=== PATIENT | female | born 1980 | race Caucasian/White ===

== ENCOUNTER → 2022-04-02 | Outpatient (CLI) | payer BC, SELFPAY ==
--- NOTE | 2022-04-02 10:15 | RAD_ITS ---
STUDY: X-RAY CHEST REASON FOR EXAM: Female, 41 years old. PAIN TECHNIQUE: PA and lateral views of the chest. COMPARISON: None. FINDINGS: The lungs are clear and expanded. There is no demonstrated pleural abnormality. Normal size heart. Normal mediastinum and libia. Normal visualized pulmonary arteries. Normal visualized aortic arch and descending thoracic aorta. Normal visualized thoracic spine. Normal visualized ribs, clavicles, and shoulders. There is no demonstrated abnormality of the visualized soft tissue structures of the upper abdomen. RAD/Chest PA and Lateral IMPRESSION: Normal x-ray examination of the chest. Electronically Signed: Elver Gilliland MD at 9:18 EST ,
--- NOTE | 2022-04-02 10:15 | RAD_ITS ---
STUDY: X-RAY - PELVIS REASON FOR EXAM: Female, 41 years old. PAIN TECHNIQUE: One view of the pelvis was obtained. COMPARISON: None. FINDINGS: There is a non-specific bowel gas pattern. Normal visualized soft tissue structures. 8 cm peripherally calcified mass in the pelvis likely consistent with a calcified degenerated uterine fibroid. Second smaller calcified fibroid just to the left of the larger fibroid. Pelvis. Normal bilateral iliac wings, sacroiliac joints and visualized sacrum. Normal visualized bilateral superior and inferior pubic rami. Normal pubic symphysis. Normal ischial tuberosities. Normal visualized right femoral head. Normal right acetabulum. Normal right hip joint. Normal visualized left femoral head. Normal left acetabulum. Normal left hip joint. RAD/Pelvis 1 or 2 Views IMPRESSION: Calcified degenerated uterine fibroids. Electronically Signed: Elver Gilliland MD at 9:06 EST ,
[2022-04-02 11:18] LABS: EXAGEN MAILED SPECIMEN
[2022-04-02 12:18] LABS: International Normalized Ratio 0.9; Partial Thromboplast Time 30.4 Seconds (24.1-36.2); Prothrombin Time (Protime)PT. 12.3 SECONDS (11.7-14.9)
[2022-04-02 12:22] LABS: Color, Urine Yellow (Yellow); Glucose, Dipstick Normal (Normal); Ketone-Dipstick Negative (Negative); Leukocyte Esterase-Dipstick Negative /ul (Negative); Nitrite-Dipstick Negative (Negative); Occult Blood-Urine Negative /ul (Negative); Protein-Dipstick 15 mg/dl (Negative); Urine Bilirubin Dipstick Negative (Negative); Urine Clarity Clear (Clear); Urine Urobilinogen Normal (Normal)
[2022-04-02 13:32] LABS: Hepatitis B Surface Antibody Non-Reactive; Hepatitis B Surface Antigen Non-Reactive (Nonreactive); Hepatitis C Antibody Non-Reactive (Nonreactive)
[2022-04-02 14:50] LABS: Protein, Urine (Random) 16.7 mg/dL (<11.9); Protein:Creat Ratio 82 mg/g CRE (0-200)
[2022-04-02 15:06] LABS: AST(SGOT) 13 U/L (15-37); Alanine Aminotransfer ALT/SGPT 25 U/L (13-56); Albumin, Serum 3.6 g/dL (3.2-5.0); Alkaline Phosphatase 100 U/L (45-117); Anion Gap 7 (5-15); BUN 10 mg/dL (7-18); BUN/Creat Ratio 16.2 RATIO (10-20); Calcium,Total 8.9 mg/dL (8.5-10.1); Chloride 106 mmol/L (98-107); Creatinine, Serum 0.62 mg/dL (0.55-1.02); EST Glomerular Filtration Rate 113 mL/min (>60); Est Glom Filt Rate - Afr Amer 136 mL/min (>60); Globulin 3.7 g/dL (2.2-4.2); Glucose 98 mg/dL (74-106); Potassium 4.2 mmol/L (3.5-5.1); Protein, Total 7.3 g/dL (6.4-8.2); Sodium Level 139 mmol/L (136-145)
[2022-04-02 15:08] LABS: Absolute Lymphocyte Count 2.15 X10^3/uL (0.83-4.51); Absolute Neutrophil Count 7.6 X10^3/uL (2.0-7.7); Basophil# 0.06 X10^3/uL; Basophil% 0.6 % (0-1); Eosinophil# 0.18 X10^3/uL; Eosinophils% 1.7 % (0-5); Hematocrit 44.4 % (37-47); Hemoglobin 14.1 g/dL (12.0-15.0); Lymphocyte # 2.15 X10^3/ul (0.83-4.51); Lymphocyte % 20.6 % (19-41); Mean Corp Hgb Conc 31.8 g/dL (32-36); Mean Corpuscular Hgb 27.7 pg (27.0-32.0); Mean Corpuscular Volume 87.2 fL (81-99); Mean Platelet Vol. 11.1 fl (6.2-12.0); Monocyte# 0.41 X10^3/uL; Monocyte% 3.9 % (0-10); NRBC Flagged by Analyzer 0 % (0-5); Neutrophil # 7.62 X10^3/uL (2.7-7.7); Platelet Count 273 K/mm3 (150-450); RBC Distribution Width CV 12.8 % (11.6-14.6); RBC Distribution Width SD 40.3 fl (35.1-43.9); Red Blood Count 5.09 M/mm3 (4.2-5.4); White Blood Count 10.4 K/mm3 (4.4-11.0)
[2022-04-05 15:08] LABS: Dilute Prothrombin Time (dPT) 37.6 sec (0.0-47.6); Hexagonal Phase Phospholipid 4 sec (0-11); PTT-LA 40.5 sec (0.0-51.9); QNTFERON TB Mitogen Value > 10.00 IU/mL (.); QNTFERON TB Nil Value 0.34 IU/mL (.); QNTFERON TB1+ Ag Value 0.24 IU/mL (.); Thrombin Time 16.1 sec (0.0-23.0); dPT Confirm Ratio 1.12 Ratio (0.00-1.34)
[2022-04-05 15:48] LABS: Interpretation Comment: (.); QNTIFERON TB Positive Criteria Negative (Negative)
== END | disposition home or self-care (01) ==
LOC: MTLAB 10:12
PROVIDERS: PCP Family Medicine; Referring Provider Internal Medicine Rheumatology; Visit Provider Internal Medicine Rheumatology
DX: L40.59 Other psoriatic arthropathy (principal); L40.8 Other psoriasis; I10 Essential (primary) hypertension; F41.9 Anxiety disorder, unspecified; R76.8 Other specified abnormal immunological findings in serum
CPT/HCPCS: 36415; 71046; 72170; 80053; 81002; 82570; 84156; 85025; 85598; 85610; 85670; 85730; 86480; 86706; 86803; 87340

== ENCOUNTER → 2022-07-01 | Outpatient (CLI) | payer BC, SELFPAY ==
[2022-07-01 15:20] LABS: Absolute Lymphocyte Count 1.06 X10^3/uL (0.83-4.51); Absolute Neutrophil Count 7.6 X10^3/uL (2.0-7.7); Basophil# 0.03 X10^3/uL; Basophil% 0.3 % (0-1); Eosinophil# 0.08 X10^3/uL; Eosinophils% 0.9 % (0-5); Hematocrit 43.9 % (37-47); Hemoglobin 14.1 g/dL (12.0-15.0); Lymphocyte # 1.06 X10^3/ul (0.83-4.51); Lymphocyte % 11.4 % (19-41); Mean Corp Hgb Conc 32.1 g/dL (32-36); Mean Corpuscular Hgb 28.1 pg (27.0-32.0); Mean Corpuscular Volume 87.5 fL (81-99); Mean Platelet Vol. 10.9 fl (6.2-12.0); Monocyte# 0.54 X10^3/uL; Monocyte% 5.8 % (0-10); NRBC Flagged by Analyzer 0 % (0-5); Neutrophil # 7.59 X10^3/uL (2.7-7.7); Neutrophil % 81.3 % (47-70); Platelet Count 207 K/mm3 (150-450); RBC Distribution Width CV 13.1 % (11.6-14.6); RBC Distribution Width SD 41.5 fl (35.1-43.9); Red Blood Count 5.02 M/mm3 (4.2-5.4); White Blood Count 9.3 K/mm3 (4.4-11.0)
[2022-07-01 15:41] LABS: ALB/GLOB Ratio 0.8 RATIO (0.9-2.4); AST(SGOT) 10 U/L (15-37); Alanine Aminotransfer ALT/SGPT 20 U/L (13-56); Albumin, Serum 3.4 g/dL (3.2-5.0); Alkaline Phosphatase 85 U/L (45-117); Anion Gap 8 (5-15); BUN 7 mg/dL (7-18); BUN/Creat Ratio 11.2 RATIO (10-20); Calcium,Total 8.8 mg/dL (8.5-10.1); Chloride 104 mmol/L (98-107); Creatinine, Serum 0.62 mg/dL (0.55-1.02); EST Glomerular Filtration Rate 111 mL/min (>60); Est Glom Filt Rate - Afr Amer 135 mL/min (>60); Globulin 4.3 g/dL (2.2-4.2); Glucose 94 mg/dL (74-106); Potassium 3.6 mmol/L (3.5-5.1); Protein, Total 7.7 g/dL (6.4-8.2); Sodium Level 137 mmol/L (136-145)
== END | disposition home or self-care (01) ==
PROVIDERS: PCP Family Medicine; Visit Provider Internal Medicine Rheumatology
DX: L40.59 Other psoriatic arthropathy (principal); R76.8 Other specified abnormal immunological findings in serum; Z79.899 Other long term (current) drug therapy
CPT/HCPCS: 36415; 80053; 85025

== ENCOUNTER → 2022-08-26 | Outpatient (CLI) | payer BC, SELFPAY ==
[2022-08-26 12:05] LABS: Absolute Lymphocyte Count 1.84 X10^3/uL (0.83-4.51); Absolute Neutrophil Count 6.6 X10^3/uL (2.0-7.7); Basophil# 0.04 X10^3/uL; Basophil% 0.4 % (0-1); Eosinophil# 0.24 X10^3/uL; Eosinophils% 2.6 % (0-5); Hematocrit 40.1 % (37-47); Hemoglobin 12.9 g/dL (12.0-15.0); Lymphocyte # 1.84 X10^3/ul (0.83-4.51); Lymphocyte % 20.2 % (19-41); Mean Corp Hgb Conc 32.2 g/dL (32-36); Mean Corpuscular Hgb 28.7 pg (27.0-32.0); Mean Corpuscular Volume 89.1 fL (81-99); Mean Platelet Vol. 10.8 fl (6.2-12.0); Monocyte% 3.3 % (0-10); NRBC Flagged by Analyzer 0 % (0-5); Neutrophil # 6.64 X10^3/uL (2.7-7.7); Neutrophil % 73.2 % (47-70); Platelet Count 229 K/mm3 (150-450); RBC Distribution Width SD 45.3 fl (35.1-43.9); White Blood Count 9.1 K/mm3 (4.4-11.0)
[2022-08-26 12:33] LABS: ALB/GLOB Ratio 0.8 RATIO (0.9-2.4); AST(SGOT) 10 U/L (15-37); Alanine Aminotransfer ALT/SGPT 23 U/L (13-56); Albumin, Serum 3.2 g/dL (3.2-5.0); Alkaline Phosphatase 94 U/L (45-117); Anion Gap 6 (5-15); BUN 12 mg/dL (7-18); BUN/Creat Ratio 20.1 RATIO (10-20); Calcium,Total 8.9 mg/dL (8.5-10.1); Chloride 107 mmol/L (98-107); EST Glomerular Filtration Rate 117 mL/min (>60); Est Glom Filt Rate - Afr Amer 142 mL/min (>60); Glucose 82 mg/dL (74-106); Potassium 3.8 mmol/L (3.5-5.1); Protein, Total 7.2 g/dL (6.4-8.2); Sodium Level 138 mmol/L (136-145)
== END | disposition home or self-care (01) ==
LOC: MTLAB 09:51
PROVIDERS: PCP Family Medicine; Referring Provider Internal Medicine Rheumatology; Visit Provider Internal Medicine Rheumatology
DX: L40.59 Other psoriatic arthropathy (principal); L40.8 Other psoriasis; R76.8 Other specified abnormal immunological findings in serum; Z79.899 Other long term (current) drug therapy
CPT/HCPCS: 36415; 80053; 85025

== ENCOUNTER 2022-10-21 09:52 | Outpatient (CLI) | payer BC, MEDICAID, SELFPAY ==
[2022-10-21 12:26] LABS: Absolute Lymphocyte Count 1.27 X10^3/uL (0.83-4.51); Absolute Neutrophil Count 4.9 X10^3/uL (2.0-7.7); Basophil# 0.04 X10^3/uL; Basophil% 0.6 % (0-1); Eosinophil# 0.17 X10^3/uL; Eosinophils% 2.5 % (0-5); Hematocrit 39.4 % (37-47); Hemoglobin 12.5 g/dL (12.0-15.0); Lymphocyte # 1.27 X10^3/ul (0.83-4.51); Lymphocyte % 18.6 % (19-41); Mean Corp Hgb Conc 31.7 g/dL (32-36); Mean Corpuscular Hgb 28.9 pg (27.0-32.0); Mean Corpuscular Volume 91.2 fL (81-99); Mean Platelet Vol. 10.9 fl (6.2-12.0); Monocyte# 0.42 X10^3/uL; Monocyte% 6.1 % (0-10); NRBC Flagged by Analyzer 0 % (0-5); Neutrophil % 71.8 % (47-70); Platelet Count 201 K/mm3 (150-450); RBC Distribution Width CV 13.4 % (11.6-14.6); RBC Distribution Width SD 44.8 fl (35.1-43.9); Red Blood Count 4.32 M/mm3 (4.2-5.4); White Blood Count 6.8 K/mm3 (4.4-11.0)
[2022-10-21 13:04] LABS: ALB/GLOB Ratio 0.8 RATIO (0.9-2.4); AST(SGOT) 15 U/L (15-37); Alanine Aminotransfer ALT/SGPT 25 U/L (13-56); Albumin, Serum 3.1 g/dL (3.2-5.0); Alkaline Phosphatase 80 U/L (45-117); Anion Gap 5 (5-15); BUN 10 mg/dL (7-18); BUN/Creat Ratio 18.7 RATIO (10-20); Calcium,Total 8.7 mg/dL (8.5-10.1); Chloride 109 mmol/L (98-107); Creatinine, Serum 0.53 mg/dL (0.55-1.02); EST Glomerular Filtration Rate 133 mL/min (>60); Est Glom Filt Rate - Afr Amer 161 mL/min (>60); Globulin 3.8 g/dL (2.2-4.2); Glucose 92 mg/dL (74-106); Potassium 3.8 mmol/L (3.5-5.1); Protein, Total 6.9 g/dL (6.4-8.2); Sodium Level 139 mmol/L (136-145)
== END 2022-10-21 23:59 | disposition home or self-care (01) ==
LOC: MTLAB 09:53
PROVIDERS: PCP Family Medicine; Referring Provider Internal Medicine Rheumatology; Visit Provider Internal Medicine Rheumatology
DX: L40.59 Other psoriatic arthropathy (principal); R76.0 Raised antibody titer; Z79.899 Other long term (current) drug therapy
CPT/HCPCS: 36415; 80053; 85025

== ENCOUNTER → 2022-12-24 | Outpatient (CLI) | payer BC, MEDICAID, SELFPAY ==
[2022-12-24 17:42] LABS: Absolute Lymphocyte Count 1.93 X10^3/uL (0.83-4.51); Absolute Neutrophil Count 8.6 X10^3/uL (2.0-7.7); Basophil# 0.06 X10^3/uL; Basophil% 0.5 % (0-1); Eosinophil# 0.07 X10^3/uL; Eosinophils% 0.6 % (0-5); Hematocrit 37.4 % (37-47); Hemoglobin 12.1 g/dL (12.0-15.0); Lymphocyte # 1.93 X10^3/ul (0.83-4.51); Lymphocyte % 17.2 % (19-41); Mean Corp Hgb Conc 32.4 g/dL (32-36); Mean Corpuscular Hgb 28.8 pg (27.0-32.0); Monocyte# 0.46 X10^3/uL; Monocyte% 4.1 % (0-10); NRBC Flagged by Analyzer 0 % (0-5); Neutrophil # 8.64 X10^3/uL (2.7-7.7); Neutrophil % 77.3 % (47-70); Platelet Count 250 K/mm3 (150-450); RBC Distribution Width CV 13.1 % (11.6-14.6); RBC Distribution Width SD 42.4 fl (35.1-43.9); White Blood Count 11.2 K/mm3 (4.4-11.0)
[2022-12-24 18:08] LABS: ALB/GLOB Ratio 0.9 RATIO (0.9-2.4); AST(SGOT) 18 U/L (15-37); Alanine Aminotransfer ALT/SGPT 24 U/L (13-56); Albumin, Serum 3.3 g/dL (3.2-5.0); Alkaline Phosphatase 92 U/L (45-117); Anion Gap 7 (5-15); BUN 12 mg/dL (7-18); BUN/Creat Ratio 19.2 RATIO (10-20); Calcium,Total 8.8 mg/dL (8.5-10.1); Chloride 107 mmol/L (98-107); Creatinine, Serum 0.63 mg/dL (0.55-1.02); EST Glomerular Filtration Rate 111 mL/min (>60); Est Glom Filt Rate - Afr Amer 134 mL/min (>60); Globulin 3.7 g/dL (2.2-4.2); Glucose 77 mg/dL (74-106); Potassium 3.5 mmol/L (3.5-5.1); Sodium Level 140 mmol/L (136-145)
== END | disposition home or self-care (01) ==
LOC: MTLAB 14:35
PROVIDERS: PCP Family Medicine; Referring Provider Internal Medicine Rheumatology; Visit Provider Internal Medicine Rheumatology
DX: L40.59 Other psoriatic arthropathy (principal); R76.8 Other specified abnormal immunological findings in serum; Z79.899 Other long term (current) drug therapy
CPT/HCPCS: 36415; 80053; 85025

== ENCOUNTER → 2023-03-17 | Outpatient (CLI) | payer MEDICAID, SELFPAY ==
[2023-03-17 15:21] LABS: Absolute Lymphocyte Count 1.78 X10^3/uL (0.83-4.51); Absolute Neutrophil Count 9.7 X10^3/uL (2.0-7.7); Basophil# 0.06 X10^3/uL; Basophil% 0.5 % (0-1); Eosinophils% 1.6 % (0-5); Hematocrit 43.4 % (37-47); Hemoglobin 13.7 g/dL (12.0-15.0); Lymphocyte # 1.78 X10^3/ul (0.83-4.51); Lymphocyte % 14.4 % (19-41); Mean Corp Hgb Conc 31.6 g/dL (32-36); Mean Corpuscular Hgb 28.2 pg (27.0-32.0); Mean Corpuscular Volume 89.5 fL (81-99); Mean Platelet Vol. 10.7 fl (6.2-12.0); Monocyte# 0.53 X10^3/uL; Monocyte% 4.3 % (0-10); NRBC Flagged by Analyzer 0 % (0-5); Neutrophil # 9.73 X10^3/uL (2.7-7.7); Neutrophil % 78.7 % (47-70); Platelet Count 246 K/mm3 (150-450); RBC Distribution Width SD 42.6 fl (35.1-43.9); Red Blood Count 4.85 M/mm3 (4.2-5.4); White Blood Count 12.4 K/mm3 (4.4-11.0)
[2023-03-17 15:54] LABS: ALB/GLOB Ratio 0.8 RATIO (0.9-2.4); AST(SGOT) 13 U/L (15-37); Alanine Aminotransfer ALT/SGPT 20 U/L (13-56); Albumin, Serum 3.3 g/dL (3.2-5.0); Alkaline Phosphatase 92 U/L (45-117); Anion Gap 6 (5-15); BUN 8 mg/dL (7-18); BUN/Creat Ratio 12.5 RATIO (10-20); Calcium,Total 8.4 mg/dL (8.5-10.1); Chloride 109 mmol/L (98-107); Creatinine, Serum 0.64 mg/dL (0.55-1.02); EST Glomerular Filtration Rate 108 mL/min (>60); Est Glom Filt Rate - Afr Amer 131 mL/min (>60); Globulin 4.1 g/dL (2.2-4.2); Glucose 83 mg/dL (74-106); Potassium 3.6 mmol/L (3.5-5.1); Protein, Total 7.4 g/dL (6.4-8.2); Sodium Level 140 mmol/L (136-145)
== END | disposition home or self-care (01) ==
LOC: MTLAB 13:34
PROVIDERS: PCP Family Medicine; Referring Provider Internal Medicine Rheumatology; Visit Provider Internal Medicine Rheumatology
DX: L40.59 Other psoriatic arthropathy (principal); R76.8 Other specified abnormal immunological findings in serum; Z79.899 Other long term (current) drug therapy
CPT/HCPCS: 36415; 80053; 85025

== ENCOUNTER → 2023-05-05 | Outpatient (CLI) | payer MEDICAID, SELFPAY ==
--- OUTSIDE RECORDS SUMMARY | 2023-05-05 14:32 | XMS RPT_ITS | CCD ---
Author Name Unknown Address [address] [place] [address] Organization [facility] Care Team Providers Care Director Clinical Pharmacology Name Role Phone Marianna Rose Primary Care Provider Unavailable Primary Care Provider Unavailhamilton Rose MD, Marianna S Primary Care Provider [phone] PROVIDER, UNKNOWN Attending Unavailable PROVIDER, UNKNOWN Admitting Unavailable CAROL NIX Referring Unavailable Milton WIGGINS, Marianna Brewer Primary Care Provider Chung WIGGINS, Zahra Unavailable [phone] Petrilla DO, Noel F Primary Care Provider Milton, Marianna Primary Care Unavailable Isabela Reddy Attending Unavailable Milton, Marianna Referring Unavailable Greg Burgos Attending Unavailable Milton, Marianna Referring Unavailable Milton, Marianna Primary Care Unavailable Arjun Tejeda Attending Unavailable Milton, Marianna Referring Unavailable Milton, Marianna Primary Care Unavailable Petrilla , Noel F Primary Care Provider Petridolores SHUKLA Noel F Primary Care Provider [phone] PETRILLA, NOEL Primary Care Unavailable PETRILLA, NOEL Attending Unavailable PETRILLA, NOEL Primary Care Unavailable PETRILLA, NOEL Attending Unavailable PETRILLA, NOEL Primary Care Unavailable MARCO ANTONIO WHIPPLE Attending Unavailable PETRILLA, NOEL Primary Care Unavailable PETRILLA, NOEL Primary Care Unavailable MILTON, MARIANNA Primary Care Unavailable MILTON, MARIANNA Primary Care Unavailable MARCO ANTONIO WHIPPLE Attending Unavailable PETRILLA, NOEL Primary Care Unavailable PETRILLA, NOEL Attending Unavailable PETRILLA, NOEL Primary Care Unavailable Allergies Allergy Classification Reported Allergen(s) Allergy Type Date of Onset Reaction(s) Facility (20 sources) Cephalexin; 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: [CEPHALEXIN] Drug Allergy 3 [facility], [place] (16 sources) Lisinopril; 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: [LISINOPRIL] Drug Allergy 9 [place], [place] (11 sources) tiZANidine Drug Allergy 2 [facility] (6 sources) Lisinopril Propensity to adverse reactions to drug 9 Other [facility] Medications Current Medications Medication Drug Class(es) Dates Sig (Normalized) Sig (Original) Blood Pressure Monitor JENNIFER (4 sources) Start: 11-11-2018 Blood Pressure Monitor JENNIFER Indications: Essential hypertension , Family history of hypertension 1 Device by Does not apply route as needed (monitor BP and HR) 1 Device 0 11/11/2018 Active busPIRone hydrochloride 5 mg oral tablet (13 sources) Start: 05-26-2019 End: 09-26-2022 take 1 tablet by mouth twice daily as needed busPIRone (BUSPAR) 5 MG tablet Take 1 Tablet by mouth 2 times daily as needed. 0 10/17/2020 Active doxycycline hyclate 100 mg oral capsule (1 source) Tetracycline-class Drug Start: 12-06-2022 End: 12-13-2022 doxycycline (Vibramycin) 100 MG capsule Indications: Abrasion, left foot, initial encounter Take 1 capsule (100 mg) by mouth 2 times daily for 7 days. Take with at least 8 ounces (large glass) of water, do not lie down for 30 minutes after 14 capsule 0 12/06/2022 12/13/2022 Active [id number] 0.3 ml EPINEPHrine 1 mg/ml auto-injector (18 sources) alpha-Adrenergic Agonist, beta-Adrenergic Agonist, Catecholamine Start: 01-27-2019 EPINEPHrine (Epipen) 0.3 MG/0.3ML injection syringe Use as directed for allergic reaction 0 01/27/2019 Active fluticasone propionate 0.05 mg/actuat metered dose nasal spray (1 source) Corticosteroid Start: 01-23-2019 End: 02-20-2019 fluticasone (FLONASE) 50 MCG/ACT nasal spray 1 spray by Nasal route 2 times daily 0 01/23/2019 02/20/2019 Active folic acid 1 mg oral tablet (5 sources) Start: 2022 take 1 tablet by mouth once daily folic acid (Folvite) 1 MG tablet TAKE 2 TABLETS BY MOUTH ONCE DAILY 0 2022 Active leucovorin 15 mg oral tablet (5 sources) Folate Analog Start: 07-11-2022 take 1 tablet by mouth every week leucovorin (Wellcovorin) 15 MG tablet Take 15 mg by mouth 1 (one) time per week. 0 07/11/2022 Active losartan potassium 50 mg oral tablet (1 source) Angiotensin 2 Receptor Ellie Start: 04-28-2023 End: 05-28-2023 take 1 tablet by mouth once daily losartan (Cozaar) 50 MG tablet Take 1 tablet (50 mg) by mouth daily. 30 tablet 5 04/28/2023 05/28/2023 Active meloxicam 15 mg oral tablet (17 sources) Nonsteroidal Anti-inflammatory Drug Start: 03-01-2023 take 1 tablet by mouth once daily meloxicam (Mobic) 15 MG tablet Take 15 mg by mouth daily. 0 03/01/2023 Active Completed/Discontinued Medications Medication Drug Class(es) Dates Sig (Normalized) Sig (Original) acetaminophen 325 mg / HYDROcodone bitartrate 7.5 mg oral tablet (2 sources) Opioid Agonist Start: 09-26-2022 End: 10-14-2022 take 1 tablet by mouth three times daily as needed for pain HYDROcodone-acetami nophen (Clayton) 7.5-325 MG tablet Indications: Lumbar radiculopathy, acute , Psoriatic arthritis (HCC) Take 1 tablet by mouth 3 times daily as needed for severe pain (7-10) for up to 12 doses. 12 tablet 0 09/26/2022 10/14/2022 Discontinued (Therapy completed) perflutren lipid microspheres (DEFINITY) injection 1.65 mg (1 source) Start: 02-03-2019 End: 02-03-2019 perflutren lipid microspheres (DEFINITY) injection 1.65 mg predniSONE 10 mg oral tablet (5 sources) Start: 09-26-2022 End: 10-14-2022 predniSONE (Deltasone) 10 MG tablet 5 qday for 3 days, then 3 qday for 3 days, then one qday till gone 27 tablet 0 09/26/2022 10/14/2022 Discontinued (Therapy completed) Problems Active Problems Problem Classification Problem Date Documented Date Episodic/Chronic Anxiety disorders (17 sources) Generalized anxiety disorder; 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: [Generalized anxiety disorder] Onset: 08-21-2020 08-21-2020 Chronic Essential hypertension (20 sources) Essential hypertension; 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: [Essential (primary) hypertension] Onset: 04-21-2018 10-19-2018 Chronic Joint disorders and dislocations; trauma-related (17 sources) Patellofemoral syndrome of right knee; 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: [Patellofemoral disorders, right knee] Onset: 08-19-2019 08-19-2019 Chronic Joint disorders and dislocations; trauma-related (1 source) Patellofemoral syndrome of left knee; 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: [Patellofemoral pain syndrome of left knee] Joint disorders and dislocations; trauma-related (1 source) Patellofemoral syndrome of right knee; 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: [Patellofemoral pain syndrome of right knee] Osteoarthritis (3 sources) Bilateral primary osteoarthritis of knee; 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: [Primary gonarthrosis, bilateral] Onset: 09-18-2021 Chronic Other aftercare (3 sources) Patient encounter status; 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: [Encounter for therapeutic drug level monitoring] Onset: 04-28-2023 10-14-2022 Episodic Other aftercare (2 sources) halfway (current) use of non-steroidal anti-inflammatories (NSAID); 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: [halfway (current) use of non-steroidal anti-inflammatories (nsaid)] Onset: 04-28-2023 Episodic Other connective tissue disease (1 source) Pain in left foot; 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: [Pain in left foot] Episodic Other connective tissue disease (2 sources) Calcaneal spur, left foot; 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: [Calcaneal spur, left foot] Onset: 01-31-2022 Episodic Other connective tissue disease (2 sources) Pain in left foot; 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: [Pain in left foot] Onset: 01-31-2022 Episodic Other inflammatory condition of skin (18 sources) Psoriasis; 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: [Psoriasis, unspecified] Onset: 05-01-2020 05-01-2020 Chronic Other inflammatory condition of skin (8 sources) Psoriatic arthritis; 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: [Arthropathic psoriasis, unspecified] Onset: 04-25-2022 09-26-2022 Chronic Other inflammatory condition of skin (2 sources) Arthropathic psoriasis, unspecified; 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: [Arthropathic psoriasis, unspecified (HCC)] Onset: 04-25-2022 Chronic Other nutritional; endocrine; and metabolic disorders (20 sources) Severe obesity; 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: [Morbid (severe) obesity due to excess calories] Onset: 10-19-2018 10-19-2018 Chronic Other nutritional; endocrine; and metabolic disorders (1 source) Body mass index 40+ - severely obese; 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: [Body mass index (BMI) 45.0-49.9, adult] Chronic Other nutritional; endocrine; and metabolic disorders (1 source) Failure to lose weight; 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: [Other symptoms and signs concerning food and fluid intake] 04-28-2023 Episodic Spondylosis; intervertebral disc disorders; other back problems (1 source) Cervical spondylosis; 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: [Spondylosis without myelopathy or radiculopathy, cervical region] Chronic Unclassified (2 sources) Foot Injury; 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: [Foot Injury] Onset: 09-26-2022 Past or Other Problems Problem Classification Problem Date Documented Date Episodic/Chronic Cardiac dysrhythmias (20 sources) Palpitations; 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: [Palpitations] Onset: 01-20-2019 Resolved: 04-25-2022 01-20-2019 Episodic Immunizations and screening for infectious disease (3 sources) Anti-nuclear factor positive; 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: [Other specified abnormal immunological findings in serum] Onset: 01-27-2023 Episodic Nonspecific chest pain (20 sources) Chest pain; 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: [Atypical chest pain] Onset: 08-19-2019 Resolved: 04-25-2022 08-19-2019 Episodic Other aftercare (2 sources) Encounter for therapeutic drug level monitoring; 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: [Encounter for therapeutic drug level monitoring] Onset: 10-14-2022 Episodic Other complications of (3 sources) Multigravida of advanced maternal age; 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: [Supervision of elderly multigravida, first trimester] Onset: 07-25-2015 10-23-2021 Episodic Other female genital disorders (20 sources) Cervical atypism; 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: [Atypical squamous cells of undetermined significance on cytologic smear of cervix (ASC-US)] Onset: 03-18-2016 Resolved: 04-25-2022 05-04-2018 Episodic Other lower respiratory disease (18 sources) Dyspnea; 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: [Dyspnea, unspecified] Onset: 08-19-2019 Resolved: 04-25-2022 08-19-2019 Episodic Other non-traumatic joint disorders (2 sources) Pain in left knee; 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: [Pain in left knee] Onset: 09-18-2021 Episodic Other upper respiratory infections (2 sources) Acute maxillary sinusitis, unspecified; 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: [Acute maxillary sinusitis, unspecified] Onset: 07-04-2022 Episodic Residual codes; unclassified (5 sources) Family history of diabetes mellitus in first degree relative; 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: [Family history of diabetes mellitus] Onset: 04-25-2022 04-25-2022 Episodic Spondylosis; intervertebral disc disorders; other back problems (7 sources) Chronic neck pain; 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: [Cervicalgia] Onset: 09-26-2022 Episodic Superficial injury; contusion (3 sources) Abrasion, left foot, initial encounter; 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: [Abrasion or friction burn of foot and toe(s), without mention of infection] Onset: 12-06-2022 12-06-2022 Episodic Results Test Name Value Interpretation Reference Range Facil ity Vital Signs Date Time Vital Sign Value Performing Clinician Faci lity 04-28-2023 06:57-0500 Body height 167.6 cm Noel Marquez [employer] Work Phone: [facility] 04-28-2023 06:57-0500 Body mass index (BMI) [Ratio] 49.55 kg/m2 Noel Marquez DO Work Phone: [facility] 04-28-2023 06:57-0500 Body temperature 97 [degF] Noel Marquez DO Work Phone: [facility] 04-28-2023 06:57-0500 Body weight 139.25 kg Noel Marquez DO Work Phone: [facility] 04-28-2023 06:57-0500 Diastolic blood pressure 90 mm[Hg] Noel Marquez DO Work Phone: [facility] 04-28-2023 06:57-0500 Heart rate 77 /min Noel Marquez DO Work Phone: [facility] 04-28-2023 06:57-0500 SaO2% (BldA) [Mass fraction] 97 % Noel Marquez [employer] Work Phone: [facility] 04-28-2023 06:57-0500 Systolic blood pressure 140 mm[Hg] Noel Marquez DO Work Phone: [facility] 12-06-2022 09:48-0400 Body height 167.6 cm Marco Antonio IRWIN-C Work Phone: [facility] 12-06-2022 09:48-0400 Body mass index (BMI) [Ratio] 48.1 kg/m2 Marco Antonio Larsono PA-C Work Phone: [facility] 12-06-2022 09:48-0400 Body temperature 97 [degF] Marco Antonio Whipple PA-C Work Phone: [facility] 12-06-2022 09:48-0400 Body weight 135.17 kg Marco Antonio Whipple PA-C Work Phone: [facility] 12-06-2022 09:48-0400 Diastolic blood pressure 84 mm[Hg] Marco Antonio Whipple PA-C Work Phone: [facility] 12-06-2022 09:48-0400 Heart rate 84 /min Marco Antonio Whipple PA-C Work Phone: [facility] 12-06-2022 09:48-0400 SaO2% (BldA) [Mass fraction] 95 % Marco Antonio Whipple PA-C Work Phone: [facility] 12-06-2022 09:48-0400 Systolic blood pressure 134 mm[Hg] Marco Antonio Whipple PA-C Work Phone: [facility] 10-14-2022 06:56-0400 Body height 167.6 cm Noel Marquez DO Work Phone: [facility] 10-14-2022 06:56-0400 Body mass index (BMI) [Ratio] 49.55 kg/m2 Noel Marquez DO Work Phone: [facility] 10-14-2022 06:56-0400 Body temperature 97.11 [degF] Noel Marquez DO Work Phone: [facility] 10-14-2022 06:56-0400 Body weight 139.25 kg Noel Sloana DO Work Phone: [facility] 10-14-2022 06:56-0400 Diastolic blood pressure 81 mm[Hg] Noel Nancella DO Work Phone: [facility] 10-14-2022 06:56-0400 Heart rate 73 /min Noel Nancella DO Work Phone: [facility] 10-14-2022 06:56-0400 SaO2% (BldA) [Mass fraction] 97 % Noel Nancella DO Work Phone: [facility] 10-14-2022 06:56-0400 Systolic blood pressure 138 mm[Hg] Noel Sloana DO Work Phone: [facility] 09-26-2022 09:23-0400 Body height 167.6 cm Noel Sloana DO Work Phone: [facility] 09-26-2022 09:23-0400 Body mass index (BMI) [Ratio] 47.94 kg/m2 Noel Sloana DO Work Phone: [facility] 09-26-2022 09:23-0400 Body temperature 97.5 [degF] Noel Sloana DO Work Phone: [facility] 09-26-2022 09:23-0400 Body weight 134.72 kg Noel Sloana DO Work Phone: [facility] 09-26-2022 09:23-0400 Diastolic blood pressure 83 mm[Hg] Noel Nancella DO Work Phone: [facility] 09-26-2022 09:23-0400 Heart rate 82 /min Noel Nancella DO Work Phone: [facility] 09-26-2022 09:23-0400 SaO2% (BldA) [Mass fraction] 98 % Noel Nancella DO Work Phone: [facility] 09-26-2022 09:23-0400 Systolic blood pressure 121 mm[Hg] Noel Marquez DO Work Phone: [facility] 10-23-2021 10:41-0400 Body height 167.6 cm Zahra Wilkes [facility] 10-23-2021 10:41-0400 Body mass index (BMI) [Ratio] 49.55 kg/m2 Zahra Wilkes MD [facility] 10-23-2021 10:41-0400 Body temperature 97.9 [degF] Zahra Wilkes MD [facility] 10-23-2021 10:41-0400 Body weight 139.25 kg Zahra Wilkes MD [facility] 10-23-2021 10:41-0400 Diastolic blood pressure 90 mm[Hg] Zahra Wilkes MD [facility] 10-23-2021 10:41-0400 Heart rate 86 /min Zahra Wilkes MD [facility] 10-23-2021 10:41-0400 Respiratory rate 16 /min Zahra Wilkes MD [facility] 10-23-2021 10:41-0400 Systolic blood pressure 150 mm[Hg] [facility] Encounter Date Encounter Type Care Provider Facility Start: 04-28-2023 End: 04-28-2023 ambulatory NOEL MARQUEZ [facility] Start: 04-28-2023 End: 04-28-2023 Office outpatient visit 15 minutes Noel Marquez DO Work Phone: [facility] Procedures Date Procedure Procedure Detail Performing Clinician Start: 10-23-2021 Assay of thyroid stimulating hormone tsh Zahra Wilkes MD Work Phone: Start: 10-23-2021 C-reactive protein Nikole Wilkes MD Work Phone: Start: 10-23-2021 Urnls dip stick/tabl et rgnt auto w/o microscopy Zahra Wilkes MD Work Phone: Start: 09-18-2021 Radiologic examinati on knee 1/2 views Greg Burgos MD Work Phone: Start: 05-02-2020 Lipid 1996 panel - S johny or Plasma Noel Nancebahmanpato DO Work Phone: Start: 05-01-2020 Microscopic observat ion [Identifier] in Cervix by Cyto stain Carol Nix [employer] Work Phone: Start: 04-11-2020 Follow-up visit Start: 06-23-2019 Radiologic exam both knees standing anteropost Greg Burgos Work Phone: Start: 06-23-2019 Radiologic examinati on knee 3 views Greg Burgos Work Phone: Start: 06-10-2019 ROUTINE EKG TREADMIL L STRESS TEST Angela Simeonkelly Work Phone: Start: 05-26-2019 Radiologic exam ches t 2 views Angela Verna Work Phone: Start: 02-03-2019 Echo tthrc r-t 2d w/wom-mode compl spec&colr d Jessika Perales Work Phone: Laboratory test resu lt abnormal Abnormal laboratory test Zahra Wilkes MD Work Phone: Plan of Treatment Date Care Activity Detail Author Start: 2040 RSV Immunization aged 60 or older (1 - 1-dose 60+ series) RSV Immunization aged 60 or older (1 - 1-dose 60+ series) [facility] Start: 2030 Shingles (RZV) Vaccine (1 of 2) Shingles (RZV) Vaccine ([facility] of 2) [facility] Start: 2030 Shingles Vaccine (1 of 2) Shingles Vaccine (1 of 2) [facility] Work Phone: Start: 2030 Zoster Vaccines (1 of 2) Zoster Vaccines (1 of 2) [facility] Start: 12-17-2025 DTaP/Tdap/Td vaccine (3 - Td or Tdap) DTaP/Tdap/Td vaccine (3 - Td or Tdap) [facility] Start: 12-17-2025 DTaP/Tdap/Td vaccine (3 - Td) DTaP/Tdap/Td vaccine (3 - Td) [place] Start: 12-17-2025 DTaP/Tdap/Td Vaccines (3 - Td or Tdap) DTaP/Tdap/Td Vaccines (3 - Td or Tdap) [facility] Start: 12-17-2025 Tetanus vaccination Tetanus (Td or Tdap) Booster [facility] Start: 05-02-2025 Lipid panel [facility] Start: 04-26-2024 Cervical cancer screen Cervical cancer screen [facility] Work Phone: Start: 10-29-2023 End: 10-29-2023 Patient encounter procedure 10/29/2023 7:00 AM EDT Office Visit [facility] [address] [place] [address] Noel Marquez, [address] [place] [address] [facility] Start: 10-20-2023 Cervical cancer screen Cervical cancer screen [place], [place] Start: 10-20-2023 Screening for malignant neoplasm of cervix [facility] Start: 05-28-2023 End: 05-28-2023 Clinical Support 05/28/2023 9:00 AM EST Clinical Support [facility] [address] [place] [address] [facility] Start: 05-25-2023 Hepatitis B Vaccines (3 of 3 - 19+ 3-dose series) Hepatitis B Vaccines (3 of 3 - 19+ 3-dose series) [facility] Start: 05-01-2023 Screening for malignant neoplasm of cervix [facility] Start: 04-28-2023 End: 04-28-2024 Lipid 1996 panel - Serum or Plasma Lipid panel Lab Routine Primary hypertension Expected: 04/28/2023 (Approximate), Expires: 04/28/2024 [facility] Work Phone: Immunizations Immunization Date Immunization Notes Care Provider Sree escalera 01-27-2023 hepatitis B vaccine, adult dosage Noel Marquez DO Work Phone: [facility] 12-25-2022 hepatitis B vaccine, adult dosage Marco Antonio Whipple PA-C Work Phone: [facility] 11-22-2022 HepB recombinant, 3-antigent, AI([place])3 Marco Antonio Whipple PA-C Work Phone: [facility] 12-18-2015 tetanus toxoid, redu mira diphtheria toxoid, and acellular pertussis vaccine, adsorbed [facility], [place] 03-24-2013 tetanus toxoid, redu mira diphtheria toxoid, and acellular pertussis vaccine, adsorbed [facility], [place] Payers Date Payer Category Payer Medicaid ANTHEM MEDICAID ANTH MEDICAID OD [id number] 2022-Present [address] [place] [address] Medicaid HMO [id number] 2022 Medicaid [id number] 2021 Unknown [id number] 2017 Unknown BCBS BCBS OUT OF STATE xxxxxxxxxxxxxx 2017-Present [address] [place] [address] xxxxxxxxxxxxxx [id number] 2017 Unknown [id number] 1980 Unknown [id number] 1980 Unknown [id number] 1980 Unknown [id number] 1980 Unknown [id number] Social History Date Type Detail Facility Start: 05-26-2019 End: 01-31-2022 Tobacco smoking status NHIS Never smoker [place] Start: 05-26-2019 Alcohol intake Current drinker of alcohol (finding) [facility] Work Phone: Start: 04-26-2019 End: 01-31-2022 History SDOH Alcohol Frequency 3 [facility] Work Phone: Start: 04-26-2019 End: 06-28-2021 History SDOH Alcohol Std Drinks 1 [place] Start: 10-19-2018 History SDOH Education 13 [place] Start: 10-19-2018 End: 06-28-2021 History SDOH Financial 5 [place] Start: 10-19-2018 End: 06-28-2021 History SDOH Transport Med 2 [place] Start: 04-26-2019 Alcohol Comment 1 every 2 weeks [facility] Phone: Start: 1980 Sex Assigned At Not on file [place] Start: 06-23-2019 End: 04-28-2023 Alcohol intake Ex-drinker (finding) [facility] Start: 01-27-2019 End: 12-06-2022 Alcohol intake Not Currently [place] Start: 01-25-2019 Alcohol Comment occasionally [place] Start: 03-02-2018 End: 01-31-2022 Tobacco use and exposure Smokeless tobacco non-user [facility] Phone: Start: 10-29-2019 End: 01-31-2022 History SDOH Social Connections Living 8 [facility] Work Phone: Start: 06-28-2021 History SDOH Physical Activity DPW 0 [facility] Work Phone: Tobacco smoking stat us NHIS Tobacco smoking consumption unknown [facility] Start: 1980 Sex Assigned At Female [facility] Start: 09-08-2021 End: 12-25-2022 Exposure to SARS-CoV-2 (event) Not sure [facility] Start: 07-04-2022 End: 12-06-2022 History of Social function [facility] Start: 02-07-2022 Gender identity Identifies as female gender (finding) [facility] Start: 02-07-2022 Sexual orientation Heterosexual (finding) [facility] Clinical Notes 10-23-2021 to 04-28-2023 Noel Marquez DO - 04/28/2023 7:00 AM ESTPatient InstructionsMarco Antonio Whipple PA-C - 12/06/2022 9:40 AM EDTEjanuary Marquez DO - 10/14/2022 7:00 AM EDTPatient Instructions Note Date & Type Note Facility 04-28-2023 Note ----- Message from Brittany Marquez DO sent at 04/28/2023 7:31 AM EST ----- Dietitian consultation for obesity [facility] 04-28-2023 History of Present illness Narrative Images from the original note were not included. [facility] [address] [place] [address] [facility] [address] Visit type: Established Patient Reason for Visit: Follow-up (6 month med check /Pt offered flu vaccine pt declined ) Assessment / Plan: Chel was seen today for follow-up. Diagnoses and all orders for this visit: Primary hypertension (Primary) Comments: Uncontrolled, add losartan, BP check 4 weeks Orders: - Lipid panel; Future - Lipid panel NSAID long-term use Psoriatic arthritis (HCC) Class 3 severe obesity due to excess calories with serious comorbidity and body mass index (BMI) of 45.0 to 49.9 in adult (HCC) Comments: Noted, dietitian consultation, discussed GLP-1 agonist options Other orders - metoprolol succinate XL (Toprol-XL) 100 MG 24 hr tablet; Take 1 tablet (100 mg) by mouth daily for 180 doses. - losartan (Cozaar) 50 MG tablet; Take 1 tablet (50 mg) by mouth daily. Subjective: Patient ID: Chel Gaona is a 42 y.o. female. HPI hypertension NSAID management for patient with psoriatic arthritis. Feeling well. Taking Protonix which she takes meloxicam. Recent rheumatology notes and lab noted. Sometimes does have Raynaud's phenomenon. Generally her arthralgias have been well-controlled Review of Systems no recent earache sore throat or cough. Non-smoker. No chest pain or dyspnea. No heartburn or dysphagia. No melena or blood. Bowels are regular. Menses are normal. 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 Difficulty exercising due to time restraints and stiffness of her knees. Allergies Allergen Reactions Lisinopril Other Fatigue, sweatiness Tizanidine Itchy, dizzy Cephalexin Hives Current Outpatient Medications on File Prior to Visit Medication Sig Dispense Refill folic acid (Folvite) 1 MG tablet TAKE 2 TABLETS BY MOUTH ONCE DAILY leucovorin (Wellcovorin) 15 MG tablet Take 15 mg by mouth 1 (one) time per week. meloxicam (Mobic) 15 MG tablet Take 15 mg by mouth daily. methotrexate 2.5 MG tablet Take 15 mg by mouth 1 (one) time per week. pantoprazole (ProtoNix) 40 MG EC tablet Take 1 tablet (40 mg) by mouth daily for 90 doses. Do not crush, chew, or split. 90 tablet 1 triamcinolone (Kenalog) 0.1 % ointment APPLY OINTMENT TOPICALLY TWICE DAILY TO AFFECTED AREA USE A THIN LAYER [DISCONTINUED] metoprolol succinate XL (Toprol-XL) 100 MG 24 hr tablet Take 1 tablet (100 mg) by mouth daily for 90 doses. 90 tablet 1 EPINEPHrine (Epipen) 0.3 MG/0.3ML injection syringe Use as directed for allergic reaction traMADol (Ultram) 50 MG tablet Take 50 mg by mouth 3 times daily as needed. No current facility-administered medications on file prior to visit. Patient Active Problem List Diagnosis Psoriasis FORD (generalized anxiety disorder) Patellofemoral syndrome of right knee Hypertension Class 3 severe obesity due to excess calories with serious comorbidity and body mass index (BMI) of 45.0 to 49.9 in adult (HCC) Psoriatic arthritis (HCC) Family history of diabetes mellitus in father NSAID long-term use Bilateral primary osteoarthritis of knee Social History Tobacco Use Smoking status: Never Smokeless tobacco: Never Substance Use Topics Alcohol use: Not Currently Past Surgical History: Procedure Laterality Date WISDOM TOOTH EXTRACTION one tooth removed Family History Problem Relation Name Age of Onset No Known Problems Mother Jaylene Hypertension Father Devin 05/13 age 75 Diabetes Father Devin PAD, CRF No Known Problems Sister Hypertension Brother No Known Problems Daughter No Known Problems Daughter Diabetes Father's Brother No Known Problems Maternal Grandmother Heart attack Maternal Grandfather age: late 60s Other (lung cancer) Paternal Grandmother 60 Heart attack Paternal Grandfather 66 Objective: BP (!) 140/90 (BP Location: Left arm, Patient Position: Sitting, BP Cuff Size: Large adult) Pulse 77 Temp 36.1 C (97 F) (Temporal) Ht 5' 6 (1.676 m) Wt (!) 307 lb (139 kg) SpO2 97% BMI 49.55 kg/m Physical Exam Pleasant alert and cooperative. Recheck blood pressure is too high. No JVD adenopathy or carotid bruits. No neck masses. Heart is regular without ectopy or murmurs. Lungs are clear. Abdomen soft obese without pain hepatosplenomegaly or masses. Extremities are pink with trace pretibial edema/adipose. Peripheral pulses are fair. 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 [facility] [address] [facility] [address] Dept: [phone] Dept Loc: [phone] Visit type: Established Patient Reason for Visit: thinks wound on left foot Assessment and Plan 1. Abrasion, left foot, initial encounter - doxycycline (Vibramycin) 100 MG capsule; Take 1 capsule (100 mg) by mouth 2 times daily for 7 days. Take with at least 8 ounces (large glass) of water, do not lie down for 30 minutes after, Starting Fri12/06/2022, Until Fri12/13/2022, Normal -Patient has an isolated 2 distinct abrasions to the medial aspect of the left foot just above the arch of the left foot. They started out as more skin tears that she wore sandals several days ago. She has used peroxide several times which is caused an underlying desquamation of the underlying tissue. For this reason we encouraged wound care soap water antibiotic ointment as needed allow the area to eat air dry. Because of the surrounding erythema associated with the ulcerations/abrasions of the tissue we will ultimately place her on doxycycline as she cannot take cephalexin. Also concerned that she is immunocompromise that she takes methotrexate will cover prophylactic with antibiotics. Patient was comfortable with this plan all questions were answered at the bedside. Follow up if symptoms worsen or fail to improve, for Next scheduled follow-up. Subjective HPI this is a 42-year-old female with underlying history of hypertension psoriasis psoriatic arthritis, general anxiety and morbid obesity who contacted the [facility] for immediate same-day evaluation for concerns of foot pain. Patient called today stating that over the last several days her left foot has been sore in the instep area. Patient ultimately states she wore sandals about a week ago and she believes the strap and one of her sandals rubbed the skin around the medial aspect of her left foot. She has numbness and generalized pain and redness surrounding it she has been using peroxide several times to help clean the wound and noticed that it bubbled quite significantly last several times. She is concerned as she takes methotrexate for history of her psoriatic arthritis and concerned that it is developing an infection. She did state last night she had a little bit of fever or felt more chilled no true documented fever today she feels much better she denies any other issues or concerns or rashes. Review of Systems Constitutional: Positive for chills and fatigue. Negative for fever. Respiratory: Negative for cough and shortness of breath. Cardiovascular: Negative for palpitations and leg swelling. Gastrointestinal: Negative for abdominal pain, nausea and vomiting. Skin: Positive for wound. Allergies Allergen Reactions Lisinopril Other reaction(s): Other (See Comments) Chest pain Heart problems. Chest pain Other reaction(s): Other (See Comments) Heart problems. Chest pain Chest pain Tizanidine Itchy, dizzy Cephalexin Hives Outpatient Medications Prior to Visit Medication Sig Dispense Refill folic acid (Folvite) 1 MG tablet TAKE 2 TABLETS BY MOUTH ONCE DAILY leucovorin (Wellcovorin) 15 MG tablet Take 15 mg by mouth 1 (one) time per week. methotrexate 2.5 MG tablet Take 15 mg by mouth 1 (one) time per week. metoprolol succinate XL (Toprol-XL) 100 MG 24 hr tablet Take 1 tablet (100 mg) by mouth daily for 90 doses. 90 tablet 1 pantoprazole (ProtoNix) 40 MG EC tablet Take 1 tablet (40 mg) by mouth daily for 90 doses. Do not crush, chew, or split. 90 tablet 1 traMADol (Ultram) 50 MG tablet Take 50 mg by mouth 3 times daily as needed. triamcinolone (Kenalog) 0.1 % ointment APPLY OINTMENT TOPICALLY TWICE DAILY TO AFFECTED AREA USE A THIN LAYER EPINEPHrine (Epipen) 0.3 MG/0.3ML injection syringe Use as directed for allergic reaction meloxicam (Mobic) 15 MG tablet Take 1 tablet (15 mg) by mouth daily for 90 doses. (Patient not taking: Reported on 12/06/2022) 90 tablet 1 No facility-administered medications prior to visit. Past Medical History: Diagnosis Date Breast cancer screening 04/2018 Family history of diabetes mellitus in father father and pat uncles Family history of heart disease grandparents GERD (gastroesophageal reflux disease) Hypertension 2018 Pap smear for cervical cancer screening 04/2020 due 04/2023 Psoriasis 1991 Psoriatic arthritis (HCC) 2021 Dr. Thorne Social History Tobacco Use Smoking status: Never Smokeless tobacco: Never Substance Use Topics Alcohol use: Not Currently Past Surgical History: Procedure Laterality Date WISDOM TOOTH EXTRACTION one tooth removed Family History Problem Relation Name Age of Onset No Known Problems Mother Jaylene Hypertension Father Devin 05/13 age75 Diabetes Father Devin PAD, CRF No Known Problems Sister Hypertension Brother No Known Problems Daughter No Known Problems Daughter No Known Problems Maternal Grandmother Heart attack Maternal Grandfather age: late 60s Other (lung cancer) Paternal Grandmother 60 Heart attack Paternal Grandfather 66 Objective BP 134/84 (BP Location: Left arm, Patient Position: Sitting, BP Cuff Size: Large adult) Pulse 84 Temp 36.1 C (97 F) (Temporal) Ht 5' 6 (1.676 m) Wt 298 lb (135 kg) SpO2 95% BMI 48.10 kg/m Physical Exam Constitutional: General: She is not in acute distress. Appearance: Normal appearance. She is normal weight. She is not ill-appearing or toxic-appearing. Cardiovascular: Rate and Rhythm: Normal rate and regular rhythm. Heart sounds: Normal heart sounds. No murmur heard. Pulmonary: Effort: Pulmonary effort is normal. No respiratory distress. Breath sounds: Normal breath sounds. Musculoskeletal: Right lower leg: No edema. Left lower leg: No edema. Skin: General: Skin is warm and dry. Comments: Two distinct ulcer abrasions to the right each 1cm ovoid to arch left foot, mild surrounding erythema was noted however there is no signs of lymphangitic streaking or lymphedema. There is no signs of purulent drainage or discharge. Good bounding peripheral pulses were noted. Neurological: Mental Status: She is alert. Data Reviewed and Summarized Labs: Imaging/Testing: Marco Antonio Whipple PA-C 12/06/2022 Please note that portions of this note may have been completed with voice recognition software. Documentation reviewed prior to signing but minor errors in merchandise displayer may have occurred. documented in this encounter [facility] 10-14-2022 History of Present illness Narrative Images from the original note were not included. [facility] [address] [place] [id number] Visit type: Established Patient Reason for Visit: Follow-up (On bp) Assessment / Plan: Chel was seen today for follow-up. Diagnoses and all orders for this visit: Primary hypertension (Primary) Comments: - Stable, continue metoprolol Psoriatic arthritis (HCC) Encounter for monitoring NSAID therapy Other orders - meloxicam (Mobic) 15 MG tablet; Take 1 tablet (15 mg) by mouth daily for 90 doses. - metoprolol succinate XL (Toprol-XL) 100 MG 24 hr tablet; Take 1 tablet (100 mg) by mouth daily for 90 doses. - pantoprazole (ProtoNix) 40 MG EC tablet; Take 1 tablet (40 mg) by mouth daily for 90 doses. Do not crush, chew, or split. Subjective: Patient ID: Chel Gaona is a 42 y.o. female. HPI hypertensive non-smoker for checkup. Feels great on metoprolol. Of note taking meloxicam and Protonix and her overall joint pains are much better. No GI concerns. Review of Systems non-smoker. Denies cough or congestion. No chest pain or palpitations. No heartburn or dysphagia. No bowel changes. 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 She defers at today from physician. Has not been taking Clayton or tramadol. Sees rheumatology regularly with routine lab. Resolving sciatica. Sees chiropractor every few weeks Allergies Allergen Reactions Lisinopril Other reaction(s): Other (See Comments) Chest pain Heart problems. Chest pain Other reaction(s): Other (See Comments) Heart problems. Chest pain Chest pain Tizanidine Itchy, dizzy Cephalexin Hives Current Outpatient Medications on File Prior to Visit Medication Sig Dispense Refill folic acid (Folvite) 1 MG tablet TAKE 2 TABLETS BY MOUTH ONCE DAILY leucovorin (Wellcovorin) 15 MG tablet Take 15 mg by mouth 1 (one) time per week. methotrexate 2.5 MG tablet Take 15 mg by mouth 1 (one) time per week. triamcinolone (Kenalog) 0.1 % ointment APPLY OINTMENT TOPICALLY TWICE DAILY TO AFFECTED AREA USE A THIN LAYER [DISCONTINUED] meloxicam (Mobic) 15 MG tablet Take 1 tablet (15 mg) by mouth daily for 30 doses. 30 tablet 1 [DISCONTINUED] metoprolol succinate XL (Toprol-XL) 100 MG 24 hr tablet Take 1 tablet (100 mg) by mouth daily for 30 doses. 30 tablet 5 [DISCONTINUED] pantoprazole (ProtoNix) 40 MG EC tablet Take 1 tablet (40 mg) by mouth daily. Do not crush, chew, or split. 30 tablet 5 EPINEPHrine (Epipen) 0.3 MG/0.3ML injection syringe Use as directed for allergic reaction [DISCONTINUED] HYDROcodone-acetaminophen (Clayton) 7.5-325 MG tablet Take 1 tablet by mouth 3 times daily as needed for severe pain (7-10) for up to 12 doses. (Patient not taking: Reported on 10/14/2022) 12 tablet 0 [DISCONTINUED] predniSONE (Deltasone) 10 MG tablet TAKE 1 TABLET BY MOUTH ONCE DAILY NEEDED -TAKE FOR 2-5 DAYS NEEDED [DISCONTINUED] predniSONE (Deltasone) 10 MG tablet 5 qday for 3 days, then 3 qday for 3 days, then one qday till gone (Patient not taking: Reported on 10/14/2022) 27 tablet 0 [DISCONTINUED] traMADol (Ultram) 50 MG tablet No current facility-administered medications on file prior to visit. Patient Active Problem List Diagnosis Psoriasis FORD (generalized anxiety disorder) Patellofemoral syndrome of right knee Hypertension Class 3 severe obesity due to excess calories with serious comorbidity and body mass index (BMI) of 45.0 to 49.9 in adult (HCC) Psoriatic arthritis (HCC) Family history of diabetes mellitus in father Social History Tobacco Use Smoking status: Never Smokeless tobacco: Never Substance Use Topics Alcohol use: Not Currently Past Surgical History: Procedure Laterality Date WISDOM TOOTH EXTRACTION one tooth removed Family History Problem Relation Name Age of Onset No Known Problems Mother Jaylene Hypertension Father Devin 05/13 age75 Diabetes Father Devin PAD, CRF No Known Problems Sister Hypertension Brother No Known Problems Daughter No Known Problems Daughter No Known Problems Maternal Grandmother Heart attack Maternal Grandfather age: late 60s Other (lung cancer) Paternal Grandmother 60 Heart attack Paternal Grandfather 66 Objective: BP 138/81 (BP Location: Left arm, Patient Position: Sitting, BP Cuff Size: Large adult) Pulse 73 Temp 36.2 C (97.1 F) (Temporal) Ht 5' 6 (1.676 m) Wt (!) 307 lb (139 kg) SpO2 97% BMI 49.55 kg/m Physical Exam exam is unchanged. Blood pressure excellent. No JVD adenopathy carotid bruits. Heart is regular without gallops or murmurs or ectopy. Lungs are clear. Abdomen obese nontender without pain hepatosplenomegaly masses or bruits. No extremity edema. Negative straight leg raising bilaterally. There is no motor loss of the legs. documented in this encounter [facility] 09-26-2022 History of Present illness Narrative Images from the original note were not included. [facility] [address] [facility] [id number] Visit type: Established Patient Reason for Visit: Back Pain and Foot Injury (Heel spurs on both feet hurt) Assessment / Plan: Chel was seen today for back pain and foot injury. Diagnoses and all orders for this visit: Lumbar radiculopathy, acute (Primary) Comments: See below meds. Stretchs. Continue chiropractic treatment. Call with any sense of weakness or pain to the legs and feet. Call for lumbar xray no res in 1 wk Orders: - HYDROcodone-acetaminophen (Clayton) 7.5-325 MG tablet; Take 1 tablet by mouth 3 times daily as needed for severe pain (7-10) for up to 12 doses. Psoriatic arthritis (HCC) - HYDROcodone-acetaminophen (Clayton) 7.5-325 MG tablet; Take 1 tablet by mouth 3 times daily as needed for severe pain (7-10) for up to 12 doses. Other orders - pantoprazole (ProtoNix) 40 MG EC tablet; Take 1 tablet (40 mg) by mouth daily. Do not crush, chew, or split. - predniSONE (Deltasone) 10 MG tablet; 5 qday for 3 days, then 3 qday for 3 days, then one qday till gone - meloxicam (Mobic) 15 MG tablet; Take 1 tablet (15 mg) by mouth daily for 30 doses. Subjective: Patient ID: Chel Gaona is a 42 y.o. female. HPI patient with psoriatic arthritis presents with 3 to 4 days of an acute low back pain with numbness to both legs. No direct fall or trauma. History of low back pain for many years in fact goes to chiropractor every few weeks. No bowel or bladder incontinence. Recently on tramadol for low back pain without relief. Was on prednisone about 3 months ago. Overall her joints feel better on methotrexate and folic acid. Of note she was on meloxicam for a while but was taken off of that when she told her rheumatology she was having some gastritis. She misses that med for her knees and her plantar fasciitis. Review of Systems no chronic sciatica. Chiropractic treatment usually helps. No direct fall or trauma. No bowel or bladder incontinence. No increase Valsalva maneuvers. Low back pain is more on the right side. Some tingling to both legs in the posterior thighs. No sense of weakness of her feet or toes. History of heartburn but no chronic treatment. Has never had EGD. She does not smoke or drink. No history of ulcers. No melena or blood. Allergies Allergen Reactions Lisinopril Other reaction(s): Other (See Comments) Chest pain Heart problems. Chest pain Other reaction(s): Other (See Comments) Heart problems. Chest pain Chest pain Tizanidine Itchy, dizzy Cephalexin Hives Current Outpatient Medications on File Prior to Visit Medication Sig Dispense Refill EPINEPHrine (Epipen) 0.3 MG/0.3ML injection syringe Use as directed for allergic reaction folic acid (Folvite) 1 MG tablet TAKE 2 TABLETS BY MOUTH ONCE DAILY leucovorin (Wellcovorin) 15 MG tablet Take 15 mg by mouth 1 (one) time per week. methotrexate 2.5 MG tablet Take 15 mg by mouth 1 (one) time per week. metoprolol succinate XL (Toprol-XL) 100 MG 24 hr tablet Take 1 tablet (100 mg) by mouth daily for 30 doses. 30 tablet 5 predniSONE (Deltasone) 10 MG tablet TAKE 1 TABLET BY MOUTH ONCE DAILY NEEDED -TAKE FOR 2-5 DAYS NEEDED traMADol (Ultram) 50 MG tablet triamcinolone (Kenalog) 0.1 % ointment APPLY OINTMENT TOPICALLY TWICE DAILY TO AFFECTED AREA USE A THIN LAYER [DISCONTINUED] busPIRone (Buspar) 5 MG tablet Take 1 tablet by mouth 2 times daily as needed. [DISCONTINUED] meloxicam (Mobic) 15 MG tablet Take 15 mg by mouth daily. No current facility-administered medications on file prior to visit. Patient Active Problem List Diagnosis Psoriasis FORD (generalized anxiety disorder) Patellofemoral syndrome of right knee Hypertension Class 3 severe obesity due to excess calories with serious comorbidity and body mass index (BMI) of 45.0 to 49.9 in adult (HCC) Psoriatic arthritis (HCC) Family history of diabetes mellitus in father Social History Tobacco Use Smoking status: Never Smokeless tobacco: Never Substance Use Topics Alcohol use: Not Currently Past Surgical History: Procedure Laterality Date WISDOM TOOTH EXTRACTION one tooth removed Family History Problem Relation Name Age of Onset No Known Problems Mother Jaylene Hypertension Father Devin alive age 75 Diabetes Father Devin PAD, CRF No Known Problems Sister Hypertension Brother No Known Problems Daughter No Known Problems Daughter No Known Problems Maternal Grandmother Heart attack Maternal Grandfather age: late 60s Lung cancer Paternal Grandmother Other (lung cancer) Paternal Grandmother 60 Heart attack Paternal Grandfather 66 Objective: BP 121/83 Pulse 82 Temp 36.4 C (97.5 F) (Temporal) Ht 5' 6 (1.676 m) Wt 297 lb (135 kg) SpO2 98% BMI 47.94 kg/m Physical Exam pleasant cooperative no CVA tenderness. Nontender thoracic and lumbar spinal process palpation. Pain along the right SI joint. Positive straight leg raise on the right. Negative contralateral straight leg raising. Normal hip range of motion without deficits. Reflexes are preserved in both upper and lower extremities. Toes downgoing no clonus. There is no motor or sensory loss of any extremity. She can walk on her heels and toes but cautiously. Feet are little cool but dorsalis pedis and posterior tibial pulses are adequate. Abdomen soft obese nontender without obvious masses. 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 Observe for any pain or weakness of the legs or feet. documented in this encounter [facility] 10-23-2021 History of Present illness Narrative New Rheumatology Note CC: abnormal labs Referred by: Patient HPI: Chel Gaona is a 41 year old female here for evaluation of above complaint Ongoing since about 2016; feet pain, dx plantar fasciitis. Progressed to knee pains. Intestinal problems w gall bladder attack. Chest pains- attributed to anxiety. Back pain started in june. Woke up and couldn't walk, felt a pop. Saw doc and labs done. crp really high Stress triggers her pain. Can be out of work 2-5 days bc of joint pains. Starting PT for knees; didn't help in the past. Had CSI for left knee helped only 2 weeks Pain in knees not constant but can be all day. Not necessarily activity related. Hands will lock up and neck. No wrist pains. Elbow had a locked episode but unclear etiology. Swelling in left knee mostly, particularly after climbing on a ladder or stress. Tried: mobic 15mg daily since June. More stomach pains. Did have some pain relief initially. Prednisone trial- didn't help, messed up her menses zanaflex- uses prn, gets very loopy. MAR 1:320 Toes color change purple only on waking, improves w activity. Never cold exposure. No oral ulcers Feels more light sensitive in eyes and mild driness but no gtts. No dry mouth. Aunt w rheumatoid. Never seizures. No serositis. No eye inflammation Gets some hairloss in clumps a times. No rash on scalp. Behind ears and Patch upper back, many topicals otc didn't help. Told eczema. PM/SHx: anxiety, htn; no surgeries SocialHx: never smoker; works at [employer] FamilyHx: mom catarats; dad dialysis; dad mac degeneration Allergies: lisinopril, keflex Current Outpatient Medications Medication Sig Dispense Refill meloxicam (MOBIC) 15 MG tablet tizanidine (ZANAFLEX) 4 MG tablet Take 4 mg by mouth. metoprolol (TOPROL-XL) 50 mg XL tablet Take 1 Tablet by mouth daily. busPIRone (BUSPAR) 5 MG tablet Take 1 Tablet by mouth 2 times daily as needed. No current facility-administered medications for this visit. ROS: all ten systems are reviewed and negative except for pertinent positive and negative stated in the HPI Physical Exam Constitutional: General: She is not in acute distress. Appearance: She is obese. HENT: Head: Normocephalic and atraumatic. Eyes: Conjunctiva/sclera: Conjunctivae normal. Cardiovascular: Rate and Rhythm: Normal rate and regular rhythm. Heart sounds: Normal heart sounds. No murmur heard. No friction rub. No gallop. Pulmonary: Effort: Pulmonary effort is normal. Breath sounds: Normal breath sounds. Abdominal: General: Bowel sounds are normal. Palpations: Abdomen is soft. Tenderness: There is no abdominal tenderness. Musculoskeletal: General: Normal range of motion. Right shoulder: Normal. Left shoulder: Normal. Right elbow: Normal. Left elbow: Normal. Right wrist: Normal. Left wrist: Normal. Right hand: Normal. Left hand: Normal. Cervical back: Normal range of motion. Lumbar back: Normal. Right hip: Normal. Left hip: Normal. Right knee: Normal. Left knee: Normal. Right ankle: Normal. Left ankle: Normal. Right foot: Normal. Left foot: Normal. Lymphadenopathy: Cervical: No cervical adenopathy. Skin: General: Skin is warm and dry. Findings: Rash (upper back; 5inch plaque w moderate scale; around both ears small scaly plaque; small plaque frontal scalp) present. Neurological: Mental Status: She is alert and oriented to person, place, and time. Gait: Gait is intact. Psychiatric: Mood and Affect: Mood and affect normal. Cognition and Memory: Memory normal. Labs: 06/2021 MAR 1: 320 RF neg CRP 25 mg/L SED 30mm/hr Assessment/Plan: Chel Gaona is a 41 year old female with psoriasis behind ears and upper back; foot pains remote plantar fasciitis and acute back pain 06/2021 and chronic left knee pain; morbid obesity #MAR+; no s/s ctd; suspect false positive related psoriasis perhaps -check c3, c4, agus, ua/tp for completion #psoriasis- discussed pathology, trial topical triamcinolone cream, discussed risks and how to use #generalized alopecia- likely related to mild scalp pso -check tsh for completion #left knee pain- early OA with chondromalacia -starting PT -discussed weight loss and preventative supportive care #back pain, acute, intermittent neck pain- discussed msk pain and likely early OA; no history suggestive of PsA -continue mobic; given mild gi discomfort, discussed cut in half, use GI protection, consider GI consult if not improving w cessation -start PT #anxiety- discussed stress and anxiety playing a role in chronic pain #suspected IGOR- discussed PSG #elevated APR- discussed elevated in June likely related to acute back pain -check esr, CRP; discussed likely will be mild elevation bc of obesity and suspect IGOR -discussed risks and benefits to plan; answered all questions rtc pending above work up or prn Zahra Wilkes MD 10:42 AM Patient was identified by name and date of . Ani Turner Patient at risk for falls:No Falls Risk protocol implemented: No documented in this encounter [facility] documented in this encounter [facility] Work Phone: Evaluation note* Diagnosis Psoriasis- Primary Other psoriasis Abnormal laboratory test Other abnormal clinical finding Mechanical back pain Backache, unspecified Cervical spondylosis Cervical spondylosis without myelopathy MAR positive Other and unspecified nonspecific immunological findings Body mass index (BMI) 45.0-49.9, adult ([facility] Left foot pain Pain in limb documented in this encounter [facility] Work Phone: Evaluation note* Diagnosis Lumbar radiculopathy, acute- Primary Psoriatic arthritis (HCC) Psoriatic arthropathy [facility] Primary hypertension- Primary Unspecified essential hypertension Psoriatic arthritis (HCC) Psoriatic arthropathy Encounter for monitoring NSAID therapy [facility] Diagnosis Abrasion, left foot, initial encounter- Primary [facility] Diagnosis Primary hypertension- Primary Unspecified essential hypertension NSAID long-term use Encounter for long-term (current) use of non-steroidal anti-inflammatories Psoriatic arthritis (HCC) Psoriatic arthropathy Class 3 severe obesity due to excess calories with serious comorbidity and body mass index (BMI) of 45.0 to 49.9 in adult (HCC) Unable to lose weight documented in this encounter [facility] Assessments Diagnosis Chest pain, unspecified type SOB (shortness of breath) Shortness of breath Diagnosis Chest pain, unspecified type Diagnosis Patellofemoral pain syndrome of left knee Patellofemoral pain syndrome of right knee Diagnosis Essential hypertension Unspecified essential hypertension Class 3 severe obesity due to excess calories with serious comorbidity and body mass index (BMI) of 45.0 to 49.9 in adult (HCC) Palpitations Atypical chest pain Other chest pain Advance Directives No Advanced Directives Records FoundDocuments on File Type Date 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 Advance Directives and Living Will Power of Clinical Trial Specialist Documents on File Type Date 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 Advance Directives and Living Will Power of Clinical Trial Specialist Documents on File Type Date 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 ACP-Advance Directive ACP-Power of Clinical Trial Specialist Summary Purpose Family History No Family History Records FoundNo Family History Records FoundNo Family History Records FoundNo Family History Records FoundNo Family History Records Found Reason for Referral Status Reason Specialty Diagnoses / Procedures Referre d By Contact Referred To Contact Closed Cardiology Diagnoses Essential hypertension Class 3 severe obesity due to excess calories with serious comorbidity and body mass index (BMI) of 45.0 to 49.9 in adult (HCC) Palpitations Atypical chest pain Procedures ECHO Complete 2D W Doppler W Color Jessika Perales MD [address] [facility] [address] [place] [address] Specialty Diagnoses / Procedures Referred By Contac t Referred To Contact Diagnoses Mechanical back pain Cervical spondylosis Zahra Wilkes MD [address] [place] [id number] Referral ID Status Reason Start Date Expiration Date V isits Requested Visits Authorized [id number] Authorized 10/23/2021 10/23/2022 3 3 Comments Physical therapy Diagnosis: chronic back and neck pain, 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 Evaluate and treat Additional Source Comments INFORMATION SOURCE (unrecogn ized section and content) DATE CREATED AUTHOR AUTHOR'S ORGANIZ ATION 07/02/2021 [employer] DATE CREATED AUTHOR AUTHOR'S ORGANIZ ATION 10/24/2021 [employer] DATE CREATED AUTHOR AUTHOR'S ORGANIZ ATION 02/10/2022 [employer] DATE CREATED AUTHOR AUTHOR'S ORGANIZ ATION 04/29/2023 [employer] [facility] Care Teams (unrecognized sec tion and content) Director Clinical Pharmacology Relationship Specialty Start Date End Date Marianna Rose MD [address] [place] [address], [address] [place], [place] [phone] PCP - General Family Medicine 03/02/18 Director Clinical Pharmacology Relationship Specialty Start Date End Date Marianna Rose MD [address] [place] [address], [address] [place], [place] [phone] PCP - General Family Medicine 03/02/18 Director Clinical Pharmacology Relationship Specialty Start Date End Date Zahra Wilkes MD [address] [place] [phone] Physician Rheumatology 11/24/21 Director Clinical Pharmacology Relationship Specialty Start Date End Date JimmyNoel, [address] [place] [address] PCP - General Family Medicine 01/31/22 Director Clinical Pharmacology Relationship Specialty Start Date End Date Noel Marquez DO [address], [place] [phone] PCP - General Family Medicine 09/26/22 Director Clinical Pharmacology Relationship Specialty Start Date End Date Noel Marquez DO [address] [place], [place] [phone] PCP - General Family Medicine 09/26/22 Director Clinical Pharmacology Relationship Specialty Start Date End Date GoyobahmanNoel whyte DO [address], [place] [phone] PCP - General Family Medicine 09/26/22 Director Clinical Pharmacology Relationship Specialty Start Date End Date Noel Marquez DO [address] [facility] [address] [place] [address] PCP - General Family Medicine 09/26/22 Reason for Visit (unrecogniz ed section and content) Reason Comments Back Pain Foot Injury Heel spurs on both f eet hurt Reason Comments Follow-up On bp Reason Comments thinks wound on left foot Reason Comments Follow-up 6 month med check Pt offered flu vaccine pt declined FOR RECORDS PERTAINING TO PATIENTS WHO ARE OR HAVE BEEN ENROLLED IN A CHEMICAL DEPENDENCY/SUBSTANCEABUSE PROGRAM, SOME INFORMATION MAY BE OMITTED. This clinical summary was aggregated from multiple sources. Caution should be exercised in using it in the provision of clinical care. This summary normalizes information from multiple sources, and as a consequence, information in this document may materially change the coding, format and clinical context of patient data. In addition, data may be omitted in some cases. CLINICAL DECISIONS SHOULD BE BASED ON THE PRIMARY CLINICAL RECORDS. [facility] provides no warranty or guarantee of the accuracy or completeness of information in this document.
[2023-05-05 15:16] LABS: Absolute Lymphocyte Count 1.88 X10^3/uL (0.83-4.51); Absolute Neutrophil Count 6.9 X10^3/uL (2.0-7.7); Basophil# 0.06 X10^3/uL; Basophil% 0.6 % (0-1); Eosinophils% 2.1 % (0-5); Hematocrit 41.5 % (37-47); Hemoglobin 13.2 g/dL (12.0-15.0); Lymphocyte # 1.88 X10^3/ul (0.83-4.51); Mean Corp Hgb Conc 31.8 g/dL (32-36); Mean Corpuscular Hgb 28.3 pg (27.0-32.0); Mean Corpuscular Volume 89.1 fL (81-99); Mean Platelet Vol. 11.4 fl (6.2-12.0); Monocyte# 0.38 X10^3/uL; NRBC Flagged by Analyzer 0 % (0-5); Neutrophil # 6.85 X10^3/uL (2.7-7.7); Neutrophil % 72.9 % (47-70); Platelet Count 262 K/mm3 (150-450); RBC Distribution Width CV 13.4 % (11.6-14.6); RBC Distribution Width SD 43.4 fl (35.1-43.9); Red Blood Count 4.66 M/mm3 (4.2-5.4); White Blood Count 9.4 K/mm3 (4.4-11.0)
[2023-05-05 15:43] LABS: ALB/GLOB Ratio 0.8 RATIO (0.9-2.4); AST(SGOT) 17 U/L (15-37); Alanine Aminotransfer ALT/SGPT 37 U/L (13-56); Albumin, Serum 3.3 g/dL (3.2-5.0); Alkaline Phosphatase 111 U/L (45-117); Anion Gap 6 (5-15); BUN 11 mg/dL (7-18); BUN/Creat Ratio 18.3 RATIO (10-20); Calcium,Total 8.6 mg/dL (8.5-10.1); Chloride 109 mmol/L (98-107); EST Glomerular Filtration Rate 116 mL/min (>60); Est Glom Filt Rate - Afr Amer 140 mL/min (>60); Globulin 3.9 g/dL (2.2-4.2); Glucose 93 mg/dL (74-106); Potassium 3.9 mmol/L (3.5-5.1); Protein, Total 7.2 g/dL (6.4-8.2); Sodium Level 141 mmol/L (136-145)
== END | disposition home or self-care (01) ==
LOC: MTLAB 13:37
PROVIDERS: PCP Family Medicine; Referring Provider Internal Medicine Rheumatology; Visit Provider Internal Medicine Rheumatology
DX: L40.59 Other psoriatic arthropathy (principal); R76.8 Other specified abnormal immunological findings in serum; Z79.899 Other long term (current) drug therapy
CPT/HCPCS: 36415; 80053; 85025

== ENCOUNTER → 2023-07-01 | Outpatient (CLI) | payer MEDICAID, SELFPAY ==
[2023-07-01 18:37] LABS: ALB/GLOB Ratio 0.9 RATIO (0.9-2.4); AST(SGOT) 14 U/L (15-37); Alanine Aminotransfer ALT/SGPT 24 U/L (13-56); Albumin, Serum 3.3 g/dL (3.2-5.0); Alkaline Phosphatase 93 U/L (45-117); Anion Gap 5 (5-15); BUN 16 mg/dL (7-18); BUN/Creat Ratio 26.1 RATIO (10-20); Calcium,Total 8.6 mg/dL (8.5-10.1); Chloride 107 mmol/L (98-107); Creatinine, Serum 0.61 mg/dL (0.55-1.02); EST Glomerular Filtration Rate 113 mL/min (>60); Est Glom Filt Rate - Afr Amer 137 mL/min (>60); Globulin 3.5 g/dL (2.2-4.2); Glucose 90 mg/dL (74-106); Potassium 3.6 mmol/L (3.5-5.1); Protein, Total 6.8 g/dL (6.4-8.2); Sodium Level 138 mmol/L (136-145)
[2023-07-01 18:44] LABS: Absolute Lymphocyte Count 1.94 X10^3/uL (0.83-4.51); Absolute Neutrophil Count 7.6 X10^3/uL (2.0-7.7); Basophil# 0.04 X10^3/uL; Basophil% 0.4 % (0-1); Eosinophil# 0.21 X10^3/uL; Hematocrit 36.5 % (37-47); Hemoglobin 11.9 g/dL (12.0-15.0); Lymphocyte # 1.94 X10^3/ul (0.83-4.51); Lymphocyte % 18.9 % (19-41); Mean Corp Hgb Conc 32.6 g/dL (32-36); Mean Corpuscular Hgb 28.8 pg (27.0-32.0); Mean Corpuscular Volume 88.4 fL (81-99); Monocyte# 0.46 X10^3/uL; Monocyte% 4.5 % (0-10); NRBC Flagged by Analyzer 0 % (0-5); Neutrophil # 7.59 X10^3/uL (2.7-7.7); Neutrophil % 73.8 % (47-70); Platelet Count 223 K/mm3 (150-450); RBC Distribution Width CV 13.3 % (11.6-14.6); Red Blood Count 4.13 M/mm3 (4.2-5.4); White Blood Count 10.3 K/mm3 (4.4-11.0)
== END | disposition home or self-care (01) ==
LOC: MTLAB 16:16
PROVIDERS: PCP Family Medicine; Referring Provider Internal Medicine Rheumatology; Visit Provider Internal Medicine Rheumatology
DX: L40.59 Other psoriatic arthropathy (principal); R76.8 Other specified abnormal immunological findings in serum; Z79.899 Other long term (current) drug therapy
CPT/HCPCS: 36415; 80053; 85025

== ENCOUNTER → 2023-10-01 | Outpatient (CLI) | payer MEDICAID, SELFPAY ==
[2023-10-01 16:01] LABS: Absolute Lymphocyte Count 1.93 X10^3/uL (0.83-4.51); Absolute Neutrophil Count 6.2 X10^3/uL (2.0-7.7); Basophil# 0.04 X10^3/uL; Basophil% 0.5 % (0-1); Eosinophil# 0.13 X10^3/uL; Eosinophils% 1.5 % (0-5); Hematocrit 37.3 % (37-47); Hemoglobin 12.3 g/dL (12.0-15.0); Lymphocyte # 1.93 X10^3/ul (0.83-4.51); Lymphocyte % 22.2 % (19-41); Mean Corpuscular Hgb 28.9 pg (27.0-32.0); Mean Corpuscular Volume 87.8 fL (81-99); Mean Platelet Vol. 11.3 fl (6.2-12.0); Monocyte# 0.35 X10^3/uL; NRBC Flagged by Analyzer 0 % (0-5); Neutrophil # 6.23 X10^3/uL (2.7-7.7); Neutrophil % 71.6 % (47-70); Platelet Count 221 K/mm3 (150-450); RBC Distribution Width CV 13.3 % (11.6-14.6); Red Blood Count 4.25 M/mm3 (4.2-5.4); White Blood Count 8.7 K/mm3 (4.4-11.0)
[2023-10-01 16:14] LABS: ALB/GLOB Ratio 0.9 RATIO (0.9-2.4); AST(SGOT) 10 U/L (15-37); Alanine Aminotransfer ALT/SGPT 22 U/L (13-56); Albumin, Serum 3.2 g/dL (3.2-5.0); Alkaline Phosphatase 94 U/L (45-117); Anion Gap 5 (5-15); BUN 14 mg/dL (7-18); BUN/Creat Ratio 23.7 RATIO (10-20); Calcium,Total 9.1 mg/dL (8.5-10.1); Chloride 109 mmol/L (98-107); Creatinine, Serum 0.59 mg/dL (0.55-1.02); EST Glomerular Filtration Rate 118 mL/min (>60); Est Glom Filt Rate - Afr Amer 143 mL/min (>60); Globulin 3.7 g/dL (2.2-4.2); Glucose 82 mg/dL (74-106); Potassium 3.6 mmol/L (3.5-5.1); Protein, Total 6.9 g/dL (6.4-8.2); Sodium Level 140 mmol/L (136-145)
== END | disposition home or self-care (01) ==
PROVIDERS: PCP Family Medicine; Referring Provider Internal Medicine Rheumatology; Visit Provider Internal Medicine Rheumatology
DX: L40.59 Other psoriatic arthropathy (principal); Z79.899 Other long term (current) drug therapy; R76.8 Other specified abnormal immunological findings in serum; L40.8 Other psoriasis; M21.41 Flat foot [pes planus] (acquired), right foot; I10 Essential (primary) hypertension; F41.9 Anxiety disorder, unspecified
CPT/HCPCS: 36415; 80053; 85025

== ENCOUNTER → 2023-12-29 | Outpatient (CLI) | payer MEDICAID, SELFPAY ==
[2023-12-29 10:18] LABS: Absolute Lymphocyte Count 1.99 X10^3/uL (0.83-4.51); Absolute Neutrophil Count 5.7 X10^3/uL (2.0-7.7); Basophil# 0.04 X10^3/uL; Basophil% 0.5 % (0-1); Eosinophil# 0.21 X10^3/uL; Eosinophils% 2.5 % (0-5); Hematocrit 37.2 % (37-47); Hemoglobin 12.2 g/dL (12.0-15.0); Lymphocyte # 1.99 X10^3/ul (0.83-4.51); Mean Corp Hgb Conc 32.8 g/dL (32-36); Mean Corpuscular Hgb 29.3 pg (27.0-32.0); Mean Corpuscular Volume 89.4 fL (81-99); Mean Platelet Vol. 10.5 fl (6.2-12.0); Monocyte# 0.34 X10^3/uL; Monocyte% 4.1 % (0-10); NRBC Flagged by Analyzer 0 % (0-5); Neutrophil # 5.67 X10^3/uL (2.7-7.7); Neutrophil % 68.5 % (47-70); Platelet Count 218 K/mm3 (150-450); RBC Distribution Width CV 12.7 % (11.6-14.6); RBC Distribution Width SD 41.4 fl (35.1-43.9); Red Blood Count 4.16 M/mm3 (4.2-5.4); White Blood Count 8.3 K/mm3 (4.4-11.0)
[2023-12-29 10:33] LABS: ALB/GLOB Ratio 0.8 RATIO (0.9-2.4); AST(SGOT) 10 U/L (15-37); Alanine Aminotransfer ALT/SGPT 18 U/L (13-56); Alkaline Phosphatase 87 U/L (45-117); Anion Gap 5 (5-15); BUN 13 mg/dL (7-18); BUN/Creat Ratio 23.6 RATIO (10-20); Calcium,Total 8.9 mg/dL (8.5-10.1); Chloride 106 mmol/L (98-107); Creatinine, Serum 0.55 mg/dL (0.55-1.02); EST Glomerular Filtration Rate 127 mL/min (>60); Est Glom Filt Rate - Afr Amer 154 mL/min (>60); Globulin 3.8 g/dL (2.2-4.2); Glucose 105 mg/dL (74-106); Potassium 3.5 mmol/L (3.5-5.1); Protein, Total 6.8 g/dL (6.4-8.2); Sodium Level 139 mmol/L (136-145)
== END | disposition home or self-care (01) ==
PROVIDERS: PCP Family Medicine; Referring Provider Internal Medicine Rheumatology; Visit Provider Internal Medicine Rheumatology
DX: L40.59 Other psoriatic arthropathy (principal); L40.8 Other psoriasis; R76.8 Other specified abnormal immunological findings in serum; Z79.899 Other long term (current) drug therapy
CPT/HCPCS: 36415; 80053; 85025

== ENCOUNTER → 2024-03-29 | Outpatient (CLI) | payer MEDICAID, SELFPAY ==
[2024-03-29 17:30] LABS: Absolute Neutrophil Count 10.2 X10^3/uL (2.0-7.7); Basophil# 0.06 X10^3/uL; Basophil% 0.5 % (0-1); Eosinophil# 0.14 X10^3/uL; Eosinophils% 1.1 % (0-5); Hematocrit 38.4 % (37-47); Hemoglobin 12.4 g/dL (12.0-15.0); Lymphocyte % 17.4 % (19-41); Mean Corp Hgb Conc 32.3 g/dL (32-36); Mean Corpuscular Hgb 28.9 pg (27.0-32.0); Mean Corpuscular Volume 89.5 fL (81-99); Mean Platelet Vol. 10.8 fl (6.2-12.0); Monocyte# 0.47 X10^3/uL; Monocyte% 3.6 % (0-10); NRBC Flagged by Analyzer 0 % (0-5); Neutrophil # 10.18 X10^3/uL (2.7-7.7); Neutrophil % 76.9 % (47-70); Platelet Count 242 K/mm3 (150-450); RBC Distribution Width CV 13.1 % (11.6-14.6); RBC Distribution Width SD 42.1 fl (35.1-43.9); Red Blood Count 4.29 M/mm3 (4.2-5.4); White Blood Count 13.2 K/mm3 (4.4-11.0)
[2024-03-29 19:02] LABS: ALB/GLOB Ratio 0.8 RATIO (0.9-2.4); AST(SGOT) 14 U/L (15-37); Alanine Aminotransfer ALT/SGPT 21 U/L (13-56); Albumin, Serum 3.1 g/dL (3.2-5.0); Alkaline Phosphatase 93 U/L (45-117); Anion Gap 4 (5-15); BUN 11 mg/dL (7-18); BUN/Creat Ratio 13.3 RATIO (10-20); Calcium,Total 8.8 mg/dL (8.5-10.1); Chloride 107 mmol/L (98-107); Creatinine, Serum 0.83 mg/dL (0.55-1.02); EST Glomerular Filtration Rate 79 mL/min (>60); Est Glom Filt Rate - Afr Amer 96 mL/min (>60); Glucose 108 mg/dL (74-106); Potassium 3.2 mmol/L (3.5-5.1); Protein, Total 7.1 g/dL (6.4-8.2); Sodium Level 139 mmol/L (136-145)
== END | disposition home or self-care (01) ==
LOC: MTLAB 15:22
PROVIDERS: PCP Family Medicine; Referring Provider Internal Medicine Rheumatology; Visit Provider Internal Medicine Rheumatology
DX: L40.59 Other psoriatic arthropathy (principal); R76.8 Other specified abnormal immunological findings in serum; Z79.899 Other long term (current) drug therapy
CPT/HCPCS: 36415; 80053; 85025

== ENCOUNTER → 2024-06-18 | Outpatient (CLI) | payer MEDICAID, SELFPAY ==
[2024-06-18 12:57] LABS: ALB/GLOB Ratio 1.2 RATIO (0.9-2.4); AST(SGOT) 16 U/L (<=31); Alanine Aminotransfer ALT/SGPT 13 U/L (<=34); Albumin, Serum 3.8 g/dL (3.5-5.0); Alkaline Phosphatase 96 U/L (35-104); Anion Gap 10 (5-15); BUN 11 mg/dL (4-19); BUN/Creat Ratio 19.3 RATIO (10-20); Carbon Dioxide 24.1 mmol/L (22.0-29.0); Chloride 104 mmol/L (96-108); Creatinine, Serum 0.55 mg/dL (0.70-1.20); EST Glomerular Filtration Rate 116 (>60); Globulin 3.2 g/dL (2.2-4.2); Glucose 107 mg/dL (70-99); Potassium 3.7 mmol/L (3.3-5.1); Sodium Level 138 mmol/L (133-145); Total Bilirubin 0.67 mg/dL (0.00-1.30)
[2024-06-18 13:51] LABS: Absolute Lymphocyte Count 1.85 X10^3/uL (0.83-4.51); Absolute Neutrophil Count 6.9 X10^3/uL (2.0-7.7); Basophil# 0.04 X10^3/uL; Basophil% 0.4 % (0-1); Eosinophil# 0.15 X10^3/uL; Eosinophils% 1.6 % (0-5); Hemoglobin 13.1 g/dL (12.0-15.0); Lymphocyte # 1.85 X10^3/ul (0.83-4.51); Lymphocyte % 19.8 % (19-41); Mean Corp Hgb Conc 32.8 g/dL (32-36); Mean Corpuscular Volume 88.7 fL (81-99); Mean Platelet Vol. 11.1 fl (6.2-12.0); Monocyte# 0.35 X10^3/uL; Monocyte% 3.7 % (0-10); NRBC Flagged by Analyzer 0 % (0-5); Neutrophil # 6.91 X10^3/uL (2.7-7.7); Neutrophil % 74.1 % (47-70); Platelet Count 230 K/mm3 (150-450); RBC Distribution Width CV 12.8 % (11.6-14.6); RBC Distribution Width SD 41.9 fl (35.1-43.9); Red Blood Count 4.51 M/mm3 (4.2-5.4); White Blood Count 9.3 K/mm3 (4.4-11.0)
== END | disposition home or self-care (01) ==
LOC: MTLAB 09:40
PROVIDERS: PCP Family Medicine; Referring Provider Internal Medicine Rheumatology; Visit Provider Internal Medicine Rheumatology
DX: L40.59 Other psoriatic arthropathy (principal); L40.8 Other psoriasis; R76.8 Other specified abnormal immunological findings in serum; Z79.899 Other long term (current) drug therapy
CPT/HCPCS: 36415; 80053; 85025

== ENCOUNTER → 2024-09-21 | Outpatient (CLI) | payer MEDICAID, SELFPAY ==
[2024-09-21 15:24] LABS: Absolute Lymphocyte Count 2.34 X10^3/uL (0.83-4.51); Absolute Neutrophil Count 8.4 X10^3/uL (2.0-7.7); Basophil# 0.05 X10^3/uL; Basophil% 0.4 % (0-1); Eosinophil# 0.16 X10^3/uL; Eosinophils% 1.4 % (0-5); Hematocrit 39.1 % (37-47); Hemoglobin 12.8 g/dL (12.0-15.0); Lymphocyte # 2.34 X10^3/ul (0.83-4.51); Lymphocyte % 20.4 % (19-41); Mean Corp Hgb Conc 32.7 g/dL (32-36); Mean Corpuscular Hgb 28.6 pg (27.0-32.0); Mean Corpuscular Volume 87.3 fL (81-99); Mean Platelet Vol. 11.4 fl (6.2-12.0); Monocyte# 0.51 X10^3/uL; Monocyte% 4.5 % (0-10); NRBC Flagged by Analyzer 0 % (0-5); Neutrophil # 8.36 X10^3/uL (2.7-7.7); Platelet Count 225 K/mm3 (150-450); RBC Distribution Width CV 13.2 % (11.6-14.6); RBC Distribution Width SD 42.3 fl (35.1-43.9); Red Blood Count 4.48 M/mm3 (4.2-5.4); White Blood Count 11.5 K/mm3 (4.4-11.0)
[2024-09-21 15:45] LABS: ALB/GLOB Ratio 1.1 RATIO (0.9-2.4); AST(SGOT) 14 U/L (<=31); Alanine Aminotransfer ALT/SGPT 13 U/L (<=34); Albumin, Serum 3.8 g/dL (3.5-5.0); Alkaline Phosphatase 94 U/L (35-104); Anion Gap 12 (5-15); BUN 12 mg/dL (4-19); BUN/Creat Ratio 20.4 RATIO (10-20); Calcium,Total 8.9 mg/dL (7.6-11.0); Chloride 103 mmol/L (98-108); Creatinine, Serum 0.59 mg/dL (0.70-1.20); EST Glomerular Filtration Rate 114 (>60); Globulin 3.3 g/dL (2.2-4.2); Glucose 89 mg/dL (70-99); Potassium 3.8 mmol/L (3.3-5.1); Protein, Total 7.1 g/dL (5.9-8.4); Sodium Level 138 mmol/L (133-145); Total Bilirubin 0.36 mg/dL (0.00-1.30)
== END | disposition home or self-care (01) ==
LOC: MTLAB 12:41
PROVIDERS: PCP Family Medicine; Referring Provider Internal Medicine Rheumatology; Visit Provider Internal Medicine Rheumatology
DX: L40.59 Other psoriatic arthropathy (principal); L40.8 Other psoriasis; R76.8 Other specified abnormal immunological findings in serum; Z79.899 Other long term (current) drug therapy
CPT/HCPCS: 36415; 80053; 85025

== ENCOUNTER → 2024-09-22 | Outpatient (CLI) | payer MEDICAID, SELFPAY ==
--- NOTE | 2024-09-22 16:24 | RAD_ITS ---
PROCEDURE: CHEST PA AND LATERAL 09/22/2024 REASON FOR EXAM: PAIN TECHNIQUE: Frontal and lateral views of the chest. COMPARISON: 04/02/2022 FINDINGS: No focal consolidations. No pleural effusion or pneumothorax. Cardiac silhouette is within normal limits. No acute fractures. RAD/Chest PA and Lateral IMPRESSION: No focal consolidations. Reading Location: [id number]
--- OUTSIDE RECORDS SUMMARY | 2024-09-22 22:05 | XMS RPT_ITS | CCD ---
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 Role Phone Marianna Rose Primary Care Provider [phone] Unavailable Primary Care Provider UnavailMarianna Key MD Primary Care Provider PROVIDER, UNKNOWN Attending Unavailable PROVIDER, UNKNOWN Admitting Unavailable EFRAÍN MAHONEY Referring Unavailable Marinana Rose MD Primary Care Provider [phone] aZhra Wilkes MD Unavailable Noel Marquez DO Primary Care Provider Milton Marianna Primary Care Unavailable Carlitos Aburto Attending Unavailable Milton, Marianna Referring Unavailable Flavio Ward Attending Unavailable Milton, Marianna Referring Unavailable Milton, Marianna Primary Care Unavailable Arjun Tejeda Attending Unavailable Milton, Marianna Referring Unavailable Milton Marianna Primary Care Unavailable Noel Marquez DO Primary Care Provider Noel Marquez DO Primary Care Provider [phone] Zahra Wilkes MD Unavailable [phone] Marianna Rose MD Primary Care Provider Dr. Noel Marquez DO Primary Care Provider Laurence WIGGINS, Dr. Espinoza Attending Provider Dr. Olga Dang MD Referring Provider NOEL MARQUEZ Attending Unavailable NOEL MARQUEZ Primary Care Unavailable NOEL MARQUEZ Attending Unavailable NOEL MARQUEZ Primary Care Unavailable Olga Dang Attending Unavailable Noel Marquez Primary Care Unavailable Olga Dang Referring Unavailable Olga Dang Attending Unavailable Noel Marquez Primary Care Unavailable Olga Dang Referring Unavailable Olga Dang Attending Unavailable Noel Marquez Primary Care Unavailable Olga Dang Referring Unavailable Olga Dagn Referring Unavailable Noel Marquez Primary Care Unavailable Olga Dang Attending Unavailable Noel Marquez Primary Care Unavailable Olga Dang Attending Unavailable Olga Dang Referring Unavailable Allergies Allergy Classification Reported Allergen(s) Allergy Type Date of Onset Reaction(s) Facility (20 sources) Cephalexin; 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: [CEPHALEXIN] Drug Allergy 3 [place], [place] (16 sources) Lisinopril; 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: [LISINOPRIL] Drug Allergy 9 [place], [place] (20 sources) tiZANidine Drug Allergy 2 [facility] (20 sources) Lisinopril Propensity to adverse reactions to drug 9 Other [facility] Medications Current Medications Medication Drug Class(es) Dates Sig (Normalized) Sig (Original) amoxicillin 875 mg / clavulanate 125 mg oral tablet (2 sources) Penicillin-class Antibacterial Start: 07-04-2022 End: 07-14-2022 take 1 tablet by mouth twice daily amoxicillin-clavu lanate (Augmentin) 875-125 MG tablet Indications: Acute non-recurrent maxillary sinusitis Take 1 tablet by mouth 2 times daily for 10 days. 20 tablet 0 07/04/2022 07/14/2022 Active Blood Pressure Monitor JENNIFER (4 sources) Start: 11-11-2018 Blood Pressure Monitor JENNIFER Indications: Essential hypertension , Family history of hypertension 1 Device by Does not apply route as needed (monitor BP and HR) 1 Device 0 11/11/2018 Active busPIRone hydrochloride 5 mg oral tablet (19 sources) Start: 05-26-2019 End: 09-26-2022 take 1 tablet by mouth twice daily as needed busPIRone (BUSPAR) 5 MG tablet Take 1 Tablet by mouth 2 times daily as needed. 10/17/2020 Active doxycycline hyclate 100 mg oral [...] after 14 capsule 0 12/06/2022 12/13/2022 Active [id number] 0.3 ml EPINEPHrine 1 mg/ml auto-injector (20 sources) alpha-Adrenergic Agonist, beta-Adrenergic Agonist, Catecholamine Start: 01-27-2019 EPINEPHrine (Epipen) 0.3 MG/0.3ML injection syringe Use as directed for allergic reaction 01/27/2019 Active fluticasone propionate 0.05 mg/actuat metered dose nasal spray (1 source) Corticosteroid Start: 01-23-2019 End: 02-20-2019 fluticasone (FLONASE) 50 MCG/ACT nasal spray 1 spray by Nasal route 2 times daily 0 01/23/2019 02/20/2019 Active folic acid 1 mg oral tablet (20 sources) Start: 2022 take 1 tablet by mouth once daily folic acid (Folvite) 1 MG tablet TAKE 2 TABLETS BY MOUTH ONCE DAILY 2022 Active leucovorin 15 mg oral tablet (19 sources) Folate Analog Start: 07-11-2022 take 1 tablet by mouth every week leucovorin (Wellcovorin) 15 MG tablet Take 15 mg by mouth 1 (one) time per week. 07/11/2022 Active losartan potassium 100 mg oral tablet (18 sources) Angiotensin 2 Receptor Scott Start: 03-30-2024 End: 07-02-2024 take 1 tablet by mouth once daily losartan (Cozaar) 100 MG tablet Take 1 tablet (100 mg) by mouth daily. 90 tablet 1 07/02/2024 Active Start: 05-28-2023 End: 11-11-2023 take 1 tablet by mouth once daily losartan (Cozaar) 100 MG tablet Take 1 tablet by mouth once daily 90 tablet 1 11/11/2023 Active Start: 04-28-2023 End: 05-28-2023 take 1 tablet by mouth once daily losartan (Cozaar) 50 MG tablet Take 1 tablet (50 mg) by mouth daily. 30 tablet 5 04/28/2023 05/28/2023 Discontinued meloxicam 15 mg oral tablet (20 sources) Nonsteroidal Anti-inflammatory Drug Start: 03-01-2023 End: 12-24-2023 take 1 tablet by mouth once daily meloxicam (Mobic) 15 MG tablet Take 1 tablet (15 mg) by mouth daily. 90 tablet 1 12/24/2023 Active Start: 10-09-2021 End: 01-12-2023 take 1 tablet by mouth once daily meloxicam (Mobic) 15 MG tablet Take 15 mg by mouth daily. 0 07/04/2022 Active Start: 06-28-2021 take 1 tablet by jewels th once daily meloxicam (MOBIC) 15 MG tablet Take 1 tablet by mouth daily 30 tablet 2 06/28/2021 Active methotrexate 2.5 mg oral tablet (20 sources) Folate Analog Metabolic Inhibitor Start: 09-03-2022 methotrexate 2.5 MG tablet Take 15 mg by mouth 1 (one) time per week. 09/03/2022 Active Start: 2022 End: 07-04-2022 take 5 tablets by mouth every week methotrexate 2.5 MG tablet Take 12.5 mg by mouth 1 (one) time per week. 0 2022 07/04/2022 Discontinued (Therapy completed) 24 hr metoprolol succinate 100 mg extended release oral tablet (20 sources) beta-Adrenergic Scott Start: 05-23-2022 End: 07-02-2024 take 1 tablet by mouth once daily metoprolol succinate XL (Toprol-XL) 100 MG 24 hr tablet Take 1 tablet (100 mg) by mouth daily. 90 tablet 1 07/02/2024 Active Start: 03-16-2021 End: 05-23-2022 take 1 tablet by mouth once daily metoprolol succinate XL (Toprol-XL) 50 MG 24 hr tablet Take 50 mg by mouth daily. 0 12/08/2021 Active Start: 11-11-2018 take 1 tablet by jewels th once daily metoprolol succinate (TOPROL XL) 25 MG extended release tablet Indications: Essential hypertension Take 1 tablet by mouth daily 30 tablet 12 11/11/2018 Active oseltamivir 75 mg oral capsule (2 sources) Neuraminidase Inhibitor Start: 07-19-2023 End: 07-24-2023 take 1 capsule by mouth every twelve hours oseltamivir (Tamiflu) 75 MG capsule Take 1 capsule (75 mg) by mouth in the morning and 1 capsule (75 mg) in the evening. Do all this for 5 days. 10 capsule 0 07/19/2023 07/24/2023 Active pantoprazole 40 mg delayed release oral tablet (20 sources) Proton Pump Inhibitor Start: 09-26-2022 End: 07-02-2025 take 1 tablet by mouth once daily pantoprazole (ProtoNix) 40 MG EC tablet Take 1 tablet (40 mg) by mouth daily for 90 doses. Do not crush, chew, or split. 90 tablet 1 10/14/2022 07/02/2025 Active Start: 05-26-2019 take 1 tablet by jewels th once daily before breakfast pantoprazole (PROTONIX) 40 MG tablet Indications: Gastroesophageal reflux disease without esophagitis Take 1 tablet by mouth every morning (before breakfast) 30 tablet 5 05/26/2019 Active tiZANidine 4 mg oral tablet (12 sources) Central alpha-2 Adrenergic Agonist Start: 06-28-2021 End: 10-31-2021 tizanidine (ZANAFLEX) 4 MG tablet Take 4 mg by mouth. 06/28/2021 Active traMADol hydrochloride 50 mg oral tablet (19 sources) Opioid Agonist Start: 11-26-2022 take 1 tablet by mouth three times daily as needed traMADol (Ultram) 50 MG tablet Take 50 mg by mouth 3 times daily as needed. 11/26/2022 Active Start: 09-23-2022 End: 10-14-2022 traMADol (Ultram) 50 MG tabl et triamcinolone acetonide 0.001 mg/mg topical ointment (20 sources) Corticosteroid Start: 11-17-2023 End: 08-01-2024 triamcinolone (Kenalog) 0.1 % ointment Apply topically 2 times daily. 80 g 1 08/02/2024 Active Start: 10-23-2021 triamcinolone (KENALOG) 0.1 % ointment Apply topically 2 times daily. Apply thin layer to affected area. 30 g 2 10/23/2021 Active Start: 10-23-2021 End: 11-16-2023 triamcinolone (Kenalog) 0.1 % ointment APPLY OINTMENT TOPICALLY TWICE DAILY TO AFFECTED AREA USE A THIN LAYER 10/23/2021 11/16/2023 Discontinued (Reorder) Completed/Discontinued Medications Medication Drug Class(es) Dates Sig (Normalized) Sig (Original) acetaminophen 325 mg / HYDROcodone bitartrate 7.5 mg oral tablet (2 sources) Opioid Agonist Start: 09-26-2022 End: 10-14-2022 take 1 tablet by mouth three times daily as needed for pain HYDROcodone-acetam inophen ([place]) 7.5-325 MG tablet Indications: Lumbar radiculopathy, acute , Psoriatic arthritis (HCC) Take 1 tablet by mouth 3 times daily as needed for severe pain (7-10) for up to 12 doses. 12 tablet 0 09/26/2022 10/14/2022 Discontinued (Therapy completed) ibuprofen 600 mg oral tablet (1 source) Nonsteroidal Anti-inflammatory Drug Start: 02-03-2016 End: 04-25-2022 take 1 tablet by mouth every six hours as needed ibuprofen 600 MG tablet Take 600 mg by mouth every 6 hours as needed. 0 02/03/2016 04/25/2022 Discontinued (Therapy completed) lidocaine 0.05 mg/mg topical ointment (1 source) Antiarrhythmic, Amide Local Anesthetic Start: 02-07-2016 End: 04-25-2022 lidocaine (Xylocaine) 5 % ointment Apply 1 application topically in the morning and 1 application at noon and 1 application in the evening. 0 02/07/2016 04/25/2022 Discontinued (Therapy completed) 2 ml ondansetron 2 mg/ml injection (4 sources) Serotonin-3 Receptor Antagonist Start: 07-19-2023 End: 07-19-2023 ondansetron (Zofran) injection 4 mg Start: 07-19-2023 End: 07-26-2023 take 1 tablet by mouth every eight hours as needed for nausea and vomiting ondansetron ODT (Zofran-ODT) 4 MG disintegrating tablet Take 1 tablet (4 mg) by mouth every 8 hours as needed for nausea or vomiting for up to 7 days. 15 tablet 0 07/19/2023 07/26/2023 Active perflutren lipid microsphere s (DEFINITY) injection 1.65 mg (1 source) Start: 02-03-2019 End: 02-03-2019 perflutren lipid microsphere s (DEFINITY) injection 1.65 mg predniSONE 10 mg oral tablet (5 sources) Start: 09-26-2022 End: 10-14-2022 predniSONE (Deltasone) 10 MG tablet 5 qday for 3 days, then 3 qday for 3 days, then one qday till gone 27 tablet 0 09/26/2022 10/14/2022 Discontinued (Therapy completed) Start: 07-10-2022 End: 10-14-2022 take 1 tablet by mouth once daily as needed predniSONE (Deltasone) 10 MG tablet TAKE 1 TABLET BY MOUTH ONCE DAILY NEEDED -TAKE FOR 2-5 DAYS NEEDED 0 07/10/2022 10/14/2022 Discontinued (Therapy completed) Start: 09-03-2021 predniSONE (DE LTASONE) 10 MG tablet Take 4 tabs x3 days; 3 tabs x3days; 2 tabs x 3 days; 1 tab x 3 days. With food. 30 tablet 0 09/03/2021 Active 50 ml sodium chloride 9 mg/m l injection (2 sources) Start: 07-19-2023 End: 07-19-2023 sodium chloride 0.9 % bolus 1,000 mL Problems Active Problems Problem Classification Problem Date Documented Date Episodic/Chronic Anxiety disorders (20 sources) Generalized anxiety disorder; 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: [Generalized anxiety disorder] Onset: 08-21-2020 08-21-2020 Chronic Essential hypertension (20 sources) Essential hypertension; 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: [Essential (primary) hypertension] Onset: 04-21-2018 10-19-2018 Chronic Immunizations and screening for infectious disease (2 sources) Anti-nuclear factor positive; 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: [Other specified abnormal immunological findings in serum] Onset: 09-21-2024 Episodic Joint disorders and dislocations; trauma-related (20 sources) Patellofemoral syndrome of right knee; 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: [Patellofemoral disorders, right knee] Onset: 08-19-2019 08-19-2019 Chronic Joint disorders and dislocations; trauma-related (1 source) Patellofemoral syndrome of left knee; 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: [Patellofemoral pain syndrome of left knee] Joint disorders and dislocations; trauma-related (1 source) Patellofemoral syndrome of right knee; 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: [Patellofemoral pain syndrome of right knee] Osteoarthritis (20 sources) Bilateral primary osteoarthritis of knee; 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: [Primary gonarthrosis, bilateral] Onset: 09-18-2021 Chronic Other aftercare (13 sources) Patient encounter status; 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: [Encounter for therapeutic drug level monitoring] Onset: 04-28-2023 10-14-2022 Episodic Other aftercare (2 sources) Encounter for therapeutic drug level monitoring; 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: [Encounter for therapeutic drug level monitoring] Onset: 07-02-2024 Episodic Other aftercare (1 source) Other usp (current) drug therapy; 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: [Other middle or intermediate school principal (current) drug therapy] Onset: 09-21-2024 Episodic Other connective tissue disease (1 source) Pain in left foot; 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: [Pain in left foot] Episodic Other connective tissue disease (2 sources) Calcaneal spur, left foot; 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: [Calcaneal spur, left foot] Onset: 01-31-2022 Episodic Other connective tissue disease (2 sources) Pain in left foot; 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: [Pain in left foot] Onset: 01-31-2022 Episodic Other inflammatory condition of skin (20 sources) Psoriasis; 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: [Psoriasis, unspecified] Onset: 05-01-2020 05-01-2020 Chronic Other inflammatory condition of skin (20 sources) Psoriatic arthritis; 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: [Arthropathic psoriasis, unspecified] Onset: 04-25-2022 09-26-2022 Chronic Other inflammatory condition of skin (2 sources) Psoriasis, unspecified; 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: [Psoriasis, unspecified] Onset: 02-02-2022 Chronic Other inflammatory condition of skin (2 sources) Arthropathic psoriasis, unspecified; 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: [Arthropathic psoriasis, unspecified (HCC)] Onset: 04-25-2022 Chronic Other inflammatory condition of skin (2 sources) Other psoriatic arthropathy; 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: [Other psoriatic arthropathy] Onset: 07-01-2024 Chronic Other inflammatory condition of skin (1 source) Other psoriasis; 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: [Other psoriasis] Onset: 09-21-2024 Chronic Other nutritional; endocrine; and metabolic disorders [...] without myelopathy or radiculopathy, cervical region] Chronic Spondylosis; intervertebral disc disorders; other back problems (5 sources) Chronic neck pain; 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: [Cervicalgia] Episodic Superficial injury; contusion (1 source) Abrasion, left foot, initial encounter; 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: [Abrasion or friction burn of foot and toe(s), without mention of infection] 12-06-2022 Episodic Past or Other Problems Problem Classification Problem Date Documented Da te Episodic/Chronic Cardiac dysrhythmias (20 sources) Palpitations; 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: [Palpitations] Onset: 01-20-2019 Resolved: 04-25-2022 01-20-2019 Episodic Fluid and electrolyte disorders (14 sources) Dehydration; 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: [Dehydration] Onset: 07-19-2023 Resolved: 12-24-2023 07-19-2023 Episodic Influenza (14 sources) Influenza due to Influenza A virus; 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: [Influenza due to other identified influenza virus with other respiratory manifestations] Onset: 07-19-2023 Resolved: 12-24-2023 07-19-2023 Episodic Nausea and vomiting (14 sources) Nausea and vomiting; 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: [Nausea with vomiting, unspecified] Onset: 07-19-2023 Resolved: 12-24-2023 07-19-2023 Episodic Nonspecific chest pain (20 sources) Chest pain; 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: [Atypical chest pain] Onset: 08-19-2019 Resolved: 04-25-2022 08-19-2019 Episodic Other aftercare (6 sources) half-way current use of non-steroidal anti-inflammatory drug; 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: [half-way (current) use of non-steroidal anti-inflammatories (NSAID)] Onset: 04-28-2023 04-28-2023 Episodic Other aftercare (2 sources) long term care pharmacist (current) use of non-steroidal anti-inflammatories (NSAID); 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: [half-way (current) use of non-steroidal anti-inflammatories (nsaid)] Onset: 04-28-2023 Episodic Other complications of (4 sources) Multigravida of advanced maternal age; 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: [Supervision of elderly multigravida, first trimester] Onset: 07-25-2015 10-23-2021 Episodic Other female genital disorders (20 sources) Cervical atypism; 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: [Atypical squamous cells of undetermined significance on cytologic smear of cervix (ASC-US)] Onset: 03-18-2016 Resolved: 04-25-2022 05-04-2018 Episodic Other lower respiratory disease (20 sources) Dyspnea; 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: [Dyspnea, unspecified] Onset: 08-19-2019 Resolved: 04-25-2022 08-19-2019 Episodic Other non-traumatic joint disorders (2 sources) Pain in left knee; 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: [Pain in left knee] Onset: 09-18-2021 Episodic Other upper respiratory infections (1 source) Acute maxillary sinusitis; 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: [Acute maxillary sinusitis, unspecified] Episodic Residual codes; unclassified (20 sources) Family history of diabetes mellitus in first degree relative; 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: [Family history of diabetes mellitus] Onset: 04-25-2022 04-25-2022 Episodic Results Test Name Value Interpretation Reference Range Facility CBC W/Diff, Automatedon 06-0 Absolute Lymph 2.34 X10 3/uL Normal 0.83-4.51 [facility] Comment on above: Performed By: #### L 100.0100, L500.4050 #### [facility] [address] [place], [address] Absolute Neut 8.4 X10 3/uL High 2.0-7.7 [facility] Comment on above: Performed By: #### L 100.0100, L500.4050 #### [facility] [address] [place], [address] Basophils/100 WBC (Bld) 0.4 % Normal 0-1 [facility] Comment on above: Performed By: #### L 100.0100, L500.4050 #### [facility] [address] [place], [address] Eosinophils/100 WBC (Bld) 1.4 % Normal 0-5 [facility] Comment on above: Performed By: #### L 100.0100, L500.4050 #### [facility] [address] [place], [address] Erythrocyte distribution width (RBC) [Ratio] 13.2 % Normal 11.6-14.6 [facility] Comment on above: Performed By: #### L 100.0100, L500.4050 #### [facility] [address] [place], [address] Hematocrit (Bld) [Volume fraction] 39.1 % Normal 37-47 [facility] Comment on above: Performed By: #### L 100.0100, [id number] #### [facility] [address] [place], [address] Hemoglobin (Bld) [Mass/Vol] 12.8 g/dL Normal 12.0-15.0 [facility] Comment on above: Performed By: #### L 100.0100, [id number] #### [facility] [address] [place], [address] IG% 0.300 Normal 0.0-0.9 [facility] Comment on above: Result Comment: IG% - Immature Granulocytes (promyelocytes, myelocytes and metamyelocytes) > 1% indicates that a LEFT SHIFT is Present. Performed By: #### L 100.0100, L500.4050 #### [facility] [address] [place], [address] Lymphocytes/100 WBC (Bld) 20.4 % Normal 19-41 [facility] Comment on above: Performed By: #### L 100.0100, [id number] #### [facility] [address] [place], [address] MCH (RBC) [Entitic mass] 28.6 pg Normal 27.0-32.0 [facility] Comment on above: Performed By: #### L 100.0100, [id number] #### [facility] [address] [place], [address] MCHC (RBC) [Mass/Vol] 32.7 g/dL Normal 32-36 [facility] Comment on above: Performed By: #### L 100.0100, [id number] #### [facility] [address] [place], [address] MCV (RBC) [Entitic vol] 87.3 fL Normal 81-99 [facility] Comment on above: Performed By: #### L 100.0100, L500.4050 #### [facility] [address] [place], [address] Monocytes/100 WBC (Bld) 4.5 % Normal 0-10 [facility] Comment on above: Performed By: #### L 100.0100, L500.4050 #### [facility] [address] [place], [address] Neutrophils/100 WBC (Bld) 73.0 % High 47-70 [facility] Comment on above: Performed By: #### L 100.0100, [id number] #### [facility] [address] [place], [address] Nucleated RBC (Bld) [#/Vol] 0 10*3/uL Normal 0-5 [facility] Comment on above: Performed By: #### L 100.0100, [id number] #### [facility] [address] [place], [address] Platelet mean volume (Bld) [Entitic vol] 11.4 fL Normal 6.2-12.0 [facility] Comment on above: Performed By: #### L 100.0100, [id number] #### [facility] [address] [place], [address] Platelets (Bld) [#/Vol] 225 10*3/uL Normal 150-450 [facility] Comment on above: Performed By: #### L 100.0100, [id number] #### [facility] [address] [place], [address] RBC (Bld) [#/Vol] 4.48 10*6/uL Normal 4.2-5.4 [facility] Comment on above: Performed By: #### L 100.0100, [id number] #### [facility] [address] [place], [address] RDW SD 42.3 fl Normal 35.1-43.9 [facility] Comment on above: Performed By: #### L 100.0100, [id number] #### [facility] [address] [place], [address] WBC (Bld) [#/Vol] 11.5 10*3/uL High 4.4-11.0 [facility] Comment on above: Performed By: #### L 100.0100, [id number] #### [facility] [address] [place], [address] Comprehensive Metabolic Prof [facility] 09-21-2024 Albumin [Mass/Vol] 3.8 g/dL Normal 3.5-5.0 [facility] Comment on above: Performed By: #### L 100.0100, [id number] #### [facility] [address] [place], [address] Albumin/Globulin [Mass ratio] 1.1 {ratio} Normal 0.9-2.4 [facility] Comment on above: Performed By: #### L 100.0100, [id number] #### [facility] [address] [place], [address] ALK PHOS 94 U/L Normal 35-104 [facility] Comment on above: Performed By: #### L 100.0100, [id number] #### [facility] [address] [place], [address] ALT [Catalytic activity/Vol] 13 U/L Normal <=34 [facility] Comment on above: Performed By: #### L 100.0100, [id number] #### [facility] [address] [place], [address] AST [Catalytic activity/Vol] 14 U/L Normal <=31 [facility] Comment on above: Performed By: #### L 100.0100, [id number] #### [facility] [address] [place], [address] Bilirubin [Mass/Vol] 0.36 mg/dL Normal 0.00-1.30 [facility] Comment on above: Performed By: #### L 100.0100, [id number] #### [facility] [address] [place], [address] BUN/CRE 20.4 RATIO High 10-20 [facility] Comment on above: Performed By: #### L 100.0100, [id number] #### [facility] [address] [place], [address] Calcium [Mass/Vol] 8.9 mg/dL Normal 7.6-11.0 [facility] Comment on above: Performed By: #### L 100.0100, [id number] #### [facility] [address] [place], [address] Chloride [Moles/Vol] 103 mmol/L Normal 98-108 [facility] Comment on above: Performed By: #### L 100.0100, [id number] #### [facility] [address] [place], [address] CO2 [Moles/Vol] 22.0 mmol/L Normal 21.0-32.0 [facility] Comment on above: Performed By: #### L 100.0100, [id number] #### [facility] [address] [place], [address] Creatinine [Mass/Vol] 0.59 mg/dL Low 0.70-1.20 [facility] Comment on above: Performed By: #### L 100.0100, [id number] #### [facility] [address] [place], [address] GAP 12 Normal 5-15 [facility] Comment on above: Performed By: #### L 100.0100, [id number] #### [facility] [address] [place], [address] GFR/1.73 sq M.predicted among non-blacks MDRD (S/P/Bld) [Vol rate/Area] 114 mL/min/{1.73_m2} Normal >60 [facility] Comment on above: Result Comment: mL/m in/1.73m2 CKD-EPI Creatinine Equation (2020) Performed By: #### L 100.0100, L500.4050 #### [facility] [address], [address] Globulin (S) [Mass/Vol] 3.3 g/dL Normal 2.2-4.2 [facility] Comment on above: Performed By: #### L 100.0100, L500.4050 #### [facility] [address] [place], [address] Glucose [Mass/Vol] 89 mg/dL Normal 70-99 [facility] Comment on above: Performed By: #### L 100.0100, L500.4050 #### [facility] [address] [place], [address] Potassium [Moles/Vol] 3.8 mmol/L Normal 3.3-5.1 [facility] Comment on above: Performed By: #### L 100.0100, L500.4050 #### [facility] [address] [place], [address] Sodium [Moles/Vol] 138 mmol/L Normal 133-145 [facility] Comment on above: Performed By: #### L 100.0100, L500.4050 #### [facility] [address] [place], [address] T PROT 7.1 g/dL Normal 5.9-8.4 [facility] Comment on above: Performed By: #### L 100.0100, L500.4050 #### [facility] [address] [place], [address] Urea nitrogen [Mass/Vol] 12 mg/dL Normal 4-19 [facility] Comment on above: Performed By: #### L 100.0100, L500.4050 #### [facility] [address] [place], [address] 36on 08-02-2024 36 Recent Visits Date Type Provider Dept 07/02/24 Office Visit Noel Marquez DO [facility] 12/24/23 Office Visit Noel Marquez DO [facility] Showing recent visits within past 365 days and meeting all other requirements Future Appointments No visits were found meeting these conditions. Showing future appointments within next 90 days and meeting all other requirements Requested Prescriptions Pending Prescriptions Disp Refills triamcinolone (Kenalog) 0.1 % ointment 80 g 1 Sig: Apply topically 2 times daily. Provider: Noel Marquez DO Verified pharmacy: yes Verified day(s) supplied: yes Verified refill(s) needed (previous prescription showing no refills in chart): Yes Have you received any controlled medications from any other provider? N/A Overdue for visit: No If yes - patient scheduled? Yes Most recent labs completed in chart? N/A None Normal [facility] Office Visiton 07-02-2024 Follow-up visit [id number] Laxmi Gaona 1980 F Date Provider Department Center 07/02/2024 [id number] MARQUEZ [facility] Family History Problem Relation Age of Onset Atrial fibrillation Mother Comments: alive age 79 Heart failure Mother Comments: mild Hypertension Father Comments: 05/13 age 75 Diabetes Father Comments: PAD, CRF No Known Problems Sister Hypertension Brother No Known Problems Daughter No Known Problems Daughter Diabetes Father's Brother No Known Problems Maternal Grandmother Heart attack Maternal Grandfather Comments: age: late 60s Other Paternal Grandmother 60 Heart attack Paternal Grandfather 66 Family Status - Relation Status Age at Mother Alive Father Sister Alive Brother Alive Daughter Alive Daughter Alive Father's Brother Maternal Grandmother Maternal Grandfather Paternal Grandmother Paternal Grandfather Level of Service:[address] [place] OFFICE/OUTPATIENT ESTABLISHED LOW [facility] 20 MIN Reason for Visit and Comments: 6 Month Follow-up [671] [facility] Progress Noteon 07-02-2024 Progress Note [facility] - [address] [facility] [id number] Visit type: Established Patient Reason for Visit: 6 Month Follow-up Assessment / Plan: Laxmi was seen today for 6 month follow-up. Diagnoses and all orders for this visit: Primary hypertension (Primary) Psoriasis Bilateral primary osteoarthritis of knee Encounter for monitoring NSAID therapy Other orders - metoprolol succinate XL (Toprol-XL) 100 MG 24 hr tablet; Take 1 tablet (100 mg) by mouth daily. - losartan (Cozaar) 100 MG tablet; Take 1 tablet (100 mg) by mouth daily. Subjective: Patient ID: Laxmi Gaona is a 44 y.o. female. HPI hypertension and NSAID management for patient with mixed psoriatic and osteoarthritis. Also on leucovorin and methotrexate weekly. She feels well and recent lab per rheumatology was unremarkable. Review of Systems no earache sore throat or cough. Denies chest pain shortness of breath PND orthopnea claudication or change in mild leg edema. She fell a few days ago and has a ecchymotic area on the medial aspect of the left tibia but does not hurt. Some GI distress with her methotrexate and meloxicam. Takes methotrexate and pantoprazole on a as needed basis. Tramadol as needed also for her knee pain. No recent bowel changes. 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 Allergies Allergen Reactions Lisinopril Other Fatigue, sweatiness [...] week. meloxicam (Mobic) 15 MG tablet Take 1 tablet (15 mg) by mouth daily. (Patient taking differently: Take 15 mg by mouth Daily as needed.) 90 tablet 1 methotrexate 2.5 MG tablet Take 15 mg by mouth 1 (one) time per week. pantoprazole (ProtoNix) 40 MG EC tablet Take 1 tablet (40 mg) by mouth daily for 90 doses. Do not crush, chew, or split. (Patient taking differently: Take 40 mg by mouth Daily as needed. Do not crush, chew, or split.) 90 tablet 1 traMADol (Ultram) 50 MG tablet Take 50 mg by mouth 3 times daily as needed. triamcinolone (Kenalog) 0.1 % ointment Apply topically 2 times daily. 80 g 1 [DISCONTINUED] losartan (Cozaar) 100 MG tablet Take 1 tablet (100 mg) by mouth daily. 90 tablet 1 [DISCONTINUED] metoprolol succinate XL (Toprol-XL) 100 MG 24 hr tablet Take 1 tablet by mouth once daily 90 tablet 1 No current facility-administered medications on file prior [...] History Problem Relation Name Age of Onset Atrial fibrillation Mother Jaylene alive age 79 Heart failure Mother Jaylene mild Hypertension Father Devin 05/13 age 75 Diabetes Father Devin PAD, CRF No Known Problems Sister Hypertension Brother No Known Problems Daughter No Known Problems Daughter Diabetes Father's Brother No Known Problems Maternal Grandmother Heart attack Maternal Grandfather age: late 60s Other (lung cancer) Paternal Grandmother 60 Heart attack Paternal Grandfather 66 Objective: BP 120/80 Pulse 85 Temp 36.2 ?C (97.1 ?F) (Temporal) Ht 5' 6 (1.676 m) Wt (!) 314 lb (142 kg) SpO2 97% BMI 50.68 kg/m? Physical Exam Exam was unchanged. Very pleasant cooperative. Normal eardrums and oropharynx. No neck masses JVD adenopathy or thyroid lesions. No carotid bruits. Heart is regular without gallops or murmurs. Lungs are clear. Abdomen without pain hepatosplenomegaly masses or bruits. Extremities have trace pretibial edema and there is a mild ecchymotic area along the left ankle. Normal [facility] Absolute neutrophil countOrd ered By: Olga Dang on 06-18-2024 Neutrophils (Bld) [#/Vol] 6.9 10*3/uL 2.0-7.7 [facility] BUN/creatinine ratioOrdered By: [facility] on 06-18-2024 Urea nitrogen/Creatinine [Mass ratio] 19.3 mg/mg 10-20 [facility] Basophil percentageOrdered B y: Olga Dang on 06-18-2024 Basophils/100 WBC (Bld) 0.4 % 0-1 [facility] Bilirubin, totalOrdered By: [facility] on 06-18-2024 Bilirubin [Mass/Vol] 0.67 mg/dL 0.00-1.30 [facility] CBC W/Diff, Automatedon 05-23 Absolute Lymph 1.85 X10 3/uL Normal 0.83-4.51 [facility] Comment on above: Performed By: #### L 500.4050, L100.0100 #### [facility] [address] [place], [place], [address] Absolute Neut 6.9 X10 3/uL Normal 2.0-7.7 [facility] Comment on above: Performed By: #### L 500.4050, L100.0100 #### [facility] [address] [place], [address] Basophils/100 WBC (Bld) 0.4 % Normal 0-1 [facility] Comment on above: Performed By: #### L 500.4050, L100.0100 #### [facility] [address] [place], [address] Eosinophils/100 WBC (Bld) 1.6 % Normal 0-5 [facility] Comment on above: Performed By: #### L 500.4050, L100.0100 #### [facility] [address] [place], [address] Erythrocyte distribution width (RBC) [Ratio] 12.8 % Normal 11.6-14.6 [facility] Comment on above: Performed By: #### L 500.4050, L100.0100 #### [facility] [address] [place], [address] Hematocrit (Bld) [Volume fraction] 40.0 % Normal 37-47 [facility] Comment on above: Performed By: #### L 500.4050, L100.0100 #### [facility] [address] [place], [address] Hemoglobin (Bld) [Mass/Vol] 13.1 g/dL Normal 12.0-15.0 [facility] Comment on above: Performed By: #### L 500.4050, L100.0100 #### [facility] [address] [place], [address] IG% 0.400 Normal 0.0-0.9 [facility] Comment on above: Result Comment: IG% - Immature Granulocytes (promyelocytes, myelocytes and metamyelocytes) > 1% indicates that a LEFT SHIFT is Present. Performed By: #### L 500.4050, L100.0100 #### [facility] [address] [place], [address] Lymphocytes/100 WBC (Bld) 19.8 % Normal 19-41 [facility] Comment on above: Performed By: #### L 500.4050, L100.0100 #### [facility] [address] [place], [address] MCH (RBC) [Entitic mass] 29.0 pg Normal 27.0-32.0 [facility] Comment on above: Performed By: #### L 500.4050, L100.0100 #### [facility] [address] [place], [address] MCHC (RBC) [Mass/Vol] 32.8 g/dL Normal 32-36 [facility] Comment on above: Performed By: #### L 500.4050, L100.0100 #### [facility] [address] [place], [address] MCV (RBC) [Entitic vol] 88.7 fL Normal 81-99 [facility] Comment on above: Performed By: #### L 500.4050, L100.0100 #### [facility] [address] [place], [address] Monocytes/100 WBC (Bld) 3.7 % Normal 0-10 [facility] Comment on above: Performed By: #### L 500.4050, L100.0100 #### [facility] [address] [place], [address] Neutrophils/100 WBC (Bld) 74.1 % High 47-70 [facility] Comment on above: Performed By: #### L 500.4050, L100.0100 #### [facility] [address] [place], [address] Nucleated RBC (Bld) [#/Vol] 0 10*3/uL Normal 0-5 [facility] Comment on above: Performed By: #### L 500.4050, L100.0100 #### [facility] [address] [place], [address] Platelet mean volume (Bld) [Entitic vol] 11.1 fL Normal 6.2-12.0 [facility] Comment on above: Performed By: #### L 500.4050, L100.0100 #### [facility] [address] [place], [address] Platelets (Bld) [#/Vol] 230 10*3/uL Normal 150-450 [facility] Comment on above: Performed By: #### L 500.4050, L100.0100 #### [facility] [address] [place], [address] RBC (Bld) [#/Vol] 4.51 10*6/uL Normal 4.2-5.4 [facility] Comment on above: Performed By: #### L 500.4050, L100.0100 #### [facility] [address] [place], [address] RDW SD 41.9 fl Normal 35.1-43.9 [facility] Comment on above: Performed By: #### L 500.4050, L100.0100 #### [facility] [address] [place], [address] WBC (Bld) [#/Vol] 9.3 10*3/uL Normal 4.4-11.0 [facility] Comment on above: Performed By: #### L 500.4050, L100.0100 #### [facility] [address] [place], [address] Carbon dioxide measurementOr dered By: Olga Dang on 06-18-2024 CO2 [Moles/Vol] 24.1 mmol/L 22.0-29.0 [facility] Chloride measurementOrdered By: Olga Dang on 06-18-2024 Chloride [Moles/Vol] 104 mmol/L 96-108 [facility] Comprehensive Metabolic Prof ilon 06-18-2024 Albumin [Mass/Vol] 3.8 g/dL Normal 3.5-5.0 [facility] Comment on above: Performed By: #### L 500.4050, L100.0100 #### [facility] [address] [place], [address] Albumin/Globulin [Mass ratio] 1.2 {ratio} Normal 0.9-2.4 [facility] Comment on above: Performed By: #### L 500.4050, L100.0100 #### [facility] [address] [place], [address] ALK PHOS 96 U/L Normal 35-104 [facility] Comment on above: Performed By: #### L 500.4050, L100.0100 #### [facility] [address] [place], [address] ALT [Catalytic activity/Vol] 13 U/L Normal <=34 [facility] Comment on above: Performed By: #### L 500.4050, L100.0100 #### [facility] [address] [place], [address] Anion gap [Moles/Vol] 10 mmol/L Normal 5-15 [facility] Comment on above: Performed By: #### L 500.4050, L100.0100 #### [facility] [address] [place], [address] AST [Catalytic activity/Vol] 16 U/L Normal <=31 [facility] Comment on above: Performed By: #### L 500.4050, L100.0100 #### [facility] [address] [place], [address] Bilirubin [Mass/Vol] 0.67 mg/dL Normal 0.00-1.30 [facility] Comment on above: Performed By: #### L 500.4050, L100.0100 #### [facility] [address] [place], [address] BUN/CRE 19.3 RATIO Normal 10-20 [facility] Comment on above: Performed By: #### L 500.4050, L100.0100 #### [facility] [address] [place], [address] Calcium [Mass/Vol] 9.0 mg/dL Normal 7.6-11.0 [facility] Comment on above: Performed By: #### L 500.4050, L100.0100 #### [facility] [address] [place], [address] Chloride [Moles/Vol] 104 mmol/L Normal 96-108 [facility] Comment on above: Performed By: #### L 500.4050, L100.0100 #### [facility] [address] [place], [address] CO2 [Moles/Vol] 24.1 mmol/L Normal 22.0-29.0 [facility] Comment on above: Performed By: #### L 500.4050, L100.0100 #### [facility] [address] [place], [address] Creatinine [Mass/Vol] 0.55 mg/dL Low 0.70-1.20 [facility] Comment on above: Performed By: #### L 500.4050, L100.0100 #### [facility] [address] [place], [address] GFR/1.73 sq M.predicted among non-blacks MDRD (S/P/Bld) [Vol rate/Area] 116 mL/min/{1.73_m2} Normal >60 [facility] Comment on above: Result Comment: mL/m in/1.73m2 CKD-EPI Creatinine Equation (2020) Performed By: #### L 500.4050, L100.0100 #### [facility] [address] [place], [address] Globulin (S) [Mass/Vol] 3.2 g/dL Normal 2.2-4.2 [facility] Comment on above: Performed By: #### L 500.4050, L100.0100 #### [facility] [address] [place], [address] Glucose [Mass/Vol] 107 mg/dL High 70-99 [facility] Comment on above: Performed By: #### L 500.4050, L100.0100 #### [facility] [address] [place], [address] Potassium [Moles/Vol] 3.7 mmol/L Normal 3.3-5.1 [facility] Comment on above: Performed By: #### L 500.4050, L100.0100 #### [facility] [address] [place], [address] Sodium [Moles/Vol] 138 mmol/L Normal 133-145 [facility] Comment on above: Performed By: #### L 500.4050, L100.0100 #### [facility] [address] [place], [address] T PROT 7.0 g/dL Normal 5.9-8.4 [facility] Comment on above: Performed By: #### L 500.4050, L100.0100 #### [facility] [address] [place], [address] Urea nitrogen [Mass/Vol] 11 mg/dL Normal 4-19 [facility] Comment on above: Performed By: #### L 500.4050, L100.0100 #### [facility] [address] [place], [address] Eosinophil percentageOrdered By: Olga Dang on 06-18-2024 Eosinophils/100 WBC (Bld) 1.6 % 0-5 [facility] Erythrocyte distribution wid th ratioOrdered By: Olga Dang on 06-18-2024 Erythrocyte distribution width (RBC) [Ratio] 12.8 % 11.6-14.6 [facility] Erythrocyte distribution wid th standard deviationOrdered By: Olga Dang on 06-18-2024 Erythrocyte distribution width (RBC) [Entitic vol] 41.9 fL 35.1-43.9 [facility] GFR/1.73 sq M.predicted kam g non-blacks MDRD (S/P/Bld) [Vol rate/Area]Ordered By: Olga Dang on 06-18-2024 Estimated GFR (MDRD) Non-Af Amer 116 >60 [facility] Comment on above: mL/min/1.73m2 CKD-EP I Creatinine Equation (2020) Hematocrit Auto (Bld) [Volum e fraction]Ordered By: Olga Dang on 06-18-2024 Hematocrit (Bld) [Volume fraction] 40.0 % 37-47 [facility] Hemoglobin measurementOrdere d By: Olga Dang on 06-18-2024 Hemoglobin (Bld) [Mass/Vol] 13.1 g/dL 12.0-15.0 [facility] Immature granulocytes/100 WB C Auto (Bld)Ordered By: Olga Dang on 06-18-2024 Immature granulocytes/100 WBC (Bld) 0.400 % 0.0-0.9 [facility] Comment on above: IG% - Immature Granu locytes (promyelocytes, myelocytes and metamyelocytes) > 1% indicates that a LEFT SHIFT is Present. Laboratory - Chemistry and C hemistry - challengeOrdered By: Olga Dang on 06-18-2024 AST [Catalytic activity/Vol] 16 U/L <32 [facility] Lymphocytes Auto (Unsp spec) [#/Vol]Ordered By: Olga Dang on 06-18-2024 Lymphocytes (Bld) [#/Vol] 1.85 10*3/uL 0.83-4.51 [facility] Lymphocytes/100 WBC Auto (Un sp spec)Ordered By: Olga Dang on 06-18-2024 Lymphocytes/100 WBC (Bld) 19.8 % 19-41 [facility] MCV (mean corpuscular volume ) determinationOrdered By: Olga Dang on 06-18-2024 MCV (RBC) [Entitic vol] 88.7 fL 81-99 [facility] Mean corpuscular hemoglobin (MCH) determinationOrdered By: Olga Dang on 06-18-2024 MCH (RBC) [Entitic mass] 29.0 pg 27.0-32.0 [facility] Mean corpuscular hemoglobin concentration (MCHC) determinationOrdered By: Olga Dang on 06-18-2024 MCHC (RBC) [Mass/Vol] 32.8 g/dL 32-36 [facility] Mean platelet volume determi nationOrdered By: Olga Dang on 06-18-2024 Platelet mean volume (Bld) [Entitic vol] 11.1 fL 6.2-12.0 [facility] Monocyte percentageOrdered B y: Olga Dang on 06-18-2024 Monocytes/100 WBC (Bld) 3.7 % 0-10 [facility] Neutrophil percentageOrdered By: Olga Dang on 06-18-2024 Neutrophils/100 WBC (Bld) 74.1 % High 47-70 [facility] Nucleated red blood cell per centageOrdered By: Olga Dang on 06-18-2024 Nucleated RBC/100 WBC (Bld) [Ratio] 0 % 0-5 [facility] Platelet countOrdered By: Guillermo Dang on 06-18-2024 Platelets (Bld) [#/Vol] 230 10*3/uL 150-450 [facility] RBC Auto (Bld) [#/Vol]Ordere d By: Olga Dang on 06-18-2024 RBC (Bld) [#/Vol] 4.51 10*6/uL 4.2-5.4 [facility] Serum creatinine measurement (mass/volume)Ordered By: Olga Dang on 06-18-2024 Creatinine [Mass/Vol] 0.55 mg/dL Low 0.70-1.20 [facility] Serum globulin measurementOr dered By: Olga Dang on 06-18-2024 Globulin (S) [Mass/Vol] 3.2 g/dL 2.2-4.2 [facility] Serum glucose measurement (m ass/volume)Ordered By: Olga Dang on 06-18-2024 Glucose [Mass/Vol] 107 mg/dL High 70-99 [facility] Serum or plasma alanine [place] otransferase (ALT) measurementOrdered By: Olga Dang on 06-18-2024 ALT [Catalytic activity/Vol] 13 U/L <35 [facility] Serum or plasma albumin rosa urement (mass/volume)Ordered By: Olga Dang on 06-18-2024 Albumin [Mass/Vol] 3.8 g/dL 3.5-5.0 [facility] Serum or plasma albumin/glob ulin mass ratioOrdered By: Olga Dang on 06-18-2024 Albumin/Globulin [Mass ratio] 1.2 {ratio} 0.9-2.4 [facility] Serum or plasma alkaline mendez sphatase measurementOrdered By: Olga Dang on 06-18-2024 ALP [Catalytic activity/Vol] 96 U/L 35-104 [facility] Serum or plasma anion gap de termination (moles/volume)Ordered By: Olga Dang on 06-18-2024 Anion gap [Moles/Vol] 10 mmol/L 5-15 [facility] Serum or plasma calcium rosa urement (mass/volume)Ordered By: Olga Dang on 06-18-2024 Calcium [Mass/Vol] 9.0 mg/dL 7.6-11.0 [facility] Serum or plasma potassium me asurementOrdered By: Olga Dang on 06-18-2024 Potassium [Moles/Vol] 3.7 mmol/L 3.3-5.1 [facility] Serum or plasma sodium measu rement (moles/volume)Ordered By: Olga Dagn on 06-18-2024 Sodium [Moles/Vol] 138 mmol/L 133-145 [facility] Serum or plasma urea nitroge n measurement (mass/volume)Ordered By: Olga Dang on 06-18-2024 Urea nitrogen [Mass/Vol] 11 mg/dL 4-19 [facility] Total proteinOrdered By: Alfonzo Dang on 06-18-2024 Protein [Mass/Vol] 7.0 g/dL 5.9-8.4 [facility] White blood cell (WBC) count Ordered By: Olga Dang on 06-18-2024 WBC (Bld) [#/Vol] 9.3 10*3/uL 4.4-11.0 [facility] 36on 05-21-2024 36 Talked to patient an d relayed message and she said that she has discussed in great detail with the Filler Machine Operator about the medications of meloxicam and methotrexate. Patient has been instructed to take the meloxicam very sparingly and only takes the methotrexate once per week. She has been made aware of the risks and interactions of these medications and is very cautious with taking them. Called pharmacist Carlos and relayed message and he verbalized understanding. [facility] 36 Name of caller: Carlos Contact phone number: [phone] Relationship to Patient: Pharmacy Provider: Jimmy Practice: [facility] Chief Complaint/Reason for Call: Pharmacy calling with possible interaction with meloxicam (Mobic) 15 MG tablet and Methotrexate prescribed by a different provider. Please Advise. Best time of day caller can be reached: Any Patient advised that office/PCP has 24-48 business hours to return their call: Yes [facility] 36on 05-03-2024 36 Recent Visits Date Type Provider Dept 12/24/23 Office Visit Noel Marquez DO [facility] Showing recent visits within past 365 days and meeting all other requirements Future Appointments Date Type Provider Dept 06/23/24 Appointment DO Diallo Melchor [facility] Showing future appointments within next 90 days and meeting all other requirements Requested Prescriptions Pending Prescriptions Disp Refills metoprolol succinate XL (Toprol-XL) 100 MG 24 hr tablet [Pharmacy Med Name: Metoprolol Succinate ER 100 MG Oral Tablet Extended Release 24 Hour] 90 tablet 1 Sig: Take 1 tablet by mouth once daily Provider: Noel Marquez DO Verified pharmacy: yes Verified day(s) supplied: yes Verified refill(s) needed (previous prescription showing no refills in chart): Yes Have you received any controlled medications from any other provider? No Overdue for visit: No If yes - patient scheduled? Yes Most recent labs completed in chart? Yes Hypertension: Lab Results Component Value Date NA 134 (L) 07/19/2023 K 3.9 07/19/2023 EGFR >90.0 07/19/2023 BUN 12 07/19/2023 CREATININE 0.61 07/19/2023 [facility] 36on 03-30-2024 36 Recent Visits Date Type Provider Dept 12/24/23 Office Visit Noel Marquez DO [facility] 04/28/23 Office Visit Noel Marquez DO [facility] Showing recent visits within past 365 days and meeting all other requirements Future Appointments Date Type Provider Dept 06/23/24 Appointment Noel Marquez DO [facility] Showing future appointments within next 90 days and meeting all other requirements Requested Prescriptions Pending Prescriptions Disp Refills losartan (Cozaar) 100 MG tablet 90 tablet 1 Sig: Take 1 tablet (100 mg) by mouth daily. Provider: Noel Marquez DO Verified pharmacy: yes Verified day(s) supplied: yes Verified refill(s) needed (previous prescription showing no refills in chart): Yes Have you received any controlled medications from any other provider? N/A Overdue for visit: No If yes - patient scheduled? Yes Most recent labs completed in chart? Yes Hypertension: Lab Results Component Value Date NA 134 (L) 07/19/2023 K 3.9 07/19/2023 EGFR >90.0 07/19/2023 BUN 12 07/19/2023 CREATININE 0.61 07/19/2023 [facility] Absolute neutrophil countOrd ered By: Olga Dang on 03-29-2024 Neutrophils (Bld) [#/Vol] 10.2 10*3/uL High 2.0-7.7 [facility] Albumin to globulin ratioOrd ered By: Olga Dang on 03-29-2024 Albumin/Globulin [Mass ratio] 0.8 {ratio} Low 0.9-2.4 [facility] Basophil percentageOrdered B y: Olga Dang on 03-29-2024 Basophils/100 WBC (Bld) 0.5 % 0-1 [facility] Bilirubin, totalOrdered By: Olga Dang on 03-29-2024 Bilirubin [Mass/Vol] 0.50 mg/dL 0.20-1.00 [facility] Comment on above: For patients on eltr ombopag therapy, use of Dimension [place] TBIL is not recommended. Blood urea nitrogen (BUN)/cr eatinine ratioOrdered By: Olga Dang on 03-29-2024 Urea nitrogen/Creatinine [Mass ratio] 13.3 mg/mg 10-20 [facility] CBC W/Diff, Automatedon 12- Absolute Lymph 2.30 X10 3/uL Normal 0.83-4.51 [facility] Comment on above: Performed By: #### L 500.4050, L100.0100 #### [facility] [address] [place], [address] Absolute Neut 10.2 X10 3/uL High 2.0-7.7 [facility] Comment on above: Performed By: #### L 500.4050, L100.0100 #### [facility] [address] [place], [address] Basophils/100 WBC (Bld) 0.5 % Normal 0-1 [facility] Comment on above: Performed By: #### L 500.4050, L100.0100 #### [facility] [address] [place], [address] Eosinophils/100 WBC (Bld) 1.1 % Normal 0-5 [facility] Comment on above: Performed By: #### L 500.4050, L100.0100 #### [facility] [address] [place], [address] Erythrocyte distribution width (RBC) [Ratio] 13.1 % Normal 11.6-14.6 [facility] Comment on above: Performed By: #### L 500.4050, L100.0100 #### [facility] [address] [place], [address] Hematocrit (Bld) [Volume fraction] 38.4 % Normal 37-47 [facility] Comment on above: Performed By: #### L 500.4050, L100.0100 #### [facility] [address] [place], [address] Hemoglobin (Bld) [Mass/Vol] 12.4 g/dL Normal 12.0-15.0 [facility] Comment on above: Performed By: #### L 500.4050, L100.0100 #### [facility] [address] [place], [address] IG% 0.500 Normal 0.0-0.9 [facility] Comment on above: Result Comment: IG% - Immature Granulocytes (promyelocytes, myelocytes and metamyelocytes) > 1% indicates that a LEFT SHIFT is Present. Performed By: #### L 500.4050, L100.0100 #### [facility] [address] [place], [address] Lymphocytes/100 WBC (Bld) 17.4 % Low 19-41 [facility] Comment on above: Performed By: #### L 500.4050, L100.0100 #### [facility] [address] [place], [address] MCH (RBC) [Entitic mass] 28.9 pg Normal 27.0-32.0 [facility] Comment on above: Performed By: #### L 500.4050, L100.0100 #### [facility] [address] [place], [address] MCHC (RBC) [Mass/Vol] 32.3 g/dL Normal 32-36 [facility] Comment on above: Performed By: #### L 500.4050, L100.0100 #### [facility] [address] [place], [address] MCV (RBC) [Entitic vol] 89.5 fL Normal 81-99 [facility] Comment on above: Performed By: #### L 500.4050, L100.0100 #### [facility] [address] [place], [address] Monocytes/100 WBC (Bld) 3.6 % Normal 0-10 [facility] Comment on above: Performed By: #### L 500.4050, L100.0100 #### [facility] [address] [place], [address] Neutrophils/100 WBC (Bld) 76.9 % High 47-70 [facility] Comment on above: Performed By: #### L 500.4050, L100.0100 #### [facility] [address] [place], [address] Nucleated RBC (Bld) [#/Vol] 0 10*3/uL Normal 0-5 [facility] Comment on above: Performed By: #### L 500.4050, L100.0100 #### [facility] [address] [place], [address] Platelet mean volume (Bld) [Entitic vol] 10.8 fL Normal 6.2-12.0 [facility] Comment on above: Performed By: #### L 500.4050, L100.0100 #### [facility] [address] [place], [address] Platelets (Bld) [#/Vol] 242 10*3/uL Normal 150-450 [facility] Comment on above: Performed By: #### L 500.4050, L100.0100 #### [facility] [address] [place], [address] RBC (Bld) [#/Vol] 4.29 10*6/uL Normal 4.2-5.4 [facility] Comment on above: Performed By: #### L 500.4050, L100.0100 #### [facility] [address] [place], [address] RDW SD 42.1 fl Normal 35.1-43.9 [facility] Comment on above: Performed By: #### L 500.4050, L100.0100 #### [facility] [address] [place], [address] WBC (Bld) [#/Vol] 13.2 10*3/uL High 4.4-11.0 [facility] Comment on above: Performed By: #### L 500.4050, L100.0100 #### [facility] [address] [place], [address] Carbon dioxide measurementOr dered By: Olga Dang on 03-29-2024 CO2 [Moles/Vol] 28.0 mmol/L 21.0-32.0 [facility] Chloride measurementOrdered By: Olga Dang on 03-29-2024 Chloride [Moles/Vol] 107 mmol/L 98-107 [facility] Comprehensive Metabolic Prof ilon 03-29-2024 Albumin [Mass/Vol] 3.1 g/dL Low 3.2-5.0 [facility] Comment on above: Performed By: #### L 500.4050, L100.0100 #### [facility] [address] [place], [address] Albumin/Globulin [Mass ratio] 0.8 {ratio} Low 0.9-2.4 [facility] Comment on above: Performed By: #### L 500.4050, L100.0100 #### [facility] [address] [place], [address] ALK P 93 U/L Normal 45-117 [facility] Comment on above: Performed By: #### L 500.4050, L100.0100 #### [facility] [address] [place], [address] ALT [Catalytic activity/Vol] 21 U/L Normal 13-56 [facility] Comment on above: Performed By: #### L 500.4050, L100.0100 #### [facility] [address] [place], [address] AST [Catalytic activity/Vol] 14 U/L Low 15-37 [facility] Comment on above: Performed By: #### L 500.4050, L100.0100 #### [facility] [address] [place], [address] Bilirubin [Mass/Vol] 0.50 mg/dL Normal 0.20-1.00 [facility] Comment on above: Result Comment: For patients on eltrombopag therapy, use of Dimension [place] TBIL is not recommended. Performed By: #### L 500.4050, L100.0100 #### [facility] [address] [place], [address] BUN/CRE 13.3 RATIO Normal 10-20 [facility] Comment on above: Performed By: #### L 500.4050, L100.0100 #### [facility] [address] [place], [address] CA,Total 8.8 mg/dL Normal 8.5-10.1 [facility] Comment on above: Performed By: #### L 500.4050, L100.0100 #### [facility] [address] [place], [address] Chloride [Moles/Vol] 107 mmol/L Normal 98-107 [facility] Comment on above: Performed By: #### L 500.4050, L100.0100 #### [facility] [address] [place], [address] CO2 [Moles/Vol] 28.0 mmol/L Normal 21.0-32.0 [facility] Comment on above: Performed By: #### L 500.4050, L100.0100 #### [facility] [address] [place], [address] Creatinine [Mass/Vol] 0.83 mg/dL Normal 0.55-1.02 [facility] Comment on above: Result Comment: The validity of the calculated GFR GFRAA in patients over 70 years has not been determined. Clinical correlation is essential. Performed By: #### L 500.4050, L100.0100 #### [facility] [address] [place], [address] EST GFR - AA 96 mL/min Normal >60 [facility] Comment on above: Result Comment: Afri can Citizen [place] GFR Calc Performed By: #### L 500.4050, L100.0100 #### [facility] [address] [place], [address] GAP 4 Low 5-15 [facility] Comment on above: Performed By: #### L 500.4050, L100.0100 #### [facility] [address] [place], [address] GFR/1.73 sq M.predicted among non-blacks MDRD (S/P/Bld) [Vol rate/Area] 79 mL/min/{1.73_m2} Normal >60 [facility] Comment on above: Result Comment: Non- GFR Calc Performed By: #### L 500.4050, L100.0100 #### [facility] [address] [place], [address] Globulin (S) [Mass/Vol] 4.0 g/dL Normal 2.2-4.2 [facility] Comment on above: Performed By: #### L 500.4050, L100.0100 #### [facility] [address] [place], [address] Glucose [Mass/Vol] 108 mg/dL High 74-106 [facility] Comment on above: Result Comment: Fast ing Glucose result from 100 to 125 mg/dL suggests IMPAIRED HOMEOSTASIS per A.D.A. criteria. Performed By: #### L 500.4050, L100.0100 #### [facility] [address] [place], [address] Potassium [Moles/Vol] 3.2 mmol/L Low 3.5-5.1 [facility] Comment on above: Performed By: #### L 500.4050, L100.0100 #### [facility] [address] [place], [address] Sodium [Moles/Vol] 139 mmol/L Normal 136-145 [facility] Comment on above: Performed By: #### L 500.4050, L100.0100 #### [facility] [address] [place], [address] T PROT 7.1 g/dL Normal 6.4-8.2 [facility] Comment on above: Performed By: #### L 500.4050, L100.0100 #### [facility] [address] [place], [address] Urea nitrogen [Mass/Vol] 11 mg/dL Normal 7-18 [facility] Comment on above: Performed By: #### L 500.4050, L100.0100 #### [facility] [address] [place], [address] Eosinophil percentageOrdered By: Olga Dang on 03-29-2024 Eosinophils/100 WBC (Bld) 1.1 % 0-5 [facility] Erythrocyte distribution wid th ratioOrdered By: Olga Dang on 03-29-2024 Erythrocyte distribution width (RBC) [Ratio] 13.1 % 11.6-14.6 [facility] Erythrocyte distribution wid th standard deviationOrdered By: Olga Dang on 03-29-2024 Erythrocyte distribution width (RBC) [Entitic vol] 42.1 fL 35.1-43.9 [facility] Estimated glomerular filtrat ion rate (GFR) AmericanOrdered By: Olga Dang on 03-29-2024 Estimated GFR (MDRD) Amer 96 mL/min >60 [facility] Comment on above: GFR Calc Glomerular filtration rate ( GFR) estimationOrdered By: Olga Dang on 03-29-2024 Estimated GFR (MDRD) Non-Af Amer 79 mL/min >60 [facility] Comment on above: Non- GFR Calc Glucose measurementOrdered B y: Olga Dang on 03-29-2024 Glucose [Mass/Vol] 108 mg/dL High 74-106 [facility] Comment on above: Fasting Glucose resu lt from 100 to 125 mg/dL suggests IMPAIRED HOMEOSTASIS per A.D.A. criteria. Hematocrit Auto (Bld) [Volum e fraction]Ordered By: Olga Dang on 03-29-2024 Hematocrit (Bld) [Volume fraction] 38.4 % 37-47 [facility] Hemoglobin measurementOrdere d By: Olga Dang on 03-29-2024 Hemoglobin (Bld) [Mass/Vol] 12.4 g/dL 12.0-15.0 [facility] Immature granulocytes/100 WB C Auto (Bld)Ordered By: Olga Dang on 03-29-2024 Immature granulocytes/100 WBC (Bld) 0.500 % 0.0-0.9 [facility] Comment on above: IG% - Immature Granu locytes (promyelocytes, myelocytes and metamyelocytes) > 1% indicates that a LEFT SHIFT is Present. Laboratory - Chemistry and C hemistry - challengeOrdered By: Olga Dang on 03-29-2024 AST [Catalytic activity/Vol] 14 U/L Low 15-37 [facility] Lymphocytes Auto (Unsp spec) [#/Vol]Ordered By: Olga Dang on 03-29-2024 Lymphocytes (Bld) [#/Vol] 2.30 10*3/uL 0.83-4.51 [facility] Lymphocytes/100 WBC Auto (Un sp spec)Ordered By: Olga Dang on 03-29-2024 Lymphocytes/100 WBC (Bld) 17.4 % Low 19-41 [facility] MCV (mean corpuscular volume ) determinationOrdered By: Olga Dang on 03-29-2024 MCV (RBC) [Entitic vol] 89.5 fL 81-99 [facility] Mean corpuscular hemoglobin (MCH) determinationOrdered By: Olga Dang on 03-29-2024 MCH (RBC) [Entitic mass] 28.9 pg 27.0-32.0 [facility] Mean corpuscular hemoglobin concentration (MCHC) determinationOrdered By: Olga Dang on 03-29-2024 MCHC (RBC) [Mass/Vol] 32.3 g/dL 32-36 [facility] Mean platelet volume determi nationOrdered By: Olga Dang on 03-29-2024 Platelet mean volume (Bld) [Entitic vol] 10.8 fL 6.2-12.0 [facility] Monocyte percentageOrdered B y: Olga Dang on 03-29-2024 Monocytes/100 WBC (Bld) 3.6 % 0-10 [facility] Neutrophil percentageOrdered By: Olga Dang on 03-29-2024 Neutrophils/100 WBC (Bld) 76.9 % High 47-70 [facility] Nucleated red blood cell per centageOrdered By: Olga Dang on 03-29-2024 Nucleated RBC/100 WBC (Bld) [Ratio] 0 % 0-5 [facility] Platelet countOrdered By: Guillermo Dang on 03-29-2024 Platelets (Bld) [#/Vol] 242 10*3/uL 150-450 [facility] Potassium measurementOrdered By: Olga Dang on 03-29-2024 Potassium [Moles/Vol] 3.2 mmol/L Low 3.5-5.1 [facility] RBC Auto (Bld) [#/Vol]Ordere d By: Olga Dang on 03-29-2024 RBC (Bld) [#/Vol] 4.29 10*6/uL 4.2-5.4 [facility] Serum anion gap measurementO rdered By: Olga Dang on 03-29-2024 Anion gap [Moles/Vol] 4 mmol/L Low 5-15 [facility] Serum globulin measurementOr dered By: Olga Dang on 03-29-2024 Globulin (S) [Mass/Vol] 4.0 g/dL 2.2-4.2 [facility] Serum or plasma alanine [place] otransferase (ALT) measurementOrdered By: Olga Dang on 03-29-2024 ALT [Catalytic activity/Vol] 21 U/L 13-56 [facility] Serum or plasma albumin rosa urement (mass/volume)Ordered By: Olga Dang on 03-29-2024 Albumin [Mass/Vol] 3.1 g/dL Low 3.2-5.0 [facility] Serum or plasma alkaline mendez sphatase measurementOrdered By: Olga Dang on 03-29-2024 ALP [Catalytic activity/Vol] 93 U/L 45-117 [facility] Serum or plasma calcium rosa urement (mass/volume)Ordered By: Olga Dang on 03-29-2024 Calcium [Mass/Vol] 8.8 mg/dL 8.5-10.1 [facility] Serum or plasma creatinine m easurement (mass/volume)Ordered By: Olga Dang on 03-29-2024 Creatinine [Mass/Vol] 0.83 mg/dL 0.55-1.02 [facility] Comment on above: The validity of the calculated GFR & GFRAA in patients over 70 years has not been determined. Clinical correlation is essential. Serum or plasma urea nitroge n measurement (mass/volume)Ordered By: Olga Dang on 03-29-2024 Urea nitrogen [Mass/Vol] 11 mg/dL 7-18 [facility] Sodium levelOrdered By: Dre Dang on 03-29-2024 Sodium [Moles/Vol] 139 mmol/L 136-145 [facility] Total proteinOrdered By: Alfonzo Dang on 03-29-2024 Protein [Mass/Vol] 7.1 g/dL 6.4-8.2 [facility] White blood cell (WBC) count Ordered By: Olga Dang on 03-29-2024 WBC (Bld) [#/Vol] 13.2 10*3/uL High 4.4-11.0 [facility] CBC W/Diff, Automatedon 09-0 -2023 Absolute Lymph 1.99 X10 3/uL Normal 0.83-4.51 [facility] Comment on above: Performed By: #### L 500.4050, L100.0100 #### [facility] [address] [place], [address] Absolute Neut 5.7 X10 3/uL Normal 2.0-7.7 [facility] Comment on above: Performed By: #### L 500.4050, L100.0100 #### [facility] [address] [place], [address] Basophils/100 WBC (Bld) 0.5 % Normal 0-1 [facility] Comment on above: Performed By: #### L 500.4050, L100.0100 #### [facility] [address] [place], [address] Eosinophils/100 WBC (Bld) 2.5 % Normal 0-5 [facility] Comment on above: Performed By: #### L 500.4050, L100.0100 #### [facility] [address] [place], [address] Erythrocyte distribution width (RBC) [Ratio] 12.7 % Normal 11.6-14.6 [facility] Comment on above: Performed By: #### L 500.4050, L100.0100 #### [facility] [address] [place], [address] Hematocrit (Bld) [Volume fraction] 37.2 % Normal 37-47 [facility] Comment on above: Performed By: #### L 500.4050, L100.0100 #### [facility] [address] [place], [address] Hemoglobin (Bld) [Mass/Vol] 12.2 g/dL Normal 12.0-15.0 [facility] Comment on above: Performed By: #### L 500.4050, L100.0100 #### [facility] [address] [place], [address] IG% 0.400 Normal 0.0-0.9 [facility] Comment on above: Result Comment: IG% - Immature Granulocytes (promyelocytes, myelocytes and metamyelocytes) > 1% indicates that a LEFT SHIFT is Present. Performed By: #### L 500.4050, L100.0100 #### [facility] [address] [place], [address] Lymphocytes/100 WBC (Bld) 24.0 % Normal 19-41 [facility] Comment on above: Performed By: #### L 500.4050, L100.0100 #### [facility] [address] [place], [address] MCH (RBC) [Entitic mass] 29.3 pg Normal 27.0-32.0 [facility] Comment on above: Performed By: #### L 500.4050, L100.0100 #### [facility] [address] [place], [address] MCHC (RBC) [Mass/Vol] 32.8 g/dL Normal 32-36 [facility] Comment on above: Performed By: #### L 500.4050, L100.0100 #### [facility] [address] [place], [address] MCV (RBC) [Entitic vol] 89.4 fL Normal 81-99 [facility] Comment on above: Performed By: #### L 500.4050, L100.0100 #### [facility] [address] [place], [address] Monocytes/100 WBC (Bld) 4.1 % Normal 0-10 [facility] Comment on above: Performed By: #### L 500.4050, L100.0100 #### [facility] [address] [place], [address] Neutrophils/100 WBC (Bld) 68.5 % Normal 47-70 [facility] Comment on above: Performed By: #### L 500.4050, L100.0100 #### [facility] [address] [place], [address] Nucleated RBC (Bld) [#/Vol] 0 10*3/uL Normal 0-5 [facility] Comment on above: Performed By: #### L 500.4050, L100.0100 #### [facility] [address] [place], [address] Platelet mean volume (Bld) [Entitic vol] 10.5 fL Normal 6.2-12.0 [facility] Comment on above: Performed By: #### L 500.4050, L100.0100 #### [facility] [address] [place], [address] Platelets (Bld) [#/Vol] 218 10*3/uL Normal 150-450 [facility] Comment on above: Performed By: #### L 500.4050, L100.0100 #### [facility] [address] [place], [address] RBC (Bld) [#/Vol] 4.16 10*6/uL Low 4.2-5.4 [facility] Comment on above: Performed By: #### L 500.4050, L100.0100 #### [facility] [address] [place], [address] RDW SD 41.4 fl Normal 35.1-43.9 [facility] Comment on above: Performed By: #### L 500.4050, L100.0100 #### [facility] [address] [place], [address] WBC (Bld) [#/Vol] 8.3 10*3/uL Normal 4.4-11.0 [facility] Comment on above: Performed By: #### L 500.4050, L100.0100 #### [facility] [address] [place], [address] Comprehensive Metabolic Prof ilon 12-29-2023 Albumin [Mass/Vol] 3.0 g/dL Low 3.2-5.0 [facility] Comment on above: Performed By: #### L 500.4050, L100.0100 #### [facility] [address] [place], [address] Albumin/Globulin [Mass ratio] 0.8 {ratio} Low 0.9-2.4 [facility] Comment on above: Performed By: #### L 500.4050, L100.0100 #### [facility] [address] [place], [address] ALK P 87 U/L Normal 45-117 [facility] Comment on above: Performed By: #### L 500.4050, L100.0100 #### [facility] [address] [place], [address] ALT [Catalytic activity/Vol] 18 U/L Normal 13-56 [facility] Comment on above: Performed By: #### L 500.4050, L100.0100 #### [facility] [address] [place], [address] AST [Catalytic activity/Vol] 10 U/L Low 15-37 [facility] Comment on above: Performed By: #### L 500.4050, L100.0100 #### [facility] [address] [place], [address] Bilirubin [Mass/Vol] 0.40 mg/dL Normal 0.20-1.00 [facility] Comment on above: Result Comment: For patients on eltrombopag therapy, use of Dimension [place] TBIL is not recommended. Performed By: #### L 500.4050, L100.0100 #### [facility] [address] [place], [address] BUN/CRE 23.6 RATIO High 10-20 [facility] Comment on above: Performed By: #### L 500.4050, L100.0100 #### [facility] [address] [place], [address] CA,Total 8.9 mg/dL Normal 8.5-10.1 [facility] Comment on above: Performed By: #### L 500.4050, L100.0100 #### [facility] [address] [place], [address] Chloride [Moles/Vol] 106 mmol/L Normal 98-107 [facility] Comment on above: Performed By: #### L 500.4050, L100.0100 #### [facility] [address] [place], [address] CO2 [Moles/Vol] 28.0 mmol/L Normal 21.0-32.0 [facility] Comment on above: Performed By: #### L 500.4050, L100.0100 #### [facility] [address] [place], [address] Creatinine [Mass/Vol] 0.55 mg/dL Normal 0.55-1.02 [facility] Comment on above: Result Comment: The validity of the calculated GFR GFRAA in patients over 70 years has not been determined. Clinical correlation is essential. Performed By: #### L 500.4050, L100.0100 #### [facility] [address] [place], [address] EST GFR - AA 154 mL/min Normal >60 [facility] Comment on above: Result Comment: Afri can [place] GFR Calc Performed By: #### L 500.4050, L100.0100 #### [facility] [address] [place], [address] GAP 5 Normal 5-15 [facility] Comment on above: Performed By: #### L 500.4050, L100.0100 #### [facility] [address] [place], [address] GFR/1.73 sq M.predicted among non-blacks MDRD (S/P/Bld) [Vol rate/Area] 127 mL/min/{1.73_m2} Normal >60 [facility] Comment on above: Result Comment: Non- GFR Calc Performed By: #### L 500.4050, L100.0100 #### [facility] [address] [place], [address] Globulin (S) [Mass/Vol] 3.8 g/dL Normal 2.2-4.2 [facility] Comment on above: Performed By: #### L 500.4050, L100.0100 #### [facility] [address] [place], [address] Glucose [Mass/Vol] 105 mg/dL Normal 74-106 [facility] Comment on above: Result Comment: Fast ing Glucose result from 100 to 125 mg/dL suggests IMPAIRED HOMEOSTASIS per A.D.A. criteria. Performed By: #### L 500.4050, L100.0100 #### [facility] [address] [place], [address] Potassium [Moles/Vol] 3.5 mmol/L Normal 3.5-5.1 [facility] Comment on above: Performed By: #### L 500.4050, L100.0100 #### [facility] [address] [place], [address] Sodium [Moles/Vol] 139 mmol/L Normal 136-145 [facility] Comment on above: Performed By: #### L 500.4050, L100.0100 #### [facility] [address] [place], [address] T PROT 6.8 g/dL Normal 6.4-8.2 [facility] Comment on above: Performed By: #### L 500.4050, L100.0100 #### [facility] [address] [place], [address] Urea nitrogen [Mass/Vol] 13 mg/dL Normal 7-18 [facility] Comment on above: Performed By: #### L 500.4050, L100.0100 #### [facility] [address] [place], [address] ALB Normal 3.2-5.0 [facility] Comment on above: Result Comment: WRON G ORDER Performed By: #### L 3100.5850, L500.4050 #### [facility] [address] [place], [address] ALK P Normal 45-117 [facility] Comment on above: Result Comment: WRON G ORDER Performed By: #### L 3100.5850, L500.4050 #### [facility] [address] [place], [address] ALT Normal 13-56 [facility] Comment on above: Result Comment: WRON G ORDER Performed By: #### L 3100.5850, L500.4050 #### [facility] [address] [place], [address] AST Normal 15-37 [facility] Comment on above: Result Comment: WRON G ORDER Performed By: #### L 3100.5850, L500.4050 #### [facility] [address] [place], [address] BUN Normal 7-18 [facility] Comment on above: Result Comment: WRON G ORDER Performed By: #### L 3100.5850, L500.4050 #### [facility] [address] [place], [address] BUN/CRE Normal 10-20 [facility] Comment on above: Result Comment: WRON G ORDER Performed By: #### L 3100.5850, L500.4050 #### [facility] [address] [place], [address] CA,Total Normal 8.5-10.1 [facility] Comment on above: Result Comment: WRON G ORDER Performed By: #### L 3100.5850, L500.4050 #### [facility] [address] [place], [address] CL Normal 98-107 [facility] Comment on above: Result Comment: WRON G ORDER Performed By: #### L 3100.5850, L500.4050 #### [facility] [address] [place], [address] CO2 Normal 21.0-32.0 [facility] Comment on above: Result Comment: WRON G ORDER Performed By: #### L 3100.5850, L500.4050 #### [facility] [address] [place], [address] CREAT,SERUM Normal 0.55-1.02 [facility] Comment on above: Result Comment: WRON G ORDER Performed By: #### L 3100.5850, L500.4050 #### [facility] [address] [place], [address] EST GFR Normal >60 [facility] Comment on above: Result Comment: WRON G ORDER Performed By: #### L 3100.5850, L500.4050 #### [facility] [address] [place], [address] EST GFR - AA Normal >60 [facility] Comment on above: Result Comment: WRON G ORDER Performed By: #### L 3100.5850, L500.4050 #### [facility] [address] [place], [address] GAP Normal 5-15 [facility] Comment on above: Result Comment: WRON G ORDER Performed By: #### L 3100.5850, L500.4050 #### [facility] [address] [place], [address] GLU Normal 74-106 [facility] Comment on above: Result Comment: WRON G ORDER Performed By: #### L 3100.5850, L500.4050 #### [facility] [address] [place], [address] Potassium Normal 3.5-5.1 [facility] Comment on above: Result Comment: WRON G ORDER Performed By: #### L 3100.5850, L500.4050 #### [facility] [address] [place], [address] T BILI Normal 0.20-1.00 [facility] Comment on above: Result Comment: WRON G ORDER Performed By: #### L 3100.5850, L500.4050 #### [facility] [address] [place], [address] T PROT Normal 6.4-8.2 [facility] Comment on above: Result Comment: WRON G ORDER Performed By: #### L 3100.5850, L500.4050 #### [facility] [address] [place], [address] Comprehensive Metabolic Profil Normal 136-145 [facility] Comment on above: Result Comment: WRON G ORDER Performed By: #### L 3100.5850, L500.4050 #### [facility] [address] [place], [address] EBV Acute Prof IgG / IgMon 0 12-29-2023 EB Ab VCA, IgG Normal [place] [facility] Comment on above: Result Comment: WRON G ORDER Performed By: #### L 3100.5850, L500.4050 #### [facility] [address] [place], [address] EBV Ab VCA, IgM Normal [facility] Comment on above: Result Comment: WRON G ORDER Performed By: #### L 3100.5850, L500.4050 #### [facility] [address] [place], [address] EBV NuAg Ab,IgG Normal [facility] Comment on above: Result Comment: WRON G ORDER Performed By: #### L 3100.5850, L500.4050 #### [facility] [address] [place], [address] INTERPRETATION Normal [facility] Comment on above: Result Comment: WRON G ORDER Performed By: #### L 3100.5850, L500.4050 #### [facility] [address] [place], [address] Office Visiton 12-24-2023 Follow-up visit [id number] SariLaxmi Amadeo 1980 F Date Provider Department Center 12/24/2023 [id number] ACEVEDO [facility] Family History Problem Relation Age of Onset Atrial fibrillation Mother Heart failure Mother Comments: mild Hypertension Father Comments: 05/13 age 75 Diabetes Father Comments: PAD, CRF No Known Problems Sister Hypertension Brother No Known Problems Daughter No Known Problems Daughter Diabetes Father's Brother No Known Problems Maternal Grandmother Heart attack Maternal Grandfather Comments: age: late 60s Other Paternal Grandmother 60 Heart attack Paternal Grandfather 66 Family Status - Relation Status Age at Mother Alive Father Sister Alive Brother Alive Daughter Alive Daughter Alive Father's Brother Maternal Grandmother Maternal Grandfather Paternal Grandmother Paternal Grandfather Level of Service:[address] [place] OFFICE/OUTPATIENT ESTABLISHED LOW MDM 20 MIN Reason for Visit and Comments: Follow-up [451965] - Med check [facility] Progress Noteon 12-24-2023 Progress Note [facility] [address] [facility] [id number] Visit type: Established Patient Reason for Visit: Follow-up (Med check ) Assessment / Plan: Laxmi was seen today for follow-up. Diagnoses and all orders for this visit: Primary hypertension (Primary) Comments: Stable, continue metoprolol and losartan NSAID long-term use Comments: Stable, GI precautions discussed continue Protonix and meloxicam Psoriatic arthritis (HCC) Other orders - meloxicam (Mobic) 15 MG tablet; Take 1 tablet (15 mg) by mouth daily. Subjective: Patient ID: Laxmi Gaona is a 43 y.o. female. HPI hypertension and NSAID therapy checkup. Patient sees rheumatology and obtains methotrexate in leucovorin. Takes meloxicam as needed with good results. Mostly dealing with lower extremity stiffness. History of mild knee arthritis. Also has lumbar disc disease Review of Systems no recent earache sore throat or cough. No chest pain palpitations or dyspnea. No heartburn on meds. Bowels are regular. No melena or blood. 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 No recent skin flareups. Allergies Allergen Reactions Lisinopril Other Fatigue, sweatiness Tizanidine Itchy, dizzy Cephalexin Hives Current Outpatient Medications on File Prior to Visit Medication Sig Dispense Refill folic acid (Folvite) 1 MG tablet TAKE 2 TABLETS BY MOUTH ONCE DAILY leucovorin (Wellcovorin) 15 MG tablet Take 15 mg by mouth 1 (one) time per week. losartan (Cozaar) 100 MG tablet Take 1 tablet by mouth once daily 90 tablet 1 methotrexate 2.5 MG tablet Take 15 mg by mouth 1 (one) time per week. metoprolol succinate XL (Toprol-XL) 100 MG 24 hr tablet Take 1 tablet by mouth once daily 90 tablet 1 pantoprazole (ProtoNix) 40 MG EC tablet Take 1 tablet (40 mg) by mouth daily for 90 doses. Do not crush, chew, or split. 90 tablet 1 traMADol (Ultram) 50 MG tablet Take 50 mg by mouth 3 times daily as needed. triamcinolone (Kenalog) 0.1 % ointment Apply topically 2 times daily. 80 g 1 [DISCONTINUED] meloxicam (Mobic) 15 MG tablet Take 15 mg by mouth daily. EPINEPHrine (Epipen) 0.3 MG/0.3ML injection syringe Use as directed for allergic reaction No current facility-administered medications on file prior [...] History Problem Relation Name Age of Onset Atrial fibrillation Mother Jaylene Heart failure Mother Jaylene mild Hypertension Father Devin 05/13 age 75 Diabetes Father Devin PAD, CRF No Known Problems Sister Hypertension Brother No Known Problems Daughter No Known Problems Daughter Diabetes Father's Brother No Known Problems Maternal Grandmother Heart attack Maternal Grandfather age: late 60s Other (lung cancer) Paternal Grandmother 60 Heart attack Paternal Grandfather 66 Objective: BP 138/85 (BP Location: Left arm, Patient Position: Sitting, BP Cuff Size: Thigh) Pulse 81 Temp 36.1 ?C (97 ?F) (Temporal) Ht 5' 6 (1.676 m) Wt (!) 321 lb (146 kg) SpO2 97% BMI 51.81 kg/m? Physical Exam The physical exam is generally normal. Patient appears well, alert and oriented x 3, pleasant, cooperative. Vitals are as noted. No carotid bruits. Neck supple, no abnormal adenopathy, thyroid lesions or masses. Ears, nose and throat are normal without acute findings. Lungs are clear to auscultation. Heart is regular, without murmurs, gallops or ectopy. Abdomen is soft, non tender, without masses, hepatosplenomegaly, or bruits. Normal BS evident. Extremities are normal without edema. Peripheral pulses are fair. No worrisome skin lesions. Screening neurological exam is normal without focal deficits. Normal [facility] 36on 11-17-2023 36 Recent Visits Date Type Provider Dept 04/28/23 Office Visit Noel Marquez DO [facility] Showing recent visits within past 365 days and meeting all other requirements Future Appointments Date Type Provider Dept 12/24/23 Appointment Noel Yelena DO [facility] Showing future appointments within next 90 days and meeting all other requirements Requested Prescriptions Pending Prescriptions Disp Refills triamcinolone (Kenalog) 0.1 % ointment Provider: Noel Marquez DO Overdue for visit: Yes If yes - patient scheduled? Yes Most recent labs completed in chart? Yes Verified pharmacy: yes Verified day(s) supplied: yes Verified refill(s) needed (previous prescription showing no refills in chart): Yes Have you received any controlled medications from any other provider? N/A [facility] 36on 11-11-2023 36 See refill request f rom pharmacy [facility] 36 Recent Visits Date Type Provider Dept 04/28/23 Office Visit Noel Marquez DO [facility] Showing recent visits within past 365 days and meeting all other requirements Future Appointments Date Type Provider Dept 12/24/23 Appointment Noel Marquez DO [facility] Showing future appointments within next 90 days and meeting all other requirements Requested Prescriptions Pending Prescriptions Disp Refills metoprolol succinate XL (Toprol-XL) 100 MG 24 hr tablet [Pharmacy Med Name: Metoprolol Succinate ER 100 MG Oral Tablet Extended Release 24 Hour] 90 tablet 0 Sig: Take 1 tablet by mouth once daily losartan (Cozaar) 100 MG tablet [Pharmacy Med Name: Losartan Potassium 100 MG Oral Tablet] 30 tablet 0 Sig: Take 1 tablet by mouth once daily Provider: Noel Marquez DO Verified pharmacy: yes Verified day(s) supplied: yes Verified refill(s) needed (previous prescription showing no refills in chart): Yes Have you received any controlled medications from any other provider? N/A Overdue for visit: Yes If yes - patient scheduled? Yes Most recent labs completed in chart? Yes Hypertension: Lab Results Component Value Date NA 134 (L) 07/19/2023 K 3.9 07/19/2023 EGFR >90.0 07/19/2023 BUN 12 07/19/2023 CREATININE 0.61 07/19/2023 [facility] 36 The patient stated h er appointment got changed to 12/24/2023 due to the provider being out of office. Ordering provider: Jimmy Date of last office visit: 04/28/2023 Date of next office visit: 12/24/2023 Updated/Validated preferred pharmacy: Yes Patient instructed to contact the pharmacy prior to picking up the medication: Yes (1) Medication name: Losartan Medication dosage: 100 mg (Miligrams Monthly quantity needed: 30 How many day supply requestin days Medication route: oral (PO) Medication administration time(s): daily If taking medication PRN, reason for taking medication: N/A If this is a controlled substance do you receive this or any other controlled medication from any other doctor or facility: No Date of last refill (see medication tab): 05/28/2023 (2) Medication name: Metoprolol succinate XL Medication dosage: 100 mg (Miligrams Monthly quantity needed: 90 How many day supply requestin days Medication route: oral (PO) Medication administration time(s): daily If taking medication PRN, reason for taking medication: N/A If this is a controlled substance do you receive this or any other controlled medication from any other doctor or facility: No Date of last refill (see medication tab): 04/28/2023 Normal [facility] CBC W/Diff, Automatedon 09-19 Absolute Lymph 1.93 X10 3/uL Normal 0.83-4.51 [facility] Comment on above: Performed By: #### L 100.0100, L500.4050 #### [facility] [address] [place], [address] Absolute Neut 6.2 X10 3/uL Normal 2.0-7.7 [facility] Comment on above: Performed By: #### L 100.0100, L500.4050 #### [facility] [address] [place], [address] Basophils/100 WBC (Bld) 0.5 % Normal 0-1 [facility] Comment on above: Performed By: #### L 100.0100, L500.4050 #### [facility] [address] [place], [address] Eosinophils/100 WBC (Bld) 1.5 % Normal 0-5 [facility] Comment on above: Performed By: #### L 100.0100, L500.4050 #### [facility] [address] [place], [address] Erythrocyte distribution width (RBC) [Ratio] 13.3 % Normal 11.6-14.6 [facility] Comment on above: Performed By: #### L 100.0100, L500.4050 #### [facility] [address] [place], [address] Hematocrit (Bld) [Volume fraction] 37.3 % Normal 37-47 [facility] Comment on above: Performed By: #### L 100.0100, L500.4050 #### [facility] [address] [place], [address] Hemoglobin (Bld) [Mass/Vol] 12.3 g/dL Normal 12.0-15.0 [facility] Comment on above: Performed By: #### L 100.0100, L500.4050 #### [facility] [address] [place], [address] IG% 0.200 Normal 0.0-0.9 [facility] Comment on above: Result Comment: IG% - Immature Granulocytes (promyelocytes, myelocytes and metamyelocytes) > 1% indicates that a LEFT SHIFT is Present. Performed By: #### L 100.0100, L500.4050 #### [facility] [address] [place], [address] Lymphocytes/100 WBC (Bld) 22.2 % Normal 19-41 [facility] Comment on above: Performed By: #### L 100.0100, L500.4050 #### [facility] [address] [place], [address] MCH (RBC) [Entitic mass] 28.9 pg Normal 27.0-32.0 [facility] Comment on above: Performed By: #### L 100.0100, L500.4050 #### [facility] [address] [place], [address] MCHC (RBC) [Mass/Vol] 33.0 g/dL Normal 32-36 [facility] Comment on above: Performed By: #### L 100.0100, L500.4050 #### [facility] [address] [place], [address] MCV (RBC) [Entitic vol] 87.8 fL Normal 81-99 [facility] Comment on above: Performed By: #### L 100.0100, L500.4050 #### [facility] [address] [place], [address] Monocytes/100 WBC (Bld) 4.0 % Normal 0-10 [facility] Comment on above: Performed By: #### L 100.0100, L500.4050 #### [facility] [address] [place], [address] Neutrophils/100 WBC (Bld) 71.6 % High 47-70 [facility] Comment on above: Performed By: #### L 100.0100, L500.4050 #### [facility] [address] [place], [address] Nucleated RBC (Bld) [#/Vol] 0 10*3/uL Normal 0-5 [facility] Comment on above: Performed By: #### L 100.0100, L500.4050 #### [facility] [address] [place], [address] Platelet mean volume (Bld) [Entitic vol] 11.3 fL Normal 6.2-12.0 [facility] Comment on above: Performed By: #### L 100.0100, L500.4050 #### [facility] [address] [place], [address] Platelets (Bld) [#/Vol] 221 10*3/uL Normal 150-450 [facility] Comment on above: Performed By: #### L 100.0100, L500.4050 #### [facility] [address] [place], [address] RBC (Bld) [#/Vol] 4.25 10*6/uL Normal 4.2-5.4 [facility] Comment on above: Performed By: #### L 100.0100, L500.4050 #### [facility] [address] [place], [address] RDW SD 43.0 fl Normal 35.1-43.9 [facility] Comment on above: Performed By: #### L 100.0100, L500.4050 #### [facility] [address] [place], [address] WBC (Bld) [#/Vol] 8.7 10*3/uL Normal 4.4-11.0 [facility] Comment on above: Performed By: #### L 100.0100, L500.4050 #### [facility] [address] [place], [address] Comprehensive Metabolic Prof [facility] 10-01-2023 Albumin [Mass/Vol] 3.2 g/dL Normal 3.2-5.0 [facility] Comment on above: Performed By: #### L 100.0100, L500.4050 #### [facility] [address] [place], [address] Albumin/Globulin [Mass ratio] 0.9 {ratio} Normal 0.9-2.4 [facility] Comment on above: Performed By: #### L 100.0100, L500.4050 #### [facility] [address] [place], [address] ALK P 94 U/L Normal 45-117 [facility] Comment on above: Performed By: #### L 100.0100, L500.4050 #### [facility] [address] [place], [address] ALT [Catalytic activity/Vol] 22 U/L Normal 13-56 [facility] Comment on above: Performed By: #### L 100.0100, L500.4050 #### [facility] [address] [place], [address] AST [Catalytic activity/Vol] 10 U/L Low 15-37 [facility] Comment on above: Performed By: #### L 100.0100, L500.4050 #### [facility] [address] [place], [address] Bilirubin [Mass/Vol] 0.60 mg/dL Normal 0.20-1.00 [facility] Comment on above: Result Comment: For patients on eltrombopag therapy, use of Dimension [place] TBIL is not recommended. Performed By: #### L 100.0100, L500.4050 #### [facility] [address] [place], [address] BUN/CRE 23.7 RATIO High 10-20 [facility] Comment on above: Performed By: #### L 100.0100, L500.4050 #### [facility] [address] [place], [address] CA,Total 9.1 mg/dL Normal 8.5-10.1 [facility] Comment on above: Performed By: #### L 100.0100, L500.4050 #### [facility] [address] [place], [address] Chloride [Moles/Vol] 109 mmol/L High 98-107 [facility] Comment on above: Performed By: #### L 100.0100, L500.4050 #### [facility] [address] [place], [address] CO2 [Moles/Vol] 26.0 mmol/L Normal 21.0-32.0 [facility] Comment on above: Performed By: #### L 100.0100, L500.4050 #### [facility] [address] [place], [address] Creatinine [Mass/Vol] 0.59 mg/dL Normal 0.55-1.02 [facility] Comment on above: Result Comment: The validity of the calculated GFR GFRAA in patients over 70 years has not been determined. Clinical correlation is essential. Performed By: #### L 100.0100, L500.4050 #### [facility] [address] [place], [address] EST GFR - AA 143 mL/min Normal >60 [facility] Comment on above: Result Comment: Afri can Citizen Of [place] GFR Calc Performed By: #### L 100.0100, L500.4050 #### [facility] [address] [place], [address] GAP 5 Normal 5-15 [facility] Comment on above: Performed By: #### L 100.0100, L500.4050 #### [facility] [address] [place], [address] GFR/1.73 sq M.predicted among non-blacks MDRD (S/P/Bld) [Vol rate/Area] 118 mL/min/{1.73_m2} Normal >60 [facility] Comment on above: Result Comment: Non- GFR Calc Performed By: #### L 100.0100, L500.4050 #### [facility] [address] [place], [address] Globulin (S) [Mass/Vol] 3.7 g/dL Normal 2.2-4.2 [facility] Comment on above: Performed By: #### L 100.0100, L500.4050 #### [facility] [address] [place], [address] Glucose [Mass/Vol] 82 mg/dL Normal 74-106 [facility] Comment on above: Performed By: #### L 100.0100, L500.4050 #### [facility] [address] [place], [address] Potassium [Moles/Vol] 3.6 mmol/L Normal 3.5-5.1 [facility] Comment on above: Performed By: #### L 100.0100, L500.4050 #### [facility] [address] [place], [address] Sodium [Moles/Vol] 140 mmol/L Normal 136-145 [facility] Comment on above: Performed By: #### L 100.0100, L500.4050 #### [facility] [address] [place], [address] T PROT 6.9 g/dL Normal 6.4-8.2 [facility] Comment on above: Performed By: #### L 100.0100, L500.4050 #### [facility] [address] [place], [address] Urea nitrogen [Mass/Vol] 14 mg/dL Normal 7-18 [facility] Comment on above: Performed By: #### L 100.0100, L500.4050 #### [facility] [address] [place], [address] CBC W Auto Differential pane l (Bld)Ordered By: June Baker on 07-19-2023 Basophils (Bld) [#/Vol] 0.0 10*3/uL 0.0 - 0.2 10*3/uL [employer] Basophils/100 WBC (Bld) 0.5 % 0.0 - 2.0 % [facility] [employer] Eosinophils (Bld) [#/Vol] 0.0 10*3/uL 0.0 - 0.5 10*3/uL [facility] Eosinophils/100 WBC (Bld) 0.3 % 0.0 - 6.0 % [facility] Erythrocyte distribution width (RBC) [Ratio] 13.4 % 11.5 - 15.0 % [facility] Hematocrit (Bld) [Volume fraction] 41.5 % 35.0 - 47.0 % [facility] Hemoglobin (Bld) [Mass/Vol] 14.0 g/dL 11.7 - 16.0 g/dL [facility] Immature granulocytes (Bld) [#/Vol] 0.0 10*3/uL NINF - 0.1 10*3/uL [facility] Immature granulocytes/100 WBC (Bld) 0.3 % 0.0 - 2.0 % [facility] Interpretation and review of laboratory results Abnormal [facility] Lymphocytes (Bld) [#/Vol] 0.8 10*3/uL Low 1.0 - 4.3 10*3/uL [facility] Lymphocytes/100 WBC (Bld) 12.3 % Low 15.0 - 45.0 % [facility] MCH (RBC) [Entitic mass] 29.5 pg 26.0 - 34.0 pg [facility] MCHC (RBC) [Mass/Vol] 33.7 % 30.5 - 36.0 % [facility] MCV (RBC) [Entitic vol] 87.4 fL 77.0 - 99.0 fL [facility] Monocytes (Bld) [#/Vol] 0.7 10*3/uL 0.0 - 0.9 10*3/uL [facility] Monocytes/100 WBC (Bld) 10.7 % 5.0 - 13.0 % [facility] Neutrophils (Bld) [#/Vol] 4.9 10*3/uL 1.8 - 7.5 10*3/uL [facility] Neutrophils/100 WBC (Bld) 75.9 % 38.0 - 82.0 % [facility] Nucleated RBC/100 WBC (Bld) [Ratio] 0.0 % [facility] Platelet mean volume (Bld) [Entitic vol] 10.8 fL 9.0 - 12.7 fL [facility] Comment on above: MPV is a calculated measurement using platelet volume ratio Platelets (Bld) [#/Vol] 205 10*3/uL 140 - 440 10*3/uL [facility] RBC (Bld) [#/Vol] 4.75 10*6/uL 3.80 - 5.2 0 10*6/uL [facility] WBC (Bld) [#/Vol] 6.4 10*3/uL 3.6 - 10.7 10*3/uL [facility] Comprehensive metabolic 1998 panelon 07-19-2023 Albumin [Mass/Vol] 4.1 g/dL 3.5 - 5.0 g/dL [facility] ALP [Catalytic activity/Vol] 85 U/L 38 - 126 U/L [facility] ALT [Catalytic activity/Vol] 21 U/L 0 - 34 U/L [facility] Anion gap [Moles/Vol] 8 mmol/L 3 - 13 mmol/L [facility] AST [Catalytic activity/Vol] 26 U/L 15 - 46 U/L [facility] Bilirubin [Mass/Vol] 0.5 mg/dL 0.2 - 1 .3 mg/dL [facility] Calcium [Mass/Vol] 8.9 mg/dL 8.4 - 10. 4 mg/dL [facility] Chloride [Moles/Vol] 103 mmol/L 98 - 10 7 mmol/L [facility] CO2 [Moles/Vol] 23 mmol/L 22 - 30 mmol/L [facility] Creatinine [Mass/Vol] 0.61 mg/dL 0.52 - 1.04 mg/dL [facility] GFR/1.73 sq M.predicted MDRD (S/P/Bld) [Vol rate/Area] - PINF [facility] Comment on above: Calculation based on the Chronic Kidney Disease Epidemiology Collaboration (CKD-EPI) equation refit without adjustment for race Glucose [Mass/Vol] 110 mg/dL High 70 - 100 mg/dL [facility] Interpretation and review of laboratory results Abnormal [facility] Potassium [Moles/Vol] 3.9 mmol/L 3.5 - 5.1 mmol/L [facility] Protein [Mass/Vol] 7.5 g/dL 6.3 - 8.2 g/dL [facility] Sodium [Moles/Vol] 134 mmol/L Low 135 - 145 mmol/L [facility] Urea nitrogen [Mass/Vol] 12 mg/dL 7 - 17 mg/dL [facility] - Microbiology an d Antimicrobial susceptibilityon 07-19-2023 FLUAV RNA KAREN+probe Ql (Resp) Detected Abnormal Not Detected [facility] FLUBV RNA KAREN+probe Ql (Resp) Not detected Not Detected [facility] RSV RNA KAREN+probe Ql (Resp) Not detected Not Detected [facility] SARS-CoV-2 (COVID-19) RNA KAREN+probe Ql (Resp) Not detected Not Detected [facility] SARS-CoV-2 (COVID-19) RNA KAREN+probe Ql (Unsp spec) Methodology: real-time, RT-PCR The SARS-CoV-2, Flu A/B, and RSV Combo assay is intended for in vitro diagnostic use under the FDA Emergency Use Authorization (EUA). This test has not been FDA cleared or approved. In compliance with this authorization, please visit www.fda.gov/media/379664 /download or www.fda.gov/media/344588 /download to access the applicable information sheets. [facility] SARS-CoV-2, Flu A/B, and RSV Comboon 07-19-2023 Interpretation and review of laboratory results Abnormal [facility] Absolute lymphocyte countOrd ered By: Olga Dang on 07-01-2023 Lymphocytes Auto (Unsp spec) [#/Vol] 1.94 10*3/uL 0.83-4.51 [facility] Automated lymphocyte count a s percentage of total leukocytesOrdered By: Olga Dang on 07-01-2023 Lymphocytes/100 WBC Auto (Unsp spec) 18.9 % 19-41 [facility] Basophil percentageOrdered B y: Olga Dang on 07-01-2023 Basophils/100 WBC (Bld) 0.4 % 0-1 [facility] Bilirubin [Mass/Vol] 0.40 mg/dL 0.20-1.00 [facility] Comment on above: For patients on eltr ombopag therapy, use of Dimension [place] TBIL is not recommended. Chloride [Moles/Vol] 107 mmol/L 98-107 [facility] Eosinophils/100 WBC (Bld) 2.0 % 0-5 [facility] Glucose [Mass/Vol] 90 mg/dL 74-106 [facility] Hemoglobin (Bld) [Mass/Vol] 11.9 g/dL 12.0-15.0 [facility] Monocytes/100 WBC (Bld) 4.5 % 0-10 [facility] Neutrophils (Bld) [#/Vol] 7.6 10*3/uL 2.0-7.7 [facility] Neutrophils/100 WBC (Bld) 73.8 % 47-70 [facility] Potassium [Moles/Vol] 3.6 mmol/L 3.5-5.1 [facility] Protein [Mass/Vol] 6.8 g/dL 6.4-8.2 [facility] Sodium [Moles/Vol] 138 mmol/L 136-145 [facility] WBC (Bld) [#/Vol] 10.3 10*3/uL 4.4-11.0 [facility] Determination of erythrocyte mean corpuscular volume (MCV)Ordered By: Olga Dang on 07-01-2023 MCV (RBC) [Entitic vol] 88.4 fL 81-99 [facility] Erythrocyte distribution wid th ratioOrdered By: [facility] on 07-01-2023 Erythrocyte distribution width (RBC) [Ratio] 13.3 % 11.6-14.6 [facility] Erythrocyte distribution wid th standard deviationOrdered By: Olga Dang on 07-01-2023 Erythrocyte distribution width (RBC) [Entitic vol] 43.0 fL 35.1-43.9 [facility] Hematocrit Auto (Bld) [Volum e fraction]Ordered By: Olga Dang on 07-01-2023 Hematocrit (Bld) [Volume fraction] 36.5 % 37-47 [facility] Immature granulocytes/100 WB C Auto (Bld)Ordered By: Olgadwayne Dang on 07-01-2023 Immature granulocytes/100 WBC (Bld) 0.400 % 0.0-0.9 [facility] Comment on above: IG% - Immature Granu locytes (promyelocytes, myelocytes and metamyelocytes) > 1% indicates that a LEFT SHIFT is Present. Laboratory - Chemistry and C hemistry - challengeOrdered By: Olga Dang on 07-01-2023 Albumin/Globulin [Mass ratio] 0.9 {ratio} 0.9-2.4 [facility] ALP [Catalytic activity/Vol] 93 U/L 45-117 [facility] ALT [Catalytic activity/Vol] 24 U/L 13-56 [facility] CO2 [Moles/Vol] 26.0 mmol/L 21.0-32.0 [facility] Globulin (S) [Mass/Vol] 3.5 g/dL 2.2-4.2 [facility] Urea nitrogen/Creatinine [Mass ratio] 26.1 mg/mg 10-20 [facility] Laboratory - Hematology and Cell countsOrdered By: Olga Dang on 07-01-2023 MCH (RBC) [Entitic mass] 28.8 pg 27.0-32.0 [facility] MCHC (RBC) [Mass/Vol] 32.6 g/dL 32-36 [facility] Nucleated RBC/100 WBC (Bld) [Ratio] 0 % 0-5 [facility] Platelet mean volume (Bld) [Entitic vol] 11.0 fL 6.2-12.0 [facility] Platelets (Bld) [#/Vol] 223 10*3/uL 150-450 [facility] No Panel InformationOrdered By: Olga Dang on 07-01-2023 Estimated GFR (MDRD) Amer 137 mL/min >60 [facility] Comment on above: GFR Calc Estimated GFR (MDRD) Non-Af Amer 113 mL/min >60 [facility] Comment on above: Non- GFR Calc RBC Auto (Bld) [#/Vol]Ordere d By: Olga Dang on 07-01-2023 RBC (Bld) [#/Vol] 4.13 10*6/uL 4.2-5.4 [facility] Serum or plasma calcium rosa urement (mass/volume)Ordered By: Olga Dang on 07-01-2023 Calcium [Mass/Vol] 8.6 mg/dL 8.5-10.1 [facility] Serum or plasma creatinine m easurement (mass/volume)Ordered By: Olga Dang on 07-01-2023 Creatinine [Mass/Vol] 0.61 mg/dL 0.55-1.02 [facility] Comment on above: The validity of the calculated GFR & GFRAA in patients over 70 years has not been determined. Clinical correlation is essential. Serum or plasma urea nitroge n measurement (mass/volume)Ordered By: Olga Dang on 07-01-2023 Urea nitrogen [Mass/Vol] 16 mg/dL 7-18 [facility] Thin prep Papanicolaou smear with manual screeningOrdered By: Olga Dang on 07-01-2023 Thin prep Papanicolaou smear with manual screening 3.3 g/dL 3.2-5.0 [facility] Thin prep Papanicolaou smear with manual screening 14 U/L 15-37 [facility] Thin prep Papanicolaou smear with manual screening 5 5-15 [facility] Absolute lymphocyte countOrd ered By: Olga Dang on 05-05-2023 Lymphocytes Auto (Unsp spec) [#/Vol] 1.88 10*3/uL 0.83-4.51 [facility] Basophil percentageOrdered B y: Olga Dang on 05-05-2023 Basophils/100 WBC (Bld) 0.6 % 0-1 [facility] Bilirubin [Mass/Vol] 0.40 mg/dL 0.20-1.00 [facility] Comment on above: For patients on eltr ombopag therapy, use of Dimension [place] TBIL is not recommended. Chloride [Moles/Vol] 109 mmol/L 98-107 [facility] Eosinophils/100 WBC (Bld) 2.1 % 0-5 [facility] Glucose [Mass/Vol] 93 mg/dL 74-106 [facility] Neutrophils (Bld) [#/Vol] 6.9 10*3/uL 2.0-7.7 [facility] Neutrophils/100 WBC (Bld) 72.9 % 47-70 [facility] Potassium [Moles/Vol] 3.9 mmol/L 3.5-5.1 [facility] Protein [Mass/Vol] 7.2 g/dL 6.4-8.2 [facility] Sodium [Moles/Vol] 141 mmol/L 136-145 [facility] WBC (Bld) [#/Vol] 9.4 10*3/uL 4.4-11.0 [facility] Blood erythrocytes count (nu mber/volume)Ordered By: Olga Dang on 05-05-2023 RBC (Bld) [#/Vol] 4.66 10*6/uL 4.2-5.4 [facility] Blood hemoglobin measurement (mass/volume)Ordered By: Olga Dang on 05-05-2023 Hemoglobin (Bld) [Mass/Vol] 13.2 g/dL 12.0-15.0 [facility] Blood lymphocytes/100 leukoc ytesOrdered By: Olga Dang on 05-05-2023 Lymphocytes/100 WBC (Bld) 20.0 % 19-41 [facility] Blood monocytes/100 leukocyt esOrdered By: Olga Dang on 05-05-2023 Monocytes/100 WBC (Bld) 4.0 % 0-10 [facility] Blood platelet mean volumeOr dered By: Olgadwayne Dang on 05-05-2023 Platelet mean volume (Bld) [Entitic vol] 11.4 fL 6.2-12.0 [facility] Determination of erythrocyte mean corpuscular volume (MCV)Ordered By: Olgadwayne Dang on 05-05-2023 MCV (RBC) [Entitic vol] 89.1 fL 81-99 [facility] Hematocrit Auto (Bld) [Volum e fraction]Ordered By: Olga Dang on 05-05-2023 Hematocrit (Bld) [Volume fraction] 41.5 % 37-47 [facility] Laboratory - Chemistry and C hemistry - challengeOrdered By: [facility] on 05-05-2023 ALP [Catalytic activity/Vol] 111 U/L 45-117 [facility] ALT [Catalytic activity/Vol] 37 U/L 13-56 [facility] CO2 [Moles/Vol] 26.0 mmol/L 21.0-32.0 [facility] Globulin (S) [Mass/Vol] 3.9 g/dL 2.2-4.2 [facility] Urea nitrogen/Creatinine [Mass ratio] 18.3 mg/mg 10-20 [facility] Laboratory - Hematology and Cell countsOrdered By: Olgadwayne Dang on 05-05-2023 Erythrocyte distribution width (RBC) [Entitic vol] 43.4 fL 35.1-43.9 [facility] Erythrocyte distribution width (RBC) [Ratio] 13.4 % 11.6-14.6 [facility] Immature granulocytes/100 WBC (Bld) 0.400 % 0.0-0.9 [facility] Comment on above: IG% - Immature Granu locytes (promyelocytes, myelocytes and metamyelocytes) > 1% indicates that a LEFT SHIFT is Present. MCH (RBC) [Entitic mass] 28.3 pg 27.0-32.0 [facility] Nucleated RBC/100 WBC (Bld) [Ratio] 0 % 0-5 [facility] MCHC Auto (RBC) [Mass/Vol]Or dered By: Olga Dang on 05-05-2023 MCHC (RBC) [Mass/Vol] 31.8 g/dL 32-36 [facility] No Panel InformationOrdered By: Olga Dang on 05-05-2023 Estimated GFR (MDRD) Amer 140 mL/min >60 [facility] Comment on above: GFR Calc Estimated GFR (MDRD) Non-Af Amer 116 mL/min >60 [facility] Comment on above: Non- GFR Calc Platelets bldOrdered By: Alfonzo Dang on 05-05-2023 Platelets (Bld) [#/Vol] 262 10*3/uL 150-450 [facility] Serum or plasma albumin rosa urement (mass/volume)Ordered By: Olga Dang on 05-05-2023 Albumin [Mass/Vol] 3.3 g/dL 3.2-5.0 [facility] Serum or plasma albumin/glob ulin mass ratioOrdered By: Olga Dang on 05-05-2023 Albumin/Globulin [Mass ratio] 0.8 {ratio} 0.9-2.4 [facility] Serum or plasma calcium rosa urement (mass/volume)Ordered By: Olga Dang on 05-05-2023 Calcium [Mass/Vol] 8.6 mg/dL 8.5-10.1 [facility] Serum or plasma creatinine m easurement (mass/volume)Ordered By: Olga Dang on 05-05-2023 Creatinine [Mass/Vol] 0.60 mg/dL 0.55-1.02 [facility] Comment on above: The validity of the calculated GFR & GFRAA in patients over 70 years has not been determined. Clinical correlation is essential. Serum or plasma urea nitroge n measurement (mass/volume)Ordered By: Olga Dang on 05-05-2023 Urea nitrogen [Mass/Vol] 11 mg/dL 7-18 [facility] Thin prep Papanicolaou smear with manual screeningOrdered By: Olga Dang on 05-05-2023 Thin prep Papanicolaou smear with manual screening 17 U/L 15-37 [facility] Thin prep Papanicolaou smear with manual screening 6 5-15 [facility] Absolute lymphocyte countOrd ered By: Olga Dang on 03-17-2023 Lymphocytes Auto (Unsp spec) [#/Vol] 1.78 10*3/uL 0.83-4.51 [facility] Basophil percentageOrdered B y: Olga Dang on 03-17-2023 Basophils/100 WBC (Bld) 0.5 % 0-1 [facility] Bilirubin [Mass/Vol] 0.50 mg/dL 0.20-1.00 [facility] Comment on above: For patients on eltr ombopag therapy, use of Dimension [place] TBIL is not recommended. Chloride [Moles/Vol] 109 mmol/L 98-107 [facility] Eosinophils/100 WBC (Bld) 1.6 % 0-5 [facility] Glucose [Mass/Vol] 83 mg/dL 74-106 [facility] Neutrophils (Bld) [#/Vol] 9.7 10*3/uL 2.0-7.7 [facility] Neutrophils/100 WBC (Bld) 78.7 % 47-70 [facility] Potassium [Moles/Vol] 3.6 mmol/L 3.5-5.1 [facility] Protein [Mass/Vol] 7.4 g/dL 6.4-8.2 [facility] Sodium [Moles/Vol] 140 mmol/L 136-145 [facility] WBC (Bld) [#/Vol] 12.4 10*3/uL 4.4-11.0 [facility] Blood erythrocytes count (nu mber/volume)Ordered By: Olga Dang on 03-17-2023 RBC (Bld) [#/Vol] 4.85 10*6/uL 4.2-5.4 [facility] Blood hemoglobin measurement (mass/volume)Ordered By: Olga Dang on 03-17-2023 Hemoglobin (Bld) [Mass/Vol] 13.7 g/dL 12.0-15.0 [facility] Blood lymphocytes/100 leukoc ytesOrdered By: Olga Dang on 03-17-2023 Lymphocytes/100 WBC (Bld) 14.4 % 19-41 [facility] Blood monocytes/100 leukocyt esOrdered By: [facility] on 03-17-2023 Monocytes/100 WBC (Bld) 4.3 % 0-10 [facility] Blood platelet mean volumeOr dered By: Olgadwayne Dang on 03-17-2023 Platelet mean volume (Bld) [Entitic vol] 10.7 fL 6.2-12.0 [facility] Determination of erythrocyte mean corpuscular volume (MCV)Ordered By: Olgadwayne Dang on 03-17-2023 MCV (RBC) [Entitic vol] 89.5 fL 81-99 [facility] Hematocrit Auto (Bld) [Volum e fraction]Ordered By: Olga Dang on 03-17-2023 Hematocrit (Bld) [Volume fraction] 43.4 % 37-47 [facility] Laboratory - Chemistry and C hemistry - challengeOrdered By: [facility] on 03-17-2023 ALP [Catalytic activity/Vol] 92 U/L 45-117 [facility] ALT [Catalytic activity/Vol] 20 U/L 13-56 [facility] CO2 [Moles/Vol] 25.0 mmol/L 21.0-32.0 [facility] Globulin (S) [Mass/Vol] 4.1 g/dL 2.2-4.2 [facility] Urea nitrogen/Creatinine [Mass ratio] 12.5 mg/mg 10-20 [facility] Laboratory - Hematology and Cell countsOrdered By: Olgadwayne Dang on 03-17-2023 Erythrocyte distribution width (RBC) [Entitic vol] 42.6 fL 35.1-43.9 [facility] Erythrocyte distribution width (RBC) [Ratio] 13.0 % 11.6-14.6 [facility] Immature granulocytes/100 WBC (Bld) 0.500 % 0.0-0.9 [facility] Comment on above: IG% - Immature Granu locytes (promyelocytes, myelocytes and metamyelocytes) > 1% indicates that a LEFT SHIFT is Present. MCH (RBC) [Entitic mass] 28.2 pg 27.0-32.0 [facility] Nucleated RBC/100 WBC (Bld) [Ratio] 0 % 0-5 [facility] MCHC Auto (RBC) [Mass/Vol]Or dered By: Olga Dang on 03-17-2023 MCHC (RBC) [Mass/Vol] 31.6 g/dL 32-36 [facility] No Panel InformationOrdered By: Olga Dang on 03-17-2023 Estimated GFR (MDRD) Amer 131 mL/min >60 [facility] Comment on above: GFR Calc Estimated GFR (MDRD) Non-Af Amer 108 mL/min >60 [facility] Comment on above: Non- GFR Calc Platelets bldOrdered By: Alfonzo Dang on 03-17-2023 Platelets (Bld) [#/Vol] 246 10*3/uL 150-450 [facility] Serum or plasma albumin rosa urement (mass/volume)Ordered By: Olga Dang on 03-17-2023 Albumin [Mass/Vol] 3.3 g/dL 3.2-5.0 [facility] Serum or plasma albumin/glob ulin mass ratioOrdered By: Olga Dang on 03-17-2023 Albumin/Globulin [Mass ratio] 0.8 {ratio} 0.9-2.4 [facility] Serum or plasma calcium rosa urement (mass/volume)Ordered By: Olga Dang on 03-17-2023 Calcium [Mass/Vol] 8.4 mg/dL 8.5-10.1 [facility] Serum or plasma creatinine m easurement (mass/volume)Ordered By: Olga Dang on 03-17-2023 Creatinine [Mass/Vol] 0.64 mg/dL 0.55-1.02 [facility] Comment on above: The validity of the calculated GFR & GFRAA in patients over 70 years has not been determined. Clinical correlation is essential. Serum or plasma urea nitroge n measurement (mass/volume)Ordered By: Olga Dang on 03-17-2023 Urea nitrogen [Mass/Vol] 8 mg/dL 7-18 [facility] Thin prep Papanicolaou smear with manual screeningOrdered By: Olga Dang on 03-17-2023 Thin prep Papanicolaou smear with manual screening 13 U/L 15-37 [facility] Thin prep Papanicolaou smear with manual screening 6 5-15 [facility] Absolute lymphocyte countOrd ered By: Olga Dang on 12-24-2022 Lymphocytes Auto (Unsp spec) [#/Vol] 1.93 10*3/uL 0.83-4.51 [facility] Basophil percentageOrdered B y: Olga Dang on 12-24-2022 Basophils/100 WBC (Bld) 0.5 % 0-1 [facility] Bilirubin [Mass/Vol] 0.40 mg/dL 0.20-1.00 [facility] Comment on above: For patients on eltr ombopag therapy, use of Dimension [place] TBIL is not recommended. Chloride [Moles/Vol] 107 mmol/L 98-107 [facility] Eosinophils/100 WBC (Bld) 0.6 % 0-5 [facility] Glucose [Mass/Vol] 77 mg/dL 74-106 [facility] Neutrophils (Bld) [#/Vol] 8.6 10*3/uL 2.0-7.7 [facility] Neutrophils/100 WBC (Bld) 77.3 % 47-70 [facility] Potassium [Moles/Vol] 3.5 mmol/L 3.5-5.1 [facility] Protein [Mass/Vol] 7.0 g/dL 6.4-8.2 [facility] Sodium [Moles/Vol] 140 mmol/L 136-145 [facility] WBC (Bld) [#/Vol] 11.2 10*3/uL 4.4-11.0 [facility] Blood erythrocytes count (nu mber/volume)Ordered By: Olga Dang on 12-24-2022 RBC (Bld) [#/Vol] 4.20 10*6/uL 4.2-5.4 [facility] Blood hemoglobin measurement (mass/volume)Ordered By: Olga Dang on 12-24-2022 Hemoglobin (Bld) [Mass/Vol] 12.1 g/dL 12.0-15.0 [facility] Blood lymphocytes/100 leukoc ytesOrdered By: Olga Dang on 12-24-2022 Lymphocytes/100 WBC (Bld) 17.2 % 19-41 [facility] Blood monocytes/100 leukocyt esOrdered By: Olgadwayne Dang on 12-24-2022 Monocytes/100 WBC (Bld) 4.1 % 0-10 [facility] Blood platelet mean volumeOr dered By: Olga Dang on 12-24-2022 Platelet mean volume (Bld) [Entitic vol] 11.0 fL 6.2-12.0 [facility] Determination of erythrocyte mean corpuscular volume (MCV)Ordered By: Olga Dang on 12-24-2022 MCV (RBC) [Entitic vol] 89.0 fL 81-99 [facility] Hematocrit Auto (Bld) [Volum e fraction]Ordered By: Olga Dang on 12-24-2022 Hematocrit (Bld) [Volume fraction] 37.4 % 37-47 [facility] Laboratory - Chemistry and C hemistry - challengeOrdered By: Olgadwayne Dang on 12-24-2022 ALP [Catalytic activity/Vol] 92 U/L 45-117 [facility] ALT [Catalytic activity/Vol] 24 U/L 13-56 [facility] CO2 [Moles/Vol] 26.0 mmol/L 21.0-32.0 [facility] Globulin (S) [Mass/Vol] 3.7 g/dL 2.2-4.2 [facility] Urea nitrogen/Creatinine [Mass ratio] 19.2 mg/mg 10-20 [facility] Laboratory - Hematology and Cell countsOrdered By: Olga Dang on 12-24-2022 Erythrocyte distribution width (RBC) [Entitic vol] 42.4 fL 35.1-43.9 [facility] Erythrocyte distribution width (RBC) [Ratio] 13.1 % 11.6-14.6 [facility] Immature granulocytes/100 WBC (Bld) 0.300 % 0.0-0.9 [facility] Comment on above: IG% - Immature Granu locytes (promyelocytes, myelocytes and metamyelocytes) > 1% indicates that a LEFT SHIFT is Present. MCH (RBC) [Entitic mass] 28.8 pg 27.0-32.0 [facility] Nucleated RBC/100 WBC (Bld) [Ratio] 0 % 0-5 [facility] MCHC Auto (RBC) [Mass/Vol]Or dered By: Olga Dang on 12-24-2022 MCHC (RBC) [Mass/Vol] 32.4 g/dL 32-36 [facility] No Panel InformationOrdered By: Olga Dang on 12-24-2022 Estimated GFR (MDRD) Amer 134 mL/min >60 [facility] Comment on above: GFR Calc Estimated GFR (MDRD) Non-Af Amer 111 mL/min >60 [facility] Comment on above: Non- GFR Calc Platelets bldOrdered By: Alfonzo Dang on 12-24-2022 Platelets (Bld) [#/Vol] 250 10*3/uL 150-450 [facility] Serum or plasma albumin rosa urement (mass/volume)Ordered By: Olga Dang on 12-24-2022 Albumin [Mass/Vol] 3.3 g/dL 3.2-5.0 [facility] Serum or plasma albumin/glob ulin mass ratioOrdered By: Olga Dang on 12-24-2022 Albumin/Globulin [Mass ratio] 0.9 {ratio} 0.9-2.4 [facility] Serum or plasma calcium rosa urement (mass/volume)Ordered By: Olga Dang on 12-24-2022 Calcium [Mass/Vol] 8.8 mg/dL 8.5-10.1 [facility] Serum or plasma creatinine m easurement (mass/volume)Ordered By: Olga Dang on 12-24-2022 Creatinine [Mass/Vol] 0.63 mg/dL 0.55-1.02 [facility] Comment on above: The validity of the calculated GFR & GFRAA in patients over 70 years has not been determined. Clinical correlation is essential. Serum or plasma urea nitroge n measurement (mass/volume)Ordered By: Olga Dang on 12-24-2022 Urea nitrogen [Mass/Vol] 12 mg/dL 7-18 [facility] Thin prep Papanicolaou smear with manual screeningOrdered By: Olga Dang on 12-24-2022 Thin prep Papanicolaou smear with manual screening 18 U/L 15-37 [facility] Thin prep Papanicolaou smear with manual screening 7 5-15 [facility] Absolute lymphocyte countOrd ered By: Olga Dang on 10-21-2022 Lymphocytes Auto (Unsp spec) [#/Vol] 1.27 10*3/uL 0.83-4.51 [facility] Basophil percentageOrdered B y: Olga Dang on 10-21-2022 Basophils/100 WBC (Bld) 0.6 % 0-1 [facility] Bilirubin [Mass/Vol] 0.40 mg/dL 0.20-1.00 [facility] Comment on above: For patients on eltr ombopag therapy, use of Dimension [place] TBIL is not recommended. Chloride [Moles/Vol] 109 mmol/L 98-107 [facility] Eosinophils/100 WBC (Bld) 2.5 % 0-5 [facility] Glucose [Mass/Vol] 92 mg/dL 74-106 [facility] Neutrophils (Bld) [#/Vol] 4.9 10*3/uL 2.0-7.7 [facility] Neutrophils/100 WBC (Bld) 71.8 % 47-70 [facility] Potassium [Moles/Vol] 3.8 mmol/L 3.5-5.1 [facility] Protein [Mass/Vol] 6.9 g/dL 6.4-8.2 [facility] Sodium [Moles/Vol] 139 mmol/L 136-145 [facility] WBC (Bld) [#/Vol] 6.8 10*3/uL 4.4-11.0 [facility] Blood erythrocytes count (nu mber/volume)Ordered By: Olga Dang on 10-21-2022 RBC (Bld) [#/Vol] 4.32 10*6/uL 4.2-5.4 [facility] Blood hemoglobin measurement (mass/volume)Ordered By: Olga Dang on 10-21-2022 Hemoglobin (Bld) [Mass/Vol] 12.5 g/dL 12.0-15.0 [facility] Blood lymphocytes/100 leukoc ytesOrdered By: Olga Dang on 10-21-2022 Lymphocytes/100 WBC (Bld) 18.6 % 19-41 [facility] Blood monocytes/100 leukocyt esOrdered By: Olga Dang on 10-21-2022 Monocytes/100 WBC (Bld) 6.1 % 0-10 [facility] Blood platelet mean volumeOr dered By: Olga Dang on 10-21-2022 Platelet mean volume (Bld) [Entitic vol] 10.9 fL 6.2-12.0 [facility] Determination of erythrocyte mean corpuscular volume (MCV)Ordered By: Olga Dang on 10-21-2022 MCV (RBC) [Entitic vol] 91.2 fL 81-99 [facility] Hematocrit Auto (Bld) [Volum e fraction]Ordered By: Olga Dang on 10-21-2022 Hematocrit (Bld) [Volume fraction] 39.4 % 37-47 [facility] Laboratory - Chemistry and C hemistry - challengeOrdered By: Olga Dang on 10-21-2022 ALP [Catalytic activity/Vol] 80 U/L 45-117 [facility] ALT [Catalytic activity/Vol] 25 U/L 13-56 [facility] CO2 [Moles/Vol] 25.0 mmol/L 21.0-32.0 [facility] Globulin (S) [Mass/Vol] 3.8 g/dL 2.2-4.2 [facility] Urea nitrogen/Creatinine [Mass ratio] 18.7 mg/mg 10-20 [facility] Laboratory - Hematology and Cell countsOrdered By: Olga Dang on 10-21-2022 Erythrocyte distribution width (RBC) [Entitic vol] 44.8 fL 35.1-43.9 [facility] Erythrocyte distribution width (RBC) [Ratio] 13.4 % 11.6-14.6 [facility] Immature granulocytes/100 WBC (Bld) 0.400 % 0.0-0.9 [facility] Comment on above: IG% - Immature Granu locytes (promyelocytes, myelocytes and metamyelocytes) > 1% indicates that a LEFT SHIFT is Present. MCH (RBC) [Entitic mass] 28.9 pg 27.0-32.0 [facility] Nucleated RBC/100 WBC (Bld) [Ratio] 0 % 0-5 [facility] MCHC Auto (RBC) [Mass/Vol]Or dered By: Olga Dang on 10-21-2022 MCHC (RBC) [Mass/Vol] 31.7 g/dL 32-36 [facility] No Panel InformationOrdered By: Olga Dang on 10-21-2022 Estimated GFR (MDRD) Amer 161 mL/min >60 [facility] Comment on above: GFR Calc Estimated GFR (MDRD) Non-Af Amer 133 mL/min >60 [facility] Comment on above: Non- GFR Calc Platelets bldOrdered By: Alfonzo Dang on 10-21-2022 Platelets (Bld) [#/Vol] 201 10*3/uL 150-450 [facility] Serum or plasma albumin rosa urement (mass/volume)Ordered By: Olga Dang on 10-21-2022 Albumin [Mass/Vol] 3.1 g/dL 3.2-5.0 [facility] Serum or plasma albumin/glob ulin mass ratioOrdered By: Olga Dang on 10-21-2022 Albumin/Globulin [Mass ratio] 0.8 {ratio} 0.9-2.4 [facility] Serum or plasma calcium rosa urement (mass/volume)Ordered By: Olga Dang on 10-21-2022 Calcium [Mass/Vol] 8.7 mg/dL 8.5-10.1 [facility] Serum or plasma creatinine m easurement (mass/volume)Ordered By: Olga Dang on 10-21-2022 Creatinine [Mass/Vol] 0.53 mg/dL 0.55-1.02 [facility] Comment on above: The validity of the calculated GFR & GFRAA in patients over 70 years has not been determined. Clinical correlation is essential. Serum or plasma urea nitroge n measurement (mass/volume)Ordered By: Olga Dang on 10-21-2022 Urea nitrogen [Mass/Vol] 10 mg/dL 7-18 [facility] Thin prep Papanicolaou smear with manual screeningOrdered By: Olga Dang on 10-21-2022 Thin prep Papanicolaou smear with manual screening 15 U/L 15-37 [facility] Thin prep Papanicolaou smear with manual screening 5 5-15 [facility] Absolute lymphocyte countOrd ered By: Dr. Dang on 08-26-2022 Lymphocytes Auto (Unsp spec) [#/Vol] 1.84 10*3/uL 0.83-4.51 [facility] Basophil percentageOrdered B y: Dr. Dang on 08-26-2022 Basophils/100 WBC (Bld) 0.4 % 0-1 [facility] Bilirubin [Mass/Vol] 0.50 mg/dL 0.20-1.00 [facility] Comment on above: For patients on eltr ombopag therapy, use of Dimension [place] TBIL is not recommended. Chloride [Moles/Vol] 107 mmol/L 98-107 [facility] Eosinophils/100 WBC (Bld) 2.6 % 0-5 [facility] Glucose [Mass/Vol] 82 mg/dL 74-106 [facility] Neutrophils (Bld) [#/Vol] 6.6 10*3/uL 2.0-7.7 [facility] Neutrophils/100 WBC (Bld) 73.2 % 47-70 [facility] Potassium [Moles/Vol] 3.8 mmol/L 3.5-5.1 [facility] Protein [Mass/Vol] 7.2 g/dL 6.4-8.2 [facility] Sodium [Moles/Vol] 138 mmol/L 136-145 [facility] WBC (Bld) [#/Vol] 9.1 10*3/uL 4.4-11.0 [facility] Blood erythrocytes count (nu mber/volume)Ordered By: Dr. Dang on 08-26-2022 RBC (Bld) [#/Vol] 4.50 10*6/uL 4.2-5.4 [facility] Blood hemoglobin measurement (mass/volume)Ordered By: Dr. Dang on 08-26-2022 Hemoglobin (Bld) [Mass/Vol] 12.9 g/dL 12.0-15.0 [facility] Blood lymphocytes/100 leukoc ytesOrdered By: Dr. Dang on 08-26-2022 Lymphocytes/100 WBC (Bld) 20.2 % 19-41 [facility] Blood monocytes/100 leukocyt esOrdered By: Dr. Dang on 08-26-2022 Monocytes/100 WBC (Bld) 3.3 % 0-10 [facility] Blood platelet mean volumeOr dered By: Dr. Dang on 08-26-2022 Platelet mean volume (Bld) [Entitic vol] 10.8 fL 6.2-12.0 [facility] Determination of erythrocyte mean corpuscular volume (MCV)Ordered By: Dr. Dang on 08-26-2022 MCV (RBC) [Entitic vol] 89.1 fL 81-99 [facility] Hematocrit Auto (Bld) [Volum e fraction]Ordered By: Dr. Dang on 08-26-2022 Hematocrit (Bld) [Volume fraction] 40.1 % 37-47 [facility] Laboratory - Chemistry and C hemistry - challengeOrdered By: Dr. Dang on 08-26-2022 ALP [Catalytic activity/Vol] 94 U/L 45-117 [facility] ALT [Catalytic activity/Vol] 23 U/L 13-56 [facility] CO2 [Moles/Vol] 25.0 mmol/L 21.0-32.0 [facility] Globulin (S) [Mass/Vol] 4.0 g/dL 2.2-4.2 [facility] Urea nitrogen/Creatinine [Mass ratio] 20.1 mg/mg 10-20 [facility] Laboratory - Hematology and Cell countsOrdered By: Dr. Dang on 08-26-2022 Erythrocyte distribution width (RBC) [Entitic vol] 45.3 fL 35.1-43.9 [facility] Erythrocyte distribution width (RBC) [Ratio] 14.0 % 11.6-14.6 [facility] Immature granulocytes/100 WBC (Bld) 0.300 % 0.0-0.9 [facility] Comment on above: IG% - Immature Granu locytes (promyelocytes, myelocytes and metamyelocytes) > 1% indicates that a LEFT SHIFT is Present. MCH (RBC) [Entitic mass] 28.7 pg 27.0-32.0 [facility] Nucleated RBC/100 WBC (Bld) [Ratio] 0 % 0-5 [facility] MCHC Auto (RBC) [Mass/Vol]Or dered By: Dr. Dang on 08-26-2022 MCHC (RBC) [Mass/Vol] 32.2 g/dL 32-36 [facility] No Panel InformationOrdered By: Dr. Dang on 08-26-2022 Estimated GFR (MDRD) Amer 142 mL/min >60 [facility] Comment on above: GFR Calc Estimated GFR (MDRD) Non-Af Amer 117 mL/min >60 [facility] Comment on above: Non- GFR Calc Platelets bldOrdered By: Dr. Dang on 08-26-2022 Platelets (Bld) [#/Vol] 229 10*3/uL 150-450 [facility] Serum or plasma albumin rosa urement (mass/volume)Ordered By: Dr. Dang on 08-26-2022 Albumin [Mass/Vol] 3.2 g/dL 3.2-5.0 [facility] Serum or plasma albumin/glob ulin mass ratioOrdered By: Dr. Dang on 08-26-2022 Albumin/Globulin [Mass ratio] 0.8 {ratio} 0.9-2.4 [facility] Serum or plasma calcium rosa urement (mass/volume)Ordered By: Dr. Dang on 08-26-2022 Calcium [Mass/Vol] 8.9 mg/dL 8.5-10.1 [facility] Serum or plasma creatinine m easurement (mass/volume)Ordered By: Dr. Dang on 08-26-2022 Creatinine [Mass/Vol] 0.60 mg/dL 0.55-1.02 [facility] Comment on above: The validity of the calculated GFR & GFRAA in patients over 70 years has not been determined. Clinical correlation is essential. Serum or plasma urea nitroge n measurement (mass/volume)Ordered By: Dr. Dang on 08-26-2022 Urea nitrogen [Mass/Vol] 12 mg/dL 7-18 [facility] Thin prep Papanicolaou smear with manual screeningOrdered By: Dr. Dang on 08-26-2022 Thin prep Papanicolaou smear with manual screening 10 U/L 15-37 [facility] Thin prep Papanicolaou smear with manual screening 6 5-15 [facility] Absolute lymphocyte countOrd ered By: Dr. Dang on 07-01-2022 Lymphocytes Auto (Unsp spec) [#/Vol] 1.06 10*3/uL 0.83-4.51 [facility] Basophil percentageOrdered B y: Dr. Dang on 07-01-2022 Basophils/100 WBC (Bld) 0.3 % 0-1 [facility] Bilirubin [Mass/Vol] 0.70 mg/dL 0.20-1.00 [facility] Comment on above: For patients on eltr ombopag therapy, use of Dimension [place] TBIL is not recommended. Chloride [Moles/Vol] 104 mmol/L 98-107 [facility] Eosinophils/100 WBC (Bld) 0.9 % 0-5 [facility] Glucose [Mass/Vol] 94 mg/dL 74-106 [facility] Neutrophils (Bld) [#/Vol] 7.6 10*3/uL 2.0-7.7 [facility] Neutrophils/100 WBC (Bld) 81.3 % 47-70 [facility] Potassium [Moles/Vol] 3.6 mmol/L 3.5-5.1 [facility] Protein [Mass/Vol] 7.7 g/dL 6.4-8.2 [facility] Sodium [Moles/Vol] 137 mmol/L 136-145 [facility] WBC (Bld) [#/Vol] 9.3 10*3/uL 4.4-11.0 [facility] Blood erythrocytes count (nu mber/volume)Ordered By: Dr. Dang on 07-01-2022 RBC (Bld) [#/Vol] 5.02 10*6/uL 4.2-5.4 [facility] Blood hemoglobin measurement (mass/volume)Ordered By: Dr. Dang on 07-01-2022 Hemoglobin (Bld) [Mass/Vol] 14.1 g/dL 12.0-15.0 [facility] Blood lymphocytes/100 leukoc ytesOrdered By: Dr. Dang on 07-01-2022 Lymphocytes/100 WBC (Bld) 11.4 % 19-41 [facility] Blood monocytes/100 leukocyt esOrdered By: Dr. Dang on 07-01-2022 Monocytes/100 WBC (Bld) 5.8 % 0-10 [facility] Blood platelet mean volumeOr dered By: Dr. Dang on 07-01-2022 Platelet mean volume (Bld) [Entitic vol] 10.9 fL 6.2-12.0 [facility] Determination of erythrocyte mean corpuscular volume (MCV)Ordered By: Dr. Dang on 07-01-2022 MCV (RBC) [Entitic vol] 87.5 fL 81-99 [facility] Hematocrit Auto (Bld) [Volum e fraction]Ordered By: Dr. Dang on 07-01-2022 Hematocrit (Bld) [Volume fraction] 43.9 % 37-47 [facility] Laboratory - Chemistry and C hemistry - challengeOrdered By: Dr. Dang on 07-01-2022 ALP [Catalytic activity/Vol] 85 U/L 45-117 [facility] ALT [Catalytic activity/Vol] 20 U/L 13-56 [facility] CO2 [Moles/Vol] 25.0 mmol/L 21.0-32.0 [facility] Globulin (S) [Mass/Vol] 4.3 g/dL 2.2-4.2 [facility] Urea nitrogen/Creatinine [Mass ratio] 11.2 mg/mg 10-20 [facility] Laboratory - Hematology and Cell countsOrdered By: Dr. Dang on 07-01-2022 Erythrocyte distribution width (RBC) [Entitic vol] 41.5 fL 35.1-43.9 [facility] Erythrocyte distribution width (RBC) [Ratio] 13.1 % 11.6-14.6 [facility] Immature granulocytes/100 WBC (Bld) 0.300 % 0.0-0.9 [facility] Comment on above: IG% - Immature Granu locytes (promyelocytes, myelocytes and metamyelocytes) > 1% indicates that a LEFT SHIFT is Present. MCH (RBC) [Entitic mass] 28.1 pg 27.0-32.0 [facility] Nucleated RBC/100 WBC (Bld) [Ratio] 0 % 0-5 [facility] MCHC Auto (RBC) [Mass/Vol]Or dered By: Dr. Dang on 07-01-2022 MCHC (RBC) [Mass/Vol] 32.1 g/dL 32-36 [facility] No Panel InformationOrdered By: Dr. Dang on 07-01-2022 Estimated GFR (MDRD) Amer 135 mL/min >60 [facility] Comment on above: GFR Calc Estimated GFR (MDRD) Non-Af Amer 111 mL/min >60 [facility] Comment on above: Non- GFR Calc Platelets bldOrdered By: Dr. Dang on 07-01-2022 Platelets (Bld) [#/Vol] 207 10*3/uL 150-450 [facility] Serum or plasma albumin rosa urement (mass/volume)Ordered By: Dr. Dang on 07-01-2022 Albumin [Mass/Vol] 3.4 g/dL 3.2-5.0 [facility] Serum or plasma albumin/glob ulin mass ratioOrdered By: Dr. Dang on 07-01-2022 Albumin/Globulin [Mass ratio] 0.8 {ratio} 0.9-2.4 [facility] Serum or plasma calcium rosa urement (mass/volume)Ordered By: Dr. Dang on 07-01-2022 Calcium [Mass/Vol] 8.8 mg/dL 8.5-10.1 [facility] Serum or plasma creatinine m easurement (mass/volume)Ordered By: Dr. Dang on 07-01-2022 Creatinine [Mass/Vol] 0.62 mg/dL 0.55-1.02 [facility] Comment on above: The validity of the calculated GFR & GFRAA in patients over 70 years has not been determined. Clinical correlation is essential. Serum or plasma urea nitroge n measurement (mass/volume)Ordered By: Dr. Dang on 07-01-2022 Urea nitrogen [Mass/Vol] 7 mg/dL 7-18 [facility] Thin prep Papanicolaou smear with manual screeningOrdered By: Dr. Dang on 07-01-2022 Thin prep Papanicolaou smear with manual screening 10 U/L 15-37 [facility] Thin prep Papanicolaou smear with manual screening 8 5-15 [facility] Absolute lymphocyte countOrd ered By: Dr. Dang on 04-02-2022 Lymphocytes Auto (Unsp spec) [#/Vol] 2.15 10*3/uL 0.83-4.51 [facility] Basophil percentageOrdered B y: Dr. Dang on 04-02-2022 Basophils/100 WBC (Bld) 0.6 % 0-1 [facility] Bilirubin [Mass/Vol] 0.50 mg/dL 0.20-1.00 [facility] Comment on above: For patients on eltr ombopag therapy, use of Dimension [place] TBIL is not recommended. Chloride [Moles/Vol] 106 mmol/L 98-107 [facility] Eosinophils/100 WBC (Bld) 1.7 % 0-5 [facility] Glucose [Mass/Vol] 98 mg/dL 74-106 [facility] Neutrophils (Bld) [#/Vol] 7.6 10*3/uL 2.0-7.7 [facility] Neutrophils/100 WBC (Bld) 73.0 % 47-70 [facility] Potassium [Moles/Vol] 4.2 mmol/L 3.5-5.1 [facility] Protein [Mass/Vol] 7.3 g/dL 6.4-8.2 [facility] Sodium [Moles/Vol] 139 mmol/L 136-145 [facility] WBC (Bld) [#/Vol] 10.4 10*3/uL 4.4-11.0 [facility] Bilirubin Test strip Ql (U)O rdered By: Dr. Dang on 04-02-2022 Bilirubin Ql (U) Negative Negative [facility] Blood erythrocytes count (nu mber/volume)Ordered By: Dr. Dang on 04-02-2022 RBC (Bld) [#/Vol] 5.09 10*6/uL 4.2-5.4 [facility] Blood hemoglobin measurement (mass/volume)Ordered By: Dr. Dang on 04-02-2022 Hemoglobin (Bld) [Mass/Vol] 14.1 g/dL 12.0-15.0 [facility] Blood lymphocytes/100 leukoc ytesOrdered By: Dr. Dang on 04-02-2022 Lymphocytes/100 WBC (Bld) 20.6 % 19-41 [facility] Blood monocytes/100 leukocyt esOrdered By: Dr. Dang on 04-02-2022 Monocytes/100 WBC (Bld) 3.9 % 0-10 [facility] Blood platelet mean volumeOr dered By: Dr. Dang on 04-02-2022 Platelet mean volume (Bld) [Entitic vol] 11.1 fL 6.2-12.0 [facility] Determination of erythrocyte mean corpuscular volume (MCV)Ordered By: Dr. Dang on 04-02-2022 MCV (RBC) [Entitic vol] 87.2 fL 81-99 [facility] Dilute Franklin's viper venom timeOrdered By: Dr. Dang on 04-02-2022 dRVVT Coag (PPP) [Time] 36.0 s 0.0-47.0 [facility] Hematocrit Auto (Bld) [Volum e fraction]Ordered By: Dr. Dang on 04-02-2022 Hematocrit (Bld) [Volume fraction] 44.4 % 37-47 [facility] INR in Blood by Coagulation assayOrdered By: Dr. Dang on 04-02-2022 INR Coag (Bld) [Relative time] 0.9 {INR} [facility] Ketones Test strip Ql (U)Ord ered By: Dr. Dang on 04-02-2022 Ketones Ql (U) Negative Negative [facility] Laboratory - Chemistry and C hemistry - challengeOrdered By: Dr. Dang on 04-02-2022 ALP [Catalytic activity/Vol] 100 U/L 45-117 [facility] ALT [Catalytic activity/Vol] 25 U/L 13-56 [facility] CO2 [Moles/Vol] 26.0 mmol/L 21.0-32.0 [facility] Globulin (S) [Mass/Vol] 3.7 g/dL 2.2-4.2 [facility] Urea nitrogen/Creatinine [Mass ratio] 16.2 mg/mg 10-20 [facility] Laboratory - CoagulationOrde red By: Dr. Dang on 04-02-2022 aPTT Coag (Bld) [Time] 30.4 s 24.1-36.2 [facility] PT Coag (PPP) [Time] 12.3 s 11.7-14.9 [facility] Laboratory - Hematology and Cell countsOrdered By: Dr. Dang on 04-02-2022 Erythrocyte distribution width (RBC) [Entitic vol] 40.3 fL 35.1-43.9 [facility] Erythrocyte distribution width (RBC) [Ratio] 12.8 % 11.6-14.6 [facility] Immature granulocytes/100 WBC (Bld) 0.200 % 0.0-0.9 [facility] Comment on above: IG% - Immature Granu locytes (promyelocytes, myelocytes and metamyelocytes) > 1% indicates that a LEFT SHIFT is Present. MCH (RBC) [Entitic mass] 27.7 pg 27.0-32.0 [facility] Nucleated RBC/100 WBC (Bld) [Ratio] 0 % 0-5 [facility] Laboratory - Miscellaneous t estsOrdered By: Dr. Dang on 04-02-2022 Service comment (Unsp spec) [Interp] Comment . [facility] Comment on above: Results do not indic ate the presence of a LupusAnticoagulant: abnormal high screening results (PTT-LA,dRVVT, mixing studies), may be due to medication (heparin,warfarin, aspirin), Factor inhibitors, anticardiolipinantibodies, or poor specimen integrity.Performed at: [employer] [id number] Director: Jaxon Love MD, Phone: [phone] at: [facility] [address] [id number] Director: Dillon Young PhD, Phone: [phone] [facility] Auto (RBC) [Mass/Vol]Or dered By: Dr. Dang on 04-02-2022 MCHC (RBC) [Mass/Vol] 31.8 g/dL 32-36 [facility] Nitrite Test strip Ql (U)Ord ered By: Dr. Dang on 04-02-2022 Nitrite Ql (U) Negative Negative [facility] No Panel InformationOrdered By: Dr. Dang on 04-02-2022 Estimated GFR (MDRD) Amer 136 mL/min >60 [facility] Comment on above: GFR Calc Estimated GFR (MDRD) Non-Af Amer 113 mL/min >60 [facility] Comment on above: Non- GFR Calc Hepatitis B Surface Antigen Non-Reactive Nonreactive [facility] Hepatitis C Antibody Non-Reactive Nonreactive [facility] Comment on above: Non Reactive: < 0.8 Equivocal: >/= 0.8 to < 1.0 Reactive: >/= 1.0The CDC recommends that a reactive/equivocal HCV antibody result be followed up by the HCV Nucleic Acid Amplificationtest (328268) Miscellaneous Test Comment MAILED SPECIMEN [facility] Platelets bldOrdered By: Dr. Dang on 04-02-2022 Platelets (Bld) [#/Vol] 273 10*3/uL 150-450 [facility] Protein Test strip Ql (U)Ord ered By: Dr. Dang on 04-02-2022 Protein Ql (U) 15 mg/dl Negative [facility] Qualitative QuantiFERON-TB g old in tube testOrdered By: Dr. Dang on 04-02-2022 M. tuberculosis tuberculin stim IFN-g Ql (Bld) 0.24 IU/mL . [facility] Serum hepatitis B virus surf alvaro antibody IgG detectionOrdered By: Dr. Dang on 04-02-2022 HBV surface IgG Ql (S) Non-Reactive [facility] Comment on above: Non Reactive: Incons istent with immunity less than <10 mIU/mL Reactive: Consistent with immunity greater than or equal to 10 mIU/mL Serum or plasma albumin rosa urement (mass/volume)Ordered By: Dr. Dang on 04-02-2022 Albumin [Mass/Vol] 3.6 g/dL 3.2-5.0 [facility] Serum or plasma albumin/glob ulin mass ratioOrdered By: Dr. Dang on 04-02-2022 Albumin/Globulin [Mass ratio] 1.0 {ratio} 0.9-2.4 [facility] Serum or plasma calcium rosa urement (mass/volume)Ordered By: Dr. Dang on 04-02-2022 Calcium [Mass/Vol] 8.9 mg/dL 8.5-10.1 [facility] Serum or plasma creatinine m easurement (mass/volume)Ordered By: Dr. Dang on 04-02-2022 Creatinine [Mass/Vol] 0.62 mg/dL 0.55-1.02 [facility] Comment on above: The validity of the calculated GFR & GFRAA in patients over 70 years has not been determined. Clinical correlation is essential. Serum or plasma urea nitroge n measurement (mass/volume)Ordered By: Dr. Dang on 04-02-2022 Urea nitrogen [Mass/Vol] 10 mg/dL 7-18 [facility] Thin prep Papanicolaou smear with manual screeningOrdered By: Dr. Dang on 04-02-2022 Thin prep Papanicolaou smear with manual screening 13 U/L 15-37 [facility] Thin prep Papanicolaou smear with manual screening 7 5-15 [facility] Thin prep Papanicolaou smear with manual screening Comment . [facility] Comment on above: QuantiFERON-TB Gold Plus is a qualitative indirect test forM tuberculosis infection (including disease) and isintended for use in conjunction with risk assessment,radiography, and other medical and diagnostic evaluations.The QuantiFERON-TB Gold Plus result is determined bysubtracting the Nil value from either TB antigen (Ag)value. The Mitogen tube serves as a control for the test. Thin prep Papanicolaou smear with manual screening 0.20 IU/mL . [facility] Thin prep Papanicolaou smear with manual screening 0.34 IU/mL . [facility] Thin prep Papanicolaou smear with manual screening > 10.00 IU/mL . [facility] Thin prep Papanicolaou smear with manual screening Negative Negative [facility] Comment on above: No response to M tub erculosis antigens detected.Infection with M tuberculosis is unlikely, but high riskindividuals should be considered for additional testing(ATS/IDSA/CDC Clinical Practice Guidelines, 2017). Thereference range is an Antigen minus Nil result of <0.35IU/mL.The specimen received for QuantiFERON testing was incubatedby the ordering institution. Specific procedures outlinedin our Directory of Services and in the package insert forthe QuantiFERON Gold (In Tube) test must be followed toenable for proper stimulation of cells for the productionof interferon gamma. Chemiluminescence immunoassaymethodology Thin prep Papanicolaou smear with manual screening 37.6 sec 0.0-47.6 [facility] Thin prep Papanicolaou smear with manual screening 1.12 Ratio 0.00-1.34 [facility] Thin prep Papanicolaou smear with manual screening 40.5 sec 0.0-51.9 [facility] Thin prep Papanicolaou smear with manual screening Comment: . [facility] Comment on above: No lupus anticoagula nt was detected. Thrombin time in platelet po or plasmaOrdered By: Dr. Dang on 04-02-2022 Thrombin time Coag (PPP) [Time] 16.1 sec 0.0-23.0 [facility] Urine blood detectionOrdered By: Dr. Dang on 04-02-2022 RBC Ql (U) Negative Negative [facility] Urine clarityOrdered By: Dr. Dang on 04-02-2022 Clarity (U) Clear Clear [facility] Urine color determinationOrd ered By: Dr. Dang on 04-02-2022 Color (U) Yellow Yellow [facility] Urine creatinine measurement (mass/volume)Ordered By: Dr. Dang on 04-02-2022 Creatinine (U) [Mass/Vol] 203.00 mg/dL NO RANGE EST. [facility] Urine glucose detectionOrder ed By: Dr. Dang on 04-02-2022 Glucose Ql (U) Normal mg/dl Normal [facility] Urine leukocyte esterase det ection by dipstickOrdered By: Dr. Dang on 04-02-2022 Leukocyte esterase Test strip Ql (U) Negative Negative [facility] Urine pHOrdered By: Dr. Bhanu owens on 04-02-2022 pH (U) 7.0 [pH] 5.0 - 8.0 [facility] Urine protein measurement (m ass/volume)Ordered By: Dr. Dang on 04-02-2022 Protein (U) [Mass/Vol] 16.7 mg/dL 0.0-11.8 [facility] Urine protein/creatinine mas s ratioOrdered By: Dr. Dang on 04-02-2022 Protein/Creatinine (U) [Mass ratio] 82 mg/g CRE 0-200 [facility] Urine specific gravity measu rementOrdered By: Dr. Dang on 04-02-2022 Specific gravity (U) [Rel density] 1.010 1.002-1.030 [facility] Urobilinogen Auto test strip Ql (U)Ordered By: Dr. Dang on 04-02-2022 Urobilinogen Ql (U) Normal mg/dl Normal [facility] CR Foot Complete 3+ Views [place] 01-31-2022 CR Foot Complete 3+ Views Left Patient Name: LAXMI GAONA Diagnostic Radiology ACCESSION EXAM DATE/TIME PROCEDURE ORDERING PROVIDER [id number] 01/31/2022 10:01 EDT CR Foot Complete 3+ [id number] -CARLITOS ABURTO Views Left CPT code 06455 Reason For Exam (CR Foot Complete 3+ Views Left) left foot pain Report LEFT FOOT: CLINICAL INDICATION: Pain. TECHNIQUE: Weight bearing AP, Lat, Oblique COMPARISON: None. FINDINGS: There is no evidence for fracture or dislocation. No bone lesion is identified. Plantar calcaneal spurring is noted. There is no soft tissue abnormality. IMPRESSION: No acute abnormality. Plantar calcaneal spurring. Report Dictated on Final Dictating Physician: MD REHMAN JEFFREY Signed Date and Time: 02/01/2022 1:07 pm Signed by: MD REHMAN JEFFREY Transcribed Date and Time: 02/01/2022 1:08 Normal [facility] AUTOIMMUNE MULTIPLEX PANELon 10-23-2021 Interpretation and review of laboratory results Normal [facility] Nuclear Ab IA Ql (S) Negative Negative [facility] antibody levels for systemic autoimmune disease are below pre-established cutoffs. MDSS outputs of Negative or No Association do not rule out autoimmune disease. Patients with Rheumatoid Arthritis may result in an SLE association from MDSS, thus MDSS associations from patients with RA should be interpreted with caution. A negative screen reflects the following tests as negative-dsDNA Antibody, SS-A Antibody, SS-B Antibody, Centromere Antibody, Baker Antibody, Baker/ARBOREAL SCIENTIST Antibody, ARBOREAL SCIENTIST Antibody, Scleroderma-70 Antibody, ANGELICA-1 Antibody, Ribosomal P Antibody, Chromatin Antibody. [facility] MAR SCREEN Negative Normal Negative [facility] Comment on above: Order Comment: All a ntibody levels for systemic autoimmune disease are below pre-established cutoffs. MDSS outputs of Negative or No Association do not rule out autoimmune disease. Patients with Rheumatoid Arthritis may result in an SLE association from MDSS, thus MDSS associations from patients with RA should be interpreted with caution. A negative screen reflects the following tests as negative-dsDNA Antibody, SS-A Antibody, SS-B Antibody, Centromere Antibody, Baker Antibody, Baker/ARBOREAL SCIENTIST Antibody, ARBOREAL SCIENTIST Antibody, Scleroderma-70 Antibody, ANGELICA-1 Antibody, Ribosomal P Antibody, Chromatin Antibody. Performed By: #### a na #### [facility] [address] [place] [address], C-REACTIVE PROTEINon 022 CRP [Mass/Vol] 1.1 mg/dL High <0.8 [facility] h Interpretation and review of laboratory results Abnormal [facility] CRP 1.1 mg/dL High <0.8 [facility] Comment on above: Performed By: #### C RP, C3, C4, TSH HS #### [facility] [address] [place] [address], C3 COMPLEMENTon 10-23-2021 Complement C3 [Mass/Vol] 158 mg/dL 81 - 163 mg/dL [facility] C3 158 mg/dL Normal 81-163 [facility] Comment on above: Performed By: #### C RP, C3, C4, TSH HS #### [facility] [address] [place] [address], C4 COMPLEMENTon 10-23-2021 Complement C4 [Mass/Vol] 44 mg/dL 14 - 46 mg/dL [facility] C4 44 mg/dL Normal 14-46 [facility] Comment on above: Performed By: #### C RP, C3, C4, TSH HS #### [facility] [address] [place], [id number] CBC WITH DIFFERENTIALon 0 Basophils (Bld) [#/Vol] 0.04 10*3/uL 0.00 - 0.20 K/uL [facility] Basophils/100 WBC (Bld) 0.4 % <=1.9 [facility] Eosinophils (Bld) [#/Vol] 0.13 10*3/uL 0.00 - 0.70 K/uL [facility] Eosinophils/100 WBC (Bld) 1.5 % 0.1 - 4.0 % [facility] Erythrocyte distribution width (RBC) [Ratio] 13.9 % 11.5 - 14.5 % [facility] Hematocrit (Bld) [Volume fraction] 41.3 % 36.0 - 46.0 % [facility] Hemoglobin (Bld) [Mass/Vol] 13.7 g/dL 12.0 - 15.0 g/dL [facility] Interpretation and review of laboratory results Abnormal [facility] Lymphocytes (Bld) [#/Vol] 1.71 10*3/uL 1.00 - 4.80 K/uL [facility] Lymphocytes/100 WBC (Bld) 19.8 % Low 24.0 - 44.0 % [facility] MCH (RBC) [Entitic mass] 28.2 pg 26.0 - 34.0 pg [facility] MCHC (RBC) [Mass/Vol] 33.2 g/dL 32.0 - 35.9 g/dL [facility] MCV (RBC) [Entitic vol] 85 fL 80 - 100 fL [facility] Monocyte distribution width Auto (Bld) [Entitic vol] [facility] Monocytes (Bld) [#/Vol] 0.30 10*3/uL 0.20 - 1.00 K/uL [facility] Monocytes/100 WBC (Bld) 3.5 % 2.0 - 11.0 % [facility] Neutrophils (Bld) [#/Vol] 6.43 10*3/uL 1.50 - 8.00 K/uL [facility] Neutrophils/100 WBC (Bld) 74.8 % 31.0 - 76.0 % [facility] Platelet mean volume (Bld) [Entitic vol] 9.8 fL 7.5 - 11.2 fL [facility] Platelets (Bld) [#/Vol] 190 10*3/uL 150 - 400 K/uL [facility] RBC (Bld) [#/Vol] 4.86 10*6/uL [facility] WBC (Bld) [#/Vol] 8.6 10*3/uL 4.5 - 11.5 K/uL [facility] Basophils (Bld) [#/Vol] 0.04 10*3/uL Normal 0.00-0.20 [facility] Comment on above: Performed By: #### Joyce PARKER, ESR #### S [facility] [address] [place] [address], Basophils/100 WBC (Bld) 0.4 % Normal <=1.9 [facility] Comment on above: Performed By: #### Joyce PARKER, ESR #### [facility] [address] [place] [address], Eosinophils (Bld) [#/Vol] 0.13 10*3/uL Normal 0.00-0.70 [facility] Comment on above: Performed By: #### Joyce PARKER, ESR #### [facility] [address] [place] [address], Eosinophils/100 WBC (Bld) 1.5 % Normal 0.1-4.0 [facility] Comment on above: Performed By: #### Joyce PARKER, ESR #### S [facility] [address] [place] [address], Erythrocyte distribution width (RBC) [Ratio] 13.9 % Normal 11.5-14.5 [facility] Comment on above: Performed By: #### Joyce PARKER, ESR #### [facility] [address] [place] [address], Hematocrit (Bld) [Volume fraction] 41.3 % Normal 36.0-46.0 [facility] Comment on above: Performed By: #### Joyce PARKER, ESR #### S [facility] [address] [place] [address], Hemoglobin (Bld) [Mass/Vol] 13.7 g/dL Normal 12.0-15.0 [facility] Comment on above: Performed By: #### C KEITH, ESR #### [facility] [address] [place] [address], Lymphocytes (Bld) [#/Vol] 1.71 10*3/uL Normal 1.00-4.80 [facility] Comment on above: Performed By: #### C KEITH, ESR #### [facility] [address] [place] [address], Lymphocytes/100 WBC (Bld) 19.8 % Low 24.0-44.0 [facility] Comment on above: Performed By: #### C KEITH, ESR #### [facility] [address] [place] [address], MCH (RBC) [Entitic mass] 28.2 pg Normal 26.0-34.0 [facility] Comment on above: Performed By: #### Joyce PARKER, ESR #### [facility] [address] [place] [address], MCHC (RBC) [Mass/Vol] 33.2 g/dL Normal 32.0-35.9 [facility] Comment on above: Performed By: #### Joyce PARKER, ESR #### [facility] [address] [place] [address], MCV (RBC) [Entitic vol] 85 fL Normal 80-100 [facility] Comment on above: Performed By: #### C KEITH, ESR #### [facility] [address] [place] [address], MONOCYTE DISTRIBUTION WIDTH Normal [facility] Comment on above: Performed By: #### C KEITH, ESR #### S [facility] [address] [place] [address], Monocytes (Bld) [#/Vol] 0.30 10*3/uL Normal 0.20-1.00 [facility] Comment on above: Performed By: #### C BCDSAT, ESR #### [facility] [address] [place] [address], Monocytes/100 WBC (Bld) 3.5 % Normal 2.0-11.0 [facility] Comment on above: Performed By: #### C SUDHAKARDSAT, ESR #### S [facility] [address] [place] [address], Neutrophils (Bld) [#/Vol] 6.43 10*3/uL Normal 1.50-8.00 [facility] Comment on above: Performed By: #### C BCDSAT, ESR #### S [facility] [address] [place] [address], Neutrophils/100 WBC (Bld) 74.8 % Normal 31.0-76.0 [facility] Comment on above: Performed By: #### Joyce DE LA FUENTEDSAT, ESR #### S [facility] [address] [place] [address], Platelet mean volume (Bld) [Entitic vol] 9.8 fL Normal 7.5-11.2 [facility] Comment on above: Performed By: #### Joyce GALOLAT, ESR #### [facility] [address] [place] [address], Platelets (Bld) [#/Vol] 190 10*3/uL Normal 150-400 [facility] Comment on above: Performed By: #### Joyce GALLOAT, ESR #### [facility] [address] [place] [address], RBC (Bld) [#/Vol] 4.86 10*6/uL Normal 4.00-5.20 [facility] Comment on above: Performed By: #### C SABINOAT, ESR #### [facility] [address] [place] [address], WBC (Bld) [#/Vol] 8.6 10*3/uL Normal 4.5-11.5 [facility] Comment on above: Performed By: #### Joyce BCYAAAT, ESR #### [facility] [address] [place] [address], ERYTHROCYTE SEDIMENTATION RA Arabella 10-23-2021 ESR (Bld) [Velocity] 32 mm/h High <=30 mm/Hr [facility] Interpretation and review of laboratory results Abnormal [facility] ESR (Bld) [Velocity] 32 mm/h High <=30 [facility] Comment on above: Performed By: #### C BCDSAT, ESR #### [facility] [address], [place], No Panel Informationon 10-23 Interpretation and review of laboratory results Normal [facility] Progress Noteson 10-23-2021 [employer]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 Progressed to [...] no surgeries SocialHx: never smoker; works at [employer] FamilyHx: mom catarats; dad dialysis; dad mac degeneration Allergies: lisinopril, keflex Current Outpatient Medications Medication Sig Dispense Refill * meloxicam (MOBIC) 15 MG tablet * tizanidine (ZANAFLEX) 4 MG tablet Take 4 mg by mouth. * metoprolol (TOPROL-XL) 50 mg XL tablet Take 1 Tablet by mouth daily. 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 Ani Johnny Patient at risk for falls:No Falls Risk protocol implemented: No Normal [facility] TSHon 10-23-2021 Interpretation and review of laboratory results Normal [facility] TSH Qn 1.119 m[IU]/L [facility] Comment on above: Referance range for women as applicable: First Trimester: 0. 050 to 3.700 uIU/mL Second Trimester: 0. 310 to 4.350 uIU/mL Third Trimester: 0. 410 to 5.180 uIU/mL [facility] TSH 1.119 uIU/mL Normal 0.450-5.330 [facility] Comment on above: Result Comment: Refe vel range for women as applicable: First Trimester: 0. 050 to 3.700 uIU/mL Second Trimester: 0. 310 to 4.350 uIU/mL Third Trimester: 0. 410 to 5.180 uIU/mL Performed By: #### C RP, C3, C4, TSH HS #### [facility] [address] [place] [address], [phone] URINALYSIS W/MICROSCOPIC (RE GARDLESS)Ordered By: Raquel Wilson on 10-23-2021 Appearance (U) Clear Clear [facility] Bilirubin Ql (U) Negative Negative [facility] Color (U) Yellow Yellow [facility] Glucose Auto test strip (U) [Mass/Vol] Negative Negative mg/dL [facility] Hemoglobin Ql (U) Negative Negative [facility] Ketones Ql (U) Negative Negative mg/dL [facility] Leukocyte esterase Test strip Ql (U) Negative Negative [facility] Nitrite Ql (U) Negative Negative [facility] pH (U) 6.5 [pH] [facility] Protein (U) [Mass/Vol] Negative Negat michael mg/dL [facility] Specific gravity (U) [Rel density] 1.020 [facility] Urobilinogen Qn (U) 0.2 mg/dL 0.2 - 1.0 [facility] A negative leukocyte esterase AND negative nitrite test or absence of pyuria (urine WBC count <= 5-10) make a UTI (urinary tract infection) very unlikely in a non-neutropenic adult (<=5% likelihood in many studies). A positive leukocyte esterase, nitrite and/or pyuria is a nonspecific result. This can be seen in conditions other than a UTI e.g. asymptomatic bacteriuria, gynecologic infections, sexually transmitted infections, and noninfectious conditions (positive predictive value for UTI around 50%) [facility] URINALYSIS W/MICROSCOPIC (RE GARDLESS)on 10-23-2021 Glucose Ql (U) Negative Normal Negative [facility] Comment on above: Order Comment: A neg ative leukocyte esterase AND negative nitrite test or absence of pyuria (urine WBC count <= 5-10) make a UTI (urinary tract infection) very unlikely in a non-neutropenic adult (<=5% likelihood in many studies). A positive leukocyte esterase, nitrite and/or pyuria is a nonspecific result. This can be seen in conditions other than a UTI e.g. asymptomatic bacteriuria, gynecologic infections, sexually transmitted infections, and noninfectious conditions (positive predictive value for UTI around 50%) Performed By: #### U AM #### [facility] [address] [place], [phone] U APPEAR Clear Normal Clear [facility] Comment on above: Order Comment: A neg ative leukocyte esterase AND negative nitrite test or absence of pyuria (urine WBC count <= 5-10) make a UTI (urinary tract infection) very unlikely in a non-neutropenic adult (<=5% likelihood in many studies). A positive leukocyte esterase, nitrite and/or pyuria is a nonspecific result. This can be seen in conditions other than a UTI e.g. asymptomatic bacteriuria, gynecologic infections, sexually transmitted infections, and noninfectious conditions (positive predictive value for UTI around 50%) Performed By: #### U AM #### [facility] [address] [place] [address], U BILI Negative Normal Negative [facility] Comment on above: Order Comment: A neg ative leukocyte esterase AND negative nitrite test or absence of pyuria (urine WBC count <= 5-10) make a UTI (urinary tract infection) very unlikely in a non-neutropenic adult (<=5% likelihood in many studies). A positive leukocyte esterase, nitrite and/or pyuria is a nonspecific result. This can be seen in conditions other than a UTI e.g. asymptomatic bacteriuria, gynecologic infections, sexually transmitted infections, and noninfectious conditions (positive predictive value for UTI around 50%) Performed By: #### U AM #### [facility] [address] [place] [address], U BLOOD Negative Normal Negative [facility] Comment on above: Order Comment: A neg ative leukocyte esterase AND negative nitrite test or absence of pyuria (urine WBC count <= 5-10) make a UTI (urinary tract infection) very unlikely in a non-neutropenic adult (<=5% likelihood in many studies). A positive leukocyte esterase, nitrite and/or pyuria is a nonspecific result. This can be seen in conditions other than a UTI e.g. asymptomatic bacteriuria, gynecologic infections, sexually transmitted infections, and noninfectious conditions (positive predictive value for UTI around 50%) Performed By: #### U AM #### [facility] [address] [place] [address], U COLOR Yellow Normal Yellow [facility] Comment on above: Order Comment: A neg ative leukocyte esterase AND negative nitrite test or absence of pyuria (urine WBC count <= 5-10) make a UTI (urinary tract infection) very unlikely in a non-neutropenic adult (<=5% likelihood in many studies). A positive leukocyte esterase, nitrite and/or pyuria is a nonspecific result. This can be seen in conditions other than a UTI e.g. asymptomatic bacteriuria, gynecologic infections, sexually transmitted infections, and noninfectious conditions (positive predictive value for UTI around 50%) Performed By: #### U AM #### S [facility] [address] [place] [address], U KETONE Negative Normal Negative [facility] Comment on above: Order Comment: A neg ative leukocyte esterase AND negative nitrite test or absence of pyuria (urine WBC count <= 5-10) make a UTI (urinary tract infection) very unlikely in a non-neutropenic adult (<=5% likelihood in many studies). A positive leukocyte esterase, nitrite and/or pyuria is a nonspecific result. This can be seen in conditions other than a UTI e.g. asymptomatic bacteriuria, gynecologic infections, sexually transmitted infections, and noninfectious conditions (positive predictive value for UTI around 50%) Performed By: #### U AM #### [facility] [address] [place] [address], U LEUK Negative Normal Negative [facility] Comment on above: Order Comment: A neg ative leukocyte esterase AND negative nitrite test or absence of pyuria (urine WBC count <= 5-10) make a UTI (urinary tract infection) very unlikely in a non-neutropenic adult (<=5% likelihood in many studies). A positive leukocyte esterase, nitrite and/or pyuria is a nonspecific result. This can be seen in conditions other than a UTI e.g. asymptomatic bacteriuria, gynecologic infections, sexually transmitted infections, and noninfectious conditions (positive predictive value for UTI around 50%) Performed By: #### U AM #### [facility] [address] [place] [address], U NITRITE Negative Normal Negative [facility] [employer] Comment on above: Order Comment: A neg ative leukocyte esterase AND negative nitrite test or absence of pyuria (urine WBC count <= 5-10) make a UTI (urinary tract infection) very unlikely in a non-neutropenic adult (<=5% likelihood in many studies). A positive leukocyte esterase, nitrite and/or pyuria is a nonspecific result. This can be seen in conditions other than a UTI e.g. asymptomatic bacteriuria, gynecologic infections, sexually transmitted infections, and noninfectious conditions (positive predictive value for UTI around 50%) Performed By: #### U AM #### [facility] [address] [place] [address], U PH 6.5 Normal 5.0-8.0 [facility] Comment on above: Order Comment: A neg ative leukocyte esterase AND negative nitrite test or absence of pyuria (urine WBC count <= 5-10) make a UTI (urinary tract infection) very unlikely in a non-neutropenic adult (<=5% likelihood in many studies). A positive leukocyte esterase, nitrite and/or pyuria is a nonspecific result. This can be seen in conditions other than a UTI e.g. asymptomatic bacteriuria, gynecologic infections, sexually transmitted infections, and noninfectious conditions (positive predictive value for UTI around 50%) Performed By: #### U AM #### [facility] [address] [place] [address], U PROTEIN Negative Normal Negative [facility] Comment on above: Order Comment: A neg ative leukocyte esterase AND negative nitrite test or absence of pyuria (urine WBC count <= 5-10) make a UTI (urinary tract infection) very unlikely in a non-neutropenic adult (<=5% likelihood in many studies). A positive leukocyte esterase, nitrite and/or pyuria is a nonspecific result. This can be seen in conditions other than a UTI e.g. asymptomatic bacteriuria, gynecologic infections, sexually transmitted infections, and noninfectious conditions (positive predictive value for UTI around 50%) Performed By: #### U AM #### [facility] [address], [place], U SG 1.020 Normal 1.005-1.030 [facility] Comment on above: Order Comment: A neg ative leukocyte esterase AND negative nitrite test or absence of pyuria (urine WBC count <= 5-10) make a UTI (urinary tract infection) very unlikely in a non-neutropenic adult (<=5% likelihood in many studies). A positive leukocyte esterase, nitrite and/or pyuria is a nonspecific result. This can be seen in conditions other than a UTI e.g. asymptomatic bacteriuria, gynecologic infections, sexually transmitted infections, and noninfectious conditions (positive predictive value for UTI around 50%) Performed By: #### U AM #### [facility] [address], [place], U UROBILI 0.2 mg/dL Normal 0.2 - 1.0 [facility] Comment on above: Order Comment: A neg ative leukocyte esterase AND negative nitrite test or absence of pyuria (urine WBC count <= 5-10) make a UTI (urinary tract infection) very unlikely in a non-neutropenic adult (<=5% likelihood in many studies). A positive leukocyte esterase, nitrite and/or pyuria is a nonspecific result. This can be seen in conditions other than a UTI e.g. asymptomatic bacteriuria, gynecologic infections, sexually transmitted infections, and noninfectious conditions (positive predictive value for UTI around 50%) Performed By: #### U AM #### [facility] [address] [place] [address], XR KNEE LEFT (1-2 VIEWS)on 0 09-19-2021 Patient Name: LAXMI GAONA Diagnostic Radiology ACCESSION EXAM DATE/TIME PROCEDURE ORDERING PROVIDER [id number] 09/18/2021 11:25 EDT CR Knee 1 or 2 Views FLAVIO WARD Left CPT code 32842 Reason For Exam (CR Knee 1 or 2 Views Left) Acute pain left knee Report LEFT KNEE, 4 VIEWS: CLINICAL INDICATION: Left knee pain COMPARISON: No prior studies are available for comparison. Frontal, lateral, sunrise and tunnel views of the left knee were obtained. In addition weight-bearing frontal and tunnel views of the contralateral knee were obtained. The bone density appears normal. No fracture or dislocation is noted. There is medial compartment narrowing and undersurface spurring of the patella. There are no significant soft tissue abnormalities. No joint effusion is appreciated. IMPRESSION: Arthritic changes. No acute process. Report Dictated on --- Final --- Dictating Physician: DO DEAL ALFRED Signed Date and Time: 09/19/2021 0:00 am Signed by: DO DEAL ALFRED Transcribed Date and Time: 09/19/2021 0:01 [facility] Norman Deal DO - 09/19/2021 Patient Name: LAXMI GAONA Diagnostic Radiology ACCESSION EXAM DATE/TIME PROCEDURE ORDERING PROVIDER [id number] 09/18/2021 11:25 EDT CR Knee 1 or 2 Views FLAVIO WARD S Left CPT code 71161 Reason For Exam (CR Knee 1 or 2 Views Left) Acute pain left knee Report LEFT KNEE, 4 VIEWS: CLINICAL INDICATION: Left knee pain COMPARISON: No prior studies are available for comparison. Frontal, lateral, sunrise and tunnel views of the left knee were obtained. In addition weight-bearing frontal and tunnel views of the contralateral knee were obtained. The bone density appears normal. No fracture or dislocation is noted. There is medial compartment narrowing and undersurface spurring of the patella. There are no significant soft tissue abnormalities. No joint effusion is appreciated. IMPRESSION: Arthritic changes. No acute process. Report Dictated on --- Final --- Dictating Physician: DO DEAL ALFRED Signed Date and Time: 09/19/2021 0:00 am Signed by: DO DEAL ALFRED Transcribed Date and Time: 09/19/2021 0:01 [facility] Work Phone: XR KNEE LEFT (1-2 VIEWS)Orde red By: Norman Deal on 09-19-2021 [facility] Work Phone: CR Knee 1 or 2 Views Lefton 09-18-2021 CR Knee 1 or 2 Views Left Patient Name: LAXMI GAONA Diagnostic Radiology ACCESSION EXAM DATE/TIME PROCEDURE ORDERING PROVIDER [id number] 09/18/2021 11:25 EDT CR Knee 1 or 2 Views FLAVIO WARD Left CPT code 02408 Reason For Exam (CR Knee 1 or 2 Views Left) Acute pain left knee Report LEFT KNEE, 4 VIEWS: CLINICAL INDICATION: Left knee pain COMPARISON: No prior studies are available for comparison. Frontal, lateral, sunrise and tunnel views of the left knee were obtained. In addition weight-bearing frontal and tunnel views of the contralateral knee were obtained. The bone density appears normal. No fracture or dislocation is noted. There is medial compartment narrowing and undersurface spurring of the patella. There are no significant soft tissue abnormalities. No joint effusion is appreciated. IMPRESSION: Arthritic changes. No acute process. Report Dictated on Final Dictating Physician: DO DEAL ALFRED Signed Date and Time: 09/19/2021 0:00 am Signed by: DO DEAL ALFRED Transcribed Date and Time: 09/19/2021 0:01 Normal [facility] CR Knee Standing Bilateralon 09-18-2021 CR Knee Standing Bilateral Patient Name: LAXMI GAONA Diagnostic Radiology ACCESSION EXAM DATE/TIME PROCEDURE ORDERING PROVIDER [id number] 09/18/2021 11:25 EDT CR Knee Standing AP FLAVIO WARD S Bilateral CPT code 63804 Reason For Exam (CR Knee Standing AP Bilateral) Acute pain left knee Report LEFT KNEE History: Knee pain Findings: Lateral and skyline patellar views of the left knee show small degenerative spurs at the patellofemoral joint margin without acute fracture, dislocation, periosteal reaction. RIGHT KNEE History: Knee pain Findings: Lateral and skyline patellar views of the right knee show tiny degenerative spurs at the patellofemoral joint margin without acute fracture, dislocation, periosteal reaction. . FRONTAL WEIGHT-BEARING VIEWS OF BOTH KNEES History: Knee pain Findings: Two views (routine AP and flexion PA weightbearing views) of both knees show mild narrowing of the medial left and right tibiofemoral joint spaces with small spurs at the joints margins. There is no fracture, dislocation, periosteal reaction or bone erosion. IMPRESSION: Mild bilateral knee osteoarthritis. No acute process. Report Dictated on Final Dictating Physician: MD MICAH, AHMAD Signed Date and Time: 09/18/2021 5:56 pm Signed by: MD YAP AHMAD Transcribed Date and Time: 09/18/2021 5:57 Normal [facility] No Panel Informationon 09-18 Radiology Study observation (narrative) [facility] Work Phone: XR KNEE BILATERAL STANDINGon 09-18-2021 Patient Name: LAXMI GAONA Diagnostic Radiology ACCESSION EXAM DATE/TIME PROCEDURE ORDERING PROVIDER [id number] 09/18/2021 11:25 EDT CR Knee Standing AP FLAVIO WARD S Bilateral CPT code 55015 Reason For Exam (CR Knee Standing AP Bilateral) Acute pain left knee Report LEFT KNEE History: Knee pain Findings: Lateral and skyline patellar views of the left knee show small degenerative spurs at the patellofemoral joint margin without acute fracture, dislocation, periosteal reaction. RIGHT KNEE History: Knee pain Findings: Lateral and skyline patellar views of the right knee show tiny degenerative spurs at the patellofemoral joint margin without acute fracture, dislocation, periosteal reaction. . FRONTAL WEIGHT-BEARING VIEWS OF BOTH KNEES History: Knee pain Findings: Two views (routine AP and flexion PA weightbearing views) of both knees show mild narrowing of the medial left and right tibiofemoral joint spaces with small spurs at the joints margins. There is no fracture, dislocation, periosteal reaction or bone erosion. IMPRESSION: Mild bilateral knee osteoarthritis. No acute process. Report Dictated on --- Final --- Dictating Physician: MD YAP AHMAD Signed Date and Time: 09/18/2021 5:56 pm Signed by: MD YAP AHMAD Transcribed Date and Time: 09/18/2021 5:57 [facility] Consuelo Yap MD - 09/18/2021 Patient Name: LAXMI GAONA Diagnostic Radiology ACCESSION EXAM DATE/TIME PROCEDURE ORDERING PROVIDER [id number] 09/18/2021 11:25 EDT CR Knee Standing AP FLAVIO WARD S Bilateral CPT code 64252 Reason For Exam (CR Knee Standing AP Bilateral) Acute pain left knee Report LEFT KNEE History: Knee pain Findings: Lateral and skyline patellar views of the left knee show small degenerative spurs at the patellofemoral joint margin without acute fracture, dislocation, periosteal reaction. RIGHT KNEE History: Knee pain Findings: Lateral and skyline patellar views of the right knee show tiny degenerative spurs at the patellofemoral joint margin without acute fracture, dislocation, periosteal reaction. . FRONTAL WEIGHT-BEARING VIEWS OF BOTH KNEES History: Knee pain Findings: Two views (routine AP and flexion PA weightbearing views) of both knees show mild narrowing of the medial left and right tibiofemoral joint spaces with small spurs at the joints margins. There is no fracture, dislocation, periosteal reaction or bone erosion. IMPRESSION: Mild bilateral knee osteoarthritis. No acute process. Report Dictated on --- Final --- Dictating Physician: MD YAP AHMAD Signed Date and Time: 09/18/2021 5:56 pm Signed by: MD YAP AHMAD Transcribed Date and Time: 09/18/2021 5:57 [facility] Work Phone: XR KNEE BILATERAL STANDINGOr dered By: Consuelo Yap on 09-18-2021 [facility] Work Phone: CR Spine Cervical 2 or 3 Vie wson 06-28-2021 CR Spine Cervical 2 or 3 Views Patient Name: LAXMI GAONA Diagnostic Radiology ACCESSION EXAM DATE/TIME PROCEDURE ORDERING PROVIDER [id number] 06/28/2021 10:00 EST CR Spine Cervical 2 or 3 FREDA MAHONEY, EFRAÍN Views CPT code 69199 Reason For Exam (CR Spine Cervical 2 or 3 Views) See dx Report Clinical indication: Neck pain. No history of injury. COMPARISON: None. TECHNIQUE: AP, lateral, and odontoid views obtained of the cervical spine. FINDINGS: The vertebral bodies of the cervical spine are normal in height without evidence of an acute compression fracture. Intervertebral disc spaces remain preserved and there is no listhesis. Straightening of the normal cervical lordosis is present. There is no prevertebral soft tissue swelling. The airways are patent and the lung apices are clear. Odontoid is intact. Lateral masses of C1 are in appropriate position. IMPRESSION: No acute osseous abnormality of the cervical spine. Straightening of the normal cervical lordosis which could be secondary to muscle spasm versus positioning. Report Dictated on Final Dictated: 06/29/2021 9:18 am Dictating Physician: MD GONZALEZ YUN ROBERT Signed Date and Time: 06/29/2021 9:20 am Signed by: MD GONZALEZ YUN ROBERT Transcribed Date and Time: 06/29/2021 9:18 Normal [facility] CR Spine Lumbosacral 2 or 3 Viewson 06-28-2021 CR Spine Lumbosacral 2 or 3 Views Patient Name: LAXMI GAONA Diagnostic Radiology ACCESSION EXAM DATE/TIME PROCEDURE ORDERING PROVIDER [id number] 06/28/2021 10:00 EST CR Spine Lumbosacral 2 LALLEY, DRIER UNLOADER, EFRAÍN or 3 Views CPT code 90554 Reason For Exam (CR Spine Lumbosacral 2 or 3 Views) Lumbago with sciatica, left side Report CLINICAL HISTORY: Lumbago with sciatica, left side COMPARISON: None Technique: AP, lateral, and a spot lateral view of the L5-S1 level was obtained. FINDINGS: There are 5 non-rib bearing lumbar type vertebral bodies. Vertebral body heights remain preserved without evidence of an acute compression fracture. Intervertebral disc spaces remain preserved and there is no listhesis. The normal lumbar lordosis is maintained. Mild degenerative facet changes of the lower lumbar spine are present. IMPRESSION: No acute osseous abnormality of the lumbar spine. Mild degenerative facet arthrosis. Report Dictated on Final Dictated: 06/29/2021 9:17 am Dictating Physician: MD GONZALEZ YUN ROBERT Signed Date and Time: 06/29/2021 9:18 am Signed by: MD GONZALEZ YUN ROBERT Transcribed Date and Time: 06/29/2021 9:17 Normal [facility] XR Knee Bilateral Standardon 06-23-2019 Patient Name: LAXMI GAONA ---Diagnostic Radiology--- Exam Date/Time 06/23/2019 14:59:37 EST Exam CR Knee 3 Views Bilateral Ordering Physician FLAVIO WARD Accession Number [id number] CPT4 Codes 39897 () Reason For Exam Patellofemoral pain syndrome of left knee and right knee Report CLINICAL INFORMATION: Bilateral knee pain and popping. Patellofemoral syndrome. Right and left knee: Weightbearing AP and PA flexion and lateral and sunrise views of both knees demonstrate no evidence of acute fracture or dislocation. The medial and lateral knee joint compartments are well maintained on both sides. The patellofemoral joints are well-maintained on both sides. There is no lateralization/subluxati on of either patella. No bone erosion or periosteal reaction is seen. There is no suprapatellar bursa effusion on either side. IMPRESSION: No significant radiographic abnormality. Report Dictated on --- Final --- Dictated: 06/23/2019 3:11 pm Dictating Physician: MD GIORDANO HARLAN Signed Date and Time: 06/23/2019 3:12 pm Signed by: MD GIORDANO HARLAN Transcribed Date and Time: 06/23/2019 3:11 [facility], [facility] Incoming Radiology Results From [facility] - 06/23/2019 3:14 PM EST Patient Name: LAXMI GAONA ---Diagnostic Radiology--- Exam Date/Time 06/23/2019 14:59:37 EST Exam CR Knee 3 Views Bilateral Ordering Physician FLAVIO WARD Accession Number [id number] CPT4 Codes 39989 () Reason For Exam Patellofemoral pain syndrome of left knee and right knee Report CLINICAL INFORMATION: Bilateral knee pain and popping. Patellofemoral syndrome. Right and left knee: Weightbearing AP and PA flexion and lateral and sunrise views of both knees demonstrate no evidence of acute fracture or dislocation. The medial and lateral knee joint compartments are well maintained on both sides. The patellofemoral joints are well-maintained on both sides. There is no lateralization/subluxati on of either patella. No bone erosion or periosteal reaction is seen. There is no suprapatellar bursa effusion on either side. IMPRESSION: No significant radiographic abnormality. Report Dictated on --- Final --- Dictated: 06/23/2019 3:11 pm Dictating Physician: MD GIORDANO HARLAN Signed Date and Time: 06/23/2019 3:12 pm Signed by: MD GIORDANO HARLAN Transcribed Date and Time: 06/23/2019 3:11 [facility] [place] XR Knee Bilateral Standingon 06-23-2019 Patient Name: LAXMI GAONA ---Diagnostic Radiology--- Exam Date/Time 06/23/2019 14:58:56 EST Exam CR Knee Standing AP Bilateral Ordering Physician FLAVIO WARD Accession Number [id number] CPT4 Codes 30139 () Reason For Exam Patellofemoral disorders, left knee Report CLINICAL INFORMATION: Bilateral knee pain and popping. Patellofemoral syndrome. Right and left knee: Weightbearing AP and PA flexion and lateral and sunrise views of both knees demonstrate no evidence of acute fracture or dislocation. The medial and lateral knee joint compartments are well maintained on both sides. The patellofemoral joints are well-maintained on both sides. There is no lateralization/subluxati on of either patella. No bone erosion or periosteal reaction is seen. There is no suprapatellar bursa effusion on either side. IMPRESSION: No significant radiographic abnormality. Report Dictated on --- Final --- Dictated: 06/23/2019 3:11 pm Dictating Physician: MD GIORDANO HARLAN Signed Date and Time: 06/23/2019 3:12 pm Signed by: MD GIORDANO HARLAN Transcribed Date and Time: 06/23/2019 3:11 [facility], JULIANNE [facility], [facility] Incoming Radiology Results From [facility] - 06/23/2019 3:13 PM EST Patient Name: LAXMI GAONA ---Diagnostic Radiology--- Exam Date/Time 06/23/2019 14:58:56 EST Exam CR Knee Standing AP Bilateral Ordering Physician FLAVIO WARD Accession Number [id number] CPT4 Codes 86060 () Reason For Exam Patellofemoral disorders, left knee Report CLINICAL INFORMATION: Bilateral knee pain and popping. Patellofemoral syndrome. Right and left knee: Weightbearing AP and PA flexion and lateral and sunrise views of both knees demonstrate no evidence of acute fracture or dislocation. The medial and lateral knee joint compartments are well maintained on both sides. The patellofemoral joints are well-maintained on both sides. There is no lateralization/subluxati on of either patella. No bone erosion or periosteal reaction is seen. There is no suprapatellar bursa effusion on either side. IMPRESSION: No significant radiographic abnormality. Report Dictated on --- Final --- Dictated: 06/23/2019 3:11 pm Dictating Physician: MD GIORDANO HARLAN Signed Date and Time: 06/23/2019 3:12 pm Signed by: MD GIORDANO HARLAN Transcribed Date and Time: 06/23/2019 3:11 [place], [place] ROUTINE EKG TREADMILL STRESS TESTon 06-10-2019 EXERCISE ECG STRESS TEST Cole Protocol PATIENT: Laxmi Gaona STUDY DATE: 06/10/2019 : 1980 AGE: 39 HT/WT: 165.1 cm (65 125 kg in) (275 lb) GENDER: F BP: 132 / 90 LOCATION: [facility] PATIENT Outpatient [facility] STATUS: Medical Center *ORDERING PHYSICIAN: * Angela Gillespie *SUPERVISING PHYSICIAN: * All Garza, *RN: * Raquel Shields MD *READING PHYSICIAN: * Roddy Agee MD INDICATIONS: (Chest pain). HISTORY: Obesity Hypertension treated The last beta scott was taken by the patient on 2019 07:00 PM. Medications: Metoprolol (Lopressor, Toprol). Pantoprazole (Protonix). Allergies: Lisinopril, Cephalexin allergy. Patient is NPO per policy. CONCLUSIONS SUMMARY: 1. Procedure narrative: Treadmill exercise testing was performed using the Cole protocol. The patient exercised for 6 min 28 sec, to a maximal work rate of 7.7 mets. Exercise was terminated due to achievement of target heart rate and moderate fatigue. 2. Stress: Stress testing did not produce any symptoms suggestive of coronary artery disease. Functional capacity is fair. 7 METS achieved. 3. Stress ECG conclusions: There was no ischemic ST depression. Leung scoring: exercise time of 6.5 min; maximum ST deviation of 0 mm; no angina; resulting score is 7. This score predicts a low risk of cardiac events. STUDY DATA: Exercise ECG stress test. Procedure: Initial setup. A baseline ECG was recorded. Surface ECG leads and blood pressure measurements were monitored. Treadmill exercise testing was performed using the Cole protocol. The patient exercised for 6 min 28 sec, to a maximal work rate of 7.7 mets. Exercise was terminated due to achievement of target heart rate and moderate fatigue. Exercise was terminated when the patient's Emely scale was 17. Study status: Routine. Patient status: Outpatient. Pre pain assessment is 0 out of 10. Post pain assessment is 0 out of 10. Location: Echo laboratory. Consent: The procedure was reviewed with the patient and the patient voices understanding. Study completion: The patient tolerated the procedure well. There were no complications. Discharge: Discharge instructions given The patient was discharged to homewhile ambulatory. FINDINGS BASELINE ECG: Normal sinus rhythm. STRESS PROTOCOL: + +---+----- -------+ + +Stage +HR +BP +Symptoms + + +---+----- -------+ + +Rest +81 +132/90 (104)+No symptoms. + + +---+----- -------+ + +Peak stress +164+168/88 (115)+Mild dyspnea, moderate fatigue.+ + +---+----- -------+ + +Recovery +108+172/90 (117)+Subsiding. + + +---+----- -------+ + +Late recovery+96 +128/90 (103)+No symptoms. + + +---+----- -------+ + STRESS RESULTS: There is an appropriate response to stress. The rate-pressure product for the peak heart rate and blood pressure was 13282 mm Hg/min. Stress testing did not produce any symptoms suggestive of coronary artery disease. Functional capacity is fair. Peak heart rate during stress was 164 bpm (91% of maximal predicted heart rate). The maximal predicted heart rate was 181 bpm.The heart rate response to stress was normal. STRESS ECG: There was no ischemic ST depression. Leung scoring: exercise time of 6.5 min; maximum ST deviation of 0 mm; no angina; resulting score is 7. This score predicts a low risk of cardiac events. Electronically signed by Roddy Agee MD 06/10/2019 16:45 Prior Signatures: Lab[facility], [facility], [facility] Incoming Cardiology Results From [facility]/[employer] - 06/10/2019 4:45 PM EST EXERCISE ECG STRESS TEST Cole Protocol PATIENT: Laxmi Gaona STUDY DATE: 06/10/2019 : 1980 AGE: 39 HT/WT: 165.1 cm (65 125 kg in) (275 lb) GENDER: F BP: 132 / 90 LOCATION: [facility] PATIENT Outpatient [facility] STATUS: Medical Center *ORDERING PHYSICIAN: * Angela Gillespie *SUPERVISING PHYSICIAN: * All Garza, *RN: Raquel Jessica MD *READING PHYSICIAN: * Roddy Agee MD INDICATIONS: (Chest pain). HISTORY: Obesity Hypertension treated The last beta scott was taken by the patient on 2019 07:00 PM. Medications: Metoprolol (Lopressor, Toprol). Pantoprazole (Protonix). Allergies: Lisinopril, Cephalexin allergy. Patient is NPO per policy. CONCLUSIONS SUMMARY: 1. Procedure narrative: Treadmill exercise testing was performed using the Cole protocol. The patient exercised for 6 min 28 sec, to a maximal work rate of 7.7 mets. Exercise was terminated due to achievement of target heart rate and moderate fatigue. 2. Stress: Stress testing did not produce any symptoms suggestive of coronary artery disease. Functional capacity is fair. 7 METS achieved. 3. Stress ECG conclusions: There was no ischemic ST depression. Leung scoring: exercise time of 6.5 min; maximum ST deviation of 0 mm; no angina; resulting score is 7. This score predicts a low risk of cardiac events. STUDY DATA: Exercise ECG stress test. Procedure: Initial setup. A baseline ECG was recorded. Surface ECG leads and blood pressure measurements were monitored. Treadmill exercise testing was performed using the Cole protocol. The patient exercised for 6 min 28 sec, to a maximal work rate of 7.7 mets. Exercise was terminated due to achievement of target heart rate and moderate fatigue. Exercise was terminated when the patient's Emely scale was 17. Study status: Routine. Patient status: Outpatient. Pre pain assessment is 0 out of 10. Post pain assessment is 0 out of 10. Location: Echo laboratory. Consent: The procedure was reviewed with the patient and the patient voices understanding. Study completion: The patient tolerated the procedure well. There were no complications. Discharge: Discharge instructions given The patient was discharged to homewhile ambulatory. FINDINGS BASELINE ECG: Normal sinus rhythm. STRESS PROTOCOL: + +---+----- -------+ + +Stage +HR +BP +Symptoms + + +---+----- -------+ + +Rest +81 +132/90 (104)+No symptoms. + + +---+----- -------+ + +Peak stress +164+168/88 (115)+Mild dyspnea, moderate fatigue.+ + +---+----- -------+ + +Recovery +108+172/90 (117)+Subsiding. + + +---+----- -------+ + +Late recovery+96 +128/90 (103)+No symptoms. + + +---+----- -------+ + STRESS RESULTS: There is an appropriate response to stress. The rate-pressure product for the peak heart rate and blood pressure was 60587 mm Hg/min. Stress testing did not produce any symptoms suggestive of coronary artery disease. Functional capacity is fair. Peak heart rate during stress was 164 bpm (91% of maximal predicted heart rate). The maximal predicted heart rate was 181 bpm.The heart rate response to stress was normal. STRESS ECG: There was no ischemic ST depression. Leung scoring: exercise time of 6.5 min; maximum ST deviation of 0 mm; no angina; resulting score is 7. This score predicts a low risk of cardiac events. Electronically signed by Roddy Agee MD 06/10/2019 16:45 Prior Signatures: [employer] XR CHEST STANDARD (2 VW)on 0 05-26-2019 Patient Name: LAXMI GAONA ---Diagnostic Radiology--- Exam Date/Time 05/26/2019 13:24:23 EST Exam CR Chest PA/LAT Ordering Physician CHANDRAKANT GILLESPIE MICHELLE Accession Number [id number] CPT4 Codes 31875 () Reason For Exam Chest pain, unspecified Report CLINICAL INFORMATION: Chest pain, unspecified Frontal and lateral views of the chest were obtained. Comparison: December 16, 2018 two view chest No acute pulmonary disease is noted. The cardiovascular silhouette is within normal limits. There are no pleural effusions. Osseous structures appear grossly intact. IMPRESSION: No acute pulmonary disease. Report Dictated on Workstation: [facility] --- Final --- Dictated: 05/26/2019 2:25 pm Dictating Physician: MD NEWSOME BRIAN Signed Date and Time: 05/26/2019 2:26 pm Signed by: MD NEWSOME BRIAN Transcribed Date and Time: 05/26/2019 2:25 [facility] Work Phone: [facility], [facility] Incoming Radiology Results From [facility] - 05/26/2019 2:27 PM EST Patient Name: LAXMI GAONA ---Diagnostic Radiology--- Exam Date/Time 05/26/2019 13:24:23 EST Exam CR Chest PA/LAT Ordering Physician CHANDRAKANT GILLESPIE MICHELLE Accession Number [id number] CPT4 Codes 86508 () Reason For Exam Chest pain, unspecified Report CLINICAL INFORMATION: Chest pain, unspecified Frontal and lateral views of the chest were obtained. Comparison: December 16, 2018 two view chest No acute pulmonary disease is noted. The cardiovascular silhouette is within normal limits. There are no pleural effusions. Osseous structures appear grossly intact. IMPRESSION: No acute pulmonary disease. Report Dictated on Workstation: [facility] --- Final --- Dictated: 05/26/2019 2:25 pm Dictating Physician: MD NEWSOME BRIAN Signed Date and Time: 05/26/2019 2:26 pm Signed by: MD NEWSOME BRIAN Transcribed Date and Time: 05/26/2019 2:25 [facility] Work Phone: ECHO Complete 2D W Doppler W Coloron 02-03-2019 TRANSTHORACIC ECHOCARDIOGRAM PATIENT: Laxmi Gaona STUDY DATE: 02/03/2019 : 1980 AGE: 38 HT/WT: 165.1 cm (65 127 kg in) (279.4 lb) GENDER: F BP: 146 / 88 LOCATION: [facility] PATIENT [facility] STATUS: *ORDERING PHYSICIAN: * Jessika Perales MD *READING PHYSICIAN: * Chelsi PeralesRESPIRATORY ASSISTANT: * Margarita Griffin Jessika GALAN MD AE, RVT, VT INDICATIONS: Atypical chest pain (R07.89). Palpitations (R002). Shortness of breath (R0602). CONCLUSIONS SUMMARY: 1. Left ventricle: The cavity size is normal. Wall thickness is normal. Systolic function is normal by the biplane method of disks. The estimated ejection fraction is 65%. There are no regional wall motion abnormalities. Left ventricular diastolic function parameters are normal. 2. No significant valve disease. STUDY DATA: Complete transthoracic echocardiogram. Procedure: Image quality was poor. The study was technically limited due to poor acoustic window availability, body habitus, and respiratory interference. Intravenous imaging enhancement (Definity) was administered to opacify the chamber. Definity lot #: [id number]. M-mode, complete 2D, complete spectral Doppler, and color flow Doppler images were acquired and archived for permanent storage and are available for subsequent review. Study status: Routine. Patient status: Outpatient. ECG RHYTHM: NSR FINDINGS LEFT VENTRICLE: The cavity size is normal. Wall thickness is normal. Systolic function is normal by the biplane method of disks. The estimated ejection fraction is 65%. There are no regional wall motion abnormalities. Left ventricular diastolic function parameters are normal. RIGHT VENTRICLE: The cavity size is normal. Wall thickness is normal. Systolic function is normal. VENTRICULAR SEPTUM: There is no evidence of a ventricular septal defect. LEFT ATRIUM: The atrium is normal in size. RIGHT ATRIUM: The atrium is normal in size. ATRIAL SEPTUM: The interatrial septum is normal. Doppler shows no shunt. MITRAL VALVE: Structurally normal valve. Leaflet separation is normal. Doppler: Transvalvular velocity is within the normal range. There is no evidence for stenosis. There is no regurgitation. The peak diastolic gradient is 2 mm Hg. AORTIC VALVE: Structurally normal valve. Trileaflet. Cusp separation is normal. Doppler: Transvalvular velocity is within the normal range. There is no stenosis. There is no regurgitation. TRICUSPID VALVE: Structurally normal valve. Leaflet separation is normal. Doppler: Transvalvular velocity is within the normal range. There is no evidence for stenosis. There is trivial, less than 1+ regurgitation. PULMONIC VALVE: Not well visualized. Structurally normal valve. Cusp separation is normal. Doppler: Transvalvular velocity is within the normal range. There is no significant regurgitation. AORTA: Aortic root: The aortic root is normal in size. Ascending aorta: The ascending aorta is normal in size. PERICARDIUM: There is no pericardial effusion. SYSTEMIC VEINS: Inferior vena cava: The vessel is normal in size. The IVC collapses by greater than 50% with inspiration. Measurements Value Reference Aortic root ID, ED (sinus) 2.7 cm <4.2 Value Reference Ascending aorta ID, A-P, S 2.9 cm Ascending aorta ID/bsa, A-P, S 1.2 cm/m^2 IVC Value Reference ID 2.0 cm Left ventricle Value Reference LV ID, ED 4.7 cm 3.8 - 5.2 LV ID, ES 2.9 cm 2.2 - 3.5 LV ID/bsa, ED (L) 1.9 cm/m^2 2.3 - 3.1 LV ID/bsa, ES (L) 1.2 cm/m^2 1.3 - 2.1 LV PW thickness, ED (H) 1.0 cm 0.6 - 0.9 LV PW/LV ID ratio, ED 0.21 LV wall mass (H) 164 g 66 - 150 LV wall mass/bsa 66 g/m^2 44 - 88 Stroke volume/bsa, 1-p A2C 34.1 ml/m^2 LV end-diastolic volume, 1-p A4C 111 ml 48 - 140 LV end-systolic volume, 1-p A4C 48 ml 12 - 60 LV end-diastolic volume, 2-p (H) 118 ml 46 - 106 LV end-systolic volume, 2-p 41 ml 14 - 42 LV ejection fraction, 2-p 65 % 54 - 74 LV E/e', lateral 4.9 LV E/e', medial 6.9 LV E/e', average 5.7 Ventricular septum Value Reference IVS thickness, ED (H) 1.0 cm 0.6 - 0.9 LVOT Value Reference LVOT ID, A-P 2.2 cm LVOT mean velocity, S 0.5 m/sec LVOT peak gradient, S 2 mm Hg Stroke volume (SV), LVOT DP 63 ml Stroke index (SV/bsa), LVOT DP 25 ml/m^2 Left atrium Value Reference LA area, ES, A2C 19 cm^2 LA volume/bsa, ES, 2-p 27 ml/m^2 16 - 34 Mitral valve Value Reference Mitral E-wave peak velocity 0.8 m/sec Mitral A-wave peak velocity 0.5 m/sec Mitral deceleration time 179 ms Mitral peak gradient, D 2 mm Hg Mitral E/A ratio, peak 1.5 Tricuspid valve Value Reference Tricuspid regurg peak velocity 2.7 m/sec <=2.8 Tricuspid peak RV-RA gradient 28 mm Hg Right atrium Value Reference RA area, ES, A4C 16 cm^2 10 - 18 Right ventricle Value Reference RV ID, minor axis, ED, A4C base 2.6 cm 2.5 - 4.1 RV ID, minor axis, ED, A4C mid 2.2 cm 1.9 - 3.5 TAPSE, 2D 2.3 cm 1.7 - 3.1 RV s', lateral 11.7 cm/sec 6.0 - 13.4 Legend: (L) and (H) christine values outside specified reference range. Electronically signed by Jessika Perales MD 02/03/2019 15:06 Prior Signatures: [facility], [place], [facility] Incoming Cardiology Results From Marcus/Zheng - 02/03/2019 3:06 PM EDT TRANSTHORACIC ECHOCARDIOGRAM PATIENT: Laxmi Gaona STUDY DATE: 02/03/2019 : 1980 AGE: 38 HT/WT: 165.1 cm (65 127 kg in) (279.4 lb) GENDER: F BP: 146 / 88 LOCATION: [facility] STATUS: *ORDERING PHYSICIAN: * Jessika Perales MD *READING PHYSICIAN: * Angella, *RESPIRATORY ASSISTANT: * Jessika Gonzalez RDCS, MD AE, RVT, VT INDICATIONS: Atypical chest pain (R07.89). Palpitations (R002). Shortness of breath (R0602). CONCLUSIONS SUMMARY: 1. Left ventricle: The cavity size is normal. Wall thickness is normal. Systolic function is normal by the biplane method of disks. The estimated ejection fraction is 65%. There are no regional wall motion abnormalities. Left ventricular diastolic function parameters are normal. 2. No significant valve disease. STUDY DATA: Complete transthoracic echocardiogram. Procedure: Image quality was poor. The study was technically limited due to poor acoustic window availability, body habitus, and respiratory interference. Intravenous imaging enhancement (Definity) was administered to opacify the chamber. Definity lot #: [id number]. M-mode, complete 2D, complete spectral Doppler, and color flow Doppler images were acquired and archived for permanent storage and are available for subsequent review. Study status: Routine. Patient status: Outpatient. ECG RHYTHM: NSR FINDINGS LEFT VENTRICLE: The cavity size is normal. Wall thickness is normal. Systolic function is normal by the biplane method of disks. The estimated ejection fraction is 65%. There are no regional wall motion abnormalities. Left ventricular diastolic function parameters are normal. RIGHT VENTRICLE: The cavity size is normal. Wall thickness is normal. Systolic function is normal. VENTRICULAR SEPTUM: There is no evidence of a ventricular septal defect. LEFT ATRIUM: The atrium is normal in size. RIGHT ATRIUM: The atrium is normal in size. ATRIAL SEPTUM: The interatrial septum is normal. Doppler shows no shunt. MITRAL VALVE: Structurally normal valve. Leaflet separation is normal. Doppler: Transvalvular velocity is within the normal range. There is no evidence for stenosis. There is no regurgitation. The peak diastolic gradient is 2 mm Hg. AORTIC VALVE: Structurally normal valve. Trileaflet. Cusp separation is normal. Doppler: Transvalvular velocity is within the normal range. There is no stenosis. There is no regurgitation. TRICUSPID VALVE: Structurally normal valve. Leaflet separation is normal. Doppler: Transvalvular velocity is within the normal range. There is no evidence for stenosis. There is trivial, less than 1+ regurgitation. PULMONIC VALVE: Not well visualized. Structurally normal valve. Cusp separation is normal. Doppler: Transvalvular velocity is within the normal range. There is no significant regurgitation. AORTA: Aortic root: The aortic root is normal in size. Ascending aorta: The ascending aorta is normal in size. PERICARDIUM: There is no pericardial effusion. SYSTEMIC VEINS: Inferior vena cava: The vessel is normal in size. The IVC collapses by greater than 50% with inspiration. Measurements Value Reference Aortic root ID, ED (sinus) 2.7 cm <4.2 Value Reference Ascending aorta ID, A-P, S 2.9 cm Ascending aorta ID/bsa, A-P, S 1.2 cm/m^2 IVC Value Reference ID 2.0 cm Left ventricle Value Reference LV ID, ED 4.7 cm 3.8 - 5.2 LV ID, ES 2.9 cm 2.2 - 3.5 LV ID/bsa, ED (L) 1.9 cm/m^2 2.3 - 3.1 LV ID/bsa, ES (L) 1.2 cm/m^2 1.3 - 2.1 LV PW thickness, ED (H) 1.0 cm 0.6 - 0.9 LV PW/LV ID ratio, ED 0.21 LV wall mass (H) 164 g 66 - 150 LV wall mass/bsa 66 g/m^2 44 - 88 Stroke volume/bsa, 1-p A2C 34.1 ml/m^2 LV end-diastolic volume, 1-p A4C 111 ml 48 - 140 LV end-systolic volume, 1-p A4C 48 ml 12 - 60 LV end-diastolic volume, 2-p (H) 118 ml 46 - 106 LV end-systolic volume, 2-p 41 ml 14 - 42 LV ejection fraction, 2-p 65 % 54 - 74 LV E/e', lateral 4.9 LV E/e', medial 6.9 LV E/e', average 5.7 Ventricular septum Value Reference IVS thickness, ED (H) 1.0 cm 0.6 - 0.9 LVOT Value Reference LVOT ID, A-P 2.2 cm LVOT mean velocity, S 0.5 m/sec LVOT peak gradient, S 2 mm Hg Stroke volume (SV), LVOT DP 63 ml Stroke index (SV/bsa), LVOT DP 25 ml/m^2 Left atrium Value Reference LA area, ES, A2C 19 cm^2 LA volume/bsa, ES, 2-p 27 ml/m^2 16 - 34 Mitral valve Value Reference Mitral E-wave peak velocity 0.8 m/sec Mitral A-wave peak velocity 0.5 m/sec Mitral deceleration time 179 ms Mitral peak gradient, D 2 mm Hg Mitral E/A ratio, peak 1.5 Tricuspid valve Value Reference Tricuspid regurg peak velocity 2.7 m/sec <=2.8 Tricuspid peak RV-RA gradient 28 mm Hg Right atrium Value Reference RA area, ES, A4C 16 cm^2 10 - 18 Right ventricle Value Reference RV ID, minor axis, ED, A4C base 2.6 cm 2.5 - 4.1 RV ID, minor axis, ED, A4C mid 2.2 cm 1.9 - 3.5 TAPSE, 2D 2.3 cm 1.7 - 3.1 RV s', lateral 11.7 cm/sec 6.0 - 13.4 Legend: (L) and (H) christine values outside specified reference range. Electronically signed by Jessika Perales MD 02/03/2019 15:06 Prior Signatures: [email or web address] [place] [place] Vital Signs Date Time Vital Sign Value Performing Clinician Faci lity 07-02-2024 08:29-0400 Body height 167.6 cm Noel Marquez [employer] Work Phone: [employer] 07-02-2024 08:29-0400 Body mass index (BMI) [Ratio] 50.68 kg/m2 Noel Marquez [employer] Work Phone: [employer] 07-02-2024 08:29-0400 Body temperature 97.11 [degF] Noel Marquez [employer] Work Phone: [employer] 07-02-2024 08:29-0400 Body weight 142.43 kg Noel Marquez [employer] Work Phone: [employer] 07-02-2024 08:29-0400 Diastolic blood pressure 80 mm[Hg] Noel Marquez [employer] Work Phone: [employer] 07-02-2024 08:29-0400 Heart rate 85 /min Noel Marquez [employer] Work Phone: [employer] 07-02-2024 08:29-0400 SaO2% (BldA) [Mass fraction] 97 % Noel Marquez [employer] Work Phone: [employer] 07-02-2024 08:29-0400 Systolic blood pressure 120 mm[Hg] Noel Sloana [employer] Work Phone: [employer] 12-24-2023 07:020400 Body height 167.6 cm Noel Marquez [employer] Work Phone: [employer] 12-24-2023 07:02-0400 Body mass index (BMI) [Ratio] 51.81 kg/m2 Noel Marquez DO Work Phone: [facility] [employer] 12-24-2023 07:02-0400 Body temperature 97 [degF] Noel Marquez DO Work Phone: [facility] [employer] 12-24-2023 07:02-0400 Body weight 145.6 kg Noel Marquez DO Work Phone: [facility] [employer] 12-24-2023 07:02-0400 Diastolic blood pressure 85 mm[Hg] Noel Marquez DO Work Phone: [facility] [employer] 12-24-2023 07:02-0400 Heart rate 81 /min Noel Marquez DO Work Phone: [facility] [employer] 12-24-2023 07:02-0400 SaO2% (BldA) [Mass fraction] 97 % Noel Marquez DO Work Phone: [facility] [employer] 12-24-2023 07:02-0400 Systolic blood pressure 138 mm[Hg] Noel Marquez DO Work Phone: [facility] [employer] 07-19-2023 21:55-0400 Diastolic blood pressure 79 mm[Hg] Salinas Ponce MD Work Phone: [employer] 07-19-2023 21:55-0400 Heart rate 79 /min Salinas Ponce MD Work Phone: [employer] 07-19-2023 21:55-0400 Respiratory rate 16 /min Salinas Ponce MD Work Phone: [employer] 07-19-2023 21:55-0400 SaO2% (BldA) [Mass fraction] 99 % Salinas Ponce MD Work Phone: [employer] 07-19-2023 21:55-0400 Systolic blood pressure 132 mm[Hg] Salnias Ponce MD Work Phone: [employer] 07-19-2023 19:36-0400 Body height 167.6 cm Salinas Ponce MD Work Phone: [employer] 07-19-2023 19:36-0400 Body mass index (BMI) [Ratio] 48.1 kg/m2 Salinas Ponce MD Work Phone: [facility] [employer] 07-19-2023 19:36-0400 Body temperature 98.4 [degF] Salinas Ponce MD Work Phone: [facility] [employer] 07-19-2023 19:36-0400 Body weight 135.17 kg Salinas Ponce MD Work Phone: [facility] [employer] 06-26-2023 10:42-0500 Diastolic blood pressure 84 mm[Hg] [facility] Schedule [facility] [employer] 06-26-2023 10:42-0500 Heart rate 76 /min [facility] [employer] 06-26-2023 10:42-0500 Systolic blood pressure 138 mm[Hg] [facility] Schedule [facility] [employer] 05-28-2023 09:03-0500 Diastolic blood pressure 100 mm[Hg] [facility] Schedule [facility] [employer] 05-28-2023 09:03-0500 Systolic blood pressure 140 mm[Hg] [facility] Schedule [facility] [employer] 05-28-2023 08:53-0500 Heart rate 72 /min [facility] Schedule [facility] [employer] 05-28-2023 08:53-0500 SaO2% (BldA) [Mass fraction] 98 % [facility] [employer] 04-28-2023 06:57-0500 Body height 167.6 cm Noel Jimmy SHUKLA Work Phone: [facility] [employer] 04-28-2023 06:57-0500 Body mass index (BMI) [Ratio] 49.55 kg/m2 Noel Marquez DO Work Phone: [facility] [employer] 04-28-2023 06:57-0500 Body temperature 97 [degF] Noel Marquez DO Work Phone: [facility] [employer] 04-28-2023 06:57-0500 Body weight 139.25 kg Noel Marquez DO Work Phone: [facility] [employer] 04-28-2023 06:57-0500 Diastolic blood pressure 90 mm[Hg] Noel Marquez DO Work Phone: [facility] [employer] 04-28-2023 06:57-0500 Heart rate 77 /min Noel Marquez DO Work Phone: [facility] [employer] 04-28-2023 06:57-0500 SaO2% (BldA) [Mass fraction] 97 % Noel Marquez DO Work Phone: [facility] [employer] 04-28-2023 06:57-0500 Systolic blood pressure 140 mm[Hg] Noel Marquez DO Work Phone: [facility] [employer] 12-06-2022 09:48-0400 Body height 167.6 cm Hair Mike PA-C Work Phone: [facility] [employer] 12-06-2022 09:48-0400 Body mass index (BMI) [Ratio] 48.1 kg/m2 Hair Mike PA-C Work Phone: [facility] [employer] 12-06-2022 09:48-0400 Body temperature 97 [degF] Hair Mike PA-C Work Phone: [facility] [employer] 12-06-2022 09:48-0400 Body weight 135.17 kg Hair Mike PA-C Work Phone: [facility] [employer] 12-06-2022 09:48-0400 Diastolic blood pressure 84 mm[Hg] Hair Mike PA-C Work Phone: [facility] [employer] 12-06-2022 09:48-0400 Heart rate 84 /min Hair Mike PA-C Work Phone: [facility] [employer] 12-06-2022 09:48-0400 SaO2% (BldA) [Mass fraction] 95 % Hair Mike PA-C Work Phone: [facility] [employer] 12-06-2022 09:48-0400 Systolic blood pressure 134 mm[Hg] Hair Mike PA-C Work Phone: [facility] [employer] 10-14-2022 06:56-0400 Body height 167.6 cm Noel Marquez DO Work Phone: [facility] [employer] 10-14-2022 06:56-0400 Body mass index (BMI) [Ratio] 49.55 kg/m2 Noel Sloana DO Work Phone: [facility] [employer] 10-14-2022 06:56-0400 Body temperature 97.11 [degF] Noel Sloana DO Work Phone: [facility] [employer] 10-14-2022 06:56-0400 Body weight 139.25 kg Noel Sloana DO Work Phone: [facility] [employer] 10-14-2022 06:56-0400 Diastolic blood pressure 81 mm[Hg] Noel Sloana DO Work Phone: [facility] [employer] 10-14-2022 06:56-0400 Heart rate 73 /min Noel Sloana DO Work Phone: [facility] [employer] 10-14-2022 06:56-0400 SaO2% (BldA) [Mass fraction] 97 % Noel Sloana DO Work Phone: [facility] [employer] 10-14-2022 06:56-0400 Systolic blood pressure 138 mm[Hg] Noel Sloana DO Work Phone: [facility] [employer] 09-26-2022 09:23-0400 Body height 167.6 cm Noel Sloana DO Work Phone: [facility] [employer] 09-26-2022 09:23-0400 Body mass index (BMI) [Ratio] 47.94 kg/m2 Noel Sloana DO Work Phone: [facility] [employer] 09-26-2022 09:23-0400 Body temperature 97.5 [degF] Noel Sloana DO Work Phone: [facility] [employer] 09-26-2022 09:23-0400 Body weight 134.72 kg Noel Sloana DO Work Phone: [facility] [employer] 09-26-2022 09:23-0400 Diastolic blood pressure 83 mm[Hg] Noel Sloana DO Work Phone: [facility] [employer] 09-26-2022 09:23-0400 Heart rate 82 /min Noel Petrilla DO Work Phone: [facility] [employer] 09-26-2022 09:23-0400 SaO2% (BldA) [Mass fraction] 98 % Noel Lutherpato DO Work Phone: [facility] [employer] 09-26-2022 09:23-0400 Systolic blood pressure 121 mm[Hg] Noel Jimmy DO Work Phone: [facility] [employer] 07-04-2022 09:07-0400 Body height 167.6 cm Hair Larsono PA-C Work Phone: [facility] [employer] 07-04-2022 09:07-0400 Body mass index (BMI) [Ratio] 49.39 kg/m2 Hair Larsono PA-C Work Phone: [facility] [employer] 07-04-2022 09:07-0400 Body temperature 98.01 [degF] Hair Mike PA-C Work Phone: [facility] [employer] 07-04-2022 09:07-0400 Body weight 138.8 kg Hair Larsono PA-C Work Phone: [facility] [employer] 07-04-2022 09:07-0400 Diastolic blood pressure 86 mm[Hg] Hair Larsono PA-C Work Phone: [facility] [employer] 07-04-2022 09:07-0400 Heart rate 109 /min Hair Larsono PA-C Work Phone: [facility] [employer] 07-04-2022 09:07-0400 SaO2% (BldA) [Mass fraction] 95 % Hair Larsono PA-C Work Phone: [facility] [employer] 07-04-2022 09:07-0400 Systolic blood pressure 142 mm[Hg] Hair Mike PA-C Work Phone: [facility] [employer] 04-25-2022 17:44-0500 Diastolic blood pressure 86 mm[Hg] Noel Marquez DO Work Phone: [facility] [employer] 04-25-2022 17:44-0500 Heart rate 80 /min Noel Marquez DO Work Phone: [facility] [employer] 04-25-2022 17:44-0500 Systolic blood pressure 128 mm[Hg] Noel Marquez DO Work Phone: [facility] [employer] 04-25-2022 08:49-0500 Body height 167.6 cm Noel Marquez DO Work Phone: [facility] [employer] 04-25-2022 08:49-0500 Body mass index (BMI) [Ratio] 49.39 kg/m2 Noel Marquez DO Work Phone: [facility] [employer] 04-25-2022 08:49-0500 Body temperature 97.11 [degF] Noel Marquez DO Work Phone: [facility] [employer] 04-25-2022 08:49-0500 Body weight 138.8 kg Noel Marquez DO Work Phone: [facility] [employer] 04-25-2022 08:49-0500 SaO2% (BldA) [Mass fraction] 96 % Noel Marquez DO Work Phone: [facility] [employer] 10-23-2021 10:41-0400 Body height 167.6 cm Zahra Wilkes MD Work Phone: [employer] 10-23-2021 10:41-0400 Body mass index (BMI) [Ratio] 49.55 kg/m2 Zahra Wilkes MD Work Phone: [employer] 10-23-2021 10:41-0400 Body temperature 97.9 [degF] Zahra Wilkes MD Work Phone: [employer] 10-23-2021 10:41-0400 Body weight 139.25 kg Zahra Wilkes MD Work Phone: [employer] 10-23-2021 10:41-0400 Diastolic blood pressure 90 mm[Hg] Zahra Wilkes MD Work Phone: [employer] 10-23-2021 10:41-0400 Heart rate 86 /min Zahra Wilkes MD Work Phone: [employer] 10-23-2021 10:41-0400 Respiratory rate 16 /min Zahra Wilkes MD Work Phone: [facility] 10-23-2021 10:41-0400 Systolic blood pressure 150 mm[Hg] Zahra Wilkes MD Work Phone: [facility] Encounters Encounter Date Encounter Type Care Provider Facility Start: 09-21-2024 ambulatory [facility] Facility :[facility] Start: 08-01-2024 End: 08-02-2024 Refill Noel Marquez DO Work Phone: [facility] Start: 07-02-2024 End: 07-02-2024 Office outpatient visit 15 minutes Noel Marquez DO Work Phone: [facility] Comment on above: Primary hypertension (Primary Dx); Psoriasis; Bilateral primary osteoarthritis of knee; Encounter for monitoring NSAID therapy Start: 07-02-2024 End: 07-02-[address] [facility] Start: 06-18-2024 End: 06-18-[address] Noel Marquez DO Work Phone: [facility] Work Phone: Start: 06-18-2024 End: 06-18-[address] Olga Dang MD -Laboratory, [place] Work Phone: Start: 06-18-2024 End: 06-18-2024 ambulatory [facility] Facility:[facility] Start: 05-21-2024 End: 05-21-2024 Telephone encounter Noel Marquez DO Work Phone: [facility] Comment on above: Other (Pharmacy Call ) Start: 05-03-2024 End: 05-03-2024 Refill Noel Marquez DO Work Phone: [facility] Start: 03-29-2024 End: 03-29-[address] Olga Dang MD -Laboratory, [place] Work Phone: Start: 03-29-2024 End: 03-29-2024 ambulatory [facility] Facility:[facility] Start: 03-13-2024 End: 03-13-2024 Letter encounter Zahra Wilkes MD Work Phone: [facility] Start: 12-29-2023 End: 12-29-2023 ambulatory [facility] Facility:[facility] Start: 12-24-2023 End: 12-24-2023 Office outpatient visit 15 minutes Noel Marquez DO Work Phone: [facility] Comment on above: Primary hypertension (Primary Dx); NSAID long-term use; Psoriatic arthritis (HCC) Start: 12-24-2023 End: 12-24-[address] [facility] Start: 11-16-2023 End: 11-17-2023 Refill Noel Nancebahmanpato DO Work Phone: [facility] Start: 11-11-2023 End: 11-11-2023 Refill Noel Marquez DO Work Phone: [facility] Start: 10-01-2023 End: 10-01-2023 ambulatory [facility] Facility:[facility] Start: 07-19-2023 End: 07-19-2023 Emergency department patient visit Sailnas Ponce MD Work Phone: [facility] Comment on above: Nausea and vomiting, unspecified vomiting type (Primary Dx); Influenza A; Dehydration Start: 07-01-2023 End: 07-01-2023 ambulatory [facility] Work Phone: Start: 07-01-2023 End: 07-01-2023 Patient encounter procedure [facility], [place] Work Phone: Start: 06-26-2023 End: 06-26-2023 Clinical Support [facility] Schedule [facility] Comment on above: Essential hypertensi on Start: 05-28-2023 End: 05-28-2023 Orders Only Noel Marquez DO Work Phone: [facility] Comment on above: Essential hypertensi on Start: 05-05-2023 End: 05-05-2023 ambulatory [facility] Work Phone: Start: 05-05-2023 End: 05-05-2023 Patient encounter procedure [facility] Work Phone: Start: 04-28-2023 End: 04-28-2023 Office outpatient visit 15 minutes Noel Yelena Jimmy DO Work Phone: [facility] Comment on above: Primary hypertension (Primary Dx); NSAID long-term use; Psoriatic arthritis (HCC); Class 3 severe obesity due to excess calories with serious comorbidity and body mass index (BMI) of 45.0 to 49.9 in adult (HCC); Unable to lose weight Start: 03-17-2023 End: 03-17-2023 ambulatory [facility] Work Phone: Start: 03-17-2023 End: 03-17-2023 Patient encounter procedure [facility] Work Phone: Start: 12-25-2022 Orders Only Hair Oneil Work Phone: [facility] Start: 12-24-2022 End: 12-24-2022 ambulatory [facility] Work Phone: Start: 12-24-2022 End: 12-24-2022 Patient encounter procedure [facility] Work Phone: Start: 12-06-2022 End: 12-06-2022 Office outpatient visit 15 minutes Hair Mike PA-C Work Phone: [facility] Comment on above: Abrasion, left foot, initial encounter (Primary Dx) Start: 10-21-2022 End: 10-21-2022 ambulatory [facility] Work Phone: Start: 10-21-2022 End: 10-21-2022 Patient encounter procedure [facility] Work Phone: Start: 10-14-2022 End: 10-14-2022 Office outpatient visit 15 minutes Noel Marquez DO Work Phone: [facility] Comment on above: Primary hypertension (Primary Dx); Psoriatic arthritis (HCC); Encounter for monitoring NSAID therapy Start: 09-26-2022 End: 09-26-2022 Office outpatient visit 15 minutes Noel Marquez DO Work Phone: [facility] Comment on above: Lumbar radiculopathy , acute (Primary Dx); Psoriatic arthritis (HCC) Start: 08-26-2022 End: 08-26-2022 ambulatory [facility] Work Phone: Start: 08-26-2022 End: 08-26-2022 Patient encounter procedure [facility] Start: 07-04-2022 Telephone encounter Hair siddiqui PA-C Work Phone: [facility] Comment on above: Other (Covid Test Ne gative ) Start: 07-04-2022 End: 07-04-2022 Office outpatient visit 15 minutes Hair Mike PA-C Work Phone: [facility] Comment on above: Acute non-recurrent maxillary sinusitis (Primary Dx); Psoriatic arthritis (HCC) Start: 07-03-2022 ambulatory Ani Santos Cl inical Communication Start: 07-03-2022 Patient encounter procedure Ani Santos Clinical Communication Start: 07-01-2022 End: 07-01-2022 ambulatory [facility] Work Phone: Start: 07-01-2022 End: 07-01-2022 Patient encounter procedure [facility] Start: 05-23-2022 Orders Only Noel bernal DO Work Phone: [facility] Start: 04-25-2022 End: 04-25-2022 Office outpatient visit 25 minutes Noel Marquez DO Work Phone: [facility] Comment on above: Primary hypertension (Primary Dx); Psoriasis; Psoriatic arthritis (HCC); FORD (generalized anxiety disorder); Family history of diabetes mellitus in father; Class 3 severe obesity due to excess calories with serious comorbidity and body mass index (BMI) of 45.0 to 49.9 in adult (HCC) Start: 04-02-2022 End: 04-02-2022 Patient encounter procedure [facility] Start: 01-31-[address] [facility] Start: 01-31-2022 End: 01-31-2022 Subsequent hospital visit by physician Carlitos Zaman NP Work Phone: [facility] Comment on above: Left foot pain Start: 12-11-2021 Letter encounter Zahra harvey MD Work Phone: [facility] Start: 12-03-2021 ambulatory Arjun Tejeda [facility] Start: 12-03-2021 End: 12-03-2021 Subsequent hospital visit by physician Arjun [facility] Start: 11-29-2021 End: 11-29-2021 Subsequent hospital visit by physician Arjun Tejeda DO [facility] Start: 11-26-2021 End: 11-26-2021 Subsequent hospital visit by physician Arjun [facility] Start: 11-22-2021 End: 11-22-2021 Subsequent hospital visit by physician Arjun Tejeda DO [facility] Start: 11-19-2021 End: 11-19-2021 Subsequent hospital visit by physician Arjun Tejeda DO [facility] Start: 10-29-2021 End: 10-29-2021 Subsequent hospital visit by physician Arjun Tejeda DO [facility] Start: 10-23-2021 Letter encounter Karin anay Rheumatology (Arthritis) Start: 10-23-2021 End: 10-23-2021 ambulatory UNKNOWN PROVIDER Facility:[facility] Start: 10-23-2021 End: 10-23-2021 Office outpatient new 45 minutes Zahra Wilkes MD Work Phone: [facility] Comment on above: Psoriasis (Primary D x); Abnormal laboratory test; Mechanical back pain; Cervical spondylosis; MAR positive; Body mass index (BMI) 45.0-49.9, adult ([facility]) Start: 09-18-2021 ambulatory Flavio Aubrey [facility] Start: 09-18-2021 End: 09-18-2021 Subsequent hospital visit by physician Flavio Ward MD Work Phone: [facility] Start: 09-10-2021 Letter encounter [facility] Start: 06-28-2021 End: 06-28-2021 Subsequent hospital visit by physician Efraín Mahoney APRN - PHOTOGRAPHY SALES ASSOCIATE Work Phone: [facility] Comment on above: Chronic neck pain; Acute bilateral low back pain with bilateral sciatica; Chronic midline low back pain without sciatica Start: 06-23-2019 End: 06-23-2019 Subsequent hospital visit by physician Flavio Ward Work Phone: [facility] Comment on above: Patellofemoral pain syndrome of left knee; Patellofemoral pain syndrome of right knee Start: 06-10-2019 End: 06-10-2019 Subsequent hospital visit by physician Angela Gillespie Work Phone: [facility] Comment on above: Chest pain, unspecif ied type Start: 05-26-2019 End: 05-26-2019 Subsequent hospital visit by physician Angela Gillespie Work Phone: [facility] Comment on above: Chest pain, unspecif ied type; SOB (shortness of breath) Start: 02-03-2019 End: 02-03-2019 Subsequent hospital visit by physician Jessika Perales Work Phone: [facility] Comment on above: Essential hypertensi on; Class 3 severe obesity due to excess calories with serious comorbidity and body mass index (BMI) of 45.0 to 49.9 in adult ([facility]); Palpitations; Atypical chest pain Procedures Date Procedure Procedure Detail Performing Clinician Start: 07-02-2024 Adult depression screening assessment Noel Marquez DO Work Phone: Start: 07-19-2023 Comprehensive metabolic panel Salinas Ponce MD Work Phone: Start: 07-19-2023 SARS-COV-2, FLU A/B, AND RSV COMBO Salinas Ponce MD Work Phone: Start: 05-28-2023 Lipid 1996 panel - Serum or Plasma [facility] Schedule Start: 04-02-2022 Plain chest X-ray Start: 10-23-2021 Assay of thyroid stimulating hormone tsh Zahra Wilkes MD Work Phone: Start: 10-23-2021 C-reactive protein Zahra Wilkes MD Work Phone: Start: 10-23-2021 Urnls dip stick/tablet rgnt auto w/o microscopy Zahra Wilkes MD Work Phone: Start: 09-18-2021 Radiologic examination knee 1/2 views Flavio Ward MD Work Phone: Start: 05-02-2020 Lipid 1996 panel - Serum or Plasma Noel Marquez DO Work Phone: Start: 05-01-2020 Microscopic observation [Identifier] in Cervix by Cyto stain Efraín Mahoney SUPERVISOR [employer] - PHOTOGRAPHY SALES ASSOCIATE Work Phone: Start: 04-11-2020 Follow-up visit Start: 06-23-2019 Radiologic exam both knees standing anteropost Flavio Ward Work Phone: Start: 06-23-2019 Radiologic examination knee 3 views Flavio Ward Work Phone: Start: 06-10-2019 ROUTINE EKG TREADMILL STRESS TEST Angela Gillespie Work Phone: Start: 05-26-2019 Radiologic exam chest 2 views Angela Gillespie Work Phone: Start: 02-03-2019 Echo tthrc r-t 2d w/wom-mode compl spec&colr d Jessika Perales Work Phone: Laboratory test resu lt abnormal Abnormal laboratory test Zahra Wilkes MD Work Phone: Plan of Treatment Date Care Activity Detail Author Start: 2055 RSV Immunization for Adults (1 - 1-dose 75+ series) RSV Immunization for Adults (1 - 1-dose 75+ series) [facility] Start: 2040 RSV Immunization age d 60 or older (1 - 1-dose 60+ series) RSV Immunization aged 60 or older (1 - 1-dose 60+ series) [facility] Start: 2030 Shingles (RZV) Vacci ne (1 of 2) Shingles (RZV) Vaccine (1 of 2) [facility] Start: 2030 Shingles Vaccine (1 of 2) Metz gles Vaccine (1 of 2) [facility] Work Phone: Start: 2030 Zoster Vaccines (1 of 2) Zoste r Vaccines (1 of 2) [facility] Start: 05-28-2028 Lipid panel Lipid Panel [facility] Start: 12-17-2025 DTaP/Tdap/Td vaccine (3 - Td or Tdap) DTaP/Tdap/Td vaccine (3 - Td or Tdap) [facility] Start: 12-17-2025 DTaP/Tdap/Td vaccine (3 - Td) DTaP/Tdap/Td vaccine (3 - Td) [place] Start: 12-17-2025 DTaP/Tdap/Td Vaccine s (3 - Td or Tdap) DTaP/Tdap/Td Vaccines (3 - Td or Tdap) [facility] Start: 12-17-2025 Tetanus vaccination Tetanus (T d or Tdap) Booster [facility] Start: 07-02-2025 Depression Screening Depression Scre ening [facility] Start: 05-02-2025 Lipid panel [facility] Start: 12-27-2024 End: 12-27-2024 Patient encounter procedure 12/27/2024 8:20 AM EDT Office Visit [facility] - [address] [place] [address] Noel Marquez DO [address] [place] [address] [facility] Start: 12-20-2024 Influenza vaccination Influenz a Vaccine (Season Ended) [facility] Start: 06-23-2024 End: 06-23-2024 Patient encounter procedure [facility] Start: 04-26-2024 Cervical cancer screen Cervica l cancer screen [facility] Work Phone: Start: 01-28-2024 End: 01-28-2024 Patient encounter procedure 01/28/2024 11:45 AM EDT Office Visit [facility] [address] [place] [address] Ricardo Win MD [address] [place] [address] [facility] Start: 12-24-2023 End: 12-24-2023 Patient encounter procedure 12/24/2023 7:30 AM EDT Office Visit [facility] [address] [place] [address] Noel Marquez, DO [address] [place] [address] [facility] Start: 12-21-2023 COVID-19 Vaccine ( season) COVID-19 Vaccine ( season) [facility] Start: 12-21-2023 COVID-19 Vaccine ( season) COVID-19 Vaccine ( season) [facility] Start: 12-21-2023 Influenza vaccination Influenz a Vaccine (#1) [facility] Start: 10-29-2023 End: 10-29-2023 Patient encounter procedure 10/29/2023 7:00 AM EDT Office Visit [facility] [address] [place] [address] [facility] Noel Kirk, DO [address] [place] [address] [facility] Start: 10-20-2023 Cervical cancer screen Cervica l cancer screen [facility] [place] Start: 10-20-2023 Screening for malign ant neoplasm of cervix [facility] Start: 06-26-2023 End: 06-26-2023 Clinical Support 06/26/2023 9:20 AM EST Clinical Support [facility] [address] [place] [address] [facility] Start: 05-28-2023 End: 05-28-2023 Clinical Support 05/28/2023 9:00 AM EST Clinical Support [facility] [address] [place] [address] [facility] Start: 05-25-2023 Hepatitis B vaccination Hepati tis B (HBV) Vaccine (3 of 3 - 19+ 3-dose series) [facility] Start: 05-25-2023 Hepatitis B Vaccines (3 of 3 - 19+ 3-dose series) Hepatitis B Vaccines (3 of 3 - 19+ 3-dose series) [facility] Start: 05-01-2023 Screening for malign ant neoplasm of cervix [facility] Start: 04-28-2023 End: 04-28-2024 Lipid 1996 panel - Serum or Plasma Lipid panel Lab Routine Primary hypertension Expected: 04/28/2023 (Approximate), Expires: 04/28/2024 [facility] Work Phone: Comment on above: Expected: 04/28/2023 (Approximate), Expires: 04/28/2024 Start: 04-28-2023 End: 04-28-2024 Thyrotropin [Units/volume] in Serum or Plasma [facility] Comment on above: Expected: 04/28/2023 (Approximate), Expires: 04/28/2024 Start: 04-28-2023 End: 01-08-2025 Triiodothyronine (T3) [Mass/volume] in Serum or Plasma T3 Lab Routine Unable to lose weight Expected: 04/28/2023 (Approximate), Expires: 04/28/2024 [facility] Comment on above: Expected: 04/28/2023 (Approximate), Expires: 04/28/2024 Start: 04-28-2023 End: 04-28-2023 Patient encounter procedure [facility] Start: 01-31-2023 Influenza vaccination Flu vaccine (# 1) [facility] Comment on above: Postponed from 11/19 (Patient Refused) Start: 01-27-2023 End: 01-27-2023 Clinical Support 01/27/2023 11:10 AM EDT Clinical Support [facility] [address] [place] [address] [facility] Start: 12-25-2022 End: 12-25-2022 Clinical Support 12/25/2022 1:40 PM EDT Clinical Support [facility] [address] [place] [address] [facility] Start: 12-20-2022 COVID-19 Vaccine ( season) COVID-19 Vaccine ( season) [facility] Start: 12-20-2022 Hepatitis B Vaccines (2 of 3 - 19+ 3-dose series) Hepatitis B Vaccines (2 of 3 - 19+ 3-dose series) [facility] Start: 12-20-2022 Influenza vaccination [facility] Start: 10-14-2022 End: 10-14-2022 Patient encounter procedure [facility] Start: 09-03-2022 Depression Screen Depression Screen [facility] Start: 07-25-2022 End: 07-25-2022 Patient encounter procedure 07/25/2022 Office Visit [facility] Carlitos Aburto, SUPERVISOR WOOL SHEARING - DRIER UNLOADER [address] [place] [address] [facility] Start: 07-04-2022 End: 07-04-2022 Patient encounter procedure 07/04/2022 Office Visit Family Medicine Hair Mike PA-C [address], [place] [id number] [facility] Start: 06-28-2022 Creatinine measurement Basic Metabol ic Panel [facility] Start: 06-28-2022 Depression Screen Depression Screen [facility] Start: 05-23-2022 End: 05-23-2022 ambulatory 05/23/2022 Lab Family Medicine [facility] Start: 04-29-2022 End: 04-29-2022 Patient encounter procedure 04/29/2022 Office Visit Family Medicine Marianna Rose MD [address] [place] [address] [facility] Start: 04-10-2022 COVID-19 Vaccine (#1) COVID-19 Vacci ne (#1) [facility] Comment on above: Postponed from 12/07 (Patient Refused) Start: 04-10-2022 COVID-19 Vaccine (1) COVID-19 Vaccin e (1) [facility] Comment on above: Postponed from 06/09 (Patient Refused) Start: 01-19-2022 Influenza vaccination Influenz a Vaccine (#1) [facility] Start: 12-20-2021 Influenza vaccination S [facility] Start: 11-19-2021 Influenza vaccination Influenz a Vaccine (#1) [facility] Start: 10-31-2021 End: 10-31-2021 Patient encounter procedure 10/31/2021 Office Visit Family Medicine Linda Lima, SUPERVISOR WOOL [employer]ARING - PHOTOGRAPHY SALES ASSOCIATE [address] [place] [address] [facility] Start: 10-23-2021 End: 10-23-2021 Patient encounter procedure 10/23/2021 Office Visit Rheumatology Zahra Wileks MD [address] [place] [address] [facility] Start: 07-16-2021 End: 07-16-2021 Patient encounter procedure 07/16/2021 Office Visit Family Medicine Efraín Mahoney APRN - PHOTOGRAPHY SALES ASSOCIATE [address] [place], [place] [id number] [facility] Start: 05-02-2021 Creatinine measurement Creatinine mo nitoring [facility] Start: 05-02-2021 Potassium monitoring Potassium monit oring [facility] Start: 12-20-2020 Influenza vaccination Flu vaccine (# 1) [facility] Start: 2020 Screening for malign ant neoplasm of breast [facility] Start: 05-26-2020 Creatinine monitoring Creatinine mon [facility], [place] Start: 05-26-2020 Potassium monitoring Potassium monit [facility], [place] Start: 01-28-2020 Influenza vaccination Flu vaccine (# 1) [place], [place] Comment on above: Postponed from 12/20 (Patient Refused) Start: 08-25-2019 End: 08-25-2019 Office Visit 08/25/2019 Office Visit Family Medicine Marianna Rose MD [address] [place], [place] [id number] [facility] Start: 06-16-2019 End: 06-16-2019 Office Visit 06/16/2019 Office Visit Family Medicine Angela Gillespie APRN - PHOTOGRAPHY SALES ASSOCIATE [address] [place], [place] [phone] [facility] Start: 05-04-2019 Creatinine monitoring Creatinine mon [facility], [place] Start: 05-04-2019 Potassium monitoring Potassium monit [facility] [place] Start: 04-26-2019 End: 04-26-2019 Office Visit 04/26/2019 Office Visit Family Medicine Marianna Rose MD [address] [facility] [place] [id number] [facility] Start: 02-22-2019 End: 02-22-2019 Office Visit 02/22/2019 Office Visit Cardiology Jessika Perales MD [address] [address] [phone] [facility] Start: 06-18-2016 DTaP/Tdap/Td Vaccine s (3 - Td or Tdap) DTaP/Tdap/Td Vaccines (3 - Td or Tdap) [facility] Start: 2010 Screening for malign ant neoplasm of cervix HPV/Cotest [facility] Start: 2007 HPV Vaccine (optiona l start 27-45 years) HPV Vaccine (optional start 27-45 years) [facility] Start: 2001 Screening for malign ant neoplasm of cervix Pap Smear [facility] Start: 1999 Hepatitis A (HAV) Va ccine (optional start 19+ years) Hepatitis A (HAV) Vaccine (optional start 19+ years) [facility] Start: 1999 Tetanus vaccination Tetanus (Td) [facility] Start: 1998 Diabetes mellitus screening Diabetes Screening [facility] Start: 1998 Hepatitis C screening [facility] Start: 1998 Tetanus + diphtheria + acellular pertussis vaccine (product) Tdap Booster [facility] Start: 1995 HIV screen HIV screen [place], [place] Start: 1995 HIV screening HIV Test [facility] Start: 1993 Varicella vaccination Varicell a Vaccines (1 of 2 - 13+ 2-dose series) [facility] Start: 1993 Varicella Vaccine (1 of 2 - 13+ 2-dose series) Varicella Vaccine (1 of 2 - 13+ 2-dose series) [place] Start: 1992 Depression Screening Depression Scre ening [facility] Start: 1985 COVID-19 Vaccine (#1) COVID-19 Vacci ne (#1) [facility] Start: 1985 COVID-19 Vaccine (1) COVID-19 Vaccin e (1) [facility] Start: 1981 MMR Vaccines (1 of 1 - Standard series) MMR Vaccines (1 of 1 - Standard series) [facility] Start: 1981 Varicella vaccination Varicell a Vaccines (1 of 2 - 2-dose childhood series) [facility] Start: 1980 COVID-19 Vaccine (#1) COVID-19 Vacci ne (#1) [facility] Start: 1980 Basic metabolic 2000 panel - Serum or Plasma Basic Metabolic Panel [facility] Start: 1980 Hepatitis B Vaccines (1 of 3 - 3-dose series) Hepatitis B Vaccines (1 of 3 - 3-dose series) [facility] Start: 1980 Hepatitis C screening Hepatitis C sc reen [facility] Start: 1980 HIV screening HIV Screening [facility] End: 06-10-2019 Nasal cannula oxygen Nasal cannula oxygen Respiratory Care Routine As Needed until discontinued starting 06/10/2019 [facility] [place] [place] Comment on above: As Needed until disc ontinued starting 06/10/2019 End: 06-28-2021 XR CERVICAL SPINE (2-3 VIEWS) [facility] Work Phone: Comment on above: 1 Occurrences starti ng 06/28/2021 until 06/28/2021 End: 01-31-2022 XR FOOT LEFT (MIN 3 VIEWS) [facility] Work Phone: Comment on above: 1 Occurrences starti ng 01/31/2022 until 01/31/2022 End: 06-28-2021 XR LUMBAR SPINE (2-3 VIEWS) [facility] Work Phone: Comment on above: 1 Occurrences starti ng 06/28/2021 until 06/28/2021 Immunizations Immunization Date Immunization Notes Care Provider Sree bender 01-27-2023 hepatitis B vaccine, adult dosage Noel Marquez DO Work Phone: [facility] 12-25-2022 hepatitis B vaccine, adult dosage Hair Mike PA-C Work Phone: [facility] 11-22-2022 hepatitis B vaccine, adult dosage Zahra Wilkes MD Work Phone: [facility] 11-22-2022 HepB recombinant, 3-[employer], [place])3 Hair Mike PA-C Work Phone: [facility] 12-18-2015 tetanus toxoid, reduced diphtheria toxoid, and acellular pertussis vaccine, adsorbed [facility] [place] 03-24-2013 tetanus toxoid, reduced diphtheria toxoid, and acellular pertussis vaccine, adsorbed [facility], JULIANNE Payers Date Payer Category Payer Self-pay 2022 Medicaid ANTHEM MEDICAID ANTH MEDICAID ODM [id number] 2022-Present [address] [place] [address] Medicaid HMO [id number] 2022 Medicaid HMO [id number] 2022 Unknown [id number] 2021 [facility] Address: [address] [place] [address] [id number] 2021 Unknown [id number] 2017 Unknown BCBS BCBS OUT OF STATE xxxxxxxxxxxxxx 2017-Present [address] [place] [address] xxxxxxxxxxxxxx [id number] 2017 Unknown [id number] 1980 Unknown [id number] 1980 Unknown [id number] 1980 Unknown [id number] 1980 Unknown [id number] Unknown [id number] Unknown [id number] Unknown [id number] Unknown [id number] Unknown [id number] Social History Date Type Detail Facility Start: 05-26-2019 End: 10-23-2021 Tobacco smoking status NHIS Never smoker [place], [place] Start: 05-26-2019 Alcohol intake Current drinker of alcohol (finding) [facility] Work Phone: Start: 04-26-2019 End: 01-31-2022 History SDOH Alcohol Frequency 3 [facility] Work Phone: Start: 04-26-2019 End: 06-28-2021 History SDOH Alcohol Std Drinks 1 [place], [place] Start: 10-19-2018 History SDOH Education 13 [place] Start: 10-19-2018 End: 06-28-2021 History SDOH Financial 5 [place] Start: 10-19-2018 End: 06-28-2021 History SDOH Transport Med 2 [place] Start: 04-26-2019 Alcohol Comment 1 every 2 weeks [facility] Work Phone: Start: 1980 Sex Assigned At Not on file JULIANNE [place] Start: 06-23-2019 End: 07-02-2024 Alcohol intake Ex-drinker (finding) [facility] Start: 01-27-2019 End: 07-02-2024 Alcohol intake Not Currently JULIANNE [place] Start: 01-25-2019 Alcohol Comment occasionally JULIANNE [place] Start: 03-02-2018 End: 10-23-2021 Tobacco use and exposure Smokeless tobacco non-user [employer] Phone: Start: 10-29-2019 End: 01-31-2022 History SDOH Social Connections Living 8 [employer] Phone: Start: 06-28-2021 History SDOH Physical Activity DPW 0 [employer] Phone: Tobacco smoking stat [facility] Tobacco smoking consumption unknown [facility] Start: 1980 Sex Assigned At Female [facility] Start: 09-08-2021 End: 12-25-2022 Exposure to SARS-CoV-2 (event) Not sure [facility] Start: 07-04-2022 End: 07-02-2024 History of Social function [facility] Start: 02-07-2022 Gender identity Identifies as female gender (finding) [facility] Start: 02-07-2022 Sexual orientation Heterosexual (finding) [facility] Start: 07-03-2021 End: 11-19-2021 Sex Female (finding) [facility] Clinical Notes 10-23-2021 to 08-02-2024 Telephone Encounter - Adrianna Jarquin LPN - 08/02/2024 1:02 PM EDTTelephone Encounter - Adrianna Jarquin LPN - 08/02/2024 1:02 PM Alejandro Marquez DO - 07/02/2024 8:30 AM EDTDischarge Instructions Note Date & Type Note Facility 08-02-2024 Telephone encount er Note Recent Visits Date Type Provider Dept 07/02/24 Office Visit Noel Marquez DO [facility] 12/24/23 Office Visit Noel NancebahmanDO pato [facility] Showing recent visits within past 365 days and meeting all other requirements Future Appointments No visits were found meeting these conditions. Showing future appointments within next 90 days and meeting all other requirements Requested Prescriptions Pending Prescriptions Disp Refills triamcinolone (Kenalog) 0.1 % ointment 80 g 1 Sig: Apply topically 2 times daily. Provider: Noel Marquez DO Verified pharmacy: yes Verified day(s) supplied: yes Verified refill(s) needed (previous prescription showing no refills in chart): Yes Have you received any controlled medications from any other provider? N/A Overdue for visit: No If yes - patient scheduled? Yes Most recent labs completed in chart? N/A None [facility] 08-02-2024 Miscellaneous Notes Formattin g of this note is different from the original. Recent Visits Date Type Provider Dept 07/02/24 Office Visit Noel Yelena DO [facility] 12/24/23 Office Visit Noel Kirk DO [facility] Showing recent visits within past 365 days and meeting all other requirements Future Appointments No visits were found meeting these conditions. Showing future appointments within next 90 days and meeting all other requirements Requested Prescriptions Pending Prescriptions Disp Refills triamcinolone (Kenalog) 0.1 % ointment 80 g 1 Sig: Apply topically 2 times daily. Provider: Noel Marquez DO Verified pharmacy: yes Verified day(s) supplied: yes Verified refill(s) needed (previous prescription showing no refills in chart): Yes Have you received any controlled medications from any other provider? N/A Overdue for visit: No If yes - patient scheduled? Yes Most recent labs completed in chart? N/A None documented in this encounter [facility] 07-02-2024 History of Presen t illness Narrative Images from the original note were not included. [facility] - [address] [facility] [address] Visit type: Established Patient Reason for Visit: 6 Month Follow-up Assessment / Plan: Laxmi was seen today for 6 month follow-up. Diagnoses and all orders for this visit: Primary hypertension (Primary) Psoriasis Bilateral primary osteoarthritis of knee Encounter for monitoring NSAID therapy Other orders - metoprolol succinate XL (Toprol-XL) 100 MG 24 hr tablet; Take 1 tablet (100 mg) by mouth daily. - losartan (Cozaar) 100 MG tablet; Take 1 tablet (100 mg) by mouth daily. Subjective: Patient ID: Laxmi Gaona is a 44 y.o. female. HPI hypertension and NSAID management for patient with mixed psoriatic and osteoarthritis. Also on leucovorin and methotrexate weekly. She feels well and recent lab per rheumatology was unremarkable. Review of Systems no earache sore throat or cough. Denies chest pain shortness of breath PND orthopnea claudication or change in mild leg edema. She fell a few days ago and has a ecchymotic area on the medial aspect of the left tibia but does not hurt. Some GI distress with her methotrexate and meloxicam. Takes methotrexate and pantoprazole on a as needed basis. Tramadol as needed also for her knee pain. No recent bowel changes. 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 Allergies Allergen Reactions Lisinopril Other Fatigue, sweatiness [...] week. meloxicam (Mobic) 15 MG tablet Take 1 tablet (15 mg) by mouth daily. (Patient taking differently: Take 15 mg by mouth Daily as needed.) 90 tablet 1 methotrexate 2.5 MG tablet Take 15 mg by mouth 1 (one) time per week. pantoprazole (ProtoNix) 40 MG EC tablet Take 1 tablet (40 mg) by mouth daily for 90 doses. Do not crush, chew, or split. (Patient taking differently: Take 40 mg by mouth Daily as needed. Do not crush, chew, or split.) 90 tablet 1 traMADol (Ultram) 50 MG tablet Take 50 mg by mouth 3 times daily as needed. triamcinolone (Kenalog) 0.1 % ointment Apply topically 2 times daily. 80 g 1 [DISCONTINUED] losartan (Cozaar) 100 MG tablet Take 1 tablet (100 mg) by mouth daily. 90 tablet 1 [DISCONTINUED] metoprolol succinate XL (Toprol-XL) 100 MG 24 hr tablet Take 1 tablet by mouth once daily 90 tablet 1 No current facility-administered medications on file prior [...] History Problem Relation Name Age of Onset Atrial fibrillation Mother Jaylene alive age 79 Heart failure Mother Jaylene mild Hypertension Father Devin 05/13 age 75 Diabetes Father Devin PAD, CRF No Known Problems Sister Hypertension Brother No Known Problems Daughter No Known Problems Daughter Diabetes Father's Brother No Known Problems Maternal Grandmother Heart attack Maternal Grandfather age: late 60s Other (lung cancer) Paternal Grandmother 60 Heart attack Paternal Grandfather 66 Objective: BP 120/80 Pulse 85 Temp 36.2 C (97.1 F) (Temporal) Ht 5' 6 (1.676 m) Wt (!) 314 lb (142 kg) SpO2 97% BMI 50.68 kg/m Physical Exam Exam was unchanged. Very pleasant cooperative. Normal eardrums and oropharynx. No neck masses JVD adenopathy or thyroid lesions. No carotid bruits. Heart is regular without gallops or murmurs. Lungs are clear. Abdomen without pain hepatosplenomegaly masses or bruits. Extremities have trace pretibial edema and there is a mild ecchymotic area along the left ankle. documented in this encounter [facility] 05-21-2024 Telephone encount er Note Talked to patient and relayed message and she said that she has discussed in great detail with the Filler Machine Operator about the medications of meloxicam and methotrexate. Patient has been instructed to take the meloxicam very sparingly and only takes the methotrexate once per week. She has been made aware of the risks and interactions of these medications and is very cautious with taking them. Called pharmacist Carlos and relayed message and he verbalized understanding. [facility] 05-21-2024 Miscellaneous Notes Formattin g of this note might be different from the original. Talked to patient and relayed message and she said that she has discussed in great detail with the Filler Machine Operator about the medications of meloxicam and methotrexate. Patient has been instructed to take the meloxicam very sparingly and only takes the methotrexate once per week. She has been made aware of the risks and interactions of these medications and is very cautious with taking them. Called pharmacist Carlos and relayed message and he verbalized understanding. Name of caller: Carlos Contact phone number: [phone] Relationship to Patient: Pharmacy Provider: Jimmy Practice: [facility] Chief Complaint/Reason for Call: Pharmacy calling with possible interaction with meloxicam (Mobic) 15 MG tablet and Methotrexate prescribed by a different provider. Please Advise. Best time of day caller can be reached: Any Patient advised that office/PCP has 24-48 business hours to return their call: Yes documented in this encounter [facility] 05-21-2024 Telephone encount er Note Name of caller: Carlos Contact phone number: [phone] Relationship to Patient: Pharmacy Provider: Jimmy Practice: [facility] Chief Complaint/Reason for Call: Pharmacy calling with possible interaction with meloxicam (Mobic) 15 MG tablet and Methotrexate prescribed by a different provider. Please Advise. Best time of day caller can be reached: Any Patient advised that office/PCP has 24-48 business hours to return their call: Yes [facility] 05-03-2024 Telephone encount er Note Recent Visits Date Type Provider Dept 12/24/23 Office Visit Noel Marquez DO [facility] Showing recent visits within past 365 days and meeting all other requirements Future Appointments Date Type Provider Dept 06/23/24 [facility] Showing future appointments within next 90 days and meeting all other requirements Requested Prescriptions Pending Prescriptions Disp Refills metoprolol succinate XL (Toprol-XL) 100 MG 24 hr tablet [Pharmacy Med Name: Metoprolol Succinate ER 100 MG Oral Tablet Extended Release 24 Hour] 90 tablet 1 Sig: Take 1 tablet by mouth once daily Provider: Noel Marquez DO Verified pharmacy: yes Verified day(s) supplied: yes Verified refill(s) needed (previous prescription showing no refills in chart): Yes Have you received any controlled medications from any other provider? No Overdue for visit: No If yes - patient scheduled? Yes Most recent labs completed in chart? Yes Hypertension: Lab Results Component Value Date NA 134 (L) 07/19/2023 K 3.9 07/19/2023 EGFR >90.0 07/19/2023 BUN 12 07/19/2023 CREATININE 0.61 07/19/[address] [facility] 05-03-2024 Miscellaneous Notes Formattin g of this note is different from the original. Recent Visits Date Type Provider Dept 12/24/23 [facility] Showing recent visits within past 365 days and meeting all other requirements Future Appointments Date Type Provider Dept 06/23/24 [facility] Showing future appointments within next 90 days and meeting all other requirements Requested Prescriptions Pending Prescriptions Disp Refills metoprolol succinate XL (Toprol-XL) 100 MG 24 hr tablet [Pharmacy Med Name: Metoprolol Succinate ER 100 MG Oral Tablet Extended Release 24 Hour] 90 tablet 1 Sig: Take 1 tablet by mouth once daily Provider: Noel Marquez DO Verified pharmacy: yes Verified day(s) supplied: yes Verified refill(s) needed (previous prescription showing no refills in chart): Yes Have you received any controlled medications from any other provider? No Overdue for visit: No If yes - patient scheduled? Yes Most recent labs completed in chart? Yes Hypertension: Lab Results Component Value Date NA 134 (L) 07/19/2023 K 3.9 07/19/2023 EGFR >90.0 07/19/2023 BUN 12 07/19/2023 CREATININE 0.61 07/19/2023 documented in this encounter [facility] 12-24-2023 History of Presen t illness Narrative Images from the original note were not included. [facility] [address] [place] [address] [address] [facility] [id number] Visit type: Established Patient Reason for Visit: Follow-up (Med check ) Assessment / Plan: Laxmi was seen today for follow-up. Diagnoses and all orders for this visit: Primary hypertension (Primary) Comments: Stable, continue metoprolol and losartan NSAID long-term use Comments: Stable, GI precautions discussed continue Protonix and meloxicam Psoriatic arthritis (HCC) Other orders - meloxicam (Mobic) 15 MG tablet; Take 1 tablet (15 mg) by mouth daily. Subjective: Patient ID: Laxmi Gaona is a 43 y.o. female. HPI hypertension and NSAID therapy checkup. Patient sees rheumatology and obtains methotrexate in leucovorin. Takes meloxicam as needed with good results. Mostly dealing with lower extremity stiffness. History of mild knee arthritis. Also has lumbar disc disease Review of Systems no recent earache sore throat or cough. No chest pain palpitations or dyspnea. No heartburn on meds. Bowels are regular. No melena or blood. 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 No recent skin flareups. Allergies Allergen Reactions Lisinopril Other Fatigue, sweatiness Tizanidine Itchy, dizzy Cephalexin Hives Current Outpatient Medications on File Prior to Visit Medication Sig Dispense Refill folic acid (Folvite) 1 MG tablet TAKE 2 TABLETS BY MOUTH ONCE DAILY leucovorin (Wellcovorin) 15 MG tablet Take 15 mg by mouth 1 (one) time per week. losartan (Cozaar) 100 MG tablet Take 1 tablet by mouth once daily 90 tablet 1 methotrexate 2.5 MG tablet Take 15 mg by mouth 1 (one) time per week. metoprolol succinate XL (Toprol-XL) 100 MG 24 hr tablet Take 1 tablet by mouth once daily 90 tablet 1 pantoprazole (ProtoNix) 40 MG EC tablet Take 1 tablet (40 mg) by mouth daily for 90 doses. Do not crush, chew, or split. 90 tablet 1 traMADol (Ultram) 50 MG tablet Take 50 mg by mouth 3 times daily as needed. triamcinolone (Kenalog) 0.1 % ointment Apply topically 2 times daily. 80 g 1 [DISCONTINUED] meloxicam (Mobic) 15 MG tablet Take 15 mg by mouth daily. EPINEPHrine (Epipen) 0.3 MG/0.3ML injection syringe Use as directed for allergic reaction No current facility-administered medications on file prior [...] History Problem Relation Name Age of Onset Atrial fibrillation Mother Jaylene Heart failure Mother Jaylene mild Hypertension Father Devin 05/13 age 75 Diabetes Father Devin PAD, CRF No Known Problems Sister Hypertension Brother No Known Problems Daughter No Known Problems Daughter Diabetes Father's Brother No Known Problems Maternal Grandmother Heart attack Maternal Grandfather age: late 60s Other (lung cancer) Paternal Grandmother 60 Heart attack Paternal Grandfather 66 Objective: BP 138/85 (BP Location: Left arm, Patient Position: Sitting, BP Cuff Size: Thigh) Pulse 81 Temp 36.1 C (97 F) (Temporal) Ht 5' 6 (1.676 m) Wt (!) 321 lb (146 kg) SpO2 97% BMI 51.81 kg/m Physical Exam The physical exam is generally normal. Patient appears well, alert and oriented x 3, pleasant, cooperative. Vitals are as noted. No carotid bruits. Neck supple, no abnormal adenopathy, thyroid lesions or masses. Ears, nose and throat are normal without acute findings. Lungs are clear to auscultation. Heart is regular, without murmurs, gallops or ectopy. Abdomen is soft, non tender, without masses, hepatosplenomegaly, or bruits. Normal BS evident. Extremities are normal without edema. Peripheral pulses are fair. No worrisome skin lesions. Screening neurological exam is normal without focal deficits. documented in this encounter [facility] 11-17-2023 Telephone encount er Note Recent Visits Date Type Provider Dept 04/28/23 Office Visit Noel Marquez DO [facility] Showing recent visits within past 365 days and meeting all other requirements Future Appointments Date Type Provider Dept 12/24/23 Appointment Noel Marquez DO [facility] Showing future appointments within next 90 days and meeting all other requirements Requested Prescriptions Pending Prescriptions Disp Refills triamcinolone (Kenalog) 0.1 % ointment Provider: Noel Marquez DO Overdue for visit: Yes If yes - patient scheduled? Yes Most recent labs completed in chart? Yes Verified pharmacy: yes Verified day(s) supplied: yes Verified refill(s) needed (previous prescription showing no refills in chart): Yes Have you received any controlled medications from any other provider? N/A [facility] 11-17-2023 Miscellaneous Notes Formattin g of this note is different from the original. Recent Visits Date Type Provider Dept 04/28/23 Office Visit Noel Marquez DO [facility] Showing recent visits within past 365 days and meeting all other requirements Future Appointments Date Type Provider Dept 12/24/23 Appointment Noel Marquez DO [facility] Showing future appointments within next 90 days and meeting all other requirements Requested Prescriptions Pending Prescriptions Disp Refills triamcinolone (Kenalog) 0.1 % ointment Provider: Noel Marquez DO Overdue for visit: Yes If yes - patient scheduled? Yes Most recent labs completed in chart? Yes Verified pharmacy: yes Verified day(s) supplied: yes Verified refill(s) needed (previous prescription showing no refills in chart): Yes Have you received any controlled medications from any other provider? N/A documented in this encounter [facility] 11-11-2023 Telephone encount er Note Recent Visits Date Type Provider Dept 04/28/23 Office Visit Noel Yelena DO Jimmy [facility] Showing recent visits within past 365 days and meeting all other requirements Future Appointments Date Type Provider Dept 12/24/23 Appointment Noel Marquez DO [facility] Showing future appointments within next 90 days and meeting all other requirements Requested Prescriptions Pending Prescriptions Disp Refills metoprolol succinate XL (Toprol-XL) 100 MG 24 hr tablet [Pharmacy Med Name: Metoprolol Succinate ER 100 MG Oral Tablet Extended Release 24 Hour] 90 tablet 0 Sig: Take 1 tablet by mouth once daily losartan (Cozaar) 100 MG tablet [Pharmacy Med Name: Losartan Potassium 100 MG Oral Tablet] 30 tablet 0 Sig: Take 1 tablet by mouth once daily Provider: Noel Marquez DO Verified pharmacy: yes Verified day(s) supplied: yes Verified refill(s) needed (previous prescription showing no refills in chart): Yes Have you received any controlled medications from any other provider? N/A Overdue for visit: Yes If yes - patient scheduled? Yes Most recent labs completed in chart? Yes Hypertension: Lab Results Component Value Date NA 134 (L) 07/19/2023 K 3.9 07/19/2023 EGFR >90.0 07/19/2023 BUN 12 07/19/2023 CREATININE 0.61 07/19/2023 [facility] 11-11-2023 Miscellaneous Notes Formattin g of this note is different from the original. Recent Visits Date Type Provider Dept 04/28/23 Office Visit Noel Marquez DO [facility] Showing recent visits within past 365 days and meeting all other requirements Future Appointments Date Type Provider Dept 12/24/23 Appointment Noel Marquez DO [facility] Showing future appointments within next 90 days and meeting all other requirements Requested Prescriptions Pending Prescriptions Disp Refills metoprolol succinate XL (Toprol-XL) 100 MG 24 hr tablet [Pharmacy Med Name: Metoprolol Succinate ER 100 MG Oral Tablet Extended Release 24 Hour] 90 tablet 0 Sig: Take 1 tablet by mouth once daily losartan (Cozaar) 100 MG tablet [Pharmacy Med Name: Losartan Potassium 100 MG Oral Tablet] 30 tablet 0 Sig: Take 1 tablet by mouth once daily Provider: Noel Marquez DO Verified pharmacy: yes Verified day(s) supplied: yes Verified refill(s) needed (previous prescription showing no refills in chart): Yes Have you received any controlled medications from any other provider? N/A Overdue for visit: Yes If yes - patient scheduled? Yes Most recent labs completed in chart? Yes Hypertension: Lab Results Component Value Date NA 134 (L) 07/19/2023 K 3.9 07/19/2023 EGFR >90.0 07/19/2023 BUN 12 07/19/2023 CREATININE 0.61 07/19/2023 documented in this encounter [facility] 07-19-2023 Hospital Discharg e instructions Salinas Ponce MD - 07/19/2023 9:39 PM EDT Drink plenty of fluids and take Tylenol for aches and pains. Turn to the emergency room if she have high fever or worsening vomiting The following attachments cannot be sent through Care Everywhere.Dehydration Discharge Instructions, Adult ([place])Flu Discharge Instructions, Adult ([place])Nausea and Vomiting, Adult ED ([place])documented in this encounter [facility] 07-19-2023 Emergency departm ent Note EMERGENCY DEPARTMENT ENCOUNTER Pt Name: Laxmi Gaona Birthdate 1980 Date of evaluation: 07/19/2023 ED Provider: Salinas Ponce MD CHIEF COMPLAINT Chief Complaint Patient presents with Vomiting Patient arrives to ED via private vehicle for nausea, vomiting, headache and body aches since yesterday. Patient states a few co workers at her job have been sick. Denies abdominal pain HISTORY OF PRESENT ILLNESS (Location/Symptom, Timing/Onset, Context/Setting, Quality, Duration, Modifying Factors, Severity) Note limiting factors. I wore appropriate PPE for the entirety of this encounter. HPI Laxmi Gaona is a 43 y.o. who presents to the emergency department with chief complaint of patient's head 2-day history of started with sore throat nasal congestion ear clogging and now with slight cough nausea and vomiting. No fever no chest pain no shortness of breath. No real abdominal pain no diarrhea no hematemesis denies urinary symptoms. Her symptoms just have not gotten better. She did not get her flu or COVID vaccines Nursing Notes were reviewed. Limitations to history: None Outside historians: None REVIEW OF SYSTEMS Review of Systems Constitutional: Negative for chills and fever. HENT: Positive for congestion, ear pain and sore throat. Negative for ear discharge and trouble swallowing. Eyes: Negative for pain and visual disturbance. Respiratory: Positive for cough. Negative for shortness of breath. Cardiovascular: Negative for chest pain and palpitations. Gastrointestinal: Positive for nausea and vomiting. Negative for abdominal pain and diarrhea. Genitourinary: Negative for dysuria and hematuria. Musculoskeletal: Negative for arthralgias and back pain. Skin: Negative for color change and rash. Neurological: Negative for seizures and syncope. Psychiatric/Behavioral: Negative for behavioral problems. All other systems reviewed and are negative. Pertinent positives and negatives as per HPI. PAST MEDICAL HISTORY Past Medical History: Diagnosis Date Bilateral primary osteoarthritis of knee 2021 mild per xray Breast cancer screening 04/2018 Family history of diabetes mellitus in father father and pat uncles Family history of heart disease grandparents GERD (gastroesophageal reflux disease) Hypertension 2018 NSAID long-term use Mobic Pap smear for cervical cancer screening 04/2020 due 04/2023 Psoriasis 1990 Psoriatic arthritis (HCC) 2021 Dr. Thorne SURGICAL HISTORY Past Surgical History: Procedure Laterality Date WISDOM TOOTH EXTRACTION one tooth removed CURRENT MEDICATIONS Previous Medications EPINEPHRINE (EPIPEN) 0.3 MG/0.3ML INJECTION SYRINGE Use as directed for allergic reaction FOLIC ACID (FOLVITE) 1 MG TABLET TAKE 2 TABLETS BY MOUTH ONCE DAILY LEUCOVORIN (WELLCOVORIN) 15 MG TABLET Take 15 mg by mouth 1 (one) time per week. LOSARTAN (COZAAR) 100 MG TABLET Take 1 tablet (100 mg) by mouth daily. MELOXICAM (MOBIC) 15 MG TABLET Take 15 mg by mouth daily. METHOTREXATE 2.5 MG TABLET Take 15 mg by mouth 1 (one) time per week. METOPROLOL SUCCINATE XL (TOPROL-XL) 100 MG 24 HR TABLET Take 1 tablet (100 mg) by mouth daily for 180 doses. PANTOPRAZOLE (PROTONIX) 40 MG EC TABLET Take 1 tablet (40 mg) by mouth daily for 90 doses. Do not crush, chew, or split. TRAMADOL (ULTRAM) 50 MG TABLET Take 50 mg by mouth 3 times daily as needed. TRIAMCINOLONE (KENALOG) 0.1 % OINTMENT APPLY OINTMENT TOPICALLY TWICE DAILY TO AFFECTED AREA USE A THIN LAYER ALLERGIES Lisinopril, Tizanidine, and Cephalexin FAMILY HISTORY Family History Problem Relation Name Age of [...] Grandmother 60 Heart attack Paternal Grandfather 66 SOCIAL HISTORY Social History Socioeconomic History Marital status: Single Tobacco Use Smoking status: Never Smokeless tobacco: Never Vaping Use Vaping Use: Never used Substance and Sexual Activity Alcohol use: Not Currently Drug use: No Social History Narrative Single, has 2 dtrs, born in 2015 and 2012. Lives with Serg (father of dtrs). 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 Physician EKG interpretation can be found in [facility] RADIOLOGY (Per Emergency Physician): Interpretation per the Radiologist below, if available at the time of this note: No orders to display ED BEDSIDE ULTRASOUND: Performed by ED Physician - none LABS: Labs Reviewed SARS-COV-2, FLU A/B, AND RSV COMBO CBC WITH AUTO DIFFERENTIAL COMPREHENSIVE METABOLIC PANEL All other labs were within normal range or not returned as of this dictation. EMERGENCY DEPARTMENT COURSE and DIFFERENTIAL DIAGNOSIS/MDM: Vitals: Vitals: 07/19/23 1936 BP: (!) 126/90 BP Location: Right arm Patient Position: Sitting Pulse: 84 Resp: 18 Temp: 36.9 C (98.4 F) TempSrc: Oral SpO2: 96% Weight: 135 kg (298 lb) Height: 1.676 m (5' 6) Diagnoses as of 07/20/23 0038 Nausea and vomiting, unspecified vomiting type Influenza A Dehydration The patient presented with chief complaint of patient presents with 2-day history of sore throat runny nose slight cough with nausea vomiting diarrhea no fever unable to keep food down. The differential diagnosis associated with this patient's presentation includes gastroenteritis versus gastritis versus viral URI versus COVID/influenza. Our workup consisted of ordering/reviewing: CBC CMP and COVID influenza test. Diagnostic tests considered but not performed: Did not need a chest x-ray as lungs are clear and she has very minimal cough I also reviewed external records from Outpatient notes past medical history and medications Outpatient labs and studies past medical history medications. The patient will be Discharged. Patient is in agreement with this plan. Medications sodium chloride 0.9 % bolus 1,000 mL (1,000 mL IntraVENous New Bag 07/19/232019) ondansetron (Zofran) injection 4 mg (4 mg IntraVENous Given 07/19/232022) REVAL: Reexam 2129 patient was treated with a liter of fluid and Zofran she feels much better no more nausea. Her influenza test showed influenza A. I will give her Tamiflu Zofran told her to keep up with fluids and Tylenol for aches and pains. She can follow-up with her primary care physician patient verbalized understanding agrees with plan will be discharged CRITICAL CARE TIME None CONSULTS: None PROCEDURES: Unless otherwise noted below, none Procedures Patients symptoms are consistent with sepsis, severe sepsis, or septic shock (If yes use .sepsiscoremeasure): no FINAL IMPRESSION No diagnosis found. DISPOSITION PATIENT REFERRED TO: No follow-up provider specified. DISCHARGE MEDICATIONS: New Prescriptions No medications on file (Comment: Please note this report has been produced using speech recognition software and may contain errors related to that system including errors in grammar, punctuation, and spelling, as well as words and phrases that may be inappropriate. If there are any questions or concerns please feel free to contact the dictating provider for clarification.) Salinas Ponce MD (electronically signed) Emergency Medicine Provider Salinas Ponce MD 07/20/23 0038 documented in this encounter [facility] 07-19-2023 Physician Emergen cy department Note EMERGENCY DEPARTMENT ENCOUNTER Pt Name: Laxmi Gaona Birthdate 1980 Date of evaluation: 07/19/2023 ED Provider: Salinas Ponce MD CHIEF COMPLAINT Chief Complaint Patient presents with Vomiting Patient arrives to ED via private vehicle for nausea, vomiting, headache and body aches since yesterday. Patient states a few co workers at her job have been sick. Denies abdominal pain HISTORY OF PRESENT ILLNESS (Location/Symptom, Timing/Onset, Context/Setting, Quality, Duration, Modifying Factors, Severity) Note limiting factors. I wore appropriate PPE for the entirety of this encounter. HPI Laxmi Gaona is a 43 y.o. who presents to the emergency department with chief complaint of patient's head 2-day history of started with sore throat nasal congestion ear clogging and now with slight cough nausea and vomiting. No fever no chest pain no shortness of breath. No real abdominal pain no diarrhea no hematemesis denies urinary symptoms. Her symptoms just have not gotten better. She did not get her flu or COVID vaccines Nursing Notes were reviewed. Limitations to history: None Outside historians: None REVIEW OF SYSTEMS Review of Systems Constitutional: Negative for chills and fever. HENT: Positive for congestion, ear pain and sore throat. Negative for ear discharge and trouble swallowing. Eyes: Negative for pain and visual disturbance. Respiratory: Positive for cough. Negative for shortness of breath. Cardiovascular: Negative for chest pain and palpitations. Gastrointestinal: Positive for nausea and vomiting. Negative for abdominal pain and diarrhea. Genitourinary: Negative for dysuria and hematuria. Musculoskeletal: Negative for arthralgias and back pain. Skin: Negative for color change and rash. Neurological: Negative for seizures and syncope. Psychiatric/Behavioral: Negative for behavioral problems. All other systems reviewed and are negative. Pertinent positives and negatives as per HPI. PAST MEDICAL HISTORY Past Medical History: Diagnosis Date Bilateral primary osteoarthritis of knee 2021 mild per xray Breast cancer screening 04/2018 Family history of diabetes mellitus in father father and pat uncles Family history of heart disease grandparents GERD (gastroesophageal reflux disease) Hypertension 2018 NSAID long-term use Mobic Pap smear for cervical cancer screening 04/2020 due 04/2023 Psoriasis 1991 Psoriatic arthritis (HCC) 2021 Dr. Thorne SURGICAL HISTORY Past Surgical History: Procedure Laterality Date WISDOM TOOTH EXTRACTION one tooth removed CURRENT MEDICATIONS Previous Medications EPINEPHRINE (EPIPEN) 0.3 MG/0.3ML INJECTION SYRINGE Use as directed for allergic reaction FOLIC ACID (FOLVITE) 1 MG TABLET TAKE 2 TABLETS BY MOUTH ONCE DAILY LEUCOVORIN (WELLCOVORIN) 15 MG TABLET Take 15 mg by mouth 1 (one) time per week. LOSARTAN (COZAAR) 100 MG TABLET Take 1 tablet (100 mg) by mouth daily. MELOXICAM (MOBIC) 15 MG TABLET Take 15 mg by mouth daily. METHOTREXATE 2.5 MG TABLET Take 15 mg by mouth 1 (one) time per week. METOPROLOL SUCCINATE XL (TOPROL-XL) 100 MG 24 HR TABLET Take 1 tablet (100 mg) by mouth daily for 180 doses. PANTOPRAZOLE (PROTONIX) 40 MG EC TABLET Take 1 tablet (40 mg) by mouth daily for 90 doses. Do not crush, chew, or split. TRAMADOL (ULTRAM) 50 MG TABLET Take 50 mg by mouth 3 times daily as needed. TRIAMCINOLONE (KENALOG) 0.1 % OINTMENT APPLY OINTMENT TOPICALLY TWICE DAILY TO AFFECTED AREA USE A THIN LAYER ALLERGIES Lisinopril, Tizanidine, and Cephalexin FAMILY HISTORY Family History Problem Relation Name Age of [...] Grandmother 60 Heart attack Paternal Grandfather 66 SOCIAL HISTORY Social History Socioeconomic History Marital status: Single Tobacco Use Smoking status: Never Smokeless tobacco: Never Vaping Use Vaping Use: Never used Substance and Sexual Activity Alcohol use: Not Currently Drug use: No Social History Narrative Single, has 2 dtrs, born in 2016 and 2013. Lives with Serg (father of dtrs). 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 [facility] RAD[facility]OLOGY (Per Emergency Physician): Interpretation per the Radiologist below, if available at the time of this note: No orders to display ED BEDSIDE ULTRASOUND: Performed by ED Physician - none LABS: Labs Reviewed SARS-COV-2, FLU A/B, AND RSV COMBO CBC WITH AUTO DIFFERENTIAL COMPREHENSIVE METABOLIC PANEL All other labs were within normal range or not returned as of this dictation. EMERGENCY DEPARTMENT COURSE and DIFFERENTIAL DIAGNOSIS/MDM: Vitals: Vitals: 07/19/231935 BP: (!) 126/90 BP Location: Right arm Patient Position: Sitting Pulse: 84 Resp: 18 Temp: 36.9 C (98.4 F) TempSrc: Oral SpO2: 96% Weight: 135 kg (298 lb) Height: 1.676 m (5' 6) Diagnoses as of 07/20/23 0038 Nausea and vomiting, unspecified vomiting type Influenza A Dehydration The patient presented with chief complaint of patient presents with 2-day history of sore throat runny nose slight cough with nausea vomiting diarrhea no fever unable to keep food down. The differential diagnosis associated with this patient's presentation includes gastroenteritis versus gastritis versus viral URI versus COVID/influenza. Our workup consisted of ordering/reviewing: CBC CMP and COVID influenza test. Diagnostic tests considered but not performed: Did not need a chest x-ray as lungs are clear and she has very minimal cough I also reviewed external records from Outpatient notes past medical history and medications Outpatient labs and studies past medical history medications. The patient will be Discharged. Patient is in agreement with this plan. Medications sodium chloride 0.9 % bolus 1,000 mL (1,000 mL IntraVENous New Bag 07/19/232019) ondansetron (Zofran) injection 4 mg (4 mg IntraVENous Given 07/19/232022) REVAL: Reexam 2129 patient was treated with a liter of fluid and Zofran she feels much better no more nausea. Her influenza test showed influenza A. I will give her Tamiflu Zofran told her to keep up with fluids and Tylenol for aches and pains. She can follow-up with her primary care physician patient verbalized understanding agrees with plan will be discharged CRITICAL CARE TIME None CONSULTS: None PROCEDURES: Unless otherwise noted below, none Procedures Patients symptoms are consistent with sepsis, severe sepsis, or septic shock (If yes use .sepsiscoremeasure): no FINAL IMPRESSION No diagnosis found. DISPOSITION PATIENT REFERRED TO: No follow-up provider specified. DISCHARGE MEDICATIONS: New Prescriptions No medications on file (Comment: Please note this report has been produced using speech recognition software and may contain errors related to that system including errors in grammar, punctuation, and spelling, as well as words and phrases that may be inappropriate. If there are any questions or concerns please feel free to contact the dictating provider for clarification.) Salinas Ponce MD (electronically signed) Emergency Medicine Provider Salinas Ponce MD 07/20/23 0038 T [facility] 06-26-2023 History of Presen t illness Narrative Images from the original note were not included. [address] [facility] [facility] [facility] [id number] @patname@ BP:138/84 P:76 Patient arrived for nurse visit today. Two patient identifiers used to confirm correct patient yes Supervising provider for clinic visit Dr. Marquez is taking Losartan 100mg and Metoprolol 100mg for hypertension with excellent compliance and no side effects large Shortness of breath no Medication compliance yes Medication Reconciliation yes BP Medication taken prior to visit yes at what time 7am B/P Reading taken manual Home Monitoring yes Patient advised if follow up is needed, outreach will occur in 48 hours Patient stated she feels like her headaches are improving with better blood pressure readings. BP ok, no rx change, ch up 3-4 months documented in this encounter [facility] 06-26-2023 History of Presen t illness Narrative Images from the original note were not included. [address] [facility] [address] [facility] [id number] @patname@ BP:138/84 P:76 Patient arrived for nurse visit today. Two patient identifiers used to confirm correct patient yes Supervising provider for clinic visit Dr. Marquez is taking Losartan 100mg and Metoprolol 100mg for hypertension with excellent compliance and no side effects large Shortness of breath no Medication compliance yes Medication Reconciliation yes BP Medication taken prior to visit yes at what time 7am B/P Reading taken manual Home Monitoring yes Patient advised if follow up is needed, outreach will occur in 48 hours Patient stated she feels like her headaches are improving with better blood pressure readings. BP ok, no rx change, ch up 3-4 months NOTED documented in this encounter [facility] 05-28-2023 History of Presen t illness Narrative The patient, Laxmi Gaona, identity was verified by name. Supervising provider for clinic visit: Dr. Marquez Chief Complaint Patient presents with Blood Pressure Check Increased medication Reason for BP visit: increase of medication BP (!) 140/100 Pulse 72 SpO2 98% BP Readings from Last 3 Encounters: 05/28/23 (!) 140/100 04/28/23 (!) 140/90 12/06/22 134/84 Pulse Readings from Last 3 Encounters: 05/28/23 72 04/28/23 77 12/06/22 84 Patient denies any shortness of breath or distress at this time. Patient states compliant with medications as written: yes Medication Reconciliation completed. BP medication taken prior to this visit? yes BP taken with manual Home monitoring BP: no Phone number where patient can be reached: see chart Pt advised if follow up needed, outreach will occur within 48 hrs. Future Appointments Date Time Provider Department Center 10/29/2023 7:00 AM Noel Marquez DO [facility] Blood pressure still too high, increase losartan 100 mg daily. BP check with staff again in 4 weeks Patient notified and appt scheduled documented in this encounter [facility] 04-28-2023 History of Presen t illness Narrative Images from the original note were not included. [facility] [address] [place] [address] [address] [facility] [id number] Visit type: Established Patient Reason for Visit: Follow-up (6 month med check /Pt offered flu vaccine pt declined ) Assessment / Plan: Laxmi was seen today for follow-up. Diagnoses and [...] mg) by mouth daily. Subjective: Patient ID: Laxmi Gaona is a 42 y.o. female. HPI [...] are regular. Menses are normal. Overdue for CONTROL SYSTEM MANAGER exam and she plans to obtain options [...] pulses are fair. documented in this encounter [facility] 04-28-2023 Instructions Noel Marquez DO - 04/28/2023 7:00 AM EST Bp ch 4 wks, get CONTROL SYSTEM MANAGER exam soon documented in this encounter [facility] 12-06-2022 History of Presen t illness Narrative Images from the original note were not included. [facility] Replaced by [facility] [address] [facility] [address] Dept: [phone] Dept Loc: [phone] Visit type: Established Patient Reason for Visit: [...] anxiety and morbid obesity who contacted the [facility] for immediate same-day evaluation for concerns [...] alert. Data Reviewed and Summarized Labs: Imaging/Testing: Hair Mike PA-C 12/06/2022 Please note that portions of this note may have been completed with voice recognition software. Documentation reviewed prior to signing but minor errors in vehicle inspector may have occurred. documented in this encounter [facility] 10-14-2022 History of Presen t illness Narrative Images from the original note were not included. [facility] Replaced by [facility] [address] [facility] [address] Visit type: Established Patient Reason for Visit: Follow-up (On bp) Assessment / Plan: Laxmi was seen today for follow-up. Diagnoses and [...] crush, chew, or split. Subjective: Patient ID: Laxmi Gaona is a 42 y.o. female. HPI hypertensive non-smoker for checkup. Feels great on metoprolol. Of note taking meloxicam and Protonix and her overall joint pains are much better. No GI concerns. Review of Systems non-smoker. Denies cough or congestion. No chest pain or palpitations. No heartburn or dysphagia. No bowel changes. Is due for CONTROL SYSTEM MANAGER exam and mammogram. She defers at today from physician. Has not been taking [place] or tramadol. Sees rheumatology regularly with routine [...] as directed for allergic reaction [DISCONTINUED] HYDROcodone-acetaminophen ([place]) 7.5-325 MG tablet Take 1 tablet by [...] of the legs. documented in this encounter [facility] 09-26-2022 History of Presen t illness Narrative Images from the original note were not included. [facility] [address] [address] Visit type: Established Patient Reason for Visit: Back Pain and Foot Injury (Heel spurs on both feet hurt) Assessment / Plan: Laxmi was seen today for back pain and foot injury. Diagnoses and all orders for this visit: Lumbar radiculopathy, acute (Primary) Comments: See below meds. Stretchs. Continue chiropractic treatment. Call with any sense of weakness or pain to the legs and feet. Call for lumbar xray no res in 1 wk Orders: - HYDROcodone-acetaminophen ([place]) 7.5-325 MG tablet; Take 1 tablet by mouth 3 times daily as needed for severe pain (7-10) for up to 12 doses. Psoriatic arthritis (HCC) - HYDROcodone-acetaminophen ([place]) 7.5-325 MG tablet; Take 1 tablet by [...] daily for 30 doses. Subjective: Patient ID: Laxmi Gaona is a 42 y.o. female. HPI [...] without obvious masses. documented in this encounter [facility] 09-26-2022 Instructions Noel Marquez DO - 09/26/2022 9:30 AM EDT Continue health care / medical job titles. Observe for any pain or weakness of the legs or feet. documented in this encounter [facility] 07-04-2022 Telephone encount er Note Placed call to patient. Was able to speak to patient. All concerns in message have been addressed. [facility] 07-04-2022 Miscellaneous Notes Formattin g of this note might be different from the original. Placed call to patient. Was able to speak to patient. All concerns in message have been addressed. Name of caller: Laxmi Contact phone number: [phone] Relationship to Patient: patient Provider: Chris Practice: [facility] Chief Complaint/Reason for Call: Patient called stating the Hair requested her to take a covid test when she got home. Pt took a covid test and it came back negative. Please advise ( Pharmacy Verified) Best time of day caller can be reached: any Patient advised that office/PCP has 24-48 business hours to return their call: no documented in this encounter [facility] 07-04-2022 Telephone encount er Note Name of caller: Laxmi Contact phone number: [phone] Relationship to Patient: patient Provider: Chris Practice: [facility] Chief Complaint/Reason for Call: Patient called stating the Hair requested her to take a covid test when she got home. Pt took a covid test and it came back negative. Please advise ( Pharmacy Verified) Best time of day caller can be reached: any Patient advised that office/PCP has 24-48 business hours to return their call: no [facility] 07-04-2022 History of Presen t illness Narrative Images from the original note were not included. [facility] [address] [facility] [address] Dept: [phone] Dept Loc: [phone] Visit type: Pod Scheduled Patient Marianna Rose MD however has established with this office previously Reason for Visit: Headache, Dizziness (/), and Sore Throat (/) Assessment and Plan 1. Acute non-recurrent maxillary sinusitis Comments: Acute sinus congestion with maxillary and dental pain suspect sinusitis treated with antibiotics Orders: - amoxicillin-clavulanate (Augmentin) 875-125 MG tablet; Take 1 tablet by mouth 2 times daily for 10 days., Starting Ynes 07/04/2022, Until 07/14/2022, Normal 2. Psoriatic arthritis (HCC) Comments: Currently on methotrexate times last 2 months at the onset of sickness component assembler recommended stopping the medicine Follow up if symptoms worsen or fail to improve, for Next scheduled follow-up. Patient does have psoriatic arthritis was on methotrexate the last 2 months. She does state that certain symptoms are feeling better but she also states symptoms are progressing states nausea vomiting diarrhea seems to be better but she has a lot of sinus pressure tenderness in her teeth pressure in her face and head with a mild dizziness a lot of these are progressing with generalized sinusitis. She does have some clear to cloudy mucus no fever chills rigors minimal cough. No sputum production no hemoptysis hematemesis. Given the potential of immunocompromise being on methotrexate and having progression of symptoms for almost a week now we will opt to treat with her antibiotics. However did ask her at this point time to go home and check a COVID test as its been 5 days just for COVID is positive today would consider putting her on Paxlovid rather than antibiotic and to report the result of the test to the office. Subjective HPI This is a 42 yo female with h/o HTN, psoriatic arthtritis, FORD, who contacted the clinical access center for a POD visit for N/V/D, headache and sinus issues. Sick since last Friday (5 days ago). Started Methotrexate about 2 months ago. Stopped taking since not feeling well, by Friday, N/V/D and now progressing to sore throat and coughing, with clear to cloudy mucous, Did not perform covid test, endorsing generalized fatigue and weakness, states nausea vomiting diarrhea seems to be little bit better at this point time she denies any urinary symptoms or frequency urgency or burning. She denies any hemoptysis hematemesis does describe little bit of a cough. Having a great deal of sinus pressure stuffiness and congestion now more ahead with the change in dizziness sensation. She has been off work and will eventually need a note for work as well. Last menses 3 weeks ago, no concerns for . Review of Systems Constitutional: Positive for fatigue. Negative for chills and fever. HENT: Positive for congestion, dental problem (No acute dental problems but does have generalized dental pain), ear pain, sinus pressure, sinus pain and sore throat. Negative for trouble swallowing and voice change. Eyes: Negative for pain and discharge. Respiratory: Positive for cough. Negative for shortness of breath. Cardiovascular: Negative for chest pain. Gastrointestinal: Positive for diarrhea (Resolved), nausea (Resolved) and vomiting (Resolved). Musculoskeletal: Negative for myalgias. Neurological: Positive for light-headedness and headaches. All other systems reviewed and are negative. Allergies Allergen Reactions Lisinopril Other reaction(s): Other [...] TAKE 2 TABLETS BY MOUTH ONCE DAILY meloxicam (Mobic) 15 MG tablet Take 15 mg by mouth daily. metoprolol succinate XL (Toprol-XL) 100 MG 24 hr tablet Take 1 tablet (100 mg) by mouth daily for 30 doses. 30 tablet 5 triamcinolone (Kenalog) 0.1 % ointment APPLY OINTMENT TOPICALLY TWICE DAILY TO AFFECTED AREA USE A THIN LAYER methotrexate 2.5 MG tablet Take 12.5 mg by mouth 1 (one) time per week. busPIRone (Buspar) 5 MG tablet Take 1 tablet by mouth 2 times daily as needed. No facility-administered medications prior to visit. Past Medical History: Diagnosis Date Breast cancer screening 04/2018 Family history of diabetes mellitus in father father and pat uncles Family history of heart disease grandparents GERD (gastroesophageal reflux disease) Hypertension 2018 Pap smear for cervical cancer screening 04/2020 due 04/2023 Psoriasis 1991 Psoriatic arthritis (HCC) 2021 w/u pnd per Dr. Thorne Social History Tobacco Use Smoking [...] Heart attack Paternal Grandfather 66 Objective BP (!) 142/86 (BP Location: Left arm, Patient Position: Sitting, BP Cuff Size: Large adult) Pulse 109 Temp 36.7 C (98 F) (Temporal) Ht 5' 6 (1.676 m) Wt (!) 306 lb (139 kg) SpO2 95% BMI 49.39 kg/m Physical Exam Constitutional: General: She is not in acute distress. Appearance: Normal appearance. She is obese. She is not ill-appearing, toxic-appearing or diaphoretic. HENT: Right Ear: Ear canal normal. Left Ear: Ear canal normal. Ears: Comments: Both TMs are mildly erythematous but not bulging or retracted. Some mild fluid behind both TMs as well there is no signs of purulent drainage or discharge within the canal itself. Mouth/Throat: Mouth: Mucous membranes are moist. Pharynx: Oropharynx is clear. Eyes: Extraocular Movements: Extraocular movements intact. Pupils: Pupils are equal, round, and reactive to light. Cardiovascular: Rate and Rhythm: Normal rate and regular rhythm. Heart sounds: Normal heart sounds. Pulmonary: Effort: Pulmonary effort is normal. No respiratory distress. Breath sounds: Normal breath sounds. Abdominal: General: Bowel sounds are normal. Palpations: Abdomen is soft. Musculoskeletal: Cervical back: Normal range of motion and neck supple. No rigidity or tenderness. Right lower leg: No edema. Left lower leg: No edema. Lymphadenopathy: Cervical: No cervical adenopathy. Skin: General: Skin is warm and dry. Neurological: Mental Status: She is alert. Gait: Gait normal. Psychiatric: Mood and Affect: Mood normal. Data Reviewed and Summarized Labs: Imaging/Testing: Hair Mike PA-C 07/04/2022 Please note that portions of this note may have been completed with voice recognition software. Documentation reviewed prior to signing but minor errors in vehicle inspector may have occurred. documented in this encounter [facility] 07-03-2022 Telephone encount er Note S-Pt left message with Telephone Agent that she has diarrhea, headache vomiting, neck pain and sinus issues R-NO CONTACT Left message on voice mail to call back if needed Reason for Disposition Message left on unidentified voice mail. Phone number verified. Answer Assessment - Initial Assessment Questions . Protocols used: No Contact or Duplicate Contact [id number] [facility] 07-03-2022 Miscellaneous Notes Formattin g of this note might be different from the original. S-Pt left message with Telephone Agent that she has diarrhea, headache vomiting, neck pain and sinus issues R-NO CONTACT Left message on voice mail to call back if needed Reason for Disposition Message left on unidentified voice mail. Phone number verified. Answer Assessment - Initial Assessment Questions . Protocols used: No Contact or Duplicate Contact [id number] documented in this encounter [facility] 04-25-2022 History of Presen t illness Narrative Images from the original note were not included. [address] [id number] Visit type: Established Patient Reason for Visit: Establish Care Subjective: Patient ID: Laxmi Gaona is a 41 y.o. female. HPI hypertension management. Patient presents for my first-time evaluation for history of hypertension and ongoing joint aches. Recently was evaluated by rheumatology diagnosed with psoriatic arthritis. Lab work-up is pending and repeat discussion for treatment options in the near future. Past medical, past surgical, family and social history charting updated. Review of Systems overall feeling fair. No recent earache sore throat or headache. No cough or congestion. Non-smoker. No exertional chest pain palpitations PND orthopnea claudication or edema. No heartburn or dysphagia. No abdominal pain. Bowels are regular. Menses are normal. Due for CONTROL SYSTEM MANAGER exam in about a year. Of note has had psoriasis for more than 30 years. Patches on her scalp and extremities are chronic but mild. Having continued stress due to her pain and recent diagnosis. Defers increasing hypertensive meds at this time. Her children are well. Her boyfriend is supportive. Allergies Allergen Reactions Lisinopril Other reaction(s): Other (See Comments) Chest pain Heart problems. Chest pain Other reaction(s): Other (See Comments) Heart problems. Chest pain Chest pain Tizanidine Itchy, dizzy Cephalexin Hives Current Outpatient Medications on File Prior to Visit Medication Sig Dispense Refill metoprolol succinate XL (Toprol-XL) 50 MG 24 hr tablet Take 50 mg by mouth daily. triamcinolone (Kenalog) 0.1 % ointment APPLY OINTMENT TOPICALLY TWICE DAILY TO AFFECTED AREA USE A THIN LAYER busPIRone (Buspar) 5 MG tablet Take 1 tablet by mouth 2 times daily as needed. EPINEPHrine (Epipen) 0.3 MG/0.3ML injection syringe Use as directed for allergic reaction [DISCONTINUED] ibuprofen 600 MG tablet Take 600 mg by mouth every 6 hours as needed. [DISCONTINUED] lidocaine (Xylocaine) 5 % ointment Apply 1 application topically in the morning and 1 application at noon and 1 application in the evening. [DISCONTINUED] meloxicam (Mobic) 15 MG tablet Take 1 tablet by mouth daily. No current facility-administered medications [...] Heart attack Paternal Grandfather 66 Objective: BP 128/86 Pulse 80 Temp 36.2 C (97.1 F) (Temporal) Ht 5' 6 (1.676 m) Wt (!) 306 lb (139 kg) SpO2 96% BMI 49.39 kg/m Physical Exam The physical exam is generally normal. Patient appears well, alert and oriented x 3, pleasant, cooperative. Vitals are as noted. No carotid bruits. Neck supple, no abnormal adenopathy, thyroid lesions or masses. Ears, nose and throat are normal without acute findings. Lungs are clear to auscultation. Heart is regular, without murmurs, gallops or ectopy. Abdomen is soft, non tender, without masses, hepatosplenomegaly, or bruits. Normal BS evident. Extremities are without acute changes. No overt synovitis.. Peripheral pulses are fair. Few psoriatic lesions noted. Screening neurological exam is normal without focal deficits. Assessment / Plan: Laxmi was seen today for establish care. Diagnoses and all orders for this visit: Primary hypertension (Primary) Comments: Uncontrolled for age. Multifactorial. Patient feels elevated due to pain and anxiety. Continue metoprolol and recheck BP in 3 to 4 weeks. Psoriasis Comments: Stable, continue Kenalog cream as needed Psoriatic arthritis (HCC) Comments: Stable, continue follow-up with rheumatology FORD (generalized anxiety disorder) Comments: Stable, continue BuSpar Family history of diabetes mellitus in father Class 3 severe obesity due to excess calories with serious comorbidity and body mass index (BMI) of 45.0 to 49.9 in adult (HCC) Comments: Noted, await rheumatology consultation. Encouraged cardio exercise 150 minutes/week that is tolerated. Low-carb and low-fat meals. documented in this encounter [facility] 04-25-2022 Instructions Noel Marquez DO - 04/25/2022 8:40 AM EST bp check with staff in 3-4 wks. documented in this encounter [facility] 10-23-2021 History of Presen t illness Narrative New Rheumatology Note CC: abnormal labs Referred by: Dr Harrison HPI: Laxmi aGona is a 41 year old female here [...] no surgeries SocialHx: never smoker; works at [employer] FamilyHx: mom catarats; dad dialysis; dad mac [...] neg CRP 25 mg/L SED 30mm/hr Assessment/Plan: Laxmi Gaona is a 41 year old female [...] playing a role in chronic pain #suspected IOGR- discussed PSG #elevated APR- discussed elevated in June likely related to acute back pain -check esr, CRP; discussed likely will be mild elevation bc of obesity and suspect IGOR -discussed risks and benefits to plan; answered all questions rtc pending above work up or prn Zahra Wilkes MD 10:42 AM Patient was identified by name and date of . Ani Gonzalezak Patient at risk for falls:No Falls Risk protocol implemented: No documented in this encounter [facility] Evaluation note Diagnosis Chronic neck pain Cervicalgia Acute bilateral low back pain with bilateral sciatica Chronic midline low back pain without sciatica documented in this encounter [facility] Work Phone: Evaluation note* Diagnosis Psoriasis- Primary Other psoriasis Abnormal laboratory test Other abnormal clinical finding Mechanical back pain Backache, unspecified Cervical spondylosis Cervical spondylosis without myelopathy MAR positive Other and unspecified nonspecific immunological findings Body mass index (BMI) 45.0-49.9, adult ([facility]) [facility] Diagnosis Left foot pain Pain in limb documented in this encounter [facility] Work Phone: Evaluation noteNo assessment information available [facility] Work Phone: Evaluation note* Diagnosis Lumbar radiculopathy, acute- Primary Psoriatic arthritis (HCC) Psoriatic arthropathy [facility] Diagnosis Primary hypertension- Primary Unspecified essential hypertension Psoriatic arthritis (HCC) Psoriatic arthropathy Encounter for monitoring NSAID therapy [facility] Diagnosis Abrasion, left foot, initial encounter- Primary [facility] Diagnosis Primary hypertension- Primary Unspecified essential hypertension NSAID long-term use Encounter for long-term (current) use of non-steroidal anti-inflammatories Psoriatic arthritis (HCC) Psoriatic arthropathy Class 3 severe obesity due to excess calories with serious comorbidity and body mass index (BMI) of 45.0 to 49.9 in adult (HCC) Unable to lose weight [facility] Diagnosis Essential hypertension Unspecified essential hypertension [facility] Diagnosis Essential hypertension Unspecified essential hypertension [facility] Diagnosis Nausea and vomiting, unspecified vomiting type- Primary Influenza A Influenza with other respiratory manifestations Dehydration Nausea and vomiting Nausea with vomiting Influenza A Influenza with other respiratory manifestations Dehydration [facility] Diagnosis Primary hypertension- Primary Unspecified essential hypertension NSAID long-term use Encounter for long-term (current) use of non-steroidal anti-inflammatories Psoriatic arthritis (HCC) Psoriatic arthropathy [facility] Diagnosis Primary hypertension- Primary Unspecified essential hypertension Psoriasis Other psoriasis Psoriatic arthritis (HCC) Psoriatic arthropathy FORD (generalized anxiety disorder) Generalized anxiety disorder Family history of diabetes mellitus in father Class 3 severe obesity due to excess calories with serious comorbidity and body mass index (BMI) of 45.0 to 49.9 in adult (HCC) [facility] Diagnosis Acute non-recurrent maxillary sinusitis- Primary Psoriatic arthritis (HCC) Psoriatic arthropathy [facility] Diagnosis Primary hypertension- Primary Unspecified essential hypertension Psoriasis Other psoriasis Bilateral primary osteoarthritis of knee Encounter for monitoring NSAID therapy documented in this encounter [facility] for referral (narrative)No reason for referral information [facility] Work Phone: Assessments Diagnosis Chest pain, unspecified type SOB [...] FoundDocuments on File Type Date 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 Advance Directives and Living Will Power of Fashion Marketer Documents on File Type Date 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 [address] Referral ID Status Reason Start Date Expiration Date V isits Requested Visits Authorized [id number] Authorized 10/23/2021 10/23/2022 3 3 Comments Physical therapy Diagnosis: chronic back and neck pain, 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 Evaluate and treat Chief Complaint and Reason for Visit Chief Complaint AVISE BOX- LABS AND XRAY Chief Complaint PAIN- COPY PCP Chief Complaint STANDING ORDER Chief Complaint STANDING ORDER S/O- PAIN- COPY PCP Chief Complaint Admit Date S/O- PAIN- COPY PCP March 29, 2024 3 :19pm S/O- PAIN- COPY PCP June 18, 2024 9:39am Additional Source Comments INFORMATION SOURCE (unrecogn ized section and content) DATE CREATED AUTHOR 04/12/2020 [employer] DATE CREATED AUTHOR AUTHOR'S ORGANIZ ATION 07/02/2021 [facility] DATE CREATED AUTHOR AUTHOR'S ORGANIZ ATION 10/24/2021 [employer] DATE CREATED AUTHOR AUTHOR'S ORGANIZ ATION 02/10/2022 [facility] DATE CREATED AUTHOR AUTHOR'S ORGANIZ ATION 08/03/2024 [facility] DATE CREATED AUTHOR AUTHOR'S ORGANIZ ATION 09/22/2024 [facility] Care Teams (unrecognized sec tion and content) Hydro Plant Operator Relationship Specialty Start Date End Date Marianna Rose MD [address] [place] [address], [address] [place], [place] [phone] PCP - General Family Medicine 03/02/18 Hydro Plant Operator Relationship Specialty Start Date End Date Marianna Rose MD [facility], [address] [place], [place] [phone] PCP - General Family Medicine 03/02/18 Hydro Plant Operator Relationship Specialty Start Date End Date Marianna Rose MD [address] [facility], [address] [place], [place] [phone] PCP - General Family Medicine 03/02/18 Hydro Plant Operator Relationship Specialty Start Date End Date Zahra Wilkes MD [address] [place] [id number] Physician Rheumatology 11/24/21 Hydro Plant Operator Relationship Specialty Start Date End Date Noel Marquez DO [address] [place] [address] PCP - General Family Medicine 01/31/22 Team Status: Active Member Role Status Dates Dr. Noel Marquez DO Primary Care Provider Active Team Status: Inactive Member Role Status Dates Dr. Noel Marquez DO Primary Care Provider Active Dr. Olga Dang MD Attending Provider, Referring Provider Active Team Status: Inactive Member Role Status Dates Dr. Noel Marquez DO Primary Care Provider Active Dr. Olga Dang MD Attending Provider Active Hydro Plant Operator Relationship Specialty Start Date End Date Noel Marquez DO [address] [place] [address] PCP - General Family Medicine 09/26/22 Hydro Plant Operator Relationship Specialty Start Date End Date Noel Marquez DO [address] [place] [address] PCP - General Family Medicine 09/26/22 Hydro Plant Operator Relationship Specialty Start Date End Date Noel Marquez DO [address] [place] [address] PCP - General Family Medicine 09/26/22 Hydro Plant Operator Relationship Specialty Start Date End Date Noel Marquez DO [address] [place] [address] [address] [place] [phone] PCP - General Family Medicine 09/26/22 Hydro Plant Operator Relationship Specialty Start Date End Date Noel Marquez DO [address] [place] [phone] PCP - General Family Medicine 09/26/22 Hydro Plant Operator Relationship Specialty Start Date End Date Noel Marquez eYlenaDO [address] [place] [phone] PCP - General Family Medicine 09/26/22 Hydro Plant Operator Relationship Specialty Start Date End Date Noel Marquez DO [address] [place] [phone] PCP - General Family Medicine 09/26/22 Hydro Plant Operator Relationship Specialty Start Date End Date Noel Marquez, DO [address] [place] [phone] PCP - General Family Medicine 09/26/22 Hydro Plant Operator Relationship Specialty Start Date End Date Noel Marquez DO [address] [place] [phone] PCP - General Family Medicine 09/26/22 Hydro Plant Operator Relationship Specialty Start Date End Date Noel Marquez DO [address] [place] [phone] PCP - General Family Medicine 09/26/22 Hydro Plant Operator Relationship Specialty Start Date End Date Noel Marquez DO [address] [place] [phone] PCP - General Family Medicine 09/26/22 Hydro Plant Operator Relationship Specialty Start Date End Date Zahra Wilkes MD [address] [place] [id number] Physician Rheumatology 11/24/21 Hydro Plant Operator Relationship Specialty Start Date End Date Marianna Rose MD [address], [address] [place] [address] PCP - General 03/02/18 Hydro Plant Operator Relationship Specialty Start Date End Date Marianna Rose MD [address], [address] [place] [address] PCP - General 03/02/18 Hydro Plant Operator Relationship Specialty Start Date End Date Marianna Rose MD [address] [place] [address], [address] [place] [address] PCP - General 03/02/18 Hydro Plant Operator Relationship Specialty Start Date End Date Marianna Rose MD [address], [address] [place] [address] PCP - General 03/02/18 Hydro Plant Operator Relationship Specialty Start Date End Date Marianna Rose MD [address] [place] [address], [address] [place] [address] PCP - General 03/02/18 Hydro Plant Operator Relationship Specialty Start Date End Date Noel Marquez DO [address] [place] [address] [address] [place] [address] PCP - General Family Medicine 09/26/22 Team Status: Inactive Member Role Status Dates Dr. Noel Marquez DO Primary Care Provider Active Start: March 29, 2024 End: March 29, 2024 Dr. Olga Dang MD Attending Provider Active Start: March 29, 2024 End: March 29, 2024 Dr. Olga Dang MD Referring Provider Active Start: March 29, 2024 End: March 29, 2024 Team Status: Inactive Member Role Status Dates Dr. Noel Marquez DO Primary Care Provider Active Start: June 18, 2024 End: June 18, 2024 Dr. Olga Dang MD Attending Provider Active Start: June 18, 2024 End: June 18, 2024 Dr. Olga Dang MD Referring Provider Active Start: June 18, 2024 End: June 18, 2024 Reason for Visit (unrecogniz ed section and content) Reason Comments New patient, to establish relationship Reason Comments Back Pain Foot Injury Heel spurs on both f eet hurt Reason Comments Follow-up On bp Reason Comments thinks wound on left foot Reason Comments Follow-up 6 month med check Pt offered flu vaccine pt declined Reason Comments Blood Pressure Check Increased medicatio n Reason Comments Blood Pressure Check Reason Comments Vomiting Patient arrives to [facility] via private vehicle for nausea, vomiting, headache and body aches since yesterday. Patient states a few co workers at her job have been sick. Denies abdominal pain Reason Comments Med Refill Reason Onset Date Comments Med Refill 11/16/2023 Reason Comments Follow-up Med check Reason Onset Date Comments Other 07/04/2022 Covid Test Negat michael Reason Onset Date Comments Diarrhea 07/03/2022 Reason Comments Establish Care Reason Comments Headache Dizziness Sore Throat Reason Onset Date Comments Other 05/21/2024 Pharmacy Call Reason Comments 6 Month Follow-up Reason Onset Date Comments Med Refill 08/01/2024 Goals (unrecognized section and content) Goals may be documented in a n alternate sectionGoals may be documented in an alternate sectionGoals may be documented in an alternate sectionGoals may be documented in an alternate sectionGoals may be documented in an alternate sectionGoals may be documented in an alternate sectionGoals may be documented in an alternate sectionGoals may be documented in an alternate section Scheduled Active and Recently Administ ered Medications (unrecognized section and content) Medication Order 07/17/2023 07/18/2023 07/19/2023 ondansetron (Zofran) injection 4 mg (COMPLETED) 4 mg, IntraVENous, Once, On 07/19/23 at 2004, For 1 dose 2022 (Given - Provid er: Isabel Miles RN) sodium chloride 0.9 % bolus 1,000 mL (COMPLETED) 1,000 mL, IntraVENous, at 1,000 mL/hr, Administer over 1 Hours, Once, On 07/19/23 at 2005, For 1 dose 2019 (New Bag - Prov ider: Isabel Miles RN)2119 (Stopped - Provider: Isabel Miles RN) FOR RECORDS PERTAINING TO PATIENTS WHO ARE [...] BE BASED ON THE PRIMARY CLINICAL RECORDS. [employer] provides no warranty or guarantee of the accuracy or completeness of information in this document.
[2024-09-24 11:08] LABS: QNTFERON TB Mitogen Value 3.05 IU/mL (.); QNTFERON TB Nil Value 0.06 IU/mL (.); QNTFERON TB1+ Ag Value 0.08 IU/mL (.); QNTFERON TB2+ Ag Value 0.24 IU/mL (.); QNTIFERON TB Positive Criteria Negative (Negative)
== END | disposition home or self-care (01) ==
LOC: MTLAB 16:22
PROVIDERS: PCP Family Medicine; Referring Provider Internal Medicine Rheumatology; Visit Provider Internal Medicine Rheumatology
DX: L40.59 Other psoriatic arthropathy (principal); L40.8 Other psoriasis; R52 Pain, unspecified; R76.8 Other specified abnormal immunological findings in serum; Z79.899 Other long term (current) drug therapy
CPT/HCPCS: 36415; 71046; 86480

== ENCOUNTER 2024-12-16 16:14 | Outpatient (CLI) | payer MEDICAID, SELFPAY ==
[2024-12-16 18:14] LABS: AST(SGOT) 17 U/L (<=31); Alanine Aminotransfer ALT/SGPT 16 U/L (<=34); Albumin, Serum 3.9 g/dL (3.5-5.0); Alkaline Phosphatase 91 U/L (35-104); Anion Gap 10 (5-15); BUN 18 mg/dL (4-19); BUN/Creat Ratio 27.7 RATIO (10-20); Calcium,Total 9.1 mg/dL (7.6-11.0); Carbon Dioxide 25.6 mmol/L (21.0-32.0); Chloride 103 mmol/L (98-108); Globulin 3.0 g/dL (2.2-4.2); Glucose 85 mg/dL (70-99); Potassium 3.5 mmol/L (3.3-5.1)
[2024-12-16 18:35] LABS: Hematocrit 37.3 % (37-47); Hemoglobin 12.3 g/dL (12.0-15.0); Immature Granulocytes Count 0.030 X10^3/uL (0.0-0.0); Mean Corp Hgb Conc 33.0 g/dL (32-36); Mean Corpuscular Volume 87.4 fL (81-99); Mean Platelet Vol. 10.9 fl (6.2-12.0); NRBC Flagged by Analyzer 0 % (0-5); Platelet Count 230 K/mm3 (150-450); RBC Distribution Width CV 13.1 % (11.6-14.6); RBC Distribution Width SD 41.9 fl (35.1-43.9); Red Blood Count 4.27 M/mm3 (4.2-5.4); White Blood Count 10.9 K/mm3 (4.4-11.0)
== END 2024-12-16 23:59 | disposition home or self-care (01) ==
LOC: MTLAB 16:16
PROVIDERS: PCP Family Medicine; Referring Provider Internal Medicine Rheumatology; Visit Provider Internal Medicine Rheumatology
DX: L40.59 Other psoriatic arthropathy (principal); L40.8 Other psoriasis; R76.8 Other specified abnormal immunological findings in serum; Z79.899 Other long term (current) drug therapy
CPT/HCPCS: 36415; 80053; 85025

== ENCOUNTER → 2025-03-18 | Outpatient (CLI) | payer BC, SELFPAY ==
--- OUTSIDE RECORDS SUMMARY | 2025-03-18 08:35 | XMS RPT_ITS | CCD ---
Author Organization [facility] Care Team Providers Care Clip Baker Name Role Phone Marianna Rose Primary Care Provider Unavailable Primary Care Provider UnavailMarianna Key MD Primary Care Provider PROVIDER, UNKNOWN Attending Unavailable PROVIDER, UNKNOWN Admitting Unavailable EFRAÍN MAHONEY Referring Unavailable Marianna Rose MD Primary Care Provider Zahra Wilkes MD Unavailable Noel Marquez DO Primary Care Provider Marianna Rose Primary Care Unavailable Carlitos Aburto Attending Unavailable Justen Rosenna Referring Unavailable Flavio Ward Attending Unavailable Milton, Marianna Referring Unavailable Milton, Marianna Primary Care Unavailable Arjun Tejeda Attending Unavailable Justen Rosenna Referring Unavailable Marinana Rose Primary Care Unavailable Noel Marquez DO Primary Care Provider [phone] Noel Marquez DO Primary Care Provider Zahra Wilkes MD Unavailable Marianna Rose MD Primary Care Provider Dr. Noel Marquez DO Primary Care Provider [phone] Dr. Olga Dang MD Attending Provider Dr. Olga Dang MD Referring Provider Dr. Noel Marquez DO Primary Care Provider Dr. Olga Dang MD Attending Provider Dr. Olga Dang MD Referring Provider Dr. Noel Marquez DO Primary Care Provider [phone] Laurence WGIGINS, Dr. Espinoza Attending Provider Dr. Olga Dang MD Referring Provider Velharrison, Olga Referring Unavailable Vellanki, Olga Attending Unavailable Petrilla, Noel Primary Care Unavailable Petrilla, [place] Primary Care Unavailable Vellanki, Olga Attending Unavailable Vellanki, Olga Referring Unavailable Vellanki, Olga Attending Unavailable Vellanki, Olga Referring Unavailable Petrilla, Noel Primary Care Unavailable Vellanki, Olga Attending Unavailable Vellanki, Olga Referring Unavailable Petrilla, Noel Primary Care Unavailable Vellanki, Olga Attending Unavailable Vellanki, Olga Referring Unavailable Petrilla, [place] Primary Care Unavailable Vellanki, Olga Attending Unavailable Vellanki, Olga Referring Unavailable Petrilla, [place] Primary Care Unavailable Unavailable Primary Care Provider Unavailabl e PETRILLA, [place]RO[place] Primary Care Unavailable PRITCHARD, FIOR R Attending Unavailable PETRILL, [place] Attending Unavailable PETRILLA, [place] Primary Care Unavailable Allergies Allergy Classification Reported Allergen(s) Allergy Type Date of Onset Reaction(s) Facility (20 sources) Cephalexin; 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: [CEPHALEXIN] Drug Allergy 3 [place], [place] (16 sources) Lisinopril; 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: [LISINOPRIL] Drug Allergy 9 [place], [place] (20 sources) tiZANidine Drug Allergy 2 [facility] (20 sources) Lisinopril Propensity to adverse reactions to drug 9 Other [facility] Medications Current Medications Medication Drug Class(es) [...] days. 20 tablet 0 07/04/2022 07/14/2022 Active azithromycin 250 mg oral tablet (2 sources) Macrolide Antimicrobial Start: 02-09-2025 End: 02-14-2025 take 2 tablets by mouth once daily, then take 1 tablet by mouth once daily azithromycin (Zithromax) 250 MG tablet Take 2 tablets (500 mg) by mouth daily for 1 day, THEN 1 tablet (250 mg) daily for 4 days. 6 tablet 02/09/2025 02/14/2025 Active Blood Pressure Monitor JENNIFER (4 sources) Start: 11-11-2018 Blood Pressure Monitor JENNIFER Indications: Essential hypertension , Family history of hypertension 1 Device by Does not apply route as needed (monitor BP and HR) 1 Device 0 11/11/2018 Active busPIRone hydrochloride 5 mg oral tablet (20 sources) Start: 05-26-2019 End: 09-26-2022 take 1 [...] after 14 capsule 0 12/06/2022 12/13/2022 Active [id number] 0.3 ml EPINEPHrine 1 mg/ml auto-injector (20 [...] TABLETS BY MOUTH ONCE DAILY 2022 Active ixekizumab (2 sources) Interleukin-17A Antagonist Ixekizumab (ANDRADE SC) Inject under the skin. Active leucovorin 15 mg oral tablet (20 sources) Folate Analog Start: 07-11-2022 take 1 tablet by mouth every week leucovorin (Wellcovorin) 15 MG tablet Take 15 mg by mouth 1 (one) time per week. 07/11/2022 Active losartan potassium 100 mg oral tablet (20 sources) Angiotensin 2 Receptor Scott Start: 03-30-2024 [...] tablet (20 sources) Nonsteroidal Anti-inflammatory Drug Start: 10-09-2021 End: 12-24-2023 take 1 tablet by mouth once daily meloxicam (Mobic) 15 MG tablet Take 1 tablet (15 mg) by mouth daily. 90 tablet 1 12/24/2023 Active Start: 06-28-2021 take 1 tablet by [...] 1 tablet by mouth once daily metoprolol (TOPROL-XL) 50 mg XL tablet Take 1 Tablet by mouth daily. 03/16/2021 Active Start: 11-11-2018 take 1 tablet by [...] (before breakfast) 30 tablet 5 05/26/2019 Active predniSONE 10 mg oral tablet (7 sources) Start: 02-09-2025 End: 02-13-2025 take 4 tablets by mouth once daily predniSONE (Deltasone) 10 MG tablet Take 4 tablets (40 mg) by mouth daily for 4 days. 16 tablet 02/09/2025 02/13/2025 Active Start: 09-26-2022 End: 10-14-2022 predniSONE (Deltasone) 10 [...] With food. 30 tablet 0 09/03/2021 Active tiZANidine 4 mg oral tablet (13 sources) Central alpha-2 Adrenergic Agonist Start: 06-28-2021 End: 10-31-2021 tizanidine (ZANAFLEX) 4 MG tablet Take 4 mg by mouth. 06/28/2021 Active traMADol hydrochloride 50 mg oral tablet (20 sources) Opioid Agonist Start: 11-26-2022 take 1 [...] daily as needed for pain HYDROcodone-acetam inophen (Arrey) 7.5-325 MG tablet Indications: Lumbar radiculopathy, acute [...] lipid microsphere s (DEFINITY) injection 1.65 mg 50 ml sodium chloride 9 mg/m l [...] Chronic Immunizations and screening for infectious disease (1 source) Anti-nuclear factor positive; 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: [Other specified abnormal immunological findings in serum] Episodic Joint disorders and dislocations; trauma-related (20 sources) Patellofemoral syndrome of right knee; 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: [Patellofemoral disorders, right knee] Onset: 08-19-2019 08-19-2019 Chronic Joint disorders and dislocations; trauma-related (1 source) Patellofemoral syndrome of left knee; 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: [Patellofemoral pain syndrome of left knee] Joint disorders and dislocations; trauma-related (1 source) Patellofemoral syndrome of right knee; 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: [Patellofemoral pain syndrome of right knee] Malaise and fatigue (4 sources) Fatigue; 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: [Other fatigue] Onset: 02-09-2025 02-09-2025 Episodic Osteoarthritis (20 sources) Bilateral primary osteoarthritis of knee; 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: [Primary gonarthrosis, bilateral] Onset: 09-18-2021 Chronic Other aftercare (13 sources) Patient encounter status; 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: [Encounter for therapeutic drug level monitoring] Onset: 04-28-2023 10-14-2022 Episodic Other connective tissue disease (1 source) [...] 09-26-2022 Chronic Other inflammatory condition of skin (1 source) Other psoriatic arthropathy; 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: [Other psoriatic arthropathy] Onset: 12-23-2024 Chronic Other inflammatory condition of skin (2 sources) Psoriasis, unspecified; 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: [Psoriasis, unspecified] Onset: 02-02-2022 Chronic Other nutritional; endocrine; and metabolic disorders [...] toe(s), without mention of infection] 12-06-2022 Episodic Viral infection (4 sources) Viral disease; 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: [Viral infection, unspecified] Onset: 02-09-2025 02-09-2025 Episodic Past or Other Problems Problem Classification Problem Date Documented Da te Episodic/Chronic Cardiac dysrhythmias (20 sources) Palpitations; 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: [Palpitations] Onset: 01-20-2019 Resolved: 04-25-2022 01-20-2019 Episodic Fluid and electrolyte disorders (17 sources) Dehydration; 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: [Dehydration] Onset: 07-19-2023 Resolved: 12-24-2023 07-19-2023 Episodic Influenza (17 sources) Influenza due to Influenza A virus; 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: [Influenza due to other identified influenza virus with other respiratory manifestations] Onset: 07-19-2023 Resolved: 12-24-2023 07-19-2023 Episodic Nausea and vomiting (17 sources) Nausea and vomiting; 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: [Nausea with vomiting, unspecified] Onset: 07-19-2023 Resolved: 12-24-2023 07-19-2023 Episodic Nonspecific chest pain (20 sources) Chest pain; 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: [Atypical chest pain] Onset: 08-19-2019 Resolved: 04-25-2022 08-19-2019 Episodic Other aftercare (9 sources) skilled nursing current use of non-steroidal anti-inflammatory drug; 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: [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-steroidal anti-inflammatories (NSAID)] Onset: 04-28-2023 04-28-2023 Episodic Other aftercare (2 sources) Encounter for therapeutic drug level monitoring; 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: [Encounter for therapeutic drug level monitoring] Onset: 07-02-2024 Episodic Other aftercare (2 sources) skilled nursing (current) use of non-steroidal anti-inflammatories (NSAID); 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: [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-steroidal anti-inflammatories (nsaid)] Onset: 07-02-2024 Episodic Other complications of (5 sources) Multigravida of advanced maternal age; 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: [...] Test Name Value Interpretation Reference Range Facility ED Provider Noteon ED Provider Note EMERGENCY DEPARTMENT ENCOUNTER Pt Name: Laxmi Gaona Birthdate 1980 Date of evaluation: 02/09/2025 ED Provider: Fior Pritchard DO CHIEF COMPLAINT Chief Complaint Patient presents with Fatigue Pt c/o general malaise and fatigue since Friday evening Nausea Joint Pain HISTORY OF PRESENT ILLNESS (Location/Symptom, Timing/Onset, Context/Setting, Quality, Duration, Modifying Factors, Severity) Note limiting factors. I wore appropriate PPE for the entirety of this encounter. HPI Laxmi Gaona is a 44 y.o. who presents to the emergency department with chief complaint of generalized unwell. 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 On Friday she had a lot of sick patients. On Friday she was burning trash and things that involved a raccoon boot. Soon afterwards she has been having 3 to 4 days of severe fatigue. She denies any cough, cold, chest pain, shortness of breath, abdominal pain, nausea, vomiting, diarrhea. She did endorse 1 episode of vomiting earlier but her main concern is she has been extremely fatigued and tired. She reports that she has not been eating and drinking well because she has been spending all her time sleeping. Nursing Notes were reviewed. REVIEW OF SYSTEMS Review of Systems Pertinent positives and negatives as per HPI. PAST MEDICAL HISTORY Medical History[1] SURGICAL HISTORY Surgical History[2] CURRENT MEDICATIONS Discharge Medication List as of 02/09/2025 6:17 PM CONTINUE these medications which have NOT CHANGED Details EPINEPHrine (Epipen) 0.3 MG/0.3ML injection syringe Use as directed for allergic reaction, Historical Med folic acid (Folvite) 1 MG tablet TAKE 2 TABLETS BY MOUTH ONCE DAILY, Historical Med Ixekizumab (TALTZ SC) Inject under the skin., Historical Med leucovorin (Wellcovorin) 15 MG tablet Take 15 mg by mouth 1 (one) time per week., Starting Fri07/11/2022, Historical Med losartan (Cozaar) 100 MG tablet Take 1 tablet (100 mg) by mouth daily., Starting Fri07/02/2024, Normal meloxicam (Mobic) 15 MG tablet Take 1 tablet (15 mg) by mouth daily., Starting Fri12/24/2023, Normal methotrexate 2.5 MG tablet Take 15 mg by mouth 1 (one) time per week., Starting Fri09/03/2022, Historical Med metoprolol succinate XL (Toprol-XL) 100 MG 24 hr tablet Take 1 tablet (100 mg) by mouth daily., Starting Fri07/02/2024, Normal pantoprazole (ProtoNix) 40 MG EC tablet Take 1 tablet (40 mg) by mouth daily for 90 doses. Do not crush, chew, or split., Starting Fri10/14/2022, Until 07/02/2025, Normal traMADol (Ultram) 50 MG tablet Take 50 mg by mouth 3 times daily as needed., Starting Fri11/26/2022, Historical Med triamcinolone (Kenalog) 0.1 % ointment Apply topically 2 times daily., Starting Fri08/02/2024, Normal ALLERGIES Lisinopril, Tizanidine, and Cephalexin FAMILY HISTORY Family History[3] SOCIAL HISTORY Social History[4] SCREENINGS PHYSICAL EXAM ED Triage Vitals [02/09/25 1646] Temp Heart Rate Resp BP 36.2 ?C (97.1 ?F) 88 18 124/72 SpO2 Temp Source Heart Rate Source Patient Position 97 % Temporal -- Lying BP Location FiO2 (%) -- -- General: A&O x 3, well appearing, no acute distress Head: NC/AT Eyes: Atraumatic, EOMI, clear conjunctival, PERRLA Nose: Atraumatic, no skin changes Throat: Moist mucus membranes, uvula midline, oropharynx clear Neck: atraumatic, Supple, no lymphadenopathy, no stiffness or restricted ROM Heart: Normal rate and regular rhythm, no m/r/g Lungs: CTA bilaterally, no crackles or wheezes, no respiratory distress Abd: Soft, nontender, nondistended, no guarding Back: atraumatic, no step-off, No midline vertebral ttp, no CVA tenderness bilaterally Extremity: warm, no clubbing or edema, 2+ pulses bilateral radial pulse bilaterally, 2+ PT pulses bilaterally Neurologic: Non focal exam, moving all extremities spontaneously, normal gait Skin: warm, dry, no obvious rashes DIAGNOSTIC RESULTS Procedures/EKG: EKG was reviewed by myself. Physician EKG interpretation can be found below in MDM RADIOLOGY (Per Emergency Physician): As per below in MDM section Interpretation per the Radiologist below, if available at the time of this note: XR chest 2 views Final Result No radiographic acute cardiopulmonary process. Report Dictated on Electronically Signed By: Linda Mendez MD Electronically Signed Date/Time: 02/09/2025 5:54 PM EDT ED BEDSIDE ULTRASOUND: Performed by ED Physician - none LABS: Labs Reviewed SARS-COV-2, FLU A/B, AND RSV COMBO - Normal Result Value SARS-CoV-2 Not Detected Respiratory Syncytial Virus Not Detected Influenza A Not Detected Influenza B Not Detected Narrative: Methodology: real-time, RT-PCR The SARS-CoV-2, Flu A/B, and RSV Combo assay is intended for in vitro diagnostic use under the FDA Emergency Use Authorization (EUA). This test has not been FDA cl (more content not included)... Normal [facility] - Microbiology an d Antimicrobial susceptibilityon 02-09-2025 FLUAV RNA KAREN+probe Ql (Resp) Not detected Not Detected [facility] FLUBV RNA KAREN+probe Ql (Resp) Not detected Not Detected [facility] RSV RNA KAREN+probe Ql (Resp) Not detected Not Detected [facility] SARS-CoV-2 (COVID-19) RNA KAREN+probe Ql (Resp) Not detected Not Detected [facility] SARS-CoV-2 (COVID-19) RNA KAREN+probe Ql (Unsp spec) Methodology: real-time, RT-PCR The SARS-CoV-2, Flu A/B, and RSV Combo assay is intended for in vitro diagnostic use under the FDA Emergency Use Authorization (EUA). This test has not been FDA cleared or approved. In compliance with this authorization, please visit www.fda.gov/media/724676 /download or www.fda.gov/media/644933 /download to access the applicable information sheets. [facility] SARS-COV-2, FLU A/B, AND RSV COMBOon 02-09-2025 SARS-CoV-2 (COVID-19) RNA KAREN+probe Ql (Unsp spec) SARS-COV-2 Reference Not Detected Not Detected RESPIRATORY SYNCYTIAL VIRUS Reference Not Detected Not Detected INFLUENZA A (CEPHEID) Reference Not Detected Not Detected INFLUENZA B (CEPHEID) Reference Not Detected Not Detected ORDER COMMENTS: Methodology: real-time, RT-PCR The SARS-CoV-2, Flu A/B, and RSV Combo assay is intended for in vitro diagnostic use under the FDA Emergency Use Authorization (EUA). This test has not been FDA cleared or approved. In compliance with this authorization, please visit www.fda.gov/media/256169 /download or www.fda.gov/media/798958 /download to access the applicable information sheets. Normal [facility] Comment on above: Performed By: #### L [id number] ####Respiratory Equipment Assistant: AVA BROWNE ([id number])[facility] ([facility])[address] [place] [address] SARS-CoV-2, Flu A/B, and RSV Comboon 02-09-2025 Interpretation and review of laboratory results Normal [facility] XR Chest 2 Viewson No radiographic acute cardiopulmonary process. Report Dictated on Electronically Signed By: Linda Mendez MD Electronically Signed Date/Time: 02/09/2025 5:54 PM EDT [facility] Patient Name: LAXMI GAONA : 1980 Exam Date/Time: 02/09/2025 17:26 Procedure: XR CHEST 2 VIEWS Ordering Provider: PRITCHARD AKASH Reason For Exam: SOB INDICATION: Shortness of breath. VIEWS: Chest PA and lateral COMPARISON: 05/26/2019 chest PA and lateral FINDINGS: The trachea is midline. The heart is not enlarged. There is no confluent consolidation. The bone mineralization is normal. [facility] Linda Mendez MD - 02/09/2025 Patient Name: LAXMI GAONA : 1980 Exam Date/Time: 02/09/2025 17:26 Procedure: XR CHEST 2 VIEWS Ordering Provider: PRITCHARD AKASH Reason For Exam: SOB INDICATION: Shortness of breath. VIEWS: Chest PA and lateral COMPARISON: 05/26/2019 chest PA and lateral FINDINGS: The trachea is midline. The heart is not enlarged. There is no confluent consolidation. The bone mineralization is normal. IMPRESSION: No radiographic acute cardiopulmonary process. Report Dictated on Electronically Signed By: Linda Mendez MD Electronically Signed Date/Time: 02/09/2025 5:54 PM EDT [facility] [employer] Radiology Study observation (narrative) [employer] XR Chest 2 ViewsOrdered By: Linda Mendez on 02-09-2025 [employer] Work Phone: Absolute lymphocyte countOrd ered By: Olga Dang on 12-16-2024 Lymphocytes Auto (Unsp spec) [#/Vol] 2.07 10*3/uL 0.83-4.51 [facility] Absolute neutrophil countOrd ered By: Olga Dang on 12-16-2024 Neutrophils (Bld) [#/Vol] 7.9 10*3/uL High 2.0-7.7 [facility] Anion gap in Serum or Plasma Ordered By: Olga Dang on 12-16-2024 Anion gap [Moles/Vol] 10 mmol/L 5-15 [facility] Automated lymphocyte count a s percentage of total leukocytesOrdered By: Olga Dang on 12-16-2024 Lymphocytes/100 WBC Auto (Unsp spec) 19.0 % 19-41 [facility] BUN/creatinine ratioOrdered By: [facility] Laurence on 12-16-2024 Urea nitrogen/Creatinine [Mass ratio] 27.7 mg/mg High 10-20 [facility] Basophil percentageOrdered B y: Olga Dang on 12-16-2024 Basophils/100 WBC (Bld) 0.6 % 0-1 [facility] Bilirubin, totalOrdered By: Olga Dang on 12-16-2024 Bilirubin [Mass/Vol] 0.45 mg/dL 0.00-1.30 [facility] CBC W/Diff, Automatedon 11-20 Absolute Lymph 2.07 X10 3/uL Normal 0.83-4.51 [facility] Comment on above: Performed By: #### L 500.4050, L100.0100 #### [facility] [address] [place], [address] Absolute Neut 7.9 X10 3/uL High 2.0-7.7 [facility] Comment on above: Performed By: #### L 500.4050, L100.0100 #### [facility] [address] [place], [address] Basophils/100 WBC (Bld) 0.6 % Normal 0-1 [facility] Comment on above: Performed By: #### L 500.4050, L100.0100 #### [facility] [address] [place], [address] Eosinophils/100 WBC (Bld) 2.1 % Normal 0-5 [facility] Comment on above: Performed By: #### L 500.4050, L100.0100 #### [facility] [address] [place], [address] Erythrocyte distribution width (RBC) [Ratio] 13.1 % Normal 11.6-14.6 [facility] Comment on above: Performed By: #### L 500.4050, L100.0100 #### [facility] [address] [place], [address] Hematocrit (Bld) [Volume fraction] 37.3 % Normal 37-47 [facility] Comment on above: Performed By: #### L 500.4050, L100.0100 #### [facility] [address] [place], [address] Hemoglobin (Bld) [Mass/Vol] 12.3 g/dL Normal 12.0-15.0 [facility] Comment on above: Performed By: #### L 500.4050, L100.0100 #### [facility] [address] [place], [address] IG% 0.300 Normal 0.0-0.9 [facility] Comment on above: Result Comment: IG% - Immature Granulocytes (promyelocytes, myelocytes and metamyelocytes) > 1% indicates that a LEFT SHIFT is Present. Performed By: #### L 500.4050, L100.0100 #### [facility] [address] [place], [address] Lymphocytes/100 WBC (Bld) 19.0 % Normal 19-41 [facility] Comment on above: Performed By: #### L 500.4050, L100.0100 #### [facility] [address] [place], [address] MCH (RBC) [Entitic mass] 28.8 pg Normal 27.0-32.0 [facility] Comment on above: Performed By: #### L 500.4050, L100.0100 #### [facility] [address] [place], [address] MCHC (RBC) [Mass/Vol] 33.0 g/dL Normal 32-36 [facility] Comment on above: Performed By: #### L [id number], L100.0100 #### [facility] [address] [place], [address] MCV (RBC) [Entitic vol] 87.4 fL Normal 81-99 [facility] Comment on above: Performed By: #### L 500.4050, L100.0100 #### [facility] [address] [place], [address] Monocytes/100 WBC (Bld) 5.0 % Normal 0-10 [facility] Comment on above: Performed By: #### L 500.4050, L100.0100 #### [facility] [address] [place], [address] Neutrophils/100 WBC (Bld) 73.0 % High 47-70 [facility] Comment on above: Performed By: #### L 500.4050, L100.0100 #### [facility] [address] [place], [address] Nucleated RBC (Bld) [#/Vol] 0 10*3/uL Normal 0-5 [facility] Comment on above: Performed By: #### L 500.4050, L100.0100 #### [facility] [address] [place], [address] Platelet mean volume (Bld) [Entitic vol] 10.9 fL Normal 6.2-12.0 [facility] Comment on above: Performed By: #### L 500.4050, L100.0100 #### [facility] [address] [place], [address] Platelets (Bld) [#/Vol] 230 10*3/uL Normal 150-450 [facility] Comment on above: Performed By: #### L 500.4050, L100.0100 #### [facility] [address] [place], [address] RBC (Bld) [#/Vol] 4.27 10*6/uL Normal 4.2-5.4 [facility] Comment on above: Performed By: #### L 500.4050, L100.0100 #### [facility] [address] [place], [address] RDW SD 41.9 fl Normal 35.1-43.9 [facility] Comment on above: Performed By: #### L 500.4050, L100.0100 #### [facility] [address] [place], [address] WBC (Bld) [#/Vol] 10.9 10*3/uL Normal 4.4-11.0 [facility] Comment on above: Performed By: #### L 500.4050, L100.0100 #### [facility] [address] [place], [address] Carbon dioxide, total [Moles /volume] in Central venous bloodOrdered By: Olga Dang on 12-16-2024 CO2 [Moles/Vol] 25.6 mmol/L 21.0-32.0 [facility] Chloride assayOrdered By: Guillermo Dang on 12-16-2024 Chloride [Moles/Vol] 103 mmol/L 98-108 [facility] Comprehensive Metabolic Prof ilon 12-16-2024 Albumin [Mass/Vol] 3.9 g/dL Normal 3.5-5.0 [facility] Comment on above: Performed By: #### L 500.4050, L100.0100 #### [facility] [address] [place], [address] Albumin/Globulin [Mass ratio] 1.3 {ratio} Normal 0.9-2.4 [facility] Comment on above: Performed By: #### L 500.4050, L100.0100 #### [facility] [address] [place], [address] ALK PHOS 91 U/L Normal 35-104 [facility] Comment on above: Performed By: #### L 500.4050, L100.0100 #### [facility] [address] [place], [address] ALT [Catalytic activity/Vol] 16 U/L Normal <=34 [facility] Comment on above: Performed By: #### L 500.4050, L100.0100 #### [facility] [address] [place], [address] AST [Catalytic activity/Vol] 17 U/L Normal <=31 [facility] Comment on above: Performed By: #### L 500.4050, L100.0100 #### [facility] [address] [place], [address] Bilirubin [Mass/Vol] 0.45 mg/dL Normal 0.00-1.30 [facility] Comment on above: Performed By: #### L 500.4050, L100.0100 #### [facility] [address] [place], [address] BUN/CRE 27.7 RATIO High 10-20 [facility] Comment on above: Performed By: #### L 500.4050, L100.0100 #### [facility] [address] [place], [address] Calcium [Mass/Vol] 9.1 mg/dL Normal 7.6-11.0 [facility] Comment on above: Performed By: #### L 500.4050, L100.0100 #### [facility] [address] [place], [address] Chloride [Moles/Vol] 103 mmol/L Normal 98-108 [facility] Comment on above: Performed By: #### L 500.4050, L100.0100 #### [facility] [address] [place], [address] CO2 [Moles/Vol] 25.6 mmol/L Normal 21.0-32.0 [facility] Comment on above: Performed By: #### L 500.4050, L100.0100 #### [facility] [address] [place], [address] Creatinine [Mass/Vol] 0.64 mg/dL Low 0.70-1.20 [facility] Comment on above: Performed By: #### L 500.4050, L100.0100 #### [facility] [address] [place], [address] GAP 10 Normal 5-15 [facility] Comment on above: Performed By: #### L 500.4050, L100.0100 #### [facility] [address] [place], [address] GFR/1.73 sq M.predicted among non-blacks MDRD (S/P/Bld) [Vol rate/Area] 112 mL/min/{1.73_m2} Normal >60 [facility] Comment on above: Result Comment: mL/m in/1.73m2 CKD-EPI Creatinine Equation (2020) Performed By: #### L 500.4050, L100.0100 #### [facility] [address] [place], [address] Globulin (S) [Mass/Vol] 3.0 g/dL Normal 2.2-4.2 [facility] Comment on above: Performed By: #### L 500.4050, L100.0100 #### [facility] [address] [place], [address] Glucose [Mass/Vol] 85 mg/dL Normal 70-99 [facility] Comment on above: Performed By: #### L 500.4050, L100.0100 #### [facility] [address] [place], [address] Potassium [Moles/Vol] 3.5 mmol/L Normal 3.3-5.1 [facility] Comment on above: Performed By: #### L 500.4050, L100.0100 #### [facility] [address] [place], [address] Sodium [Moles/Vol] 138 mmol/L Normal 133-145 [facility] Comment on above: Performed By: #### L 500.4050, L100.0100 #### [facility] [address] [place], [address] T PROT 6.9 g/dL Normal 5.9-8.4 [facility] Comment on above: Performed By: #### L 500.4050, L100.0100 #### [facility] [address] [place], [address] Urea nitrogen [Mass/Vol] 18 mg/dL Normal 4-19 [facility] Comment on above: Performed By: #### L 500.4050, L100.0100 #### [facility] [address] [place], [address] Eosinophil percentageOrdered By: Olga Dang on 12-16-2024 Eosinophils/100 WBC (Bld) 2.1 % 0-5 [facility] Erythrocyte distribution wid th ratioOrdered By: Olga Dang on 12-16-2024 Erythrocyte distribution width (RBC) [Ratio] 13.1 % 11.6-14.6 [facility] Erythrocyte distribution wid th standard deviationOrdered By: Olgadwayne Dang on 12-16-2024 Erythrocyte distribution width (RBC) [Ratio] 41.9 fl 35.1-43.9 [facility] Glomerular filtration rate ( GFR) estimation/1.73 sq m using serum, plasma, or whole bOrdered By: Olgadwayne Dang on 12-16-2024 GFR/1.73 sq M.predicted among non-blacks MDRD (S/P/Bld) [Vol rate/Area] 112 mL/min/{1.73_m2} >60 [facility] Comment on above: mL/min/1.73m2 CKD-EP I Creatinine Equation (2020) Hematocrit Auto (Bld) [Volum e fraction]Ordered By: [facility] Laurence on 12-16-2024 Hematocrit (Bld) [Volume fraction] 37.3 % 37-47 [facility] Hemoglobin measurementOrdere d By: Olga Dang on 12-16-2024 Hemoglobin (Bld) [Mass/Vol] 12.3 g/dL 12.0-15.0 [facility] Immature granulocytes/100 WB C Auto (Bld)Ordered By: Olga Dang on 12-16-2024 Immature granulocytes/100 WBC (Bld) 0.300 % 0.0-0.9 [facility] Comment on above: IG% - Immature Granu locytes (promyelocytes, myelocytes and metamyelocytes) > 1% indicates that a LEFT SHIFT is Present. Laboratory - Chemistry and C hemistry - challengeOrdered By: Olga Dang on 12-16-2024 AST [Catalytic activity/Vol] 17 U/L <32 [facility] MCV (mean corpuscular volume ) determinationOrdered By: Olga Dang 12-16-2024 MCV (RBC) [Entitic vol] 87.4 fL 81-99 [facility] Mean corpuscular hemoglobin (MCH) determinationOrdered By: Olga Dang on 12-16-2024 MCH (RBC) [Entitic mass] 28.8 pg 27.0-32.0 [facility] Mean corpuscular hemoglobin concentration (MCHC) determinationOrdered By: Olga Dang on 12-16-2024 MCHC (RBC) [Mass/Vol] 33.0 g/dL 32-36 [facility] Mean platelet volume determi nationOrdered By: Olga Dang on 12-16-2024 Platelet mean volume (Bld) [Entitic vol] 10.9 fL 6.2-12.0 [facility] Monocyte percentageOrdered B y: Olga Dang on 12-16-2024 Monocytes/100 WBC (Bld) 5.0 % 0-10 [facility] Neutrophil percentageOrdered By: Olga Dang on 12-16-2024 Neutrophils/100 WBC (Bld) 73.0 % High 47-70 [facility] Nucleated red blood cell per centageOrdered By: Olga Dang on 12-16-2024 Nucleated RBC/100 WBC (Bld) [Ratio] 0 % 0-5 [facility] Platelet countOrdered By: Guillermo Dang on 12-16-2024 Platelets (Bld) [#/Vol] 230 10*3/uL 150-450 [facility] Potassium measurement (mass/ volume)Ordered By: Olga Dang on 12-16-2024 Potassium (Unsp spec) [Mass/Vol] 3.5 mmol/L 3.3-5.1 [facility] RBC Auto (Bld) [#/Vol]Ordere d By: Olga Dang on 12-16-2024 RBC (Bld) [#/Vol] 4.27 10*6/uL 4.2-5.4 [facility] Serum creatinine measurement (mass/volume)Ordered By: Olga Dang on 12-16-2024 Creatinine [Mass/Vol] 0.64 mg/dL Low 0.70-1.20 [facility] Serum globulin measurementOr dered By: Olga Dang on 12-16-2024 Globulin (S) [Mass/Vol] 3.0 g/dL 2.2-4.2 [facility] Serum glucose measurement (m ass/volume)Ordered By: Olga Dang on 12-16-2024 Glucose [Mass/Vol] 85 mg/dL 70-99 [facility] Serum or plasma alanine [place] otransferase (ALT) measurementOrdered By: Olga Dang on 12-16-2024 ALT [Catalytic activity/Vol] 16 U/L <35 [facility] Serum or plasma albumin rosa urement (mass/volume)Ordered By: Olga Dang on 12-16-2024 Albumin [Mass/Vol] 3.9 g/dL 3.5-5.0 [facility] Serum or plasma albumin/glob ulin mass ratioOrdered By: Olga Dang on 12-16-2024 Albumin/Globulin [Mass ratio] 1.3 {ratio} 0.9-2.4 [facility] Serum or plasma alkaline mendez sphatase measurementOrdered By: Olga Dang on 12-16-2024 ALP [Catalytic activity/Vol] 91 U/L 35-104 [facility] Serum or plasma calcium rosa urement (mass/volume)Ordered By: Olga Dang on 12-16-2024 Calcium [Mass/Vol] 9.1 mg/dL 7.6-11.0 [facility] Serum or plasma urea nitroge n measurement (mass/volume)Ordered By: Olga Dang on 12-16-2024 Urea nitrogen [Mass/Vol] 18 mg/dL 4-19 [facility] Sodium levelOrdered By: Dre Dang on 12-16-2024 Sodium [Moles/Vol] 138 mmol/L 133-145 [facility] Total proteinOrdered By: Alfonzo Dang on 12-16-2024 Protein [Mass/Vol] 6.9 g/dL 5.9-8.4 [facility] White blood cell (WBC) count Ordered By: Olga Dang on 12-16-2024 WBC (Bld) [#/Vol] 10.9 10*3/uL 4.4-11.0 [facility] 36on 10-26-2024 36 Message released to patient as written. Noel Marquez DO 10/24/24 8:10 AM There are too many side effects and risks for family doctors to assume management with prescribing Taltz. Those rx have to go through rheumatologists Patient's further questions if applicable: NA Were all questions from office addressed or relayed to the patient from encounter: Yes [facility] 10-25-2024 36 Left message to retu rn call Noel Marquez 10/24/24 8:10 AM There are too many side effects and risks for family doctors to assume management with prescribing Taltz. Those rx have to go through rheumatologists [facility] 10-21-2024 36 Name of caller: Carlitos joya Contact phone number: [phone] Relationship to Patient: patient Provider: Jimmy Practice: [facility] Chief Complaint/Reason for Call: Patient states she is still seeing senior environmental practice leader Dr Dang and she has always been self pay due to office not her accepting insurance. Patient states now she is unable to receive medication Taltz she can't even pay out of pocket for it. Patient is asking can pcp prescribe medication but she still will see provider Laurence. Please advise patient. Best time of day caller can be reached: any Patient advised that office/PCP has 24-48 business hours to return their call: Yes [facility] Quantiferon TB-Gold+on 09-24 QFT MITOGEN BUD 3.05 IU/mL Normal . [facility] Comment on above: Performed By: #### L 3400.8000 #### [facility] [address] [place], [address] QFT NIL VALUE 0.06 IU/mL Normal . [facility] Comment on above: Performed By: #### L 3400.8000 #### [facility] [address] [place], [address] QFT TB GOLD+ Comment Normal . [facility] Comment on above: Result Comment: Elliot tiFERON-TB Gold Plus is a qualitative indirect test for M tuberculosis infection (including disease) and is intended for use in conjunction with risk assessment, radiography, and other medical and diagnostic evaluations. The QuantiFERON-TB Gold Plus result is determined by subtracting the Nil value from either TB antigen (Ag) value. The Mitogen tube serves as a control for the test. Performed By: #### L 3400.8000 #### [facility] [address] [place], [place], [id number] QFT TB POS CRIT Negative Normal Negative [facility] Comment on above: Result Comment: No r esponse to M tuberculosis antigens detected. Infection with M tuberculosis is unlikely, but high risk individuals should be considered for additional testing (ATS/IDSA/CDC Clinical Practice Guidelines, 2017). The reference range is an Antigen minus Nil result of <0.35 IU/mL. The specimen received for QuantiFERON testing was incubated by the ordering institution. Specific procedures outlined in our Directory of Services and in the package insert for the QuantiFERON Gold (In Tube) test must be followed to enable for proper stimulation of cells for the production of interferon gamma. Chemiluminescence immunoassay methodology Performed at: [facility] [employer] [id number] Program Technician: Dillon Young PhD, Phone: [phone] Performed By: #### L 3400.8000 #### [facility] [address], [address] QFT TB1+ AG BUD 0.08 IU/mL Normal . [facility] Comment on above: Performed By: #### L 3400.8000 #### [facility] [address] [place], [address] QFT TB2+ AG BUD 0.24 IU/mL Normal . [facility] Comment on above: Performed By: #### L 3400.8000 #### [facility] [address] [place], [place], [id number] Chest PA and Lateralon 09-22 Chest PA and Lateral [facility] Services [address] [place] [address] Chest PA and Lateral MR#: [id number] Acct: [id number] Name: LAXMI GAONA Rep #: [id number] : 1980 F 44 From: Nickie Bruce PCP: Dr. Noel Marquez DO Status: REG CLI Study: Chest PA and Lateral Date of Exam: 09/22/24 Exam# [id number] Ordering Dr: Olga Dang MD PROCEDURE: CHEST PA AND LATERAL 09/22/2024 REASON FOR EXAM: PAIN TECHNIQUE: Frontal and lateral views of the chest. COMPARISON: 04/02/2022 FINDINGS: No focal consolidations. No pleural effusion or pneumothorax. Cardiac silhouette is within normal limits. No acute fractures. RAD/Chest PA and Lateral IMPRESSION: No focal consolidations. Reading Location: [facility] CC: Dr. Noel Marquez DO; Dr. Olga Dang MD Will Call Order Clerk: Signed Normal [facility] Qualitative QuantiFERON-TB g old in tube testOrdered By: Olga Dang on 09-22-2024 M. tuberculosis tuberculin stim IFN-g Ql (Bld) 0.08 IU/mL . [facility] Absolute lymphocyte countOrd ered By: Olga Dang on 09-21-2024 Lymphocytes Auto (Unsp spec) [#/Vol] 2.34 10*3/uL 0.83-4.51 [facility] Absolute neutrophil countOrd ered By: Olga Dang on 09-21-2024 Neutrophils (Bld) [#/Vol] 8.4 10*3/uL High 2.0-7.7 [facility] Anion gap in Serum or Plasma Ordered By: Olga Dang on 09-21-2024 Anion gap [Moles/Vol] 12 mmol/L 5-15 [facility] Automated lymphocyte count a s percentage of total leukocytesOrdered By: Olga Dang on 09-21-2024 Lymphocytes/100 WBC Auto (Unsp spec) 20.4 % 19-41 [facility] BUN/creatinine ratioOrdered By: Olga Dang on 09-21-2024 Urea nitrogen/Creatinine [Mass ratio] 20.4 mg/mg High 10-20 [facility] Basophil percentageOrdered B y: Olga Dang on 09-21-2024 Basophils/100 WBC (Bld) 0.4 % 0-1 [facility] Bilirubin, totalOrdered By: Olga Dang on 09-21-2024 Bilirubin [Mass/Vol] 0.36 mg/dL 0.00-1.30 [facility] CBC W/Diff, Automatedon Absolute Lymph 2.34 X10 3/uL Normal 0.83-4.51 [facility] Comment on above: Performed By: #### L 500.4050, L100.0100 #### [facility] [address] [place], [address] Absolute Neut 8.4 X10 3/uL High 2.0-7.7 [facility] Comment on above: Performed By: #### L 500.4050, L100.0100 #### [facility] [address] [place], [address] Basophils/100 WBC (Bld) 0.4 % Normal 0-1 [facility] Comment on above: Performed By: #### L 500.4050, L100.0100 #### [facility] [address] [place], [address] Eosinophils/100 WBC (Bld) 1.4 % Normal 0-5 [facility] Comment on above: Performed By: #### L 500.4050, L100.0100 #### [facility] [address] [place], [address] Erythrocyte distribution width (RBC) [Ratio] 13.2 % Normal 11.6-14.6 [facility] Comment on above: Performed By: #### L 500.4050, L100.0100 #### [facility] [address] [place], [address] Hematocrit (Bld) [Volume fraction] 39.1 % Normal 37-47 [facility] Comment on above: Performed By: #### L 500.4050, L100.0100 #### [facility] [address] [place], [address] Hemoglobin (Bld) [Mass/Vol] 12.8 g/dL Normal 12.0-15.0 [facility] Comment on above: Performed By: #### L 500.4050, L100.0100 #### [facility] [address] [place], [address] IG% 0.300 Normal 0.0-0.9 [facility] Comment on above: Result Comment: IG% - Immature Granulocytes (promyelocytes, myelocytes and metamyelocytes) > 1% indicates that a LEFT SHIFT is Present. Performed By: #### L 500.4050, L100.0100 #### [facility] [address] [place], [address] Lymphocytes/100 WBC (Bld) 20.4 % Normal 19-41 [facility] Comment on above: Performed By: #### L 500.4050, L100.0100 #### [facility] [address] [place], [address] MCH (RBC) [Entitic mass] 28.6 pg Normal 27.0-32.0 [facility] Comment on above: Performed By: #### L 500.4050, L100.0100 #### [facility] [address] [place], [address] MCHC (RBC) [Mass/Vol] 32.7 g/dL Normal 32-36 [facility] Comment on above: Performed By: #### L 500.4050, L100.0100 #### [facility] [address] [place], [address] MCV (RBC) [Entitic vol] 87.3 fL Normal 81-99 [facility] Comment on above: Performed By: #### L 500.4050, L100.0100 #### [facility] [address] [place], [address] Monocytes/100 WBC (Bld) 4.5 % Normal 0-10 [facility] Comment on above: Performed By: #### L 500.4050, L100.0100 #### [facility] [address] [place], [address] Neutrophils/100 WBC (Bld) 73.0 % High 47-70 [facility] Comment on above: Performed By: #### L 500.4050, L100.0100 #### [facility] [address] [place], [address] Nucleated RBC (Bld) [#/Vol] 0 10*3/uL Normal 0-5 [facility] Comment on above: Performed By: #### L 500.4050, L100.0100 #### [facility] [address] [place], [address] Platelet mean volume (Bld) [Entitic vol] 11.4 fL Normal 6.2-12.0 [facility] Comment on above: Performed By: #### L 500.4050, L100.0100 #### [facility] [address] [place], [address] Platelets (Bld) [#/Vol] 225 10*3/uL Normal 150-450 [facility] Comment on above: Performed By: #### L 500.4050, L100.0100 #### [facility] [address] [place], [address] RBC (Bld) [#/Vol] 4.48 10*6/uL Normal 4.2-5.4 [facility] Comment on above: Performed By: #### L 500.4050, L100.0100 #### [facility] [address] [place], [address] RDW SD 42.3 fl Normal 35.1-43.9 [facility] Comment on above: Performed By: #### L 500.4050, L100.0100 #### [facility] [address] [place], [address] WBC (Bld) [#/Vol] 11.5 10*3/uL High 4.4-11.0 [facility] Comment on above: Performed By: #### L 500.4050, L100.0100 #### [facility] [address] [place], [address] Carbon dioxide, total [Moles /volume] in Central venous bloodOrdered By: Olga Dang on 09-21-2024 CO2 [Moles/Vol] 22.0 mmol/L 21.0-32.0 [facility] Chloride assayOrdered By: Guillermo Dang on 09-21-2024 Chloride [Moles/Vol] 103 mmol/L 98-108 [facility] Comprehensive Metabolic Prof ilon 09-21-2024 Albumin [Mass/Vol] 3.8 g/dL Normal 3.5-5.0 [facility] Comment on above: Performed By: #### L 500.4050, L100.0100 #### [facility] [address] [place], [address] Albumin/Globulin [Mass ratio] 1.1 {ratio} Normal 0.9-2.4 [facility] Comment on above: Performed By: #### L 500.4050, L100.0100 #### [facility] [address] [place], [address] ALK PHOS 94 U/L Normal 35-104 [facility] Comment on above: Performed By: #### L 500.4050, L100.0100 #### [facility] [address] [place], [address] ALT [Catalytic activity/Vol] 13 U/L Normal <=34 [facility] Comment on above: Performed By: #### L 500.4050, L100.0100 #### [facility] [address] [place], [address] AST [Catalytic activity/Vol] 14 U/L Normal <=31 [facility] Comment on above: Performed By: #### L 500.4050, L100.0100 #### [facility] [address] [place], [address] Bilirubin [Mass/Vol] 0.36 mg/dL Normal 0.00-1.30 [facility] Comment on above: Performed By: #### L 500.4050, L100.0100 #### [facility] [address] [place], [address] BUN/CRE 20.4 RATIO High 10-20 [facility] Comment on above: Performed By: #### L 500.4050, L100.0100 #### [facility] [address] [place], [address] Calcium [Mass/Vol] 8.9 mg/dL Normal 7.6-11.0 [facility] Comment on above: Performed By: #### L 500.4050, L100.0100 #### [facility] [address] [place], [address] Chloride [Moles/Vol] 103 mmol/L Normal 98-108 [facility] Comment on above: Performed By: #### L 500.4050, L100.0100 #### [facility] [address] [place], [address] CO2 [Moles/Vol] 22.0 mmol/L Normal 21.0-32.0 [facility] Comment on above: Performed By: #### L 500.4050, L100.0100 #### [facility] [address] [place], [address] Creatinine [Mass/Vol] 0.59 mg/dL Low 0.70-1.20 [facility] Comment on above: Performed By: #### L 500.4050, L100.0100 #### [facility] [address] [place], [address] GAP 12 Normal 5-15 [facility] Comment on above: Performed By: #### L 500.4050, L100.0100 #### [facility] [address] [place], [address] GFR/1.73 sq M.predicted among non-blacks MDRD (S/P/Bld) [Vol rate/Area] 114 mL/min/{1.73_m2} Normal >60 [facility] Comment on above: Result Comment: mL/m in/1.73m2 CKD-EPI Creatinine Equation (2020) Performed By: #### L 500.4050, L100.0100 #### [facility] [address] [place], [address] Globulin (S) [Mass/Vol] 3.3 g/dL Normal 2.2-4.2 [facility] Comment on above: Performed By: #### L 500.4050, L100.0100 #### [facility] [address] [place], [address] Glucose [Mass/Vol] 89 mg/dL Normal 70-99 [facility] Comment on above: Performed By: #### L 500.4050, L100.0100 #### [facility] [address] [place], [address] Potassium [Moles/Vol] 3.8 mmol/L Normal 3.3-5.1 [facility] Comment on above: Performed By: #### L 500.4050, L100.0100 #### [facility] [address] [place], [address] Sodium [Moles/Vol] 138 mmol/L Normal 133-145 [facility] Comment on above: Performed By: #### L 500.4050, L100.0100 #### [facility] [address] [place], [address] T PROT 7.1 g/dL Normal 5.9-8.4 [facility] Comment on above: Performed By: #### L 500.4050, L100.0100 #### [facility] [address] [place], [address] Urea nitrogen [Mass/Vol] 12 mg/dL Normal 4-19 [facility] Comment on above: Performed By: #### L 500.4050, L100.0100 #### [facility] [address] [place], [address] Eosinophil percentageOrdered By: Olga Dang on 09-21-2024 Eosinophils/100 WBC (Bld) 1.4 % 0-5 [facility] Erythrocyte distribution wid th ratioOrdered By: [facility] Laurence on 09-21-2024 Erythrocyte distribution width (RBC) [Ratio] 13.2 % 11.6-14.6 [facility] Erythrocyte distribution wid th standard deviationOrdered By: Olga Dang on 09-21-2024 Erythrocyte distribution width (RBC) [Ratio] 42.3 fl 35.1-43.9 [facility] Glomerular filtration rate ( GFR) estimation/1.73 sq m using serum, plasma, or whole bOrdered By: Olga Dang on 09-21-2024 GFR/1.73 sq M.predicted among non-blacks MDRD (S/P/Bld) [Vol rate/Area] 114 mL/min/{1.73_m2} >60 [facility] Comment on above: mL/min/1.73m2 CKD-EP I Creatinine Equation (2020) Hematocrit Auto (Bld) [Volum e fraction]Ordered By: Olga Dang on 09-21-2024 Hematocrit (Bld) [Volume fraction] 39.1 % 37-47 [facility] Hemoglobin measurementOrdere d By: Olga Dang on 09-21-2024 Hemoglobin (Bld) [Mass/Vol] 12.8 g/dL 12.0-15.0 [facility] Immature granulocytes/100 WB C Auto (Bld)Ordered By: Olga Dang on 09-21-2024 Immature granulocytes/100 WBC (Bld) 0.300 % 0.0-0.9 [facility] Comment on above: IG% - Immature Granu locytes (promyelocytes, myelocytes and metamyelocytes) > 1% indicates that a LEFT SHIFT is Present. Laboratory - Chemistry and C hemistry - challengeOrdered By: Olga Dang on 09-21-2024 AST [Catalytic activity/Vol] 14 U/L <32 [facility] MCV (mean corpuscular volume ) determinationOrdered By: Olga Dang on 09-21-2024 MCV (RBC) [Entitic vol] 87.3 fL 81-99 [facility] Mean corpuscular hemoglobin (MCH) determinationOrdered By: Olga Dang on 09-21-2024 MCH (RBC) [Entitic mass] 28.6 pg 27.0-32.0 [facility] Mean corpuscular hemoglobin concentration (MCHC) determinationOrdered By: Olga Dang on 09-21-2024 MCHC (RBC) [Mass/Vol] 32.7 g/dL 32-36 [facility] Mean platelet volume determi nationOrdered By: Olga Dang on 09-21-2024 Platelet mean volume (Bld) [Entitic vol] 11.4 fL 6.2-12.0 [facility] Monocyte percentageOrdered B y: Olga Dang on 09-21-2024 Monocytes/100 WBC (Bld) 4.5 % 0-10 [facility] Neutrophil percentageOrdered By: Olga Dang on 09-21-2024 Neutrophils/100 WBC (Bld) 73.0 % High 47-70 [facility] Nucleated red blood cell per centageOrdered By: Olga Dang on 09-21-2024 Nucleated RBC/100 WBC (Bld) [Ratio] 0 % 0-5 [facility] Platelet countOrdered By: Guillermo Dang on 09-21-2024 Platelets (Bld) [#/Vol] 225 10*3/uL 150-450 [facility] Potassium measurement (mass/ volume)Ordered By: Olga Dang on 09-21-2024 Potassium (Unsp spec) [Mass/Vol] 3.8 mmol/L 3.3-5.1 [facility] RBC Auto (Bld) [#/Vol]Ordere d By: Olga Dang on 09-21-2024 RBC (Bld) [#/Vol] 4.48 10*6/uL 4.2-5.4 [facility] Serum creatinine measurement (mass/volume)Ordered By: Olga Dang on 09-21-2024 Creatinine [Mass/Vol] 0.59 mg/dL Low 0.70-1.20 [facility] Serum globulin measurementOr dered By: Olga Dang on 09-21-2024 Globulin (S) [Mass/Vol] 3.3 g/dL 2.2-4.2 [facility] Serum glucose measurement (m ass/volume)Ordered By: Olga Dang on 09-21-2024 Glucose [Mass/Vol] 89 mg/dL 70-99 [facility] Serum or plasma alanine [place] otransferase (ALT) measurementOrdered By: Olga Dang on 09-21-2024 ALT [Catalytic activity/Vol] 13 U/L <35 [facility] Serum or plasma albumin rosa urement (mass/volume)Ordered By: Olga Dang on 09-21-2024 Albumin [Mass/Vol] 3.8 g/dL 3.5-5.0 [facility] Serum or plasma albumin/glob ulin mass ratioOrdered By: Olga Dang on 09-21-2024 Albumin/Globulin [Mass ratio] 1.1 {ratio} 0.9-2.4 [facility] Serum or plasma alkaline mendez sphatase measurementOrdered By: Olga Dang on 09-21-2024 ALP [Catalytic activity/Vol] 94 U/L 35-104 [facility] Serum or plasma calcium rosa urement (mass/volume)Ordered By: Olga Dang on 09-21-2024 Calcium [Mass/Vol] 8.9 mg/dL 7.6-11.0 [facility] Serum or plasma urea nitroge n measurement (mass/volume)Ordered By: Olga Dang on 09-21-2024 Urea nitrogen [Mass/Vol] 12 mg/dL 4-19 [facility] Sodium levelOrdered By: Dre Dang on 09-21-2024 Sodium [Moles/Vol] 138 mmol/L 133-145 [facility] Total proteinOrdered By: Alfonzo Dang on 09-21-2024 Protein [Mass/Vol] 7.1 g/dL 5.9-8.4 [facility] White blood cell (WBC) count Ordered By: Olga Dang on 09-21-2024 WBC (Bld) [#/Vol] 11.5 10*3/uL High 4.4-11.0 [facility] 36on 08-02-2024 36 Recent Visits Date Type Provider Dept 07/02/24 Office Visit Noel Marquez DO [facility] Robert 12/24/23 Office Visit Noel Marquez DO [facility] Showing recent visits within past 365 days [...] labs completed in chart? N/A None Normal [facility] Office Visiton 07-02-2024 Follow-up visit [id number] Laxmi Gaona 1980 F Date Provider Department Center 07/02/2024 [id number] MARQUEZ [facility] Family History Problem Relation Age of Onset [...] Grandfather Paternal Grandmother Paternal Grandfather Level of Service:03044 DE OFFICE/OUTPATIENT ESTABLISHED LOW MDM 20 MIN Reason for Visit and Comments: 6 Month Follow-up [671] Normal [facility] Progress Noteon 07-02-2024 Progress Note [facility] - [address] [facility] [id number] Visit type: Established Patient [...] pain. No recent bowel changes. Overdue for [employer] exam and promises to make an appointment [...] ecchymotic area along the left ankle. Normal [facility] Absolute lymphocyte countOrd ered By: [facility] Laurence on 06-18-2024 Lymphocytes Auto (Unsp spec) [#/Vol] 1.85 10*3/uL 0.83-4.51 [facility] Absolute neutrophil countOrd ered By: [facility]24 Neutrophils (Bld) [#/Vol] 6.9 10*3/uL 2.0-7.7 [facility] Automated lymphocyte count a s percentage of total leukocytesOrdered By: [facility] on 06-18-2024 Lymphocytes/100 WBC Auto (Unsp spec) 19.8 % 19-41 [facility] BUN/creatinine ratioOrdered By: [facility] on 06-18-2024 Urea nitrogen/Creatinine [Mass ratio] 19.3 mg/mg 10-20 [facility] Basophil percentageOrdered B y: [facility] 06-18-2024 Basophils/100 WBC (Bld) 0.4 % 0-1 [facility] Bilirubin, totalOrdered By: [facility] on 06-18-2024 Bilirubin [Mass/Vol] 0.67 mg/dL 0.00-1.30 [facility] CBC W/Diff, Automatedon 05-23 Absolute Lymph 1.85 X10 3/uL Normal 0.83-4.51 [facility] Comment on above: Performed By: #### L 500.4050, L100.0100 #### [facility] [address] [place], [place] [address]all lexie. [place], [place], [id number] Absolute Neut 6.9 X10 3/uL Normal 2.0-7.7 [facility] Comment on above: Performed By: #### L 500.4050, L100.0100 #### [facility] [address] [place], [address] Basophils/100 WBC (Bld) 0.4 % Normal 0-1 [facility] Comment on above: Performed By: #### L 500.4050, L100.0100 #### [facility] [address] [place], [address] Eosinophils/100 WBC (Bld) 1.6 % Normal 0-5 [facility] Comment on above: Performed By: #### L 500.4050, L100.0100 #### [facility] [address] [place], [address] Erythrocyte distribution width (RBC) [Ratio] 12.8 % Normal 11.6-14.6 [facility] Comment on above: Performed By: #### L 500.4050, L100.0100 #### [facility] [address] [place], [address] Hematocrit (Bld) [Volume fraction] 40.0 % Normal 37-47 [facility] Comment on above: Performed By: #### L 500.4050, L100.0100 #### [facility] [address] [place], [address] Hemoglobin (Bld) [Mass/Vol] 13.1 g/dL Normal 12.0-15.0 [facility] Comment on above: Performed By: #### L 500.4050, L100.0100 #### [facility] [address] [place], [address] IG% 0.400 Normal 0.0-0.9 [facility] Comment on above: Result Comment: IG% - Immature Granulocytes (promyelocytes, myelocytes and metamyelocytes) > 1% indicates that a LEFT SHIFT is Present. Performed By: #### L 500.4050, L100.0100 #### [facility] [address] [place], [address] Lymphocytes/100 WBC (Bld) 19.8 % Normal 19-41 [facility] Comment on above: Performed By: #### L 500.4050, L100.0100 #### [facility] [address] [place], [address] MCH (RBC) [Entitic mass] 29.0 pg Normal 27.0-32.0 [facility] Comment on above: Performed By: #### L 500.4050, L100.0100 #### [facility] [address] [place], [address] MCHC (RBC) [Mass/Vol] 32.8 g/dL Normal 32-36 [facility] Comment on above: Performed By: #### L 500.4050, L100.0100 #### [facility] [address] [place], [address] MCV (RBC) [Entitic vol] 88.7 fL Normal 81-99 [facility] Comment on above: Performed By: #### L 500.4050, L100.0100 #### [facility] [address] [place], [address] Monocytes/100 WBC (Bld) 3.7 % Normal 0-10 [facility] Comment on above: Performed By: #### L 500.4050, L100.0100 #### [facility] [address] [place], [address] Neutrophils/100 WBC (Bld) 74.1 % High 47-70 [facility] Comment on above: Performed By: #### L 500.4050, L100.0100 #### [facility] [address] [place], [address] Nucleated RBC (Bld) [#/Vol] 0 10*3/uL Normal 0-5 [facility] Comment on above: Performed By: #### L 500.4050, L100.0100 #### [facility] [address] [place], [address] Platelet mean volume (Bld) [Entitic vol] 11.1 fL Normal 6.2-12.0 [facility] Comment on above: Performed By: #### L 500.4050, L100.0100 #### [facility] [address] [place], [address] Platelets (Bld) [#/Vol] 230 10*3/uL Normal 150-450 [facility] Comment on above: Performed By: #### L 500.4050, L100.0100 #### [facility] [address] [place], [address] RBC (Bld) [#/Vol] 4.51 10*6/uL Normal 4.2-5.4 [facility] Comment on above: Performed By: #### L 500.4050, L100.0100 #### [facility] [address] [place], [address] RDW SD 41.9 fl Normal 35.1-43.9 [facility] Comment on above: Performed By: #### L 500.4050, L100.0100 #### [facility] [address] [place], [address] WBC (Bld) [#/Vol] 9.3 10*3/uL Normal 4.4-11.0 [facility] Comment on above: Performed By: #### L 500.4050, L100.0100 #### [facility] [address] [place], [address] Carbon dioxide measurementOr dered By: Olga Dang on 06-18-2024 CO2 [Moles/Vol] 24.1 mmol/L 22.0-29.0 [facility] Chloride measurementOrdered By: Olga Dang on 06-18-2024 Chloride [Moles/Vol] 104 mmol/L 96-108 [facility] Comprehensive Metabolic Prof ilon 06-18-2024 Albumin [Mass/Vol] 3.8 g/dL Normal 3.5-5.0 [facility] Comment on above: Performed By: #### L 500.4050, L100.0100 #### [facility] [address] [place], [address] Albumin/Globulin [Mass ratio] 1.2 {ratio} Normal 0.9-2.4 [facility] Comment on above: Performed By: #### L 500.4050, L100.0100 #### [facility] [address] [place], [address] ALK PHOS 96 U/L Normal 35-104 [facility] Comment on above: Performed By: #### L 500.4050, L100.0100 #### [facility] [address] [place], [address] ALT [Catalytic activity/Vol] 13 U/L Normal <=34 [facility] Comment on above: Performed By: #### L 500.4050, L100.0100 #### [facility] [address] [place], [address] Anion gap [Moles/Vol] 10 mmol/L Normal 5-15 [facility] Comment on above: Performed By: #### L 500.4050, L100.0100 #### [facility] [address] [place], [address] AST [Catalytic activity/Vol] 16 U/L Normal <=31 [facility] Comment on above: Performed By: #### L 500.4050, L100.0100 #### [facility] [address] [place], [address] Bilirubin [Mass/Vol] 0.67 mg/dL Normal 0.00-1.30 [facility] Comment on above: Performed By: #### L 500.4050, L100.0100 #### [facility] [address] [place], [address] BUN/CRE 19.3 RATIO Normal 10-20 [facility] Comment on above: Performed By: #### L 500.4050, L100.0100 #### [facility] [address] [place], [address] Calcium [Mass/Vol] 9.0 mg/dL Normal 7.6-11.0 [facility] Comment on above: Performed By: #### L 500.4050, L100.0100 #### [facility] [address] [place], [address] Chloride [Moles/Vol] 104 mmol/L Normal 96-108 [facility] Comment on above: Performed By: #### L 500.4050, L100.0100 #### [facility] [address] [place], [address] CO2 [Moles/Vol] 24.1 mmol/L Normal 22.0-29.0 [facility] Comment on above: Performed By: #### L 500.4050, L100.0100 #### [facility] [address] [place], [address] Creatinine [Mass/Vol] 0.55 mg/dL Low 0.70-1.20 [facility] Comment on above: Performed By: #### L 500.4050, L100.0100 #### [facility] [address] [place], [address] GFR/1.73 sq M.predicted among non-blacks MDRD (S/P/Bld) [Vol rate/Area] 116 mL/min/{1.73_m2} Normal >60 [facility] Comment on above: Result Comment: mL/m in/1.73m2 CKD-EPI Creatinine Equation (2020) Performed By: #### L 500.4050, L100.0100 #### [facility] [address] [place], [address] Globulin (S) [Mass/Vol] 3.2 g/dL Normal 2.2-4.2 [facility] Comment on above: Performed By: #### L 500.4050, L100.0100 #### [facility] [address] [place], [address] Glucose [Mass/Vol] 107 mg/dL High 70-99 [facility] Comment on above: Performed By: #### L 500.4050, L100.0100 #### [facility] [address] [place], [address] Potassium [Moles/Vol] 3.7 mmol/L Normal 3.3-5.1 [facility] Comment on above: Performed By: #### L 500.4050, L100.0100 #### [facility] [address] [place], [address] Sodium [Moles/Vol] 138 mmol/L Normal 133-145 [facility] Comment on above: Performed By: #### L 500.4050, L100.0100 #### [facility] [address] [place], [address] T PROT 7.0 g/dL Normal 5.9-8.4 [facility] Comment on above: Performed By: #### L 500.4050, L100.0100 #### [facility] [address] [place], [address] Urea nitrogen [Mass/Vol] 11 mg/dL Normal 4-19 [facility] Comment on above: Performed By: #### L 500.4050, L100.0100 #### [facility] [address] [place], [address] Eosinophil percentageOrdered By: Olga Dang on 06-18-2024 Eosinophils/100 WBC (Bld) 1.6 % 0-5 [facility] Erythrocyte distribution wid th ratioOrdered By: Olga Dang on 06-18-2024 Erythrocyte distribution width (RBC) [Ratio] 12.8 % 11.6-14.6 [facility] Erythrocyte distribution wid th standard deviationOrdered By: Olga Dang on 06-18-2024 Erythrocyte distribution width (RBC) [Entitic vol] 41.9 fL 35.1-43.9 [facility] Erythrocyte distribution width (RBC) [Ratio] 41.9 fl 35.1-43.9 [facility] GFR/1.73 sq M.predicted kam g non-blacks MDRD (S/P/Bld) [Vol rate/Area]Ordered By: Olga Dang on 06-18-2024 Estimated GFR (MDRD) Non-Af Amer 116 >60 [facility] Comment on above: mL/min/1.73m2 CKD-EP I Creatinine Equation (2020) Glomerular filtration rate ( GFR) estimation/1.73 sq m using serum, plasma, or whole bOrdered By: Olga Dang on 06-18-2024 GFR/1.73 sq M.predicted among non-blacks MDRD (S/P/Bld) [Vol rate/Area] 116 mL/min/{1.73_m2} >60 [facility] Comment on above: mL/min/1.73m2 CKD-EP I Creatinine Equation (2020) Hematocrit Auto (Bld) [Volum e fraction]Ordered By: Olga Dang on 06-18-2024 Hematocrit (Bld) [Volume fraction] 40.0 % 37-47 [facility] Hemoglobin measurementOrdere d By: Olga Dang on 06-18-2024 Hemoglobin (Bld) [Mass/Vol] 13.1 g/dL 12.0-15.0 [facility] Immature granulocytes/100 WB C Auto (Bld)Ordered By: Olga Dang on 06-18-2024 Immature granulocytes/100 WBC (Bld) 0.400 % 0.0-0.9 [facility] Comment on above: IG% - Immature Granu locytes (promyelocytes, myelocytes and metamyelocytes) > 1% indicates that a LEFT SHIFT is Present. Laboratory - Chemistry and C hemistry - challengeOrdered By: Olga Dang on 06-18-2024 AST [Catalytic activity/Vol] 16 U/L <32 [facility] Lymphocytes Auto (Unsp spec) [#/Vol]Ordered By: Olga Dang on 06-18-2024 Lymphocytes (Bld) [#/Vol] 1.85 10*3/uL 0.83-4.51 [facility] Lymphocytes/100 WBC Auto (Un sp spec)Ordered By: Olga Dang on 06-18-2024 Lymphocytes/100 WBC (Bld) 19.8 % 19-41 [facility] MCV (mean corpuscular volume ) determinationOrdered By: Olgadwayne Dang on 06-18-2024 MCV (RBC) [Entitic vol] 88.7 fL 81-99 [facility] Mean corpuscular hemoglobin (MCH) determinationOrdered By: Olgadwayne Dang on 06-18-2024 MCH (RBC) [Entitic mass] 29.0 pg 27.0-32.0 [facility] Mean corpuscular hemoglobin concentration (MCHC) determinationOrdered By: Olga Dang on 06-18-2024 MCHC (RBC) [Mass/Vol] 32.8 g/dL 32-36 [facility] Mean platelet volume determi nationOrdered By: Olga Dang on 06-18-2024 Platelet mean volume (Bld) [Entitic vol] 11.1 fL 6.2-12.0 [facility] Monocyte percentageOrdered B y: Olga Dang on 06-18-2024 Monocytes/100 WBC (Bld) 3.7 % 0-10 [facility] Neutrophil percentageOrdered By: [facility]rence on 06-18-2024 Neutrophils/100 WBC (Bld) 74.1 % High 47-70 [facility] Nucleated red blood cell per centageOrdered By: Olgadwayne Dang on 06-18-2024 Nucleated RBC/100 WBC (Bld) [Ratio] 0 % 0-5 [facility] Platelet countOrdered By: Guillermo Dang on 06-18-2024 Platelets (Bld) [#/Vol] 230 10*3/uL 150-450 [facility] RBC Auto (Bld) [#/Vol]Ordere d By: Olga Dang on 06-18-2024 RBC (Bld) [#/Vol] 4.51 10*6/uL 4.2-5.4 [facility] Serum creatinine measurement (mass/volume)Ordered By: Olga Dang on 06-18-2024 Creatinine [Mass/Vol] 0.55 mg/dL Low 0.70-1.20 [facility] Serum globulin measurementOr dered By: Olga Dang on 06-18-2024 Globulin (S) [Mass/Vol] 3.2 g/dL 2.2-4.2 [facility] Serum glucose measurement (m ass/volume)Ordered By: Olga Dang on 06-18-2024 Glucose [Mass/Vol] 107 mg/dL High 70-99 [facility] Serum or plasma alanine [place] otransferase (ALT) measurementOrdered By: Olga Dang on 06-18-2024 ALT [Catalytic activity/Vol] 13 U/L <35 [facility] Serum or plasma albumin rosa urement (mass/volume)Ordered By: Olga Dang on 06-18-2024 Albumin [Mass/Vol] 3.8 g/dL 3.5-5.0 [facility] Serum or plasma albumin/glob ulin mass ratioOrdered By: Olga Dang on 06-18-2024 Albumin/Globulin [Mass ratio] 1.2 {ratio} 0.9-2.4 [facility] Serum or plasma alkaline mendez sphatase measurementOrdered By: Olga Dang on 06-18-2024 ALP [Catalytic activity/Vol] 96 U/L 35-104 [facility] Serum or plasma anion gap de termination (moles/volume)Ordered By: Olga Dang on 06-18-2024 Anion gap [Moles/Vol] 10 mmol/L 5-15 [facility] Serum or plasma calcium rosa urement (mass/volume)Ordered By: Olga Dang on 06-18-2024 Calcium [Mass/Vol] 9.0 mg/dL 7.6-11.0 [facility] Serum or plasma potassium me asurementOrdered By: Olga Dang on 06-18-2024 Potassium [Moles/Vol] 3.7 mmol/L 3.3-5.1 [facility] Serum or plasma sodium measu rement (moles/volume)Ordered By: Olga Dang on 06-18-2024 Sodium [Moles/Vol] 138 mmol/L 133-145 [facility] Serum or plasma urea nitroge n measurement (mass/volume)Ordered By: Olga Dang on 06-18-2024 Urea nitrogen [Mass/Vol] 11 mg/dL 4-19 [facility] Total proteinOrdered By: Alfonzo Dang on 06-18-2024 Protein [Mass/Vol] 7.0 g/dL 5.9-8.4 [facility] White blood cell (WBC) count Ordered By: Olga Dang on 06-18-2024 WBC (Bld) [#/Vol] 9.3 10*3/uL 4.4-11.0 [facility] 36on 05-21-2024 36 Talked to patient an d relayed message and she said that she has discussed in great detail with the [employer] about the medications of meloxicam and methotrexate. Patient has been instructed to take the meloxicam very sparingly and only takes the methotrexate once per week. She has been made aware of the risks and interactions of these medications and is very cautious with taking them. Called pharmacist Carlos and relayed message and he verbalized understanding. [facility] 36 Name of caller: Carlos Contact phone number: [phone] Relationship to Patient: Pharmacy Provider: Jimmy Practice: [facility] Chief Complaint/Reason for Call: Pharmacy calling with possible interaction with meloxicam (Mobic) 15 MG tablet and Methotrexate prescribed by a different provider. Please Advise. Best time of day caller can be reached: Any Patient advised that office/PCP has 24-48 business hours to return their call: Yes [facility] 36on 05-03-2024 36 Recent Visits Date Type Provider Dept 12/24/23 Office Visit Noel Marquez DO [facility] Showing recent visits within past 365 days and meeting all other requirements Future Appointments Date Type Provider Dept 06/23/24 Appointment Noel Marquez DO [facility] Showing future appointments within next 90 [...] 07/19/2023 BUN 12 07/19/2023 CREATININE 0.61 07/19/2023 [facility] 36 03-30-2024 36 Recent Visits Date Type Provider Dept 12/24/23 Office Visit Noel Marquez DO [facility] 04/28/23 Office Visit Noel Marquez DO [facility] Showing recent visits within past 365 days and meeting all other requirements Future Appointments Date Type Provider Dept 06/23/24 Appointment Noel Marquez DO [facility] Showing future appointments within next 90 [...] 07/19/2023 BUN 12 07/19/2023 CREATININE 0.61 07/19/2023 Normal [facility] Absolute neutrophil countOrd ered By: Olga Dang on 03-29-2024 Neutrophils (Bld) [#/Vol] 10.2 10*3/uL High 2.0-7.7 [facility] Albumin to globulin ratioOrd ered By: Olga Dang on 03-29-2024 Albumin/Globulin [Mass ratio] 0.8 {ratio} Low 0.9-2.4 [facility] Basophil percentageOrdered B y: Olga Dang on 03-29-2024 Basophils/100 WBC (Bld) 0.5 % 0-1 [facility] Bilirubin, totalOrdered By: Olga Dang on 03-29-2024 Bilirubin [Mass/Vol] 0.50 mg/dL 0.20-1.00 [facility] Comment on above: For patients on eltr ombopag therapy, use of Dimension [place] TBIL is not recommended. Blood urea nitrogen (BUN)/cr eatinine ratioOrdered By: Olga Dang on 03-29-2024 Urea nitrogen/Creatinine [Mass ratio] 13.3 mg/mg 10-20 [facility] CBC W/Diff, Automatedon 12-0 Absolute Lymph 2.30 X10 3/uL Normal 0.83-4.51 [facility] Comment on above: Performed By: #### L 500.4050, L100.0100 #### [facility] [address] [place], [address] Absolute Neut 10.2 X10 3/uL High 2.0-7.7 [facility] Comment on above: Performed By: #### L 500.4050, L100.0100 #### [facility] [address] [place], [address] Basophils/100 WBC (Bld) 0.5 % Normal 0-1 [facility] Comment on above: Performed By: #### L 500.4050, L100.0100 #### [facility] [address] [place], [address] Eosinophils/100 WBC (Bld) 1.1 % Normal 0-5 [facility] Comment on above: Performed By: #### L 500.4050, L100.0100 #### [facility] [address] [place], [address] Erythrocyte distribution width (RBC) [Ratio] 13.1 % Normal 11.6-14.6 [facility] Comment on above: Performed By: #### L 500.4050, L100.0100 #### [facility] [address] [place], [address] Hematocrit (Bld) [Volume fraction] 38.4 % Normal 37-47 [facility] Comment on above: Performed By: #### L 500.4050, L100.0100 #### [facility] [address] [place], [address] Hemoglobin (Bld) [Mass/Vol] 12.4 g/dL Normal 12.0-15.0 [facility] Comment on above: Performed By: #### L 500.4050, L100.0100 #### [facility] [address] [place], [address] IG% 0.500 Normal 0.0-0.9 [facility] Comment on above: Result Comment: IG% - Immature Granulocytes (promyelocytes, myelocytes and metamyelocytes) > 1% indicates that a LEFT SHIFT is Present. Performed By: #### L 500.4050, L100.0100 #### [facility] [address] [place], [address] Lymphocytes/100 WBC (Bld) 17.4 % Low 19-41 [facility] Comment on above: Performed By: #### L 500.4050, L100.0100 #### [facility] [address] [place], [address] MCH (RBC) [Entitic mass] 28.9 pg Normal 27.0-32.0 [facility] Comment on above: Performed By: #### L 500.4050, L100.0100 #### [facility] [address] [place], [address] MCHC (RBC) [Mass/Vol] 32.3 g/dL Normal 32-36 [facility] Comment on above: Performed By: #### L 500.4050, L100.0100 #### [facility] [address] [place], [address] MCV (RBC) [Entitic vol] 89.5 fL Normal 81-99 [facility] Comment on above: Performed By: #### L 500.4050, L100.0100 #### [facility] [address] [place], [address] Monocytes/100 WBC (Bld) 3.6 % Normal 0-10 [facility] Comment on above: Performed By: #### L 500.4050, L100.0100 #### [facility] [address] [place], [address] Neutrophils/100 WBC (Bld) 76.9 % High 47-70 [facility] Comment on above: Performed By: #### L 500.4050, L100.0100 #### [facility] [address] [place], [address] Nucleated RBC (Bld) [#/Vol] 0 10*3/uL Normal 0-5 [facility] Comment on above: Performed By: #### L 500.4050, L100.0100 #### [facility] [address] [place], [address] Platelet mean volume (Bld) [Entitic vol] 10.8 fL Normal 6.2-12.0 [facility] Comment on above: Performed By: #### L 500.4050, L100.0100 #### [facility] [address] [place], [address] Platelets (Bld) [#/Vol] 242 10*3/uL Normal 150-450 [facility] Comment on above: Performed By: #### L 500.4050, L100.0100 #### [facility] [address] [place], [address] RBC (Bld) [#/Vol] 4.29 10*6/uL Normal 4.2-5.4 [facility] Comment on above: Performed By: #### L 500.4050, L100.0100 #### [facility] [address] [place], [address] RDW SD 42.1 fl Normal 35.1-43.9 [facility] Comment on above: Performed By: #### L 500.4050, L100.0100 #### [facility] [address] [place], [address] WBC (Bld) [#/Vol] 13.2 10*3/uL High 4.4-11.0 [facility] Comment on above: Performed By: #### L 500.4050, L100.0100 #### [facility] [address] [place], [address] Carbon dioxide measurementOr dered By: Olga Dang on 03-29-2024 CO2 [Moles/Vol] 28.0 mmol/L 21.0-32.0 [facility] Chloride measurementOrdered By: Olga Dang on 03-29-2024 Chloride [Moles/Vol] 107 mmol/L 98-107 [facility] Comprehensive Metabolic Prof ilon 03-29-2024 Albumin [Mass/Vol] 3.1 g/dL Low 3.2-5.0 [facility] Comment on above: Performed By: #### L 500.4050, L100.0100 #### [facility] [address] [place], [address] Albumin/Globulin [Mass ratio] 0.8 {ratio} Low 0.9-2.4 [facility] Comment on above: Performed By: #### L 500.4050, L100.0100 #### [facility] [address] [place], [address] ALK P 93 U/L Normal 45-117 [facility] Comment on above: Performed By: #### L 500.4050, L100.0100 #### [facility] [address] [place], [address] ALT [Catalytic activity/Vol] 21 U/L Normal 13-56 [facility] Comment on above: Performed By: #### L 500.4050, L100.0100 #### [facility] [address] [place], [address] AST [Catalytic activity/Vol] 14 U/L Low 15-37 [facility] Comment on above: Performed By: #### L 500.4050, L100.0100 #### [facility] [address] [place], [address] Bilirubin [Mass/Vol] 0.50 mg/dL Normal 0.20-1.00 [facility] Comment on above: Result Comment: For patients on eltrombopag therapy, use of Dimension [place] TBIL is not recommended. Performed By: #### L 500.4050, L100.0100 #### [facility] [address] [place], [address] BUN/CRE 13.3 RATIO Normal 10-20 [facility] Comment on above: Performed By: #### L 500.4050, L100.0100 #### [facility] [address] [place], [address] CA,Total 8.8 mg/dL Normal 8.5-10.1 [facility] Comment on above: Performed By: #### L 500.4050, L100.0100 #### [facility] [address] [place], [address] Chloride [Moles/Vol] 107 mmol/L Normal 98-107 [facility] Comment on above: Performed By: #### L 500.4050, L100.0100 #### [facility] [address] [place], [address] CO2 [Moles/Vol] 28.0 mmol/L Normal 21.0-32.0 [facility] Comment on above: Performed By: #### L 500.4050, L100.0100 #### [facility] [address] [place], [address] Creatinine [Mass/Vol] 0.83 mg/dL Normal 0.55-1.02 [facility] Comment on above: Result Comment: The validity of the calculated GFR GFRAA in patients over 70 years has not been determined. Clinical correlation is essential. Performed By: #### L 500.4050, L100.0100 #### [facility] [address] [place], [address] EST GFR - AA 96 mL/min Normal >60 [facility] Comment on above: Result Comment: Afri can [facility] GFR Calc Performed By: #### L 500.4050, L100.0100 #### [facility] [address] [place], [address] GAP 4 Low 5-15 [facility] Comment on above: Performed By: #### L 500.4050, L100.0100 #### [facility] [address] [place], [address] GFR/1.73 sq M.predicted among non-blacks MDRD (S/P/Bld) [Vol rate/Area] 79 mL/min/{1.73_m2} Normal >60 [facility] Comment on above: Result Comment: Non- GFR Calc Performed By: #### L 500.4050, L100.0100 #### [facility] [address] [place], [address] Globulin (S) [Mass/Vol] 4.0 g/dL Normal 2.2-4.2 [facility] Comment on above: Performed By: #### L 500.4050, L100.0100 #### [facility] [address] [place], [address] Glucose [Mass/Vol] 108 mg/dL High 74-106 [facility] Comment on above: Result Comment: Fast ing Glucose result from 100 to 125 mg/dL suggests IMPAIRED HOMEOSTASIS per A.D.A. criteria. Performed By: #### L 500.4050, L100.0100 #### [facility] [address] [place], [address] Potassium [Moles/Vol] 3.2 mmol/L Low 3.5-5.1 [facility] Comment on above: Performed By: #### L 500.4050, L100.0100 #### [facility] [address] [place], [address] Sodium [Moles/Vol] 139 mmol/L Normal 136-145 [facility] Comment on above: Performed By: #### L 500.4050, L100.0100 #### [facility] [address] [place], [address] T PROT 7.1 g/dL Normal 6.4-8.2 [facility] Comment on above: Performed By: #### L 500.4050, L100.0100 #### [facility] [address] [place], [address] Urea nitrogen [Mass/Vol] 11 mg/dL Normal 7-18 [facility] Comment on above: Performed By: #### L 500.4050, L100.0100 #### [facility] [address] [place], [address] Eosinophil percentageOrdered By: Olga Dang on 03-29-2024 Eosinophils/100 WBC (Bld) 1.1 % 0-5 [facility] Erythrocyte distribution wid th ratioOrdered By: Olgadwayne Dang on 03-29-2024 Erythrocyte distribution width (RBC) [Ratio] 13.1 % 11.6-14.6 [facility] Erythrocyte distribution wid th standard deviationOrdered By: [facility]rence on 03-29-2024 Erythrocyte distribution width (RBC) [Entitic vol] 42.1 fL 35.1-43.9 [facility] Estimated glomerular filtrat ion rate (GFR) AmericanOrdered By: Olga Dang on 03-29-2024 Estimated GFR (MDRD) Amer 96 mL/min >60 [facility] Comment on above: GFR Calc Glomerular filtration rate ( GFR) estimationOrdered By: Olga Dang on 03-29-2024 Estimated GFR (MDRD) Non-Af Amer 79 mL/min >60 [facility] Comment on above: Non- GFR Calc Glucose measurementOrdered B y: Olga Dang on 03-29-2024 Glucose [Mass/Vol] 108 mg/dL High 74-106 [facility] Comment on above: Fasting Glucose resu lt from 100 to 125 mg/dL suggests IMPAIRED HOMEOSTASIS per A.D.A. criteria. Hematocrit Auto (Bld) [Volum e fraction]Ordered By: Olga Dang on 03-29-2024 Hematocrit (Bld) [Volume fraction] 38.4 % 37-47 [facility] Hemoglobin measurementOrdere d By: Olga Dang on 03-29-2024 Hemoglobin (Bld) [Mass/Vol] 12.4 g/dL 12.0-15.0 [facility] Immature granulocytes/100 WB C Auto (Bld)Ordered By: Olgadwayne Dang on 03-29-2024 Immature granulocytes/100 WBC (Bld) 0.500 % 0.0-0.9 [facility] Comment on above: IG% - Immature Granu locytes (promyelocytes, myelocytes and metamyelocytes) > 1% indicates that a LEFT SHIFT is Present. Laboratory - Chemistry and C hemistry - challengeOrdered By: Olga Dang on 03-29-2024 AST [Catalytic activity/Vol] 14 U/L Low 15-37 [facility] Lymphocytes Auto (Unsp spec) [#/Vol]Ordered By: Olga Dang on 03-29-2024 Lymphocytes (Bld) [#/Vol] 2.30 10*3/uL 0.83-4.51 [facility] Lymphocytes/100 WBC Auto (Un sp spec)Ordered By: Olga Dang on 03-29-2024 Lymphocytes/100 WBC (Bld) 17.4 % Low 19-41 [facility] MCV (mean corpuscular volume ) determinationOrdered By: Olga Dang on 03-29-2024 MCV (RBC) [Entitic vol] 89.5 fL 81-99 [facility] Mean corpuscular hemoglobin (MCH) determinationOrdered By: Olga Dang on 03-29-2024 MCH (RBC) [Entitic mass] 28.9 pg 27.0-32.0 [facility] Mean corpuscular hemoglobin concentration (MCHC) determinationOrdered By: Olga Dang on 03-29-2024 MCHC (RBC) [Mass/Vol] 32.3 g/dL 32-36 [facility] Mean platelet volume determi nationOrdered By: Olga Dang on 03-29-2024 Platelet mean volume (Bld) [Entitic vol] 10.8 fL 6.2-12.0 [facility] Monocyte percentageOrdered B y: Olga Dang on 03-29-2024 Monocytes/100 WBC (Bld) 3.6 % 0-10 [facility] Neutrophil percentageOrdered By: Olga Dang on 03-29-2024 Neutrophils/100 WBC (Bld) 76.9 % High 47-70 [facility] Nucleated red blood cell per centageOrdered By: Olga Dang on 03-29-2024 Nucleated RBC/100 WBC (Bld) [Ratio] 0 % 0-5 [facility] Platelet countOrdered By: Guillermo Dang on 03-29-2024 Platelets (Bld) [#/Vol] 242 10*3/uL 150-450 [facility] Potassium measurementOrdered By: Olga Dang on 03-29-2024 Potassium [Moles/Vol] 3.2 mmol/L Low 3.5-5.1 [facility] RBC Auto (Bld) [#/Vol]Ordere d By: Olga Dang on 03-29-2024 RBC (Bld) [#/Vol] 4.29 10*6/uL 4.2-5.4 [facility] Serum anion gap measurementO rdered By: Olga Dang on 03-29-2024 Anion gap [Moles/Vol] 4 mmol/L Low 5-15 [facility] Serum globulin measurementOr dered By: Olga Dang on 03-29-2024 Globulin (S) [Mass/Vol] 4.0 g/dL 2.2-4.2 [facility] Serum or plasma alanine [place] otransferase (ALT) measurementOrdered By: Olga Dang on 03-29-2024 ALT [Catalytic activity/Vol] 21 U/L 13-56 [facility] Serum or plasma albumin rosa urement (mass/volume)Ordered By: Olga Dang on 03-29-2024 Albumin [Mass/Vol] 3.1 g/dL Low 3.2-5.0 [facility] Serum or plasma alkaline mendez sphatase measurementOrdered By: Olga Dang on 03-29-2024 ALP [Catalytic activity/Vol] 93 U/L 45-117 [facility] Serum or plasma calcium rosa urement (mass/volume)Ordered By: Olga Dang on 03-29-2024 Calcium [Mass/Vol] 8.8 mg/dL 8.5-10.1 [facility] Serum or plasma creatinine m easurement (mass/volume)Ordered By: Olga Dang on 03-29-2024 Creatinine [Mass/Vol] 0.83 mg/dL 0.55-1.02 [facility] Comment on above: The validity of the calculated GFR & GFRAA in patients over 70 years has not been determined. Clinical correlation is essential. Serum or plasma urea nitroge n measurement (mass/volume)Ordered By: Olga Dang on 03-29-2024 Urea nitrogen [Mass/Vol] 11 mg/dL 7-18 [facility] Sodium levelOrdered By: Dre Dang on 03-29-2024 Sodium [Moles/Vol] 139 mmol/L 136-145 [facility] Total proteinOrdered By: Alfonzo Dang on 03-29-2024 Protein [Mass/Vol] 7.1 g/dL 6.4-8.2 [facility] White blood cell (WBC) count Ordered By: Olga Dang on 03-29-2024 WBC (Bld) [#/Vol] 13.2 10*3/uL High 4.4-11.0 [facility] CBC W/Diff, Automatedon 09 Absolute Lymph 1.99 X10 3/uL Normal 0.83-4.51 [facility] Comment on above: Performed By: #### L 500.4050, L100.0100 #### [facility] [address] [place], [address] Absolute Neut 5.7 X10 3/uL Normal 2.0-7.7 [facility] Comment on above: Performed By: #### L 500.4050, L100.0100 #### [facility] [address] [facility] [place], [address] Basophils/100 WBC (Bld) 0.5 % Normal 0-1 [facility] Comment on above: Performed By: #### L 500.4050, L100.0100 #### [facility] [address] [facility] [place], [address] Eosinophils/100 WBC (Bld) 2.5 % Normal 0-5 [facility] Comment on above: Performed By: #### L 500.4050, L100.0100 #### [facility] [address] [facility] [place], [address] Erythrocyte distribution width (RBC) [Ratio] 12.7 % Normal 11.6-14.6 [facility] Comment on above: Performed By: #### L 500.4050, L100.0100 #### [facility] [address] [place], [address] Hematocrit (Bld) [Volume fraction] 37.2 % Normal 37-47 [facility] Comment on above: Performed By: #### L 500.4050, L100.0100 #### [facility] [address] [place], [address] Hemoglobin (Bld) [Mass/Vol] 12.2 g/dL Normal 12.0-15.0 [facility] Comment on above: Performed By: #### L 500.4050, L100.0100 #### [facility] [address] [place], [address] IG% 0.400 Normal 0.0-0.9 [facility] Comment on above: Result Comment: IG% - Immature Granulocytes (promyelocytes, myelocytes and metamyelocytes) > 1% indicates that a LEFT SHIFT is Present. Performed By: #### L 500.4050, L100.0100 #### [facility] [address] [place], [address] Lymphocytes/100 WBC (Bld) 24.0 % Normal 19-41 [facility] Comment on above: Performed By: #### L 500.4050, L100.0100 #### [facility] [address] [place], [address] MCH (RBC) [Entitic mass] 29.3 pg Normal 27.0-32.0 [facility] Comment on above: Performed By: #### L 500.4050, L100.0100 #### [facility] [address] [place], [address] MCHC (RBC) [Mass/Vol] 32.8 g/dL Normal 32-36 [facility] Comment on above: Performed By: #### L 500.4050, L100.0100 #### [facility] [address] [place], [address] MCV (RBC) [Entitic vol] 89.4 fL Normal 81-99 [facility] Comment on above: Performed By: #### L 500.4050, L100.0100 #### [facility] [address] [place], [address] Monocytes/100 WBC (Bld) 4.1 % Normal 0-10 [facility] Comment on above: Performed By: #### L 500.4050, L100.0100 #### [facility] [address] [place], [address] Neutrophils/100 WBC (Bld) 68.5 % Normal 47-70 [facility] Comment on above: Performed By: #### L 500.4050, L100.0100 #### [facility] [address] [place], [address] Nucleated RBC (Bld) [#/Vol] 0 10*3/uL Normal 0-5 [facility] Comment on above: Performed By: #### L 500.4050, L100.0100 #### [facility] [address] [place], [address] Platelet mean volume (Bld) [Entitic vol] 10.5 fL Normal 6.2-12.0 [facility] Comment on above: Performed By: #### L 500.4050, L100.0100 #### [facility] [address] [place], [address] Platelets (Bld) [#/Vol] 218 10*3/uL Normal 150-450 [facility] Comment on above: Performed By: #### L 500.4050, L100.0100 #### [facility] [address] [place], [address] RBC (Bld) [#/Vol] 4.16 10*6/uL Low 4.2-5.4 [facility] Comment on above: Performed By: #### L 500.4050, L100.0100 #### [facility] [address] [place], [address] RDW SD 41.4 fl Normal 35.1-43.9 [facility] Comment on above: Performed By: #### L 500.4050, L100.0100 #### [facility] [address] [place], [address] WBC (Bld) [#/Vol] 8.3 10*3/uL Normal 4.4-11.0 [facility] Comment on above: Performed By: #### L 500.4050, L100.0100 #### [facility] [address] [place], [address] Comprehensive Metabolic Prof [facility] 12-29-2023 Albumin [Mass/Vol] 3.0 g/dL Low 3.2-5.0 [facility] Comment on above: Performed By: #### L 500.4050, L100.0100 #### [facility] [address] [place], [address] Albumin/Globulin [Mass ratio] 0.8 {ratio} Low 0.9-2.4 [facility] Comment on above: Performed By: #### L 500.4050, L100.0100 #### [facility] [address] [place], [address] ALK P 87 U/L Normal 45-117 [facility] Comment on above: Performed By: #### L 500.4050, L100.0100 #### [facility] [address] [place], [address] ALT [Catalytic activity/Vol] 18 U/L Normal 13-56 [facility] Comment on above: Performed By: #### L 500.4050, L100.0100 #### [facility] [address] [place], [address] AST [Catalytic activity/Vol] 10 U/L Low 15-37 [facility] Comment on above: Performed By: #### L 500.4050, L100.0100 #### [facility] [address] [place], [address] Bilirubin [Mass/Vol] 0.40 mg/dL Normal 0.20-1.00 [facility] Comment on above: Result Comment: For patients on eltrombopag therapy, use of Dimension [place] TBIL is not recommended. Performed By: #### L 500.4050, L100.0100 #### [facility] [address] [place], [address] BUN/CRE 23.6 RATIO High 10-20 [facility] Comment on above: Performed By: #### L 500.4050, L100.0100 #### [facility] [address] [place], [address] CA,Total 8.9 mg/dL Normal 8.5-10.1 [facility] Comment on above: Performed By: #### L 500.4050, L100.0100 #### [facility] [address] [place], [address] Chloride [Moles/Vol] 106 mmol/L Normal 98-107 [facility] Comment on above: Performed By: #### L 500.4050, L100.0100 #### [facility] [address] [place], [address] CO2 [Moles/Vol] 28.0 mmol/L Normal 21.0-32.0 [facility] Comment on above: Performed By: #### L 500.4050, L100.0100 #### [facility] [address] [place], [address] Creatinine [Mass/Vol] 0.55 mg/dL Normal 0.55-1.02 [facility] Comment on above: Result Comment: The validity of the calculated GFR GFRAA in patients over 70 years has not been determined. Clinical correlation is essential. Performed By: #### L 500.4050, L100.0100 #### [facility] [address] [place], [address] EST GFR - AA 154 mL/min Normal >60 [facility] Comment on above: Result Comment: Afri can [facility] GFR Calc Performed By: #### L 500.4050, L100.0100 #### [facility] [address] [place], [address] GAP 5 Normal 5-15 [facility] Comment on above: Performed By: #### L 500.4050, L100.0100 #### [facility] [address] [place], [address] GFR/1.73 sq M.predicted among non-blacks MDRD (S/P/Bld) [Vol rate/Area] 127 mL/min/{1.73_m2} Normal >60 [facility] Comment on above: Result Comment: Non- GFR Calc Performed By: #### L 500.4050, L100.0100 #### [facility] [address] [place], [address] Globulin (S) [Mass/Vol] 3.8 g/dL Normal 2.2-4.2 [facility] Comment on above: Performed By: #### L 500.4050, L100.0100 #### [facility] [address] [place], [address] Glucose [Mass/Vol] 105 mg/dL Normal 74-106 [facility] Comment on above: Result Comment: Fast ing Glucose result from 100 to 125 mg/dL suggests IMPAIRED HOMEOSTASIS per A.D.A. criteria. Performed By: #### L 500.4050, L100.0100 #### [facility] [address] [place], [address] Potassium [Moles/Vol] 3.5 mmol/L Normal 3.5-5.1 [facility] Comment on above: Performed By: #### L 500.4050, L100.0100 #### [facility] [address] [place], [address] Sodium [Moles/Vol] 139 mmol/L Normal 136-145 [facility] Comment on above: Performed By: #### L 500.4050, L100.0100 #### [facility] [address] [place], [address] T PROT 6.8 g/dL Normal 6.4-8.2 [facility] Comment on above: Performed By: #### L 500.4050, L100.0100 #### [facility] [address] [place], [address] Urea nitrogen [Mass/Vol] 13 mg/dL Normal 7-18 [facility] Comment on above: Performed By: #### L 500.4050, L100.0100 #### [facility] [address] [place], [address] ALB Normal 3.2-5.0 [facility] Comment on above: Result Comment: WRON G ORDER Performed By: #### L 500.4050, L3100.5850 #### [facility] [address] [place], [address] ALK P Normal 45-117 [facility] Comment on above: Result Comment: WRON G ORDER Performed By: #### L 500.4050, L3100.5850 #### [facility] [address] [place], [address] ALT Normal 13-56 [facility] Comment on above: Result Comment: WRON G ORDER Performed By: #### L 500.4050, L3100.5850 #### [facility] [address] [place], [address] AST Normal 15-37 [facility] Comment on above: Result Comment: WRON G ORDER Performed By: #### L 500.4050, L3100.5850 #### [facility] [address] [place], [address] BUN Normal 7-18 [facility] Comment on above: Result Comment: WRON G ORDER Performed By: #### L 500.4050, L3100.5850 #### [facility] [address] [place], [address] BUN/CRE Normal 10-20 [facility] Comment on above: Result Comment: WRON G ORDER Performed By: #### L 500.4050, L3100.5850 #### [facility] [address] [place], [address] CA,Total Normal 8.5-10.1 [facility] Comment on above: Result Comment: WRON G ORDER Performed By: #### L 500.4050, L3100.5850 #### [facility] [address] [place], [address] CL Normal 98-107 [facility] Comment on above: Result Comment: WRON G ORDER Performed By: #### L 500.4050, L3100.5850 #### [facility] [address] [place], [address] CO2 Normal 21.0-32.0 [facility] Comment on above: Result Comment: WRON G ORDER Performed By: #### L 500.4050, L3100.5850 #### [facility] [address] [place], [address] CREAT,SERUM Normal 0.55-1.02 [facility] Comment on above: Result Comment: WRON G ORDER Performed By: #### L [id number], [id number] #### [facility] [address] [place], [address] EST GFR Normal >60 [facility] Comment on above: Result Comment: WRON G ORDER Performed By: #### L [id number], [id number] #### [facility] [address] [place], [address] EST GFR - AA Normal >60 [facility] Comment on above: Result Comment: WRON G ORDER Performed By: #### L [id number], [id number] #### [facility] [address] [place], [address] GAP Normal 5-15 [facility] Comment on above: Result Comment: WRON G ORDER Performed By: #### L [id number], [id number] #### [facility] [address] [place], [address] GLU Normal 74-106 [facility] Comment on above: Result Comment: WRON G ORDER Performed By: #### L [id number], [id number] #### [facility] [address] [place], [address] Potassium Normal 3.5-5.1 [facility] Comment on above: Result Comment: WRON G ORDER Performed By: #### L [id number], [id number] #### [facility] [address] [place], [address] T BILI Normal 0.20-1.00 [facility] Comment on above: Result Comment: WRON G ORDER Performed By: #### L [id number], [id number] #### [facility] [address] [place], [address] T PROT Normal 6.4-8.2 [facility] Comment on above: Result Comment: WRON G ORDER Performed By: #### L [id number], [id number] #### [facility] [address] [place], [address] Comprehensive Metabolic Profil Normal 136-145 [facility] Comment on above: Result Comment: WRON G ORDER Performed By: #### L [id number], [id number] #### [facility] [address] [place], [address] EBV Acute Prof IgG / IgMon 0 12-29-2023 EB Ab VCA, IgG Normal [facility] Comment on above: Result Comment: WRON G ORDER Performed By: #### L [id number], [id number] #### [facility] [address] [place], [address] EBV Ab VCA, IgM Normal [facility] Comment on above: Result Comment: WRON G ORDER Performed By: #### L [id number], [id number] #### [facility] [address] [place], [address] EBV NuAg Ab,IgG Normal [facility] Comment on above: Result Comment: WRON G ORDER Performed By: #### L [id number], [id number] #### [facility] [address] [place], [address] INTERPRETATION Normal [facility] Comment on above: Result Comment: WRON G ORDER Performed By: #### L [id number], [id number] #### [facility] [address] [place], [address] CBC W Auto Differential pane l (Bld)Ordered By: June Baker on 07-19-2023 Basophils (Bld) [#/Vol] 0.0 10*3/uL 0.0 - 0.2 10*3/uL [facility] Basophils/100 WBC (Bld) 0.5 % 0.0 - 2.0 % [facility] [employer] Eosinophils (Bld) [#/Vol] 0.0 10*3/uL 0.0 - 0.5 10*3/uL [facility] Eosinophils/100 WBC (Bld) 0.3 % 0.0 - 6.0 % [facility] Erythrocyte distribution width (RBC) [Ratio] 13.4 % 11.5 - 15.0 % [facility] Hematocrit (Bld) [Volume fraction] 41.5 % 35.0 - 47.0 % [facility] Hemoglobin (Bld) [Mass/Vol] 14.0 g/dL 11.7 - 16.0 g/dL [facility] Immature granulocytes (Bld) [#/Vol] 0.0 10*3/uL NINF - 0.1 10*3/uL [facility] Immature granulocytes/100 WBC (Bld) 0.3 % 0.0 - 2.0 % [facility] Interpretation and review of laboratory results Abnormal [facility] Lymphocytes (Bld) [#/Vol] 0.8 10*3/uL Low 1.0 - 4.3 10*3/uL [facility] Lymphocytes/100 WBC (Bld) 12.3 % Low 15.0 - 45.0 % [facility] MCH (RBC) [Entitic mass] 29.5 pg 26.0 - 34.0 pg [facility] MCHC (RBC) [Mass/Vol] 33.7 % 30.5 - 36.0 % [facility] MCV (RBC) [Entitic vol] 87.4 fL 77.0 - 99.0 fL [facility] Monocytes (Bld) [#/Vol] 0.7 10*3/uL 0.0 - 0.9 10*3/uL [facility] Monocytes/100 WBC (Bld) 10.7 % 5.0 - 13.0 % [facility] Neutrophils (Bld) [#/Vol] 4.9 10*3/uL 1.8 - 7.5 10*3/uL [facility] Neutrophils/100 WBC (Bld) 75.9 % 38.0 - 82.0 % [facility] Nucleated RBC/100 WBC (Bld) [Ratio] 0.0 % [facility] Platelet mean volume (Bld) [Entitic vol] 10.8 fL 9.0 - 12.7 fL [facility] Comment on above: MPV is a calculated measurement using platelet volume ratio Platelets (Bld) [#/Vol] 205 10*3/uL 140 - 440 10*3/uL [facility] RBC (Bld) [#/Vol] 4.75 10*6/uL 3.80 - 5.2 0 10*6/uL [facility] WBC (Bld) [#/Vol] 6.4 10*3/uL 3.6 - 10.7 10*3/uL [facility] Comprehensive metabolic 1998 panelon 07-19-2023 Albumin [Mass/Vol] 4.1 g/dL 3.5 - 5.0 g/dL [facility] ALP [Catalytic activity/Vol] 85 U/L 38 - 126 U/L [facility] ALT [Catalytic activity/Vol] 21 U/L 0 - 34 U/L [facility] Anion gap [Moles/Vol] 8 mmol/L 3 - 13 mmol/L [facility] AST [Catalytic activity/Vol] 26 U/L 15 - 46 U/L [facility] Bilirubin [Mass/Vol] 0.5 mg/dL 0.2 - 1 .3 mg/dL [facility] Calcium [Mass/Vol] 8.9 mg/dL 8.4 - 10. 4 mg/dL [facility] Chloride [Moles/Vol] 103 mmol/L 98 - 10 7 mmol/L [facility] CO2 [Moles/Vol] 23 mmol/L 22 - 30 mmol/L [facility] Creatinine [Mass/Vol] 0.61 mg/dL 0.52 - 1.04 mg/dL [facility] GFR/1.73 sq M.predicted MDRD (S/P/Bld) [Vol rate/Area] - PINF [facility] Comment on above: Calculation based on the Chronic Kidney Disease Epidemiology Collaboration (CKD-EPI) equation refit without adjustment for race Glucose [Mass/Vol] 110 mg/dL High 70 - 100 mg/dL [facility] Interpretation and review of laboratory results Abnormal [facility] Potassium [Moles/Vol] 3.9 mmol/L 3.5 - 5.1 mmol/L [facility] Protein [Mass/Vol] 7.5 g/dL 6.3 - 8.2 g/dL [facility] Sodium [Moles/Vol] 134 mmol/L Low 135 - 145 mmol/L [facility] Urea nitrogen [Mass/Vol] 12 mg/dL 7 - 17 mg/dL [facility] - Microbiology an d Antimicrobial susceptibilityon 07-19-2023 FLUAV RNA KAREN+probe Ql (Resp) Detected Abnormal Not Detected [facility] FLUBV RNA KAREN+probe Ql (Resp) Not detected Not Detected [facility] RSV RNA KAREN+probe Ql (Resp) Not detected Not Detected [facility] SARS-CoV-2 (COVID-19) RNA KAREN+probe Ql (Resp) Not detected Not Detected [facility] SARS-CoV-2 (COVID-19) RNA KAREN+probe Ql (Unsp spec) Methodology: real-time, RT-PCR The SARS-CoV-2, Flu A/B, and RSV Combo assay is intended for in vitro diagnostic use under the FDA Emergency Use Authorization (EUA). This test has not been FDA cleared or approved. In compliance with this authorization, please visit www.fda.gov/media/358029 /download or www.fda.gov/media/370533 /download to access the applicable information sheets. [facility] SARS-CoV-2, Flu A/B, and RSV Comboon 07-19-2023 Interpretation and review of laboratory results Abnormal [facility] Absolute lymphocyte countOrd ered By: Olga Dang on 07-01-2023 Lymphocytes Auto (Unsp spec) [#/Vol] 1.94 10*3/uL 0.83-4.51 [facility] Automated lymphocyte count a s percentage of total leukocytesOrdered By: Olga Dang on 07-01-2023 Lymphocytes/100 WBC Auto (Unsp spec) 18.9 % 19-41 [facility] Basophil percentageOrdered B y: Olga Dang on 07-01-2023 Basophils/100 WBC (Bld) 0.4 % 0-1 [facility] Bilirubin [Mass/Vol] 0.40 mg/dL 0.20-1.00 [facility] Comment on above: For patients on eltr ombopag therapy, use of Dimension [place] TBIL is not recommended. Chloride [Moles/Vol] 107 mmol/L 98-107 [facility] Eosinophils/100 WBC (Bld) 2.0 % 0-5 [facility] Glucose [Mass/Vol] 90 mg/dL 74-106 [facility] Hemoglobin (Bld) [Mass/Vol] 11.9 g/dL 12.0-15.0 [facility] Monocytes/100 WBC (Bld) 4.5 % 0-10 [facility] Neutrophils (Bld) [#/Vol] 7.6 10*3/uL 2.0-7.7 [facility] Neutrophils/100 WBC (Bld) 73.8 % 47-70 [facility] Potassium [Moles/Vol] 3.6 mmol/L 3.5-5.1 [facility] Protein [Mass/Vol] 6.8 g/dL 6.4-8.2 [facility] Sodium [Moles/Vol] 138 mmol/L 136-145 [facility] WBC (Bld) [#/Vol] 10.3 10*3/uL 4.4-11.0 [facility] Determination of erythrocyte mean corpuscular volume (MCV)Ordered By: Olga Dang on 07-01-2023 MCV (RBC) [Entitic vol] 88.4 fL 81-99 [facility] Erythrocyte distribution wid th ratioOrdered By: Olga Dang on 07-01-2023 Erythrocyte distribution width (RBC) [Ratio] 13.3 % 11.6-14.6 [facility] Erythrocyte distribution wid th standard deviationOrdered By: Olga Dang on 07-01-2023 Erythrocyte distribution width (RBC) [Entitic vol] 43.0 fL 35.1-43.9 [facility] Hematocrit Auto (Bld) [Volum e fraction]Ordered By: Olga Dang on 07-01-2023 Hematocrit (Bld) [Volume fraction] 36.5 % 37-47 [facility] Immature granulocytes/100 WB C Auto (Bld)Ordered By: Olga Dang on 07-01-2023 Immature granulocytes/100 WBC (Bld) 0.400 % 0.0-0.9 [facility] Comment on above: IG% - Immature Granu locytes (promyelocytes, myelocytes and metamyelocytes) > 1% indicates that a LEFT SHIFT is Present. Laboratory - Chemistry and C hemistry - challengeOrdered By: Olga Dang on 07-01-2023 Albumin/Globulin [Mass ratio] 0.9 {ratio} 0.9-2.4 [facility] ALP [Catalytic activity/Vol] 93 U/L 45-117 [facility] ALT [Catalytic activity/Vol] 24 U/L 13-56 [facility] CO2 [Moles/Vol] 26.0 mmol/L 21.0-32.0 [facility] Globulin (S) [Mass/Vol] 3.5 g/dL 2.2-4.2 [facility] Urea nitrogen/Creatinine [Mass ratio] 26.1 mg/mg 10-20 [facility] - Hematology and Cell countsOrdered By: Olga Dang on 07-01-2023 MCH (RBC) [Entitic mass] 28.8 pg 27.0-32.0 [facility] MCHC (RBC) [Mass/Vol] 32.6 g/dL 32-36 [facility] Nucleated RBC/100 WBC (Bld) [Ratio] 0 % 0-5 [facility] Platelet mean volume (Bld) [Entitic vol] 11.0 fL 6.2-12.0 [facility] Platelets (Bld) [#/Vol] 223 10*3/uL 150-450 [facility] No Panel InformationOrdered By: Olga Dang on 07-01-2023 Estimated GFR (MDRD) Amer 137 mL/min >60 [facility] Comment on above: GFR Calc Estimated GFR (MDRD) Non-Af Amer 113 mL/min >60 [facility] Comment on above: Non- GFR Calc RBC Auto (Bld) [#/Vol]Ordere d By: Olga Dang on 07-01-2023 RBC (Bld) [#/Vol] 4.13 10*6/uL 4.2-5.4 [facility] Serum or plasma calcium rosa urement (mass/volume)Ordered By: Olga Dang on 07-01-2023 Calcium [Mass/Vol] 8.6 mg/dL 8.5-10.1 [facility] Serum or plasma creatinine m easurement (mass/volume)Ordered By: Olga Dang on 07-01-2023 Creatinine [Mass/Vol] 0.61 mg/dL 0.55-1.02 [facility] Comment on above: The validity of the calculated GFR & GFRAA in patients over 70 years has not been determined. Clinical correlation is essential. Serum or plasma urea nitroge n measurement (mass/volume)Ordered By: Olga Dang on 07-01-2023 Urea nitrogen [Mass/Vol] 16 mg/dL 7-18 [facility] Thin prep Papanicolaou smear with manual screeningOrdered By: Olga Dang on 07-01-2023 Thin prep Papanicolaou smear with manual screening 3.3 g/dL 3.2-5.0 [facility] Thin prep Papanicolaou smear with manual screening 14 U/L 15-37 [facility] Thin prep Papanicolaou smear with manual screening 5 5-15 [facility] Absolute lymphocyte countOrd ered By: Olga Dang on 05-05-2023 Lymphocytes Auto (Unsp spec) [#/Vol] 1.88 10*3/uL 0.83-4.51 [facility] Basophil percentageOrdered B y: Olga Dang on 05-05-2023 Basophils/100 WBC (Bld) 0.6 % 0-1 [facility] Bilirubin [Mass/Vol] 0.40 mg/dL 0.20-1.00 [facility] Comment on above: For patients on eltr ombopag therapy, use of [employer] [place] TBIL is not recommended. Chloride [Moles/Vol] 109 mmol/L 98-107 [facility] Eosinophils/100 WBC (Bld) 2.1 % 0-5 [facility] Glucose [Mass/Vol] 93 mg/dL 74-106 [facility] Neutrophils (Bld) [#/Vol] 6.9 10*3/uL 2.0-7.7 [facility] Neutrophils/100 WBC (Bld) 72.9 % 47-70 [facility] Potassium [Moles/Vol] 3.9 mmol/L 3.5-5.1 [facility] Protein [Mass/Vol] 7.2 g/dL 6.4-8.2 [facility] Sodium [Moles/Vol] 141 mmol/L 136-145 [facility] WBC (Bld) [#/Vol] 9.4 10*3/uL 4.4-11.0 [facility] Blood erythrocytes count (nu mber/volume)Ordered By: Olga Dang on 05-05-2023 RBC (Bld) [#/Vol] 4.66 10*6/uL 4.2-5.4 [facility] Blood hemoglobin measurement (mass/volume)Ordered By: Olga Dagn on 05-05-2023 Hemoglobin (Bld) [Mass/Vol] 13.2 g/dL 12.0-15.0 [facility] Blood lymphocytes/100 leukoc ytesOrdered By: Olga Dang on 05-05-2023 Lymphocytes/100 WBC (Bld) 20.0 % 19-41 [facility] Blood monocytes/100 leukocyt esOrdered By: Olga Dang on 05-05-2023 Monocytes/100 WBC (Bld) 4.0 % 0-10 [facility] Blood platelet mean volumeOr dered By: Olga Dang on 05-05-2023 Platelet mean volume (Bld) [Entitic vol] 11.4 fL 6.2-12.0 [facility] Determination of erythrocyte mean corpuscular volume (MCV)Ordered By: Olga Dang on 05-05-2023 MCV (RBC) [Entitic vol] 89.1 fL 81-99 [facility] Hematocrit Auto (Bld) [Volum e fraction]Ordered By: Olga Dang on 05-05-2023 Hematocrit (Bld) [Volume fraction] 41.5 % 37-47 [facility] - Chemistry and C hemistry - challengeOrdered By: Olga Dang on 05-05-2023 ALP [Catalytic activity/Vol] 111 U/L 45-117 [facility] ALT [Catalytic activity/Vol] 37 U/L 13-56 [facility] CO2 [Moles/Vol] 26.0 mmol/L 21.0-32.0 [facility] Globulin (S) [Mass/Vol] 3.9 g/dL 2.2-4.2 [facility] Urea nitrogen/Creatinine [Mass ratio] 18.3 mg/mg 10-20 [facility] - Hematology and Cell countsOrdered By: Olga Dang on 05-05-2023 Erythrocyte distribution width (RBC) [Entitic vol] 43.4 fL 35.1-43.9 [facility] Erythrocyte distribution width (RBC) [Ratio] 13.4 % 11.6-14.6 [facility] Immature granulocytes/100 WBC (Bld) 0.400 % 0.0-0.9 [facility] Comment on above: IG% - Immature Granu locytes (promyelocytes, myelocytes and metamyelocytes) > 1% indicates that a LEFT SHIFT is Present. MCH (RBC) [Entitic mass] 28.3 pg 27.0-32.0 [facility] Nucleated RBC/100 WBC (Bld) [Ratio] 0 % 0-5 [facility] MCHC Auto (RBC) [Mass/Vol]Or dered By: Olga Dang on 05-05-2023 MCHC (RBC) [Mass/Vol] 31.8 g/dL 32-36 [facility] No Panel InformationOrdered By: Olga Dang on 05-05-2023 Estimated GFR (MDRD) Amer 140 mL/min >60 [facility] Comment on above: GFR Calc Estimated GFR (MDRD) Non-Af Amer 116 mL/min >60 [facility] Comment on above: Non- GFR Calc Platelets bldOrdered By: Alfonzo Dang on 05-05-2023 Platelets (Bld) [#/Vol] 262 10*3/uL 150-450 [facility] Serum or plasma albumin rosa urement (mass/volume)Ordered By: Olga Dang on 05-05-2023 Albumin [Mass/Vol] 3.3 g/dL 3.2-5.0 [facility] Serum or plasma albumin/glob ulin mass ratioOrdered By: Olga Dang on 05-05-2023 Albumin/Globulin [Mass ratio] 0.8 {ratio} 0.9-2.4 [facility] Serum or plasma calcium rosa urement (mass/volume)Ordered By: Olga Dang on 05-05-2023 Calcium [Mass/Vol] 8.6 mg/dL 8.5-10.1 [facility] Serum or plasma creatinine m easurement (mass/volume)Ordered By: Olga Dang on 05-05-2023 Creatinine [Mass/Vol] 0.60 mg/dL 0.55-1.02 [facility] Comment on above: The validity of the calculated GFR & GFRAA in patients over 70 years has not been determined. Clinical correlation is essential. Serum or plasma urea nitroge n measurement (mass/volume)Ordered By: Olga Dang on 05-05-2023 Urea nitrogen [Mass/Vol] 11 mg/dL 7-18 [facility] Thin prep Papanicolaou smear with manual screeningOrdered By: Olga Dang on 05-05-2023 Thin prep Papanicolaou smear with manual screening 17 U/L 15-37 [facility] Thin prep Papanicolaou smear with manual screening 6 5-15 [facility] Absolute lymphocyte countOrd ered By: Olga Dang on 03-17-2023 Lymphocytes Auto (Unsp spec) [#/Vol] 1.78 10*3/uL 0.83-4.51 [facility] Basophil percentageOrdered B y: Olga Dang on 03-17-2023 Basophils/100 WBC (Bld) 0.5 % 0-1 [facility] Bilirubin [Mass/Vol] 0.50 mg/dL 0.20-1.00 [facility] Comment on above: For patients on eltr ombopag therapy, use of Dim[employer] [place] TBIL is not recommended. Chloride [Moles/Vol] 109 mmol/L 98-107 [facility] Eosinophils/100 WBC (Bld) 1.6 % 0-5 [facility] Glucose [Mass/Vol] 83 mg/dL 74-106 [facility] Neutrophils (Bld) [#/Vol] 9.7 10*3/uL 2.0-7.7 [facility] Neutrophils/100 WBC (Bld) 78.7 % 47-70 [facility] Potassium [Moles/Vol] 3.6 mmol/L 3.5-5.1 [facility] Protein [Mass/Vol] 7.4 g/dL 6.4-8.2 [facility] Sodium [Moles/Vol] 140 mmol/L 136-145 [facility] WBC (Bld) [#/Vol] 12.4 10*3/uL 4.4-11.0 [facility] Blood erythrocytes count (nu mber/volume)Ordered By: Olga Dang on 03-17-2023 RBC (Bld) [#/Vol] 4.85 10*6/uL 4.2-5.4 [facility] Blood hemoglobin measurement (mass/volume)Ordered By: Olga Dang on 03-17-2023 Hemoglobin (Bld) [Mass/Vol] 13.7 g/dL 12.0-15.0 [facility] Blood lymphocytes/100 leukoc ytesOrdered By: Olga Dang on 03-17-2023 Lymphocytes/100 WBC (Bld) 14.4 % 19-41 [facility] Blood monocytes/100 leukocyt esOrdered By: Olga Dang on 03-17-2023 Monocytes/100 WBC (Bld) 4.3 % 0-10 [facility] Blood platelet mean volumeOr dered By: Olga Dang on 03-17-2023 Platelet mean volume (Bld) [Entitic vol] 10.7 fL 6.2-12.0 [facility] Determination of erythrocyte mean corpuscular volume (MCV)Ordered By: Olga Dang on 03-17-2023 MCV (RBC) [Entitic vol] 89.5 fL 81-99 [facility] Hematocrit Auto (Bld) [Volum e fraction]Ordered By: Olga Dang on 03-17-2023 Hematocrit (Bld) [Volume fraction] 43.4 % 37-47 [facility] - Chemistry and C hemistry - challengeOrdered By: Olgadwayne Dang on 03-17-2023 ALP [Catalytic activity/Vol] 92 U/L 45-117 [facility] ALT [Catalytic activity/Vol] 20 U/L 13-56 [facility] CO2 [Moles/Vol] 25.0 mmol/L 21.0-32.0 [facility] Globulin (S) [Mass/Vol] 4.1 g/dL 2.2-4.2 [facility] Urea nitrogen/Creatinine [Mass ratio] 12.5 mg/mg 10-20 [facility] - Hematology and Cell countsOrdered By: Olga Dang on 03-17-2023 Erythrocyte distribution width (RBC) [Entitic vol] 42.6 fL 35.1-43.9 [facility] Erythrocyte distribution width (RBC) [Ratio] 13.0 % 11.6-14.6 [facility] Immature granulocytes/100 WBC (Bld) 0.500 % 0.0-0.9 [facility] Comment on above: IG% - Immature Granu locytes (promyelocytes, myelocytes and metamyelocytes) > 1% indicates that a LEFT SHIFT is Present. MCH (RBC) [Entitic mass] 28.2 pg 27.0-32.0 [facility] Nucleated RBC/100 WBC (Bld) [Ratio] 0 % 0-5 [facility] MCHC Auto (RBC) [Mass/Vol]Or dered By: Olga Dang on 03-17-2023 MCHC (RBC) [Mass/Vol] 31.6 g/dL 32-36 [facility] No Panel InformationOrdered By: Olga Dang on 03-17-2023 Estimated GFR (MDRD) Amer 131 mL/min >60 [facility] Comment on above: GFR Calc Estimated GFR (MDRD) Non-Af Amer 108 mL/min >60 [facility] Comment on above: Non- GFR Calc Platelets bldOrdered By: Alfonzo Dang on 03-17-2023 Platelets (Bld) [#/Vol] 246 10*3/uL 150-450 [facility] Serum or plasma albumin rosa urement (mass/volume)Ordered By: Olga Dang on 03-17-2023 Albumin [Mass/Vol] 3.3 g/dL 3.2-5.0 [facility] Serum or plasma albumin/glob ulin mass ratioOrdered By: Olga Dang on 03-17-2023 Albumin/Globulin [Mass ratio] 0.8 {ratio} 0.9-2.4 [facility] Serum or plasma calcium rosa urement (mass/volume)Ordered By: Olga Dang on 03-17-2023 Calcium [Mass/Vol] 8.4 mg/dL 8.5-10.1 [facility] Serum or plasma creatinine m easurement (mass/volume)Ordered By: Olga Dang on 03-17-2023 Creatinine [Mass/Vol] 0.64 mg/dL 0.55-1.02 [facility] Comment on above: The validity of the calculated GFR & GFRAA in patients over 70 years has not been determined. Clinical correlation is essential. Serum or plasma urea nitroge n measurement (mass/volume)Ordered By: Olga Dang on 03-17-2023 Urea nitrogen [Mass/Vol] 8 mg/dL 7-18 [facility] Thin prep Papanicolaou smear with manual screeningOrdered By: Olga Dang on 03-17-2023 Thin prep Papanicolaou smear with manual screening 13 U/L 15-37 [facility] Thin prep Papanicolaou smear with manual screening 6 5-15 [facility] Absolute lymphocyte countOrd ered By: Olga Dang on 12-24-2022 Lymphocytes Auto (Unsp spec) [#/Vol] 1.93 10*3/uL 0.83-4.51 [facility] Basophil percentageOrdered B y: Olga Dang on 12-24-2022 Basophils/100 WBC (Bld) 0.5 % 0-1 [facility] Bilirubin [Mass/Vol] 0.40 mg/dL 0.20-1.00 [facility] Comment on above: For patients on eltr ombopag therapy, use of Dim[employer] [place] TBIL is not recommended. Chloride [Moles/Vol] 107 mmol/L 98-107 [facility] Eosinophils/100 WBC (Bld) 0.6 % 0-5 [facility] Glucose [Mass/Vol] 77 mg/dL 74-106 [facility] Neutrophils (Bld) [#/Vol] 8.6 10*3/uL 2.0-7.7 [facility] Neutrophils/100 WBC (Bld) 77.3 % 47-70 [facility] Potassium [Moles/Vol] 3.5 mmol/L 3.5-5.1 [facility] Protein [Mass/Vol] 7.0 g/dL 6.4-8.2 [facility] Sodium [Moles/Vol] 140 mmol/L 136-145 [facility] WBC (Bld) [#/Vol] 11.2 10*3/uL 4.4-11.0 [facility] Blood erythrocytes count (nu mber/volume)Ordered By: Olga Dang on 12-24-2022 RBC (Bld) [#/Vol] 4.20 10*6/uL 4.2-5.4 [facility] Blood hemoglobin measurement (mass/volume)Ordered By: Olga Dang on 12-24-2022 Hemoglobin (Bld) [Mass/Vol] 12.1 g/dL 12.0-15.0 [facility] Blood lymphocytes/100 leukoc ytesOrdered By: Olga Dang on 12-24-2022 Lymphocytes/100 WBC (Bld) 17.2 % 19-41 [facility] Blood monocytes/100 leukocyt esOrdered By: Olga Dang on 12-24-2022 Monocytes/100 WBC (Bld) 4.1 % 0-10 [facility] Blood platelet mean volumeOr dered By: Olga Dang on 12-24-2022 Platelet mean volume (Bld) [Entitic vol] 11.0 fL 6.2-12.0 [facility] Determination of erythrocyte mean corpuscular volume (MCV)Ordered By: Olga Dang on 12-24-2022 MCV (RBC) [Entitic vol] 89.0 fL 81-99 [facility] Hematocrit Auto (Bld) [Volum e fraction]Ordered By: Olga Dang on 12-24-2022 Hematocrit (Bld) [Volume fraction] 37.4 % 37-47 [facility] - Chemistry and C hemistry - challengeOrdered By: Olgadwayne Dang on 12-24-2022 ALP [Catalytic activity/Vol] 92 U/L 45-117 [facility] ALT [Catalytic activity/Vol] 24 U/L 13-56 [facility] CO2 [Moles/Vol] 26.0 mmol/L 21.0-32.0 [facility] Globulin (S) [Mass/Vol] 3.7 g/dL 2.2-4.2 [facility] Urea nitrogen/Creatinine [Mass ratio] 19.2 mg/mg 10-20 [facility] Laboratory - Hematology and Cell countsOrdered By: Olga Dang on 12-24-2022 Erythrocyte distribution width (RBC) [Entitic vol] 42.4 fL 35.1-43.9 [facility] Erythrocyte distribution width (RBC) [Ratio] 13.1 % 11.6-14.6 [facility] Immature granulocytes/100 WBC (Bld) 0.300 % 0.0-0.9 [facility] Comment on above: IG% - Immature Granu locytes (promyelocytes, myelocytes and metamyelocytes) > 1% indicates that a LEFT SHIFT is Present. MCH (RBC) [Entitic mass] 28.8 pg 27.0-32.0 [facility] Nucleated RBC/100 WBC (Bld) [Ratio] 0 % 0-5 [facility] MCHC Auto (RBC) [Mass/Vol]Or dered By: Olga Dang on 12-24-2022 MCHC (RBC) [Mass/Vol] 32.4 g/dL 32-36 [facility] No Panel InformationOrdered By: Olga aDng on 12-24-2022 Estimated GFR (MDRD) Amer 134 mL/min >60 [facility] Comment on above: GFR Calc Estimated GFR (MDRD) Non-Af Amer 111 mL/min >60 [facility] Comment on above: Non- GFR Calc Platelets bldOrdered By: Alfonzo Dang on 12-24-2022 Platelets (Bld) [#/Vol] 250 10*3/uL 150-450 [facility] Serum or plasma albumin rosa urement (mass/volume)Ordered By: Olga Dang on 12-24-2022 Albumin [Mass/Vol] 3.3 g/dL 3.2-5.0 [facility] Serum or plasma albumin/glob ulin mass ratioOrdered By: Olga Dang on 12-24-2022 Albumin/Globulin [Mass ratio] 0.9 {ratio} 0.9-2.4 [facility] Serum or plasma calcium rosa urement (mass/volume)Ordered By: Olga Dang on 12-24-2022 Calcium [Mass/Vol] 8.8 mg/dL 8.5-10.1 [facility] Serum or plasma creatinine m easurement (mass/volume)Ordered By: Olga Dang on 12-24-2022 Creatinine [Mass/Vol] 0.63 mg/dL 0.55-1.02 [facility] Comment on above: The validity of the calculated GFR & GFRAA in patients over 70 years has not been determined. Clinical correlation is essential. Serum or plasma urea nitroge n measurement (mass/volume)Ordered By: Olga Dang on 12-24-2022 Urea nitrogen [Mass/Vol] 12 mg/dL 7-18 [facility] Thin prep Papanicolaou smear with manual screeningOrdered By: Olga Dang on 12-24-2022 Thin prep Papanicolaou smear with manual screening 18 U/L 15-37 [facility] Thin prep Papanicolaou smear with manual screening 7 5-15 [facility] Absolute lymphocyte countOrd ered By: Olga Dang on 10-21-2022 Lymphocytes Auto (Unsp spec) [#/Vol] 1.27 10*3/uL 0.83-4.51 [facility] Basophil percentageOrdered B y: Olga Dang on 10-21-2022 Basophils/100 WBC (Bld) 0.6 % 0-1 [facility] Bilirubin [Mass/Vol] 0.40 mg/dL 0.20-1.00 [facility] Comment on above: For patients on eltr ombopag therapy, use of Dimension [place] TBIL is not recommended. Chloride [Moles/Vol] 109 mmol/L 98-107 [facility] Eosinophils/100 WBC (Bld) 2.5 % 0-5 [facility] Glucose [Mass/Vol] 92 mg/dL 74-106 [facility] Neutrophils (Bld) [#/Vol] 4.9 10*3/uL 2.0-7.7 [facility] Neutrophils/100 WBC (Bld) 71.8 % 47-70 [facility] Potassium [Moles/Vol] 3.8 mmol/L 3.5-5.1 [facility] Protein [Mass/Vol] 6.9 g/dL 6.4-8.2 [facility] Sodium [Moles/Vol] 139 mmol/L 136-145 [facility] WBC (Bld) [#/Vol] 6.8 10*3/uL 4.4-11.0 [facility] Blood erythrocytes count (nu mber/volume)Ordered By: Olga Dang on 10-21-2022 RBC (Bld) [#/Vol] 4.32 10*6/uL 4.2-5.4 [facility] Blood hemoglobin measurement (mass/volume)Ordered By: Olga Dang on 10-21-2022 Hemoglobin (Bld) [Mass/Vol] 12.5 g/dL 12.0-15.0 [facility] Blood lymphocytes/100 leukoc ytesOrdered By: Olga Dang on 10-21-2022 Lymphocytes/100 WBC (Bld) 18.6 % 19-41 [facility] Blood monocytes/100 leukocyt esOrdered By: Olga Dang on 10-21-2022 Monocytes/100 WBC (Bld) 6.1 % 0-10 [facility] Blood platelet mean volumeOr dered By: Olga Dang on 10-21-2022 Platelet mean volume (Bld) [Entitic vol] 10.9 fL 6.2-12.0 [facility] Determination of erythrocyte mean corpuscular volume (MCV)Ordered By: Olga Dang on 10-21-2022 MCV (RBC) [Entitic vol] 91.2 fL 81-99 [facility] Hematocrit Auto (Bld) [Volum e fraction]Ordered By: Olga Laurence on 10-21-2022 Hematocrit (Bld) [Volume fraction] 39.4 % 37-47 [facility] Laboratory - Chemistry and C hemistry - challengeOrdered By: Olga Dang on 10-21-2022 ALP [Catalytic activity/Vol] 80 U/L 45-117 [facility] ALT [Catalytic activity/Vol] 25 U/L 13-56 [facility] CO2 [Moles/Vol] 25.0 mmol/L 21.0-32.0 [facility] Globulin (S) [Mass/Vol] 3.8 g/dL 2.2-4.2 [facility] Urea nitrogen/Creatinine [Mass ratio] 18.7 mg/mg 10-20 [facility] Laboratory - Hematology and Cell countsOrdered By: Olga Dang on 10-21-2022 Erythrocyte distribution width (RBC) [Entitic vol] 44.8 fL 35.1-43.9 [facility] Erythrocyte distribution width (RBC) [Ratio] 13.4 % 11.6-14.6 [facility] Immature granulocytes/100 WBC (Bld) 0.400 % 0.0-0.9 [facility] Comment on above: IG% - Immature Granu locytes (promyelocytes, myelocytes and metamyelocytes) > 1% indicates that a LEFT SHIFT is Present. MCH (RBC) [Entitic mass] 28.9 pg 27.0-32.0 [facility] Nucleated RBC/100 WBC (Bld) [Ratio] 0 % 0-5 [facility] MCHC Auto (RBC) [Mass/Vol]Or dered By: Olga Dang on 10-21-2022 MCHC (RBC) [Mass/Vol] 31.7 g/dL 32-36 [facility] No Panel InformationOrdered By: Olga Dang on 10-21-2022 Estimated GFR (MDRD) Amer 161 mL/min >60 [facility] Comment on above: GFR Calc Estimated GFR (MDRD) Non-Af Amer 133 mL/min >60 [facility] Comment on above: Non- GFR Calc Platelets bldOrdered By: Alfonzo Dang on 10-21-2022 Platelets (Bld) [#/Vol] 201 10*3/uL 150-450 [facility] Serum or plasma albumin rosa urement (mass/volume)Ordered By: Olga Dang on 10-21-2022 Albumin [Mass/Vol] 3.1 g/dL 3.2-5.0 [facility] Serum or plasma albumin/glob ulin mass ratioOrdered By: Olga Dang on 10-21-2022 Albumin/Globulin [Mass ratio] 0.8 {ratio} 0.9-2.4 [facility] Serum or plasma calcium rosa urement (mass/volume)Ordered By: Olga Dang on 10-21-2022 Calcium [Mass/Vol] 8.7 mg/dL 8.5-10.1 [facility] Serum or plasma creatinine m easurement (mass/volume)Ordered By: Olga Dang on 10-21-2022 Creatinine [Mass/Vol] 0.53 mg/dL 0.55-1.02 [facility] Comment on above: The validity of the calculated GFR & GFRAA in patients over 70 years has not been determined. Clinical correlation is essential. Serum or plasma urea nitroge n measurement (mass/volume)Ordered By: Olga Dang on 10-21-2022 Urea nitrogen [Mass/Vol] 10 mg/dL 7-18 [facility] Thin prep Papanicolaou smear with manual screeningOrdered By: Olga Dang on 10-21-2022 Thin prep Papanicolaou smear with manual screening 15 U/L 15-37 [facility] Thin prep Papanicolaou smear with manual screening 5 5-15 [facility] Absolute lymphocyte countOrd ered By: Dr. Dang on 08-26-2022 Lymphocytes Auto (Unsp spec) [#/Vol] 1.84 10*3/uL 0.83-4.51 [facility] Basophil percentageOrdered B y: Dr. Dang on 08-26-2022 Basophils/100 WBC (Bld) 0.4 % 0-1 [facility] Bilirubin [Mass/Vol] 0.50 mg/dL 0.20-1.00 [facility] Comment on above: For patients on eltr ombopag therapy, use of Dimension [place] TBIL is not recommended. Chloride [Moles/Vol] 107 mmol/L 98-107 [facility] Eosinophils/100 WBC (Bld) 2.6 % 0-5 [facility] Glucose [Mass/Vol] 82 mg/dL 74-106 [facility] Neutrophils (Bld) [#/Vol] 6.6 10*3/uL 2.0-7.7 [facility] Neutrophils/100 WBC (Bld) 73.2 % 47-70 [facility] Potassium [Moles/Vol] 3.8 mmol/L 3.5-5.1 [facility] Protein [Mass/Vol] 7.2 g/dL 6.4-8.2 [facility] Sodium [Moles/Vol] 138 mmol/L 136-145 [facility] WBC (Bld) [#/Vol] 9.1 10*3/uL 4.4-11.0 [facility] Blood erythrocytes count (nu mber/volume)Ordered By: Dr. Dang on 08-26-2022 RBC (Bld) [#/Vol] 4.50 10*6/uL 4.2-5.4 [facility] Blood hemoglobin measurement (mass/volume)Ordered By: Dr. Dang on 08-26-2022 Hemoglobin (Bld) [Mass/Vol] 12.9 g/dL 12.0-15.0 [facility] Blood lymphocytes/100 leukoc ytesOrdered By: Dr. Dang on 08-26-2022 Lymphocytes/100 WBC (Bld) 20.2 % 19-41 [facility] Blood monocytes/100 leukocyt esOrdered By: Dr. Dang on 08-26-2022 Monocytes/100 WBC (Bld) 3.3 % 0-10 [facility] Blood platelet mean volumeOr dered By: Dr. Dang on 08-26-2022 Platelet mean volume (Bld) [Entitic vol] 10.8 fL 6.2-12.0 [facility] Determination of erythrocyte mean corpuscular volume (MCV)Ordered By: Dr. Dang on 08-26-2022 MCV (RBC) [Entitic vol] 89.1 fL 81-99 [facility] Hematocrit Auto (Bld) [Volum e fraction]Ordered By: Dr. Dang on 08-26-2022 Hematocrit (Bld) [Volume fraction] 40.1 % 37-47 [facility] Laboratory - Chemistry and C hemistry - challengeOrdered By: Dr. Dang on 08-26-2022 ALP [Catalytic activity/Vol] 94 U/L 45-117 [facility] ALT [Catalytic activity/Vol] 23 U/L 13-56 [facility] CO2 [Moles/Vol] 25.0 mmol/L 21.0-32.0 [facility] Globulin (S) [Mass/Vol] 4.0 g/dL 2.2-4.2 [facility] Urea nitrogen/Creatinine [Mass ratio] 20.1 mg/mg 10-20 [facility] Laboratory - Hematology and Cell countsOrdered By: Dr. Dang on 08-26-2022 Erythrocyte distribution width (RBC) [Entitic vol] 45.3 fL 35.1-43.9 [facility] Erythrocyte distribution width (RBC) [Ratio] 14.0 % 11.6-14.6 [facility] Immature granulocytes/100 WBC (Bld) 0.300 % 0.0-0.9 [facility] Comment on above: IG% - Immature Granu locytes (promyelocytes, myelocytes and metamyelocytes) > 1% indicates that a LEFT SHIFT is Present. MCH (RBC) [Entitic mass] 28.7 pg 27.0-32.0 [facility] Nucleated RBC/100 WBC (Bld) [Ratio] 0 % 0-5 [facility] MCHC Auto (RBC) [Mass/Vol]Or dered By: Dr. Dang on 08-26-2022 MCHC (RBC) [Mass/Vol] 32.2 g/dL 32-36 [facility] No Panel InformationOrdered By: Dr. Dang on 08-26-2022 Estimated GFR (MDRD) Amer 142 mL/min >60 [facility] Comment on above: GFR Calc Estimated GFR (MDRD) Non-Af Amer 117 mL/min >60 [facility] Comment on above: Non- GFR Calc Platelets bldOrdered By: Dr. Dang on 08-26-2022 Platelets (Bld) [#/Vol] 229 10*3/uL 150-450 [facility] Serum or plasma albumin rosa urement (mass/volume)Ordered By: Dr. Dang on 08-26-2022 Albumin [Mass/Vol] 3.2 g/dL 3.2-5.0 [facility] Serum or plasma albumin/glob ulin mass ratioOrdered By: Dr. Dang on 08-26-2022 Albumin/Globulin [Mass ratio] 0.8 {ratio} 0.9-2.4 [facility] Serum or plasma calcium rosa urement (mass/volume)Ordered By: Dr. Dang on 08-26-2022 Calcium [Mass/Vol] 8.9 mg/dL 8.5-10.1 [facility] Serum or plasma creatinine m easurement (mass/volume)Ordered By: Dr. Dang on 08-26-2022 Creatinine [Mass/Vol] 0.60 mg/dL 0.55-1.02 [facility] Comment on above: The validity of the calculated GFR & GFRAA in patients over 70 years has not been determined. Clinical correlation is essential. Serum or plasma urea nitroge n measurement (mass/volume)Ordered By: Dr. Dang on 08-26-2022 Urea nitrogen [Mass/Vol] 12 mg/dL 7-18 [facility] Thin prep Papanicolaou smear with manual screeningOrdered By: Dr. Dang on 08-26-2022 Thin prep Papanicolaou smear with manual screening 10 U/L 15-37 [facility] Thin prep Papanicolaou smear with manual screening 6 5-15 [facility] Absolute lymphocyte countOrd ered By: Dr. Dang on 07-01-2022 Lymphocytes Auto (Unsp spec) [#/Vol] 1.06 10*3/uL 0.83-4.51 [facility] Basophil percentageOrdered B y: Dr. Dang on 07-01-2022 Basophils/100 WBC (Bld) 0.3 % 0-1 [facility] Bilirubin [Mass/Vol] 0.70 mg/dL 0.20-1.00 [facility] Comment on above: For patients on eltr ombopag therapy, use of Dimension [place] TBIL is not recommended. Chloride [Moles/Vol] 104 mmol/L 98-107 [facility] Eosinophils/100 WBC (Bld) 0.9 % 0-5 [facility] Glucose [Mass/Vol] 94 mg/dL 74-106 [facility] Neutrophils (Bld) [#/Vol] 7.6 10*3/uL 2.0-7.7 [facility] Neutrophils/100 WBC (Bld) 81.3 % 47-70 [facility] Potassium [Moles/Vol] 3.6 mmol/L 3.5-5.1 [facility] Protein [Mass/Vol] 7.7 g/dL 6.4-8.2 [facility] Sodium [Moles/Vol] 137 mmol/L 136-145 [facility] WBC (Bld) [#/Vol] 9.3 10*3/uL 4.4-11.0 [facility] Blood erythrocytes count (nu mber/volume)Ordered By: Dr. Dang on 07-01-2022 RBC (Bld) [#/Vol] 5.02 10*6/uL 4.2-5.4 [facility] Blood hemoglobin measurement (mass/volume)Ordered By: Dr. Dang on 07-01-2022 Hemoglobin (Bld) [Mass/Vol] 14.1 g/dL 12.0-15.0 [facility] Blood lymphocytes/100 leukoc ytesOrdered By: Dr. Dang on 07-01-2022 Lymphocytes/100 WBC (Bld) 11.4 % 19-41 [facility] Blood monocytes/100 leukocyt esOrdered By: Dr. Dang on 07-01-2022 Monocytes/100 WBC (Bld) 5.8 % 0-10 [facility] Blood platelet mean volumeOr dered By: Dr. Dang on 07-01-2022 Platelet mean volume (Bld) [Entitic vol] 10.9 fL 6.2-12.0 [facility] Determination of erythrocyte mean corpuscular volume (MCV)Ordered By: Dr. Dang on 07-01-2022 MCV (RBC) [Entitic vol] 87.5 fL 81-99 [facility] Hematocrit Auto (Bld) [Volum e fraction]Ordered By: Dr. Dang on 07-01-2022 Hematocrit (Bld) [Volume fraction] 43.9 % 37-47 [facility] Laboratory - Chemistry and C hemistry - challengeOrdered By: Dr. Dang on 07-01-2022 ALP [Catalytic activity/Vol] 85 U/L 45-117 [facility] ALT [Catalytic activity/Vol] 20 U/L 13-56 [facility] CO2 [Moles/Vol] 25.0 mmol/L 21.0-32.0 [facility] Globulin (S) [Mass/Vol] 4.3 g/dL 2.2-4.2 [facility] Urea nitrogen/Creatinine [Mass ratio] 11.2 mg/mg 10-20 [facility] Laboratory - Hematology and Cell countsOrdered By: Dr. Dang on 07-01-2022 Erythrocyte distribution width (RBC) [Entitic vol] 41.5 fL 35.1-43.9 [facility] Erythrocyte distribution width (RBC) [Ratio] 13.1 % 11.6-14.6 [facility] Immature granulocytes/100 WBC (Bld) 0.300 % 0.0-0.9 [facility] Comment on above: IG% - Immature Granu locytes (promyelocytes, myelocytes and metamyelocytes) > 1% indicates that a LEFT SHIFT is Present. MCH (RBC) [Entitic mass] 28.1 pg 27.0-32.0 [facility] Nucleated RBC/100 WBC (Bld) [Ratio] 0 % 0-5 [facility] MCHC Auto (RBC) [Mass/Vol]Or dered By: Dr. Dang on 07-01-2022 MCHC (RBC) [Mass/Vol] 32.1 g/dL 32-36 [facility] No Panel InformationOrdered By: Dr. Dang on 07-01-2022 Estimated GFR (MDRD) Amer 135 mL/min >60 [facility] Comment on above: GFR Calc Estimated GFR (MDRD) Non-Af Amer 111 mL/min >60 [facility] Comment on above: Non- GFR Calc Platelets bldOrdered By: Dr. Dang on 07-01-2022 Platelets (Bld) [#/Vol] 207 10*3/uL 150-450 [facility] Serum or plasma albumin rosa urement (mass/volume)Ordered By: Dr. Dang on 07-01-2022 Albumin [Mass/Vol] 3.4 g/dL 3.2-5.0 [facility] Serum or plasma albumin/glob ulin mass ratioOrdered By: Dr. Dang on 07-01-2022 Albumin/Globulin [Mass ratio] 0.8 {ratio} 0.9-2.4 [facility] Serum or plasma calcium rosa urement (mass/volume)Ordered By: Dr. Dang on 07-01-2022 Calcium [Mass/Vol] 8.8 mg/dL 8.5-10.1 [facility] Serum or plasma creatinine m easurement (mass/volume)Ordered By: Dr. Dang on 07-01-2022 Creatinine [Mass/Vol] 0.62 mg/dL 0.55-1.02 [facility] Comment on above: The validity of the calculated GFR & GFRAA in patients over 70 years has not been determined. Clinical correlation is essential. Serum or plasma urea nitroge n measurement (mass/volume)Ordered By: Dr. Dang on 07-01-2022 Urea nitrogen [Mass/Vol] 7 mg/dL 7-18 [facility] Thin prep Papanicolaou smear with manual screeningOrdered By: Dr. Dang on 07-01-2022 Thin prep Papanicolaou smear with manual screening 10 U/L 15-37 [facility] Thin prep Papanicolaou smear with manual screening 8 5-15 [facility] Absolute lymphocyte countOrd ered By: Dr. Dang on 04-02-2022 Lymphocytes Auto (Unsp spec) [#/Vol] 2.15 10*3/uL 0.83-4.51 [facility] Basophil percentageOrdered B y: Dr. Dang on 04-02-2022 Basophils/100 WBC (Bld) 0.6 % 0-1 [facility] Bilirubin [Mass/Vol] 0.50 mg/dL 0.20-1.00 [facility] Comment on above: For patients on eltr ombopag therapy, use of Dimension [place] TBIL is not recommended. Chloride [Moles/Vol] 106 mmol/L 98-107 [facility] Eosinophils/100 WBC (Bld) 1.7 % 0-5 [facility] Glucose [Mass/Vol] 98 mg/dL 74-106 [facility] Neutrophils (Bld) [#/Vol] 7.6 10*3/uL 2.0-7.7 [facility] Neutrophils/100 WBC (Bld) 73.0 % 47-70 [facility] Potassium [Moles/Vol] 4.2 mmol/L 3.5-5.1 [facility] Protein [Mass/Vol] 7.3 g/dL 6.4-8.2 [facility] Sodium [Moles/Vol] 139 mmol/L 136-145 [facility] WBC (Bld) [#/Vol] 10.4 10*3/uL 4.4-11.0 [facility] Bilirubin Test strip Ql (U)O rdered By: Dr. Dang on 04-02-2022 Bilirubin Ql (U) Negative Negative [facility] Blood erythrocytes count (nu mber/volume)Ordered By: Dr. Dang on 04-02-2022 RBC (Bld) [#/Vol] 5.09 10*6/uL 4.2-5.4 [facility] Blood hemoglobin measurement (mass/volume)Ordered By: Dr. Dang on 04-02-2022 Hemoglobin (Bld) [Mass/Vol] 14.1 g/dL 12.0-15.0 [facility] Blood lymphocytes/100 leukoc ytesOrdered By: Dr. Dang on 04-02-2022 Lymphocytes/100 WBC (Bld) 20.6 % 19-41 [facility] Blood monocytes/100 leukocyt esOrdered By: Dr. Dang on 04-02-2022 Monocytes/100 WBC (Bld) 3.9 % 0-10 [facility] Blood platelet mean volumeOr dered By: Dr. Dang on 04-02-2022 Platelet mean volume (Bld) [Entitic vol] 11.1 fL 6.2-12.0 [facility] Determination of erythrocyte mean corpuscular volume (MCV)Ordered By: Dr. Dang on 04-02-2022 MCV (RBC) [Entitic vol] 87.2 fL 81-99 [facility] Dilute Franklin's viper venom timeOrdered By: Dr. Dang on 04-02-2022 dRVVT Coag (PPP) [Time] 36.0 s 0.0-47.0 [facility] Hematocrit Auto (Bld) [Volum e fraction]Ordered By: Dr. Dang on 04-02-2022 Hematocrit (Bld) [Volume fraction] 44.4 % 37-47 [facility] INR in Blood by Coagulation assayOrdered By: Dr. Dang on 04-02-2022 INR Coag (Bld) [Relative time] 0.9 {INR} [facility] Ketones Test strip Ql (U)Ord ered By: Dr. Dang on 04-02-2022 Ketones Ql (U) Negative Negative [facility] Laboratory - Chemistry and C hemistry - challengeOrdered By: Dr. Dang on 04-02-2022 ALP [Catalytic activity/Vol] 100 U/L 45-117 [facility] ALT [Catalytic activity/Vol] 25 U/L 13-56 [facility] CO2 [Moles/Vol] 26.0 mmol/L 21.0-32.0 [facility] Globulin (S) [Mass/Vol] 3.7 g/dL 2.2-4.2 [facility] Urea nitrogen/Creatinine [Mass ratio] 16.2 mg/mg 10-20 [facility] Laboratory - CoagulationOrde red By: Dr. Dang on 04-02-2022 aPTT Coag (Bld) [Time] 30.4 s 24.1-36.2 [facility] PT Coag (PPP) [Time] 12.3 s 11.7-14.9 [facility] Laboratory - Hematology and Cell countsOrdered By: Dr. Dang on 04-02-2022 Erythrocyte distribution width (RBC) [Entitic vol] 40.3 fL 35.1-43.9 [facility] Erythrocyte distribution width (RBC) [Ratio] 12.8 % 11.6-14.6 [facility] Immature granulocytes/100 WBC (Bld) 0.200 % 0.0-0.9 [facility] Comment on above: IG% - Immature Granu locytes (promyelocytes, myelocytes and metamyelocytes) > 1% indicates that a LEFT SHIFT is Present. MCH (RBC) [Entitic mass] 27.7 pg 27.0-32.0 [facility] Nucleated RBC/100 WBC (Bld) [Ratio] 0 % 0-5 [facility] Laboratory - Miscellaneous t estsOrdered By: Dr. Dang on 04-02-2022 Service comment (Unsp spec) [Interp] Comment . [facility] Comment on above: Results do not indic ate the presence of a LupusAnticoagulant: abnormal high screening results (PTT-LA,dRVVT, mixing studies), may be due to medication (heparin,warfarin, aspirin), Factor inhibitors, anticardiolipinantibodies, or poor specimen integrity.Performed at: [facility] [id number] Director: Jaxon Love MD, Phone: [phone] at: [facility] [id number] Director: Dillon Young PhD, Phone: [phone] [facility] Auto (RBC) [Mass/Vol]Or dered By: Dr. Dang on 04-02-2022 MCHC (RBC) [Mass/Vol] 31.8 g/dL 32-36 [facility] Nitrite Test strip Ql (U)Ord ered By: Dr. Dang on 04-02-2022 Nitrite Ql (U) Negative Negative [facility] No Panel InformationOrdered By: Dr. Dang on 04-02-2022 Estimated GFR (MDRD) Amer 136 mL/min >60 [facility] Comment on above: GFR Calc Estimated GFR (MDRD) Non-Af Amer 113 mL/min >60 [facility] Comment on above: Non- GFR Calc Hepatitis B Surface Antigen Non-Reactive Nonreactive [facility] Hepatitis C Antibody Non-Reactive Nonreactive [facility] Comment on above: Non Reactive: < 0.8 Equivocal: >/= 0.8 to < 1.0 Reactive: >/= 1.0The CDC recommends that a reactive/equivocal HCV antibody result be followed up by the HCV Nucleic Acid Amplificationtest ([id number]) Miscellaneous Test Comment MAILED SPECIMEN [facility] Platelets bldOrdered By: Dr. Dang on 04-02-2022 Platelets (Bld) [#/Vol] 273 10*3/uL 150-450 [facility] Protein Test strip Ql (U)Ord ered By: Dr. Dang on 04-02-2022 Protein Ql (U) 15 mg/dl Negative [facility] Qualitative QuantiFERON-TB g old in tube testOrdered By: Dr. Dang on 04-02-2022 M. tuberculosis tuberculin stim IFN-g Ql (Bld) 0.24 IU/mL . [facility] Serum hepatitis B virus surf alvaro antibody IgG detectionOrdered By: Dr. Dang on 04-02-2022 HBV surface IgG Ql (S) Non-Reactive [facility] Comment on above: Non Reactive: Incons istent with immunity less than <10 mIU/mL Reactive: Consistent with immunity greater than or equal to 10 mIU/mL Serum or plasma albumin rosa urement (mass/volume)Ordered By: Dr. Dang on 04-02-2022 Albumin [Mass/Vol] 3.6 g/dL 3.2-5.0 [facility] Serum or plasma albumin/glob ulin mass ratioOrdered By: Dr. Dang on 04-02-2022 Albumin/Globulin [Mass ratio] 1.0 {ratio} 0.9-2.4 [facility] Serum or plasma calcium rosa urement (mass/volume)Ordered By: Dr. Dang on 04-02-2022 Calcium [Mass/Vol] 8.9 mg/dL 8.5-10.1 [facility] Serum or plasma creatinine m easurement (mass/volume)Ordered By: Dr. Dang on 04-02-2022 Creatinine [Mass/Vol] 0.62 mg/dL 0.55-1.02 [facility] Comment on above: The validity of the calculated GFR & GFRAA in patients over 70 years has not been determined. Clinical correlation is essential. Serum or plasma urea nitroge n measurement (mass/volume)Ordered By: Dr. Dang on 04-02-2022 Urea nitrogen [Mass/Vol] 10 mg/dL 7-18 [facility] Thin prep Papanicolaou smear with manual screeningOrdered By: Dr. Dang on 04-02-2022 Thin prep Papanicolaou smear with manual screening 13 U/L 15-37 [facility] Thin prep Papanicolaou smear with manual screening 7 5-15 [facility] Thin prep Papanicolaou smear with manual screening Comment . [facility] Comment on above: QuantiFERON-TB Gold Plus is [...] smear with manual screening 0.20 IU/mL . [facility] Thin prep Papanicolaou smear with manual screening 0.34 IU/mL . [facility] Thin prep Papanicolaou smear with manual screening > 10.00 IU/mL . [facility] Thin prep Papanicolaou smear with manual screening Negative Negative [facility] Comment on above: No response to M [...] smear with manual screening 37.6 sec 0.0-47.6 [facility] Thin prep Papanicolaou smear with manual screening 1.12 Ratio 0.00-1.34 [facility] Thin prep Papanicolaou smear with manual screening 40.5 sec 0.0-51.9 [facility] Thin prep Papanicolaou smear with manual screening Comment: . [facility] Comment on above: No lupus anticoagula nt was detected. Thrombin time in platelet po or plasmaOrdered By: Dr. Dang on 04-02-2022 Thrombin time Coag (PPP) [Time] 16.1 sec 0.0-23.0 [facility] Urine blood detectionOrdered By: Dr. Dang on 04-02-2022 RBC Ql (U) Negative Negative [facility] Urine clarityOrdered By: Dr. Dang on 04-02-2022 Clarity (U) Clear Clear [facility] Urine color determinationOrd ered By: Dr. Dang on 04-02-2022 Color (U) Yellow Yellow [facility] Urine creatinine measurement (mass/volume)Ordered By: Dr. Dang on 04-02-2022 Creatinine (U) [Mass/Vol] 203.00 mg/dL NO RANGE EST. [facility] Urine glucose detectionOrder ed By: Dr. Dang on 04-02-2022 Glucose Ql (U) Normal mg/dl Normal [facility] Urine leukocyte esterase det ection by dipstickOrdered By: Dr. Dang on 04-02-2022 Leukocyte esterase Test strip Ql (U) Negative Negative [facility] Urine pHOrdered By: Dr. Bhanu owens on 04-02-2022 pH (U) 7.0 [pH] 5.0 - 8.0 [facility] Urine protein measurement (m ass/volume)Ordered By: Dr. Dang on 04-02-2022 Protein (U) [Mass/Vol] 16.7 mg/dL 0.0-11.8 [facility] Urine protein/creatinine mas s ratioOrdered By: Dr. Dang on 04-02-2022 Protein/Creatinine (U) [Mass ratio] 82 mg/g CRE 0-200 [facility] Urine specific gravity measu rementOrdered By: Dr. Dang on 04-02-2022 Specific gravity (U) [Rel density] 1.010 1.002-1.030 [facility] Urobilinogen Auto test strip Ql (U)Ordered By: Dr. Dang on 04-02-2022 Urobilinogen Ql (U) Normal mg/dl Normal [facility] CR Foot Complete 3+ Views [place] 01-31-2022 CR Foot Complete 3+ Views Left Patient Name: LAXMI GAONA Diagnostic Radiology ACCESSION EXAM DATE/TIME PROCEDURE ORDERING PROVIDER [id number] 01/31/2022 10:01 EDT CR Foot Complete 3+ [id number] -CARLITOS ABURTO Views Left CPT code 10014 Reason For Exam (CR Foot Complete 3+ [...] Transcribed Date and Time: 02/01/2022 1:08 Normal [facility] AUTOIMMUNE MULTIPLEX PANELon 10-23-2021 Interpretation and review of laboratory results Normal [facility] Nuclear Ab IA Ql (S) Negative Negative [place] All antibody levels for systemic autoimmune disease [...] Antibody, SS-B Antibody, Centromere Antibody, Baker Antibody, Baker/INTERCHANGE AGENT Antibody, INTERCHANGE AGENT Antibody, Scleroderma-70 Antibody, ANGELICA-1 Antibody, Ribosomal P Antibody, Chromatin Antibody. [facility] MAR SCREEN Negative Normal Negative [facility] Comment on above: Order Comment: [...] Antibody, SS-B Antibody, Centromere Antibody, Baker Antibody, Baker/INTERCHANGE AGENT Antibody, INTERCHANGE AGENT Antibody, Scleroderma-70 Antibody, ANGELICA-1 Antibody, Ribosomal P Antibody, Chromatin Antibody. Performed By: #### a na #### [facility] [address] [place] [address], C-REACTIVE PROTEINon 022 CRP [Mass/Vol] 1.1 mg/dL High <0.8 [facility] Interpretation and review of laboratory results Abnormal [facility] CRP 1.1 mg/dL High <0.8 [facility] Comment on above: Performed By: #### C RP, C3, C4, TSH HS #### [facility] [address] [place] [address], C3 COMPLEMENTon 10-23-2021 Complement C3 [Mass/Vol] 158 mg/dL 81 - 163 mg/dL [facility] C3 158 mg/dL Normal 81-163 [facility] Comment on above: Performed By: #### C RP, C3, C4, TSH HS #### [facility] [address] [place] [address], C4 COMPLEMENTon 10-23-2021 Complement C4 [Mass/Vol] 44 mg/dL 14 - 46 mg/dL [facility] C4 44 mg/dL Normal 14-46 [facility] Comment on above: Performed By: #### C RP, C3, C4, TSH HS #### [facility] [address] [place], [id number] CBC WITH DIFFERENTIALon Basophils (Bld) [#/Vol] 0.04 10*3/uL 0.00 - 0.20 K/uL [facility] Basophils/100 WBC (Bld) 0.4 % <=1.9 [facility] Eosinophils (Bld) [#/Vol] 0.13 10*3/uL 0.00 - 0.70 K/uL [facility] Eosinophils/100 WBC (Bld) 1.5 % 0.1 - 4.0 % [facility] Erythrocyte distribution width (RBC) [Ratio] 13.9 % 11.5 - 14.5 % [facility] Hematocrit (Bld) [Volume fraction] 41.3 % 36.0 - 46.0 % [facility] Hemoglobin (Bld) [Mass/Vol] 13.7 g/dL 12.0 - 15.0 g/dL [facility] Interpretation and review of laboratory results [...] Performed By: #### Joyce PARKER, ESR #### [facility] [address] [place] [address], Basophils/100 WBC (Bld) 0.4 % Normal <=1.9 [facility] Comment on above: Performed By: #### Joyce PARKER, ESR #### [facility] [address] [place] [address], Eosinophils (Bld) [#/Vol] 0.13 10*3/uL Normal 0.00-0.70 [facility] Comment on above: Performed By: #### Joyce PARKER, ESR #### [facility] [address] [place] [address], Eosinophils/100 WBC (Bld) 1.5 % Normal 0.1-4.0 [facility] Comment on above: Performed By: #### Joyce PARKER, ESR #### [facility] [address] [place] [address], Erythrocyte distribution width (RBC) [Ratio] 13.9 % Normal 11.5-14.5 [facility] Comment on above: Performed By: #### Joyce PARKER, ESR #### [facility] [address] [place] [address], Hematocrit (Bld) [Volume fraction] 41.3 % Normal 36.0-46.0 [facility] Comment on above: Performed By: #### Joyce PARKER, ESR #### [facility] [address] [place] [address], Hemoglobin (Bld) [Mass/Vol] 13.7 g/dL Normal 12.0-15.0 [facility] Comment on above: Performed By: #### Joyce PARKER, ESR #### [facility] [address] [place] [address], Lymphocytes (Bld) [#/Vol] 1.71 10*3/uL Normal 1.00-4.80 [facility] Comment on above: Performed By: #### Joyce PARKER, ESR #### [facility] [address] [place] [address], Lymphocytes/100 WBC (Bld) 19.8 % Low 24.0-44.0 [facility] Comment on above: Performed By: #### Joyce PARKER, ESR #### [facility] [address] [place] [address], MCH (RBC) [Entitic mass] 28.2 pg Normal 26.0-34.0 [facility] Comment on above: Performed By: #### Joyce PARKER, ESR #### [facility] [address] [place] [address], MCHC (RBC) [Mass/Vol] 33.2 g/dL Normal 32.0-35.9 [facility] Comment on above: Performed By: #### Joyce PARKER, ESR #### [facility] [address] [place] [address], MCV (RBC) [Entitic vol] 85 fL Normal 80-100 [facility] Comment on above: Performed By: #### Joyce PARKER, ESR #### [facility] [address] [place] [address], MONOCYTE DISTRIBUTION WIDTH Normal [facility] Comment on above: Performed By: #### Joyce PARKER, ESR #### [facility] [address] [place] [address], Monocytes (Bld) [#/Vol] 0.30 10*3/uL Normal 0.20-1.00 [facility] Comment on above: Performed By: #### Joyce PARKER, ESR #### S [facility] LAB[facility]AT[facility] [address] [place], [place], Monocytes/100 WBC (Bld) 3.5 % Normal 2.0-11.0 [facility] Comment on above: Performed By: #### C SUDHAKARDSAT, ESR #### S [facility] LAB[facility] [address] [place], [place], Neutrophils (Bld) [#/Vol] 6.43 10*3/uL Normal 1.50-8.00 [facility] Comment on above: Performed By: #### C BCDSAT, ESR #### S [facility] [address] [place], [place], Neutrophils/100 WBC (Bld) 74.8 % Normal 31.0-76.0 [facility] Comment on above: Performed By: #### C BCDSAT, ESR #### [facility] [address] [place] [address], Platelet mean volume (Bld) [Entitic vol] 9.8 fL Normal 7.5-11.2 [facility] Comment on above: Performed By: #### C SUDHAKARDSAT, ESR #### [facility] [address] [place], [place], Platelets (Bld) [#/Vol] 190 10*3/uL Normal 150-400 [facility] Comment on above: Performed By: #### C BCDSAT, ESR #### [facility] [address] [place], [place], RBC (Bld) [#/Vol] 4.86 10*6/uL Normal 4.00-5.20 [facility] Comment on above: Performed By: #### C BCDSAT, ESR #### S [facility] [address] [place], [place], WBC (Bld) [#/Vol] 8.6 10*3/uL Normal 4.5-11.5 [facility] Comment on above: Performed By: #### C BCDSAT, ESR #### S [facility] [address] [place] [address], ERYTHROCYTE SEDIMENTATION RA Arabella 10-23-2021 ESR (Bld) [Velocity] 32 mm/h High <=30 mm/Hr [facility] Interpretation and review of laboratory results Abnormal [facility] ESR (Bld) [Velocity] 32 mm/h High <=30 [facility] Comment on above: Performed By: #### C BCDSAT, ESR #### [facility] [address] [place], [place], No Panel Informationon 10-23 Interpretation and review of laboratory results Normal [facility] Progress Noteson 10-23-2021 Development System Efficiency Manager Authentication Interface Message Text New Rheumatology Note [...] no surgeries SocialHx: never smoker; works at [employer] FamilyHx: mom catarats; dad dialysis; dad mac [...] or prn Zahra Wilkes MD Normal [facility] Development System Efficiency Manager Authentication Interface Message Text 10:42 AM Patient was identified by name and date of . Ani Turner Patient at risk for falls:No Falls Risk protocol implemented: No Normal [facility] TSHon 10-23-2021 Interpretation and review of laboratory results Normal [facility] TSH Qn 1.119 m[IU]/L [facility] Comment on above: Referance range for women as applicable: First Trimester: 0. 050 to 3.700 uIU/mL Second Trimester: 0. 310 to 4.350 uIU/mL Third Trimester: 0. 410 to 5.180 uIU/mL [facility] TSH 1.119 uIU/mL Normal 0.450-5.330 [facility] Comment on above: Result Comment: Refe vel range for women as applicable: First Trimester: 0. 050 to 3.700 uIU/mL Second Trimester: 0. 310 to 4.350 uIU/mL Third Trimester: 0. 410 to 5.180 uIU/mL Performed By: #### C RP, C3, C4, TSH HS #### [facility] [address] [place] [address], [id number] URINALYSIS W/MICROSCOPIC (RE GARDLESS)Ordered By: Raquel Wilson [...] Qn (U) 0.2 mg/dL 0.2 - 1.0 [facility] negative leukocyte esterase AND negative nitrite [...] (positive predictive value for UTI around 50%) [facility] URINALYSIS W/MICROSCOPIC (RE GARDLESS)on 10-23-2021 Glucose Ql (U) Negative Normal Negative [facility] Comment on above: Order Comment: [...] #### U AM #### [facility] [address] [place] [address], [phone] U APPEAR Clear Normal Clear [facility] Comment on above: Order Comment: [...] #### U AM #### S [facility] [address] [place] [address], U BILI Negative Normal Negative [facility] Comment on above: Order Comment: A [...] 50%) Performed By: #### U AM #### [facility] [address] [place] [address], U BLOOD Negative Normal Negative [facility] Comment on above: Order Comment: A [...] 50%) Performed By: #### U AM #### [facility] [address] [place] [address], U COLOR Yellow Normal Yellow [facility] Comment on above: Order Comment: A [...] 50%) Performed By: #### U AM #### [facility] [address] [place] [address], U KETONE Negative Normal Negative [facility] Comment on above: Order Comment: A [...] 50%) Performed By: #### U AM #### [facility] [address] [place] [address], U LEUK Negative Normal Negative [facility] Comment on above: Order Comment: A [...] 50%) Performed By: #### U AM #### [facility] [address] [place] [address], U NITRITE Negative Normal Negative [facility] Comment on above: Order Comment: A [...] 50%) Performed By: #### U AM #### [facility] [address] [place] [address], U PH 6.5 Normal 5.0-8.0 [facility] Comment on above: Order Comment: A [...] 50%) Performed By: #### U AM #### [facility] [address] [place] [address], U PROTEIN Negative Normal Negative [facility] Comment on above: Order Comment: A [...] 50%) Performed By: #### U AM #### [facility] [address] [place], [place], U SG 1.020 Normal 1.005-1.030 [facility] Comment on above: Order Comment: A [...] #### U AM #### [facility] [address] [place], [place], U UROBILI 0.2 mg/dL Normal 0.2 - 1.0 [facility] Comment on above: Order Comment: [...] 50%) Performed By: #### U AM #### [facility] [address] [place], [place], XR KNEE LEFT (1-2 VIEWS)on 0 09-19-2021 Patient Name: LAXMI GAONA Diagnostic Radiology ACCESSION EXAM DATE/TIME PROCEDURE ORDERING PROVIDER [id number] 09/18/2021 11:25 EDT CR Knee 1 or 2 Views FLAVIO WARD Left CPT code 49861 Reason For Exam (CR Knee 1 or [...] ALFRED Transcribed Date and Time: 09/19/2021 0:01 [facility] Norman Deal DO - 09/19/2021 Patient Name: LAXMI GAONA Diagnostic Radiology ACCESSION EXAM DATE/TIME PROCEDURE ORDERING PROVIDER [id number] 09/18/2021 11:25 EDT CR Knee 1 or 2 Views FLAVIO WARD Left CPT code 65975 Reason For Exam (CR Knee 1 or [...] ALFRED Transcribed Date and Time: 09/19/2021 0:01 [facility] Work Phone: XR KNEE LEFT (1-2 VIEWS)Orde red By: Norman Deal on 09-19-2021 [facility] Work Phone: CR Knee 1 or 2 Views Lefton 09-18-2021 CR Knee 1 or 2 Views Left Patient Name: LAXMI GAONA Diagnostic Radiology ACCESSION EXAM DATE/TIME PROCEDURE ORDERING PROVIDER [id number] 09/18/2021 11:25 EDT CR Knee 1 or 2 Views FLAVIO WARD Left CPT code 67672 Reason For Exam (CR Knee 1 or [...] Transcribed Date and Time: 09/19/2021 0:01 Normal [facility] CR Knee Standing Bilateralon 09-18-2021 CR Knee Standing Bilateral Patient Name: LAXMI GAONA Diagnostic Radiology ACCESSION EXAM DATE/TIME PROCEDURE ORDERING PROVIDER [id number] 09/18/2021 11:25 EDT CR Knee Standing AP FLAVIO WARD S Bilateral CPT code 72779 Reason For Exam (CR Knee Standing AP [...] Report Dictated on Final Dictating Physician: MD YAP AHMAD Signed Date and Time: 09/18/2021 5:56 pm Signed by: MD YAP AHMAD Transcribed Date and Time: 09/18/2021 5:57 Normal [facility] No Panel Informationon 09-18 Radiology Study observation (narrative) [facility] Work Phone: XR KNEE BILATERAL STANDINGon 09-18-2021 Patient Name: LAXMI GAONA Diagnostic Radiology ACCESSION EXAM DATE/TIME PROCEDURE ORDERING PROVIDER [id number] 09/18/2021 11:25 EDT CR Knee Standing AP FLAVIO WARD S Bilateral CPT code 76925 Reason For Exam (CR Knee Standing AP [...] AHMAD Transcribed Date and Time: 09/18/2021 5:57 [facility] Consuelo Yap MD - 09/18/2021 Patient Name: LAXMI GAONA Diagnostic Radiology ACCESSION EXAM DATE/TIME PROCEDURE ORDERING PROVIDER [id number] 09/18/2021 11:25 EDT CR Knee Standing AP FLAVIO WARD S Bilateral CPT code 28652 Reason For Exam (CR Knee Standing AP [...] AHMAD Transcribed Date and Time: 09/18/2021 5:57 [facility] Work Phone: XR KNEE BILATERAL STANDINGOr dered By: Consuelo Yap on 09-18-2021 [facility] Work Phone: CR Spine Cervical 2 or 3 Vie wson 06-28-2021 CR Spine Cervical 2 or 3 Views Patient Name: LAXMI GAONA Diagnostic Radiology ACCESSION EXAM DATE/TIME PROCEDURE ORDERING PROVIDER [id number] 06/28/2021 10:00 EST CR Spine Cervical 2 or 3 FREDA MAHONEY KRISTINA Views CPT code 68845 Reason For Exam (CR Spine Cervical 2 [...] Transcribed Date and Time: 06/29/2021 9:18 Normal [facility] CR Spine Lumbosacral 2 or 3 Viewson 06-28-2021 CR Spine Lumbosacral 2 or 3 Views Patient Name: LAXMI GAONA Diagnostic Radiology ACCESSION EXAM DATE/TIME PROCEDURE ORDERING PROVIDER [id number] 06/28/2021 10:00 EST CR Spine Lumbosacral 2 LALLEY, SOLAR MANAGER, EFRAÍN or 3 Views CPT code 97807 Reason For Exam (CR Spine Lumbosacral 2 [...] Transcribed Date and Time: 06/29/2021 9:17 Normal [facility] XR Knee Bilateral Standardon 06-23-2019 Patient Name: LAXMI GAONA ---Diagnostic Radiology--- Exam Date/Time 06/23/2019 14:59:37 EST Exam CR Knee 3 Views Bilateral Ordering Physician FLAVIO WARD Accession Number [id number] CPT4 Codes 90604 () Reason For Exam Patellofemoral pain syndrome [...] HARLAN Transcribed Date and Time: 06/23/2019 3:11 [facility], [place], [facility] Results From [facility] - 06/23/2019 3:14 PM EST Patient Name: LAXMI GAONA ---Diagnostic Radiology--- Exam Date/Time 06/23/2019 14:59:37 EST Exam CR Knee 3 Views Bilateral Ordering Physician FLAVIO WARD Accession Number [id number] CPT4 Codes 36883 () Reason For Exam Patellofemoral pain syndrome [...] HARLAN Transcribed Date and Time: 06/23/2019 3:11 [facility], [place] XR Knee Bilateral Standingon 06-23-2019 Patient Name: LAXMI GAONA ---Diagnostic Radiology--- Exam Date/Time 06/23/2019 14:58:56 EST Exam CR Knee Standing AP Bilateral Ordering Physician FLAVIO WARD Accession Number [id number] CPT4 Codes 45049 () Reason For Exam Patellofemoral disorders, left [...] HARLAN Transcribed Date and Time: 06/23/2019 3:11 [facility], [place], [facility] Incoming Radiology Results From [facility] - 06/23/2019 3:13 PM EST Patient Name: LAXMI GAONA ---Diagnostic Radiology--- Exam Date/Time 06/23/2019 14:58:56 EST Exam CR Knee Standing AP Bilateral Ordering Physician FLAVIO WARD Accession Number [id number] CPT4 Codes 31876 () Reason For Exam Patellofemoral disorders, left [...] HARLAN Transcribed Date and Time: 06/23/2019 3:11 [place], [place] ROUTINE EKG TREADMILL STRESS TESTon 06-10-2019 EXERCISE ECG STRESS TEST Cole Protocol PATIENT: Laxmi Gaona STUDY DATE: 06/10/2019 : 1980 AGE: 39 HT/WT: 165.1 cm (65 125 kg in) (275 lb) GENDER: F BP: 132 / 90 LOCATION: [facility] PATIENT Outpatient [facility] STATUS: Medical Center *ORDERING PHYSICIAN: * Angela [...] peak heart rate and blood pressure was 0[address]20 mm Hg/min. Stress testing did not produce [...] Roddy Agee MD 06/10/2019 16:45 Prior Signatures: [employer], [facility], [facility] Incoming Cardiology Results From [employer] - 06/10/2019 4:45 PM EST EXERCISE ECG STRESS TEST Cole Protocol PATIENT: Laxmi Gaona STUDY DATE: 06/10/2019 : 1980 AGE: 39 HT/WT: 165.1 cm (65 125 kg in) (275 lb) GENDER: F BP: 132 / 90 LOCATION: [facility] PATIENT Outpatient [facility] STATUS: Medical Center *ORDERING PHYSICIAN: * Angela [...] peak heart rate [place] blood [place] [address] mm Hg/min. Stress testing did not produce [...] Roddy Agee MD 06/10/2019 16:45 Prior Signatures: [employer] XR CHEST STANDARD (2 VW)on 0 05-26-2019 Patient Name: LAXMI GAONA ---Diagnostic Radiology--- Exam Date/Time 05/26/2019 13:24:23 EST Exam CR Chest PA/LAT Ordering Physician CHANDRAKANT GILLESPIE MICHELLE Accession Number [id number] CPT4 Codes 08075 () Reason For Exam Chest pain, unspecified Report CLINICAL INFORMATION: Chest pain, unspecified Frontal and lateral views of the chest were obtained. Comparison: December 16, 2018 two view chest No acute pulmonary disease is noted. The cardiovascular silhouette is within normal limits. There are no pleural effusions. Osseous structures appear grossly intact. IMPRESSION: No acute pulmonary disease. Report Dictated on Workstation: [facility] --- Final --- Dictated: 05/26/2019 2:25 pm Dictating Physician: MD NEWSOME BRIAN Signed Date and Time: 05/26/2019 2:26 pm Signed by: MD NEWSOME BRIAN Transcribed Date and Time: 05/26/2019 2:25 [facility] Work Phone: [place], [facility] Incoming Radiology Results From [facility] - 05/26/2019 2:27 PM EST Patient Name: LAXMI GAONA ---Diagnostic Radiology--- Exam Date/Time 05/26/2019 13:24:23 EST Exam CR Chest PA/LAT Ordering Physician CHANDRAKANT GILLESPIE MICHELLE Accession Number [id number] CPT4 Codes 49634 () Reason For Exam Chest pain, unspecified Report CLINICAL INFORMATION: Chest pain, unspecified Frontal and lateral views of the chest were obtained. Comparison: December 16, 2018 two view chest No acute pulmonary disease is noted. The cardiovascular silhouette is within normal limits. There are no pleural effusions. Osseous structures appear grossly intact. IMPRESSION: No acute pulmonary disease. Report Dictated on Workstation: [facility] --- Final --- Dictated: 05/26/2019 2:25 pm Dictating Physician: MD NEWSOME BRIAN Signed Date and Time: 05/26/2019 2:26 pm Signed by: MD NEWSOME BRIAN Transcribed Date and Time: 05/26/2019 2:25 [facility] Work Phone: ECHO Complete 2D W Doppler W Coloron 02-03-2019 TRANSTHORACIC ECHOCARDIOGRAM PATIENT: Laxmi Gaona STUDY DATE: 02/03/2019 : 1980 AGE: 38 HT/WT: 165.1 cm (65 127 kg in) (279.4 lb) GENDER: F BP: 146 / 88 LOCATION: [facility] PATIENT [facility]patient [facility] STATUS: *ORDERING PHYSICIAN: * Jessika Perales MD *READING PHYSICIAN: * Angella *CLEANING HANDYMAN: * Jessika Gonzalez RDCS, MD AE, RVT, [...] Jessika Perales MD 02/03/2019 15:06 Prior Signatures: [facility], [place], [facility] Incoming Cardiology [facility] - 02/03/2019 3:06 PM EDT TRANSTHORACIC ECHOCARDIOGRAM PATIENT: Laxmi Gaona STUDY DATE: 02/03/2019 : 1980 AGE: 38 HT/WT: 165.1 cm (65 127 kg in) (279.4 lb) GENDER: F BP: 146 / 88 LOCATION: [facility] PATIENT Outpatient [facility] Center STATUS: *ORDERING PHYSICIAN: * Jessika P[place]es MD *READING PHYSICIAN: * Angella, ChelsiCLEANING HANDYMAN: * Margarita Griffin [facility] UNIT[facility] MD AE, RVT, [place] INDICATIONS: Atypical chest [...] Jessika Perales MD 02/03/2019 15:06 Prior Signatures: [facility] [place], [place] Vital Signs Date Time Vital Sign Value Performing Clinician Faci lity 02-09-2025 18:37-0400 Diastolic blood pressure 74 mm[Hg] Sighterel DO Work Phone: [employer] 02-09-2025 18:37-0400 Heart rate 80 /min Stylesight DO Work Phone: [employer] 02-09-2025 18:37-0400 Respiratory rate 18 /min Stylesight DO Work Phone: [employer] 02-09-2025 18:37-0400 SaO2% (BldA) [Mass fraction] 99 % Sighterel DO Work Phone: [employer] 02-09-2025 18:37-0400 Systolic blood pressure 125 mm[Hg] Sighterel DO Work Phone: [employer] 02-09-2025 16:46-0400 Body height 167.6 cm Stylesight DO Work Phone: [employer] 02-09-2025 16:46-0400 Body mass index (BMI) [Ratio] 49.23 kg/m2 Sighterel DO Work Phone: [employer] 02-09-2025 16:46-0400 Body temperature 97.11 [degF] Sighterel DO Work Phone: [employer] 02-09-2025 16:46-0400 Body weight 138.35 kg Sighterel DO Work Phone: [employer] 07-02-2024 08:29-0400 Body height 167.6 cm Noel Marquez DO Work Phone: [facility] [employer] 07-02-2024 08:29-0400 Body mass index (BMI) [Ratio] 50.68 kg/m2 Noel Marquez DO Work Phone: [facility] [employer] 07-02-2024 08:29-0400 Body temperature 97.11 [degF] Noel Marquez DO Work Phone: [facility] [employer] 07-02-2024 08:29-0400 Body weight 142.43 kg Noel Marquez DO Work Phone: [facility] [employer] 07-02-2024 08:29-0400 Diastolic blood pressure 80 mm[Hg] Noel Marquez DO Work Phone: [facility] [employer] 07-02-2024 08:29-0400 Heart rate 85 /min Noel Marquez DO Work Phone: [facility] [employer] 07-02-2024 08:29-0400 SaO2% (BldA) [Mass fraction] 97 % Noel Marquez DO Work Phone: [facility] [employer] 07-02-2024 08:29-0400 Systolic blood pressure 120 mm[Hg] Noel Marquez DO Work Phone: [facility] [employer] 12-24-2023 07:02-0400 Body height 167.6 cm Noel Marquez DO Work Phone: [facility] [employer] 12-24-2023 07:02-0400 Body mass index (BMI) [Ratio] 51.81 kg/m2 Noel Marquez DO Work Phone: [facility] [employer] 12-24-2023 07:02-0400 Body temperature 97 [degF] Noel Marquez DO Work Phone: [facility] [employer] 12-24-2023 07:02-0400 Body weight 145.6 kg Noel Marquez DO Work Phone: [facility] [employer] 12-24-2023 07:02-0400 Diastolic blood pressure 85 mm[Hg] Noel Marquez DO Work Phone: [facility] [employer] 12-24-2023 07:02-0400 Heart rate 81 /min Noel Marquez DO Work Phone: [facility] [employer] 12-24-2023 07:02-0400 SaO2% (BldA) [Mass fraction] 97 % Noel Marquez DO Work Phone: [facility] [employer] 12-24-2023 07:02-0400 Systolic blood pressure 138 mm[Hg] Noel Marquez DO Work Phone: [facility] [employer] 07-19-2023 21:55-0400 Diastolic blood pressure 79 mm[Hg] Salinas Ponce MD Work Phone: [facility] [employer] 07-19-2023 21:55-0400 Heart rate 79 /min Salinas Ponce MD Work Phone: [facility] [employer] 07-19-2023 21:55-0400 Respiratory rate 16 /min Salinas Pocne MD Work Phone: [facility] [employer] 07-19-2023 21:55-0400 SaO2% (BldA) [Mass fraction] 99 % Salinas Ponce MD Work Phone: [facility] [employer] 07-19-2023 21:55-0400 Systolic blood pressure 132 mm[Hg] Salinas Ponce MD Work Phone: [facility] [employer] 07-19-2023 19:36-0400 Body height 167.6 cm Salinas Ponce MD Work Phone: [facility] [employer] 07-19-2023 19:36-0400 Body mass index (BMI) [Ratio] 48.1 kg/m2 Salinas Ponce MD Work Phone: [facility] [employer] 07-19-2023 19:36-0400 Body temperature 98.4 [degF] Salinas Ponce MD Work Phone: [facility] [employer] 07-19-2023 19:36-0400 Body weight 135.17 kg Salinas Ponce MD Work Phone: [facility] [employer] 06-26-2023 10:42-0500 Diastolic blood pressure 84 mm[Hg] Sh Schedule [facility] [employer] 06-26-2023 10:42-0500 Heart rate 76 /min Shmg Schedule [facility] [employer] 06-26-2023 10:42-0500 Systolic blood pressure 138 mm[Hg] Shmg Schedule [facility] [employer] 05-28-2023 09:03-0500 Diastolic blood pressure 100 mm[Hg] Shmg Schedule [facility] [employer] 05-28-2023 09:03-0500 Systolic blood pressure 140 mm[Hg] Shmg Schedule [facility] [employer] 05-28-2023 08:53-0500 Heart rate 72 /min [facility] Schedule [facility] [employer] 05-28-2023 08:53-0500 SaO2% (BldA) [Mass fraction] 98 % Sh[facility] Schedule [facility] [employer] 04-28-2023 06:57-0500 Body height 167.6 cm Noel Sloana DO Work Phone: [facility] [employer] 04-28-2023 06:57-0500 Body mass index (BMI) [Ratio] 49.55 kg/m2 Noel Sloana DO Work Phone: [employer] 04-28-2023 06:57-0500 Body temperature 97 [degF] Noel Sloana DO Work Phone: [employer] 04-28-2023 06:57-0500 Body weight 139.25 kg Noel Sloana DO Work Phone: [employer] 04-28-2023 06:57-0500 Diastolic blood pressure 90 mm[Hg] Noel Sloana DO Work Phone: [employer] 04-28-2023 06:57-0500 Heart rate 77 /min Noel Sloana DO Work Phone: [employer] 04-28-2023 06:57-0500 SaO2% (BldA) [Mass fraction] 97 % Noel Sloana DO Work Phone: [employer] 04-28-2023 06:57-0500 Systolic blood pressure 140 mm[Hg] Noel Sloana DO Work Phone: [employer] 12-06-2022 09:48-0400 Body height 167.6 cm Hair Mike PA-C Work Phone: [employer] 12-06-2022 09:48-0400 Body mass index (BMI) [Ratio] 48.1 kg/m2 Hair IRWIN-C Work Phone: [facility] [employer] 12-06-2022 09:48-0400 Body temperature 97 [degF] Hair Mike PA-C Work Phone: [facility] [employer] 12-06-2022 09:48-0400 Body weight 135.17 kg Hair IRWIN-C Work Phone: [facility] [employer] 12-06-2022 09:48-0400 Diastolic blood pressure 84 mm[Hg] Hair IRWIN-C Work Phone: [facility] [employer] 12-06-2022 09:48-0400 Heart rate 84 /min Hair IRWIN-C Work Phone: [facility] [employer] 12-06-2022 09:48-0400 SaO2% (BldA) [Mass fraction] 95 % Hair IRWIN-C Work Phone: [facility] [employer] 12-06-2022 09:48-0400 Systolic blood pressure 134 mm[Hg] aHir Mike PA-C Work Phone: [facility] [employer] 10-14-2022 06:56-0400 Body height 167.6 cm Noel Lutherpato Work Phone: [facility] [employer] 10-14-2022 06:56-0400 Body mass index (BMI) [Ratio] 49.55 kg/m2 Noel Marquez DO Work Phone: [facility] [employer] 10-14-2022 06:56-0400 Body temperature 97.11 [degF] Noel Marquez DO Work Phone: [facility] [employer] 10-14-2022 06:56-0400 Body weight 139.25 kg Noel Marquez DO Work Phone: [facility] [employer] 10-14-2022 06:56-0400 Diastolic blood pressure 81 mm[Hg] Noel Marquez DO Work Phone: [facility] [employer] 10-14-2022 06:56-0400 Heart rate 73 /min Noel Marquez DO Work Phone: [facility] [employer] 10-14-2022 06:56-0400 SaO2% (BldA) [Mass fraction] 97 % Noel Marquez DO Work Phone: [facility] [employer] 10-14-2022 06:56-0400 Systolic blood pressure 138 mm[Hg] Noel Marquez DO Work Phone: [facility] [employer] 09-26-2022 09:23-0400 Body height 167.6 cm Noel Marquez DO Work Phone: [facility] [employer] 09-26-2022 09:23-0400 Body mass index (BMI) [Ratio] 47.94 kg/m2 Noel Marquez DO Work Phone: [facility] [employer] 09-26-2022 09:23-0400 Body temperature 97.5 [degF] Noel Marquez DO Work Phone: [facility] [employer] 09-26-2022 09:23-0400 Body weight 134.72 kg Noel Marquez DO Work Phone: [facility] [employer] 09-26-2022 09:23-0400 Diastolic blood pressure 83 mm[Hg] Noel Marquez DO Work Phone: [facility] [employer] 09-26-2022 09:23-0400 Heart rate 82 /min Noel Marquez DO Work Phone: [facility] [employer] 09-26-2022 09:23-0400 SaO2% (BldA) [Mass fraction] 98 % Noel Marquez DO Work Phone: [facility] [employer] 09-26-2022 09:23-0400 Systolic blood pressure 121 mm[Hg] Noel Marquez DO Work Phone: [facility] [employer] 07-04-2022 09:07-0400 Body height 167.6 cm Hair Mike PA-C Work Phone: [facility] [employer] 07-04-2022 09:07-0400 Body mass index (BMI) [Ratio] 49.39 kg/m2 Hair Larsono PA-C Work Phone: [facility] [employer] 07-04-2022 09:07-0400 Body temperature 98.01 [degF] Hair Larsono PA-C Work Phone: [facility] [employer] 07-04-2022 09:07-0400 Body weight 138.8 kg Hair Larsono PA-C Work Phone: [facility] [employer] 07-04-2022 09:07-0400 Diastolic blood pressure 86 mm[Hg] Hair Larsono PA-C Work Phone: [facility] [employer] 07-04-2022 09:07-0400 Heart rate 109 /min Hair Larsono PA-C Work Phone: [facility] [employer] 07-04-2022 09:07-0400 SaO2% (BldA) [Mass fraction] 95 % Hair Larsono PA-C Work Phone: [facility] [employer] 07-04-2022 09:07-0400 Systolic blood pressure 142 mm[Hg] Hair Larsono PA-C Work Phone: [facility] [employer] 04-25-2022 17:44-0500 Diastolic blood pressure 86 mm[Hg] Noel Nancebahmana DO Work Phone: [facility] [employer] 04-25-2022 17:44-0500 Heart rate 80 /min Noel Nancebahmana DO Work Phone: [facility] [employer] 04-25-2022 17:44-0500 Systolic blood pressure 128 mm[Hg] Noel Nancella DO Work Phone: [facility] [employer] 04-25-2022 08:49-0500 Body height 167.6 cm Noel Sloana DO Work Phone: [facility] [employer] 04-25-2022 08:49-0500 Body mass index (BMI) [Ratio] 49.39 kg/m2 Noel Goyolla DO Work Phone: [facility] [employer] 04-25-2022 08:49-0500 Body temperature 97.11 [degF] Noel Marquez DO Work Phone: [facility] [employer] 04-25-2022 08:49-0500 Body weight 138.8 kg Noel Marquez DO Work Phone: [facility] [employer] 04-25-2022 08:49-0500 SaO2% (BldA) [Mass fraction] 96 % Noel Marquez DO Work Phone: [facility] [employer] 10-23-2021 10:41-0400 Body height 167.6 cm Zahra Wilkes MD Work Phone: [employer] 10-23-2021 10:41-0400 Body mass index (BMI) [Ratio] 49.55 kg/m2 Zahra Wilkes MD Work Phone: [employer] 10-23-2021 10:41-0400 Body temperature 97.9 [degF] Zahra Wilkes MD Work Phone: [employer] 10-23-2021 10:41-0400 Body weight 139.25 kg Zahra Wilkes MD Work Phone: [employer] 10-23-2021 10:41-0400 Diastolic blood pressure 90 mm[Hg] Zahra Wilkes MD Work Phone: [employer] 10-23-2021 10:41-0400 Heart rate 86 /min Zahra Wilkes MD Work Phone: [employer] 10-23-2021 10:41-0400 Respiratory rate 16 /min Zahra Wilkes MD Work Phone: [employer] 10-23-2021 10:41-0400 Systolic blood pressure 150 mm[Hg] Zahra Wilkes MD Work Phone: [employer] Encounters Encounter Date Encounter Type Care Provider Facility Start: 02-09-2025 End: 02-09-2025 Emergency department patient visit Fior Pritchard DO Work Phone: [facility] Comment on above: Viral syndrome (Prim patrick Dx); Other fatigue Start: 12-16-2024 End: 12-16-[address] Olga Dang MD -[facility] [place] Work Phone: Start: 12-16-2024 End: 12-16-[address] Noel Marquez DO Work Phone: -[facility] [place] Start: 10-21-2024 End: 10-26-2024 Telephone encounter Noel Marquez DO Work Phone: [facility] Comment on above: Medication Problem Start: 09-22-2024 End: 09-22-[address] Noel Marquez DO Work Phone: [facility] Work Phone: Start: 09-22-2024 End: 09-22-[address] Olga Dang MD -[facility] Work Phone: Start: 09-21-2024 End: 09-22-[address] Noel Marquez DO Work Phone: [facility] Work Phone: Start: 09-21-2024 End: 09-21-[address] Olga Dang MD -[facility] [place] Work Phone: Start: 09-21-2024 End: 09-21-2024 ambulatory Olga Dang Facility:[facility] Start: 08-01-2024 End: 08-02-2024 Refill Noel Marquez DO Work Phone: [facility] Start: 07-02-2024 End: 07-02-2024 Office outpatient visit 15 minutes Noel Marquez DO Work Phone: [facility] Comment on above: Primary hypertension (Primary Dx); Psoriasis; Bilateral primary osteoarthritis of knee; Encounter for monitoring NSAID therapy Start: 07-02-2024 End: 07-02-2024 ambulatory [facility] Start: 06-19-2024 End: 06-19-2024 Letter encounter Zahra Wilkes MD Work Phone: [facility] Start: 06-18-2024 End: 06-18-[address] Noel Marquez DO Work Phone: [facility] Work Phone: Start: 06-18-2024 End: 06-18-[address] Olga Dang MD -Laboratory, [place] Work Phone: Start: 06-18-2024 End: 06-18-[address] [facility] Facility:[facility] Start: 05-21-2024 End: 05-21-2024 Telephone encounter Noel Marquez DO Work Phone: [facility] Comment on above: Other (Pharmacy Call ) Start: 05-03-2024 End: 05-03-2024 Refill Noel Marquez DO Work Phone: [facility] Start: 03-29-2024 End: 03-29-[address] Olga Dang MD -Laboratory, [place] Work Phone: Start: 03-29-2024 End: 03-29-[address] [facility] Facility:[facility] Start: 03-13-2024 End: 03-13-2024 Letter encounter Zahra Wilkes MD Work Phone: [facility] Start: 12-29-2023 End: 12-29-[address] [facility] Facility:[facility] Start: 12-24-2023 End: 12-24-2023 Office outpatient visit 15 minutes Noel Marquez DO Work Phone: [facility] Comment on above: Primary hypertension (Primary Dx); NSAID long-term use; Psoriatic arthritis (HCC) Start: 11-16-2023 End: 11-17-2023 Refill Noel Marquez DO Work Phone: [facility] Start: 11-11-2023 End: 11-11-2023 Refill Noel Marquez DO Work Phone: [facility] Start: 07-19-2023 End: 07-19-2023 Emergency department patient visit Salinas Ponce MD Work Phone: [facility] Comment on above: Nausea and vomiting, unspecified vomiting type (Primary Dx); Influenza A; Dehydration Start: 07-01-2023 End: 07-01-2023 ambulatory [facility] Work Phone: Start: 07-01-2023 End: 07-01-2023 Patient encounter procedure [facility] Work Phone: Start: 06-26-2023 End: 06-26-2023 Clinical Support [facility] Schedule [facility] Comment on above: Essential hypertensi on Start: 05-28-2023 End: 05-28-2023 Orders Only Noel Marquez DO Work Phone: [facility] Comment on above: Essential hypertensi on Start: 05-05-2023 End: 05-05-2023 ambulatory [facility] Work Phone: Start: 05-05-2023 End: 05-05-2023 Patient encounter procedure [facility] Work Phone: Start: 04-28-2023 End: 04-28-2023 Office outpatient visit 15 minutes Noel Marquez DO Work Phone: [facility] Comment on above: Primary hypertension (Primary Dx); NSAID long-term use; Psoriatic arthritis (HCC); Class 3 severe obesity due to excess calories with serious comorbidity and body mass index (BMI) of 45.0 to 49.9 in adult (HCC); Unable to lose weight Start: 03-17-2023 End: 03-17-2023 ambulatory [facility] Work Phone: Start: 03-17-2023 End: 03-17-2023 Patient encounter procedure [facility] Work Phone: Start: 12-25-2022 Orders Only Hair Oneil Work Phone: [facility] Start: 12-24-2022 End: 12-24-2022 ambulatory [facility] Work Phone: Start: 12-24-2022 End: 12-24-2022 Patient encounter procedure [facility] Work Phone: Start: 12-06-2022 End: 12-06-2022 Office outpatient visit 15 minutes Hair Mike PA-C Work Phone: [facility] Comment on above: Abrasion, left foot, initial encounter (Primary Dx) Start: 10-21-2022 End: 10-21-2022 ambulatory [facility] Work Phone: Start: 10-21-2022 End: 10-21-2022 Patient encounter procedure [facility] Work Phone: Start: 10-14-2022 End: 10-14-2022 Office outpatient visit 15 minutes Noel Marquez DO Work Phone: [facility] Comment on above: Primary hypertension (Primary Dx); Psoriatic arthritis (HCC); Encounter for monitoring NSAID therapy Start: 09-26-2022 End: 09-26-2022 Office outpatient visit 15 minutes Noel Marquez DO Work Phone: [facility] Comment on above: Lumbar radiculopathy , acute (Primary Dx); Psoriatic arthritis (HCC) Start: 08-26-2022 End: 08-26-2022 ambulatory [facility] Work Phone: Start: 08-26-2022 End: 08-26-2022 Patient encounter procedure [facility] Start: 07-04-2022 Telephone encounter Hair siddiqui PA-C Work Phone: [facility] Comment on above: Other (Covid Test Ne gative ) Start: 07-04-2022 End: 07-04-2022 Office outpatient visit 15 minutes Hair Mike PA-C Work Phone: [facility] Comment on above: Acute non-recurrent maxillary sinusitis (Primary Dx); Psoriatic arthritis (HCC) Start: 07-03-2022 ambulatory [facility] Start: 07-03-2022 Patient encounter procedure Ani Gil RN [facility] Clinical [facility] Start: 07-01-2022 End: 07-01-2022 ambulatory [facility] Work Phone: Start: 07-01-2022 End: 07-01-2022 Patient encounter procedure [facility] Start: 05-23-2022 Orders Only Noel Kirk Goyo bernal DO Work Phone: [facility] Start: 04-25-2022 End: 04-25-2022 Office outpatient visit 25 minutes Noel Yelena Jimmy DO Work Phone: [facility] Comment on above: Primary hypertension (Primary Dx); Psoriasis; Psoriatic arthritis (HCC); FORD (generalized anxiety disorder); Family history of diabetes mellitus in father; Class 3 severe obesity due to excess calories with serious comorbidity and body mass index (BMI) of 45.0 to 49.9 in adult (HCC) Start: 04-02-2022 End: 04-02-2022 Patient encounter procedure [facility] Start: 01-31-2022 ambulatory Marianna Rose [facility] Start: 01-31-2022 End: 01-31-2022 Subsequent hospital visit by physician Carlitos Zaman NP Work Phone: [facility] Comment on above: Left foot pain Start: 12-11-2021 Letter encounter Zahra harvey MD Work Phone: [facility] Start: 12-03-2021 ambulatory [facility]eda [facility] Start: 12-03-2021 End: 12-03-2021 Subsequent hospital visit by physician Arjun [facility] Start: 11-29-2021 End: 11-29-2021 Subsequent hospital visit by physician Arjun Tejeda DO [facility] [place] [facility] Start: 11-26-2021 End: 11-26-2021 Subsequent hospital visit by physician Arjun Tejeda DO [facility] [place] Dept Start: 11-22-2021 End: 11-22-2021 Subsequent hospital visit by physician Arjun Tejeda DO [facility] [place] Dept Start: 11-19-2021 End: 11-19-2021 Subsequent hospital visit by physician Arjun Tejeda DO [facility] [place] Dept Start: 10-29-2021 End: 10-29-2021 Subsequent hospital visit by physician [facility] Start: 10-23-2021 Letter encounter [facility] (Arthritis) Start: 10-23-2021 End: 10-23-2021 ambulatory UNKNOWN PROVIDER Facility:[facility] Start: 10-23-2021 End: 10-23-2021 Office outpatient new 45 minutes Zahra Wilkes MD Work Phone: [facility] Comment on above: Psoriasis (Primary D x); Abnormal laboratory test; Mechanical back pain; Cervical spondylosis; MAR positive; Body mass index (BMI) 45.0-49.9, adult ([facility]) Start: 09-18-2021 ambulatory Flavio Aubrey [facility] Start: 09-18-2021 End: 09-18-2021 Subsequent hospital visit by physician Flavio Ward MD Work Phone: [facility] Start: 09-10-2021 Letter encounter [facility] anay Start: 06-28-2021 End: 06-28-2021 Subsequent hospital visit by physician Efraín Mahoney APRN - [employer] Work Phone: [facility] Comment on above: Chronic neck pain; Acute bilateral low back pain with bilateral sciatica; Chronic midline low back pain without sciatica Start: 06-23-2019 End: 06-23-2019 Subsequent hospital visit by physician Flavio Ward Work Phone: [facility] Comment on above: Patellofemoral pain syndrome of left knee; Patellofemoral pain syndrome of right knee Start: 06-10-2019 End: 06-10-2019 Subsequent hospital visit by physician Angela Gillespie Work Phone: [facility] Comment on above: Chest pain, unspecif ied type Start: 05-26-2019 End: 05-26-2019 Subsequent hospital visit by physician Angela Gillespie Work Phone: [facility] Comment on above: Chest pain, unspecif ied type; SOB (shortness of breath) Start: 02-03-2019 End: 02-03-2019 Subsequent hospital visit by physician Jessika Perales Work Phone: [employer] [facility] Comment on above: Essential hypertensi on; Class 3 severe obesity due to excess calories with serious comorbidity and body mass index (BMI) of 45.0 to 49.9 in adult (HCC); Palpitations; Atypical chest pain Procedures Date Procedure Procedure Detail Performing Clinician Start: 02-09-2025 Radiologic exam chest 2 views Fior Irwin tel DO Work Phone: Start: 02-09-2025 SARS-COV-2, FLU A/B, AND RSV COMBO Fiorмария Castilloel DO Work Phone: Start: 09-22-2024 In-vitro immunologic test Dr. Noel Marquez DO Work Phone: Comment on above: QuantiFERON-TB Gold Plus is a qualitativ e indirect test forM tuberculosis infection (including disease) and isintended for use in conjunction with risk assessment,radiography, and other medical and diagnostic evaluations.The QuantiFERON-TB Gold Plus result is determined bysubtracting the Nil value from either TB antigen (Ag)value. The Mitogen tube serves as a control for the test. No response to M tub erculosis antigens [...] cells for the productionof interferon gamma. Chemiluminescence immunoassaymethodologyPerformed at: [facility] [id number] Director: Dillon Young PhD, Phone: [phone] Start: 09-22-2024 X-ray of chest, PA and lateral views Dr. Noel Marquez DO Work Phone: Start: 07-02-2024 Adult depression screening assessment Magdiel ashly Jimmy DO Work Phone: Start: 07-19-2023 Comprehensive metabolic panel Salinas cosby MD Work Phone: Start: 07-19-2023 SARS-COV-2, FLU A/B, AND RSV COMBO Salinas Ponce MD Work Phone: Start: 05-28-2023 Lipid 1995 panel - Serum or Plasma [facility] Schedule Start: 04-02-2022 Plain chest X-ray Start: 10-23-2021 Assay of thyroid stimulating hormone tsh Zahra Wilkes MD Work Phone: Start: 10-23-2021 C-reactive protein Zahra Wilkes MD Work Phone: Start: 10-23-2021 Urnls dip stick/tablet rgnt auto w/o microscopy Zahra Wilkes MD Work Phone: Start: 09-18-2021 Radiologic examination knee 1/2 views Qian Ward MD Work Phone: Start: 05-02-2020 Lipid 1996 panel - Serum or Plasma Asim Marquez DO Work Phone: Start: 05-01-2020 Microscopic observation [Identifier] in Cervix by Cyto stain Efraín Mahoney APRN - [facility] Work Phone: Start: 04-11-2020 Follow-up visit Start: 06-23-2019 Radiologic exam both knees standing anteropost Flavio Ward Work Phone: Start: 06-23-2019 Radiologic examination knee 3 views Brian Ward Work Phone: Start: 06-10-2019 ROUTINE EKG TREADMILL STRESS TEST Chinmay renee Verna Work Phone: Start: 05-26-2019 Radiologic exam chest 2 views Angela Barreto tevinkelly Work Phone: Start: 02-03-2019 Echo tthrc r-t 2d w/wom-mode compl spec&colr d Jessika Perales Work Phone: Laboratory test result abnormal Abnormal laboratory test Zahra Wilkes MD Work Phone: Plan of Treatment Date Care Activity Detail Author Start: 2055 RSV Immunization for Adults (1 - 1-dose 75+ series) RSV Immunization for Adults (1 - 1-dose 75+ series) [facility] Start: 2040 RSV Immunization age d 60 or older (1 - 1-dose 60+ series) RSV Immunization aged 60 or older (1 - 1-dose 60+ series) [facility] Start: 2030 Shingles (RZV) Vacci ne (1 of 2) Shingles (RZV) Vaccine (1 of 2) [facility] Start: 2030 Shingles Vaccine (1 of 2) Metz gles Vaccine (1 of 2) [facility] Work Phone: Start: 2030 Zoster Vaccines (1 of 2) Zoste r Vaccines (1 of 2) [facility] Start: 05-28-2028 Lipid panel Lipid Panel [facility] Start: 12-17-2025 DTaP/Tdap/Td vaccine (3 - Td or Tdap) DTaP/Tdap/Td vaccine (3 - Td or Tdap) [facility] Start: 12-17-2025 DTaP/Tdap/Td vaccine (3 - Td) DTaP/Tdap/Td vaccine (3 - Td) [facility] [place] Start: 12-17-2025 DTaP/Tdap/Td Vaccine s (3 - Td or Tdap) DTaP/Tdap/Td Vaccines (3 - Td or Tdap) [facility] Start: 12-17-2025 Tetanus vaccination Tetanus (T d or Tdap) Booster [facility] Start: 07-02-2025 Depression Screening Depression Scre ening [facility] Start: 05-02-2025 Lipid panel [facility] Start: 01-19-2025 Influenza vaccination Influenz a Vaccine (#1) [facility] Start: 12-27-2024 End: 12-27-2024 Patient encounter procedure 12/27/2024 8:20 AM EDT Office Visit [facility] [address] [place] [address] Noel Marquez, [address] [place] [address] [facility] Start: 12-20-2024 COVID-19 Vaccine ( season) COVID-19 Vaccine () [facility] Start: 12-20-2024 Influenza vaccination [facility] Start: 06-23-2024 End: 06-23-2024 Patient encounter procedure [facility] Start: 04-26-2024 Cervical cancer screen Cervica l cancer screen [facility] Work Phone: Start: 01-28-2024 End: 01-28-2024 Patient encounter procedure 01/28/2024 11:45 AM EDT Office Visit [facility] [address] [place] [address] Ricardo Win MD [address] [place] [address] [facility] Start: 12-24-2023 End: 12-24-2023 Patient encounter procedure 12/24/2023 7:30 AM EDT Office Visit [facility] [address] [place] [address] Noel Marquez DO [address] [place] [place] [address] [facility] Start: 12-21-2023 COVID-19 Vaccine ( season) COVID-19 Vaccine ( season) [facility] Start: 12-21-2023 COVID-19 Vaccine ( season) COVID-19 Vaccine ( season) [facility] Start: 12-21-2023 Influenza vaccination Influenz a Vaccine (#1) [facility] Start: 10-29-2023 End: 10-29-2023 Patient encounter procedure 10/29/2023 7:00 AM EDT Office Visit [facility] [address] [place] [address] Noel Marquez DO [address] [place] [address] [facility] Start: 10-20-2023 Cervical cancer screen Cervica l cancer screen [place], [place] Start: 10-20-2023 Screening for malign ant neoplasm of cervix [facility] Start: 06-26-2023 End: 06-26-2023 Clinical Support 06/26/2023 9:20 AM EST Clinical Support [facility] [address] [place] [address] [facility] Start: 05-28-2023 End: 05-28-2023 Clinical Support 05/28/2023 9:00 AM EST Clinical Support [facility] [address] [place] [address] [facility] Start: 05-25-2023 Hepatitis B vaccination Hepati tis B (HBV) Vaccine (3 of 3 - 19+ 3-dose series) [facility] Start: 05-25-2023 Hepatitis B Vaccines (3 of 3 - 19+ 3-dose series) Hepatitis B Vaccines (3 of 3 - 19+ 3-dose series) [facility] Start: 05-01-2023 Screening for malign ant neoplasm of cervix [facility] Start: 04-28-2023 End: 04-28-2024 Lipid 1996 panel - Serum or Plasma Lipid panel Lab Routine Primary hypertension Expected: 04/28/2023 (Approximate), Expires: 04/28/2024 [facility] Work Phone: Comment on above: Expected: 04/28/2023 (Approximate), Expires: 04/28/2024 Start: 04-28-2023 End: 04-28-2024 Thyrotropin [Units/volume] in Serum or Plasma [facility] Comment on above: Expected: 04/28/2023 (Approximate), Expires: 04/28/2024 Start: 04-28-2023 End: 04-28-2024 Triiodothyronine (T3) [Mass/volume] in Serum or Plasma T3 Lab Routine Unable to lose weight Expected: 04/28/2023 (Approximate), Expires: 04/28/2024 [facility] Comment on above: Expected: 04/28/2023 (Approximate), Expires: 04/28/2024 Start: 04-28-2023 End: 04-28-2023 Patient encounter procedure [facility] Start: 01-31-2023 Influenza vaccination Flu vaccine (# 1) [facility] Comment on above: Postponed from 11/19 (Patient Refused) Start: 01-27-2023 End: 01-27-2023 Clinical Support 01/27/2023 11:10 AM EDT Clinical Support [facility] [address] [place] [address] [facility] Start: 12-25-2022 End: 12-25-2022 Clinical Support 12/25/2022 1:40 PM EDT Clinical Support [facility] [address] [place] [address] [facility] Start: 12-20-2022 COVID-19 Vaccine ( season) COVID-19 Vaccine ( season) [facility] Start: 12-20-2022 Hepatitis B Vaccines (2 of 3 - 19+ 3-dose series) Hepatitis B Vaccines (2 of 3 - 19+ 3-dose series) [facility] Start: 12-20-2022 Influenza vaccination S [facility] Start: 10-14-2022 End: 10-14-2022 Patient encounter procedure [facility] Start: 09-03-2022 Depression Screen Depression Screen [facility] Start: 07-25-2022 End: 07-25-2022 Patient encounter procedure 07/25/2022 Office Visit [facility] Carlitos Aburto, SALES EXEC - SOLAR MANAGER [address], [place] [id number] [facility] Start: 07-04-2022 End: 07-04-2022 Patient encounter procedure 07/04/2022 Office Visit [facility] Medicine Hair Mike PA-C [address], [place] [id number] [facility] Start: 06-28-2022 Creatinine measurement Basic Metabol ic Panel [facility] Start: 06-28-2022 Depression Screen Depression Screen [facility] Start: 05-23-2022 End: 05-23-2022 ambulatory 05/23/2022 Lab Family Medicine [facility] Start: 04-29-2022 End: 04-29-2022 Patient encounter procedure 04/29/2022 Office Visit [facility] Marianna Rose MD [address] [place], [place] [id number] [facility] Start: 04-10-2022 COVID-19 Vaccine (#1) COVID-19 Vacci ne (#1) [facility] Comment on above: Postponed from 12/07 (Patient Refused) Start: 04-10-2022 COVID-19 Vaccine (1) COVID-19 Vaccin e (1) [facility] Comment on above: Postponed from 06/09 (Patient Refused) Start: 01-19-2022 Influenza vaccination Influenz a Vaccine (#1) [facility] Start: 12-20-2021 Influenza vaccination S [facility] Start: 11-19-2021 Influenza vaccination Influenz a Vaccine (#1) [facility] Start: 10-31-2021 End: 10-31-2021 Patient encounter procedure 10/31/2021 Office Visit Family Medicine Linda Lima, SALES EXEC - STICK INSERTER [address] [place], [place] [id number] [facility] Start: 10-23-2021 End: 10-23-2021 Patient encounter procedure 10/23/2021 Office Visit Rheumatology Zahra Wilkes MD [address] [place] [address] [facility] Start: 07-16-2021 End: 07-16-2021 Patient encounter procedure 07/16/2021 Office Visit Family Medicine Efraín Mahoney, SALES EXEC - STICK INSERTER [address] [place], [place] [id number] [facility] Start: 05-02-2021 [facility] Start: 05-02-2021 Potassium monitoring Potassium monit [facility] Start: 12-20-2020 Influenza vaccination Flu vaccine (# 1) [facility] Start: 2020 Screening for malign ant neoplasm of breast [facility] Start: 05-26-2020 Creatinine monitoring Creatinine mon [place], [place] Start: 05-26-2020 Potassium monitoring Potassium monit [place], [place] Start: 01-28-2020 Influenza vaccination Flu vaccine (# 1) [place], [place] Comment on above: Postponed from 12/20 (Patient Refused) Start: 08-25-2019 End: 08-25-2019 Office Visit 08/25/2019 Office Visit Family Medicine Marianna Rose MD [address] [place], [place] [id number] [facility] Start: 06-16-2019 End: 06-16-2019 Office Visit 06/16/2019 Office Visit Family Medicine Angela Gillespie, SALES EXEC - STICK INSERTER [address] [place], [place] [id number] [facility] Medicine Start: 05-04-2019 Creatinine monitoring Creatinine mon diana [place], [place] Start: 05-04-2019 Potassium monitoring Potassium monit shilo [place] Start: 04-26-2019 End: 04-26-2019 Office Visit 04/26/2019 Office Visit Family Medicine Marianna Rose MD [address] [place], [place] [id number] [facility] Start: 02-22-2019 End: 02-22-2019 Office Visit 02/22/2019 Office Visit Cardiology Jessika Perales MD [address] [facility] [address] [place], [place] [id number] [facility] Start: 06-18-2016 DTaP/Tdap/Td Vaccine s (3 - Td or Tdap) DTaP/Tdap/Td Vaccines (3 - Td or Tdap) [facility] Start: 2010 Screening for malign ant neoplasm of cervix HPV/Cotest [facility] Start: 2007 HPV Vaccine (optiona l start 27-45 years) HPV Vaccine (optional start 27-45 years) [facility] Start: 2001 Screening for malign ant neoplasm of cervix Pap Smear [facility] Start: 1999 Hepatitis A (HAV) Va ccine (optional start 19+ years) Hepatitis A (HAV) Vaccine (optional start 19+ years) [facility] Start: 1999 Tetanus vaccination Tetanus (Td) [facility] Start: 1998 Diabetes mellitus screening Diabetes Screening [facility] Start: 1998 [facility]atitis C screening [facility] Start: 1998 Tetanus + diphtheria + acellular pertussis vaccine (product) Tdap Booster [facility] Start: 1995 HIV screen HIV screen [place], [place] Start: 1995 HIV screening HIV Test [facility] Start: 1993 Varicella vaccination Varicell a Vaccines (1 of 2 - 13+ 2-dose series) [facility] Start: 1993 Varicella Vaccine (1 of 2 - 13+ 2-dose series) Varicella Vaccine (1 of 2 - 13+ 2-dose series) [place] Start: 1992 Depression Screening Depression Scre ening [facility] Start: 1985 COVID-19 Vaccine (#1) COVID-19 Vacci ne (#1) [facility] Start: 1985 COVID-19 Vaccine (1) COVID-19 Vaccin e (1) [facility] Start: 1981 MMR Vaccines (1 of 1 - Standard series) MMR Vaccines (1 of 1 - Standard series) [facility] Start: 1981 Varicella vaccination Varicell a Vaccines (1 of 2 - 2-dose childhood series) [facility] Start: 1980 COVID-19 Vaccine (#1) COVID-19 Vacci ne (#1) [facility] Start: 1980 Basic metabolic 2000 panel - Serum or Plasma Basic Metabolic Panel [facility] Start: 1980 Hepatitis B Vaccines (1 of 3 - 3-dose series) Hepatitis B Vaccines (1 of 3 - 3-dose series) [facility] Start: 1980 Hepatitis C screening Hepatitis C sc reen [facility] Start: 1980 HIV screening HIV Screening [facility] End: 06-10-2019 Nasal cannula oxygen Nasal cannula oxygen Respiratory Care Routine As Needed until discontinued starting 06/10/2019 [place], [place] Comment on above: As Needed until disc ontinued starting 06/10/2019 End: 06-28-2021 XR CERVICAL SPINE (2-3 VIEWS) [facility] Work Phone: Comment on above: 1 Occurrences starti ng 06/28/2021 until 06/28/2021 End: 01-31-2022 XR FOOT LEFT (MIN 3 VIEWS) [facility] Work Phone: Comment on above: 1 Occurrences starti ng 01/31/2022 until 01/31/2022 End: 06-28-2021 XR LUMBAR SPINE (2-3 VIEWS) [facility] Work Phone: Comment on above: 1 Occurrences starti ng 06/28/2021 until 06/28/2021 Immunizations Immunization Date Immunization Notes Care Provider Sree benderjanelle 01-27-2023 hepatitis B vaccine, adult dosage Noel Marquez DO Work Phone: [facility] 12-25-2022 hepatitis B vaccine, adult dosage Hair Mike PA-C Work Phone: [facility] 11-22-2022 hepatitis B vaccine, adult dosage Zahra Wilkes MD Work Phone: [facility] 11-22-2022 HepB recombinant, 3-antigent, [place])3 Hair Mike PA-C Work Phone: [facility] 12-18-2015 tetanus toxoid, reduced diphtheria toxoid, and acellular pertussis vaccine, adsorbed [facility] [place] 03-24-2013 tetanus toxoid, reduced diphtheria toxoid, and acellular pertussis vaccine, adsorbed [facility] [place] Payers Date Payer Category Payer [facility] Care - [facility] [id number] 2025 Unknown [id number] 2023 Self-pay 2023 Unknown [id number] 2022 Medicaid [facility] MED[facility] MEDICA[facility] OD [id number] 2022-Present [address] [place] [address] Medicaid O [id number] 2022 Medicaid HMO [id number] 2021 Blue Cross Blue Shield [employer] - BLUE CROSS [id number] 2021 Unknown [id number] 2017 Unknown BCBS BCBS OUT OF STATE xxxxxxxxxxxxxx 2017-Present [address] [place] [address] xxxxxxxxxxxxxx [id number] 2017 Unknown [id number] 1980 Unknown [id number] 1980 Unknown [id number] 668 1980 Unknown [id number] 668 1980 Unknown [id number] 668 Unknown [id number] 462 Unknown [id number] 462 Unknown [id number] 462 Unknown [id number] 462 Unknown [id number] 462 Unknown [id number] 462 Social History Date Type Detail Facility Start: 05-26-2019 End: 10-23-2021 Tobacco smoking status NHIS Never smoker [place], [place] Start: 05-26-2019 Alcohol intake Current drinker of alcohol (finding) [facility] Work Phone: Start: 04-26-2019 End: 01-31-2022 History SDOH Alcohol Frequency 3 [facility] Work Phone: Start: 04-26-2019 End: 06-28-2021 History SDOH Alcohol Std Drinks 1 [place] Start: 10-19-2018 History SDOH Education 13 [place] Start: 10-19-2018 End: 06-28-2021 History SDOH Financial 5 [place] Start: 10-19-2018 End: 06-28-2021 History SDOH Transport Med 2 [place] Start: 04-26-2019 Alcohol Comment 1 every 2 weeks [facility] Work Phone: Start: 1980 Sex Assigned At Not on file [place] Start: 06-23-2019 End: 02-09-2025 Alcohol intake [facility] Start: 01-27-2019 End: 07-02-2024 Alcohol intake Not Currently [place] Start: 01-25-2019 Alcohol Comment occasionally [place] Start: 03-02-2018 End: 10-23-2021 Tobacco use and exposure Smokeless tobacco non-user [facility] Work Phone: Start: 10-29-2019 End: 01-31-2022 History SDOH Social Connections Living 8 [facility] Work Phone: Start: 06-28-2021 History SDOH Physical Activity DPW 0 [facility] Work Phone: Tobacco smoking stat us [facility] Tobacco smoking consumption unknown [facility] Start: 1980 Sex Assigned At Female [facility] Start: 09-08-2021 End: 12-25-2022 Exposure to SARS-CoV-2 (event) Not sure [facility] Start: 07-04-2022 End: 07-02-2024 History of Social function [facility] Start: 02-07-2022 Gender identity Identifies as female gender (finding) [facility] Start: 02-07-2022 Sexual orientation Heterosexual (finding) [facility] Start: 07-03-2021 End: 11-19-2021 Sex Female (finding) [facility] Clinical Notes 10-23-2021 to 02-09-2025 Cindy Schafer RN - 02/09/2025 6:40 PM EDTCindy Schafer RN - 02/09/2025 6:40 PM EDTDischarge InstructionsAttachmentsTelephone Encounter - Melissa Keysjemal - 10/26/2024 8:02 AM EDTAttachments Note Date & Type Note Facility 02-09-2025 Emergency department Note Discharge teaching completed. Pt verbalizes understanding of medications, times to return to the ED, and follow up care discussed. Pt is stable and ambulatory upon discharge. Pt is a/o x 4; breathing is even and unlabored on room air. No distress noted. Pt leaves ED with all belongings. [facility] 02-09-2025 Note Discharge teaching c ompleted. Pt verbalizes understanding of medications, times to return to the ED, and follow up care discussed. Pt is stable and ambulatory upon discharge. Pt is a/o x 4; breathing is even and unlabored on room air. No distress noted. Pt leaves ED with all belongings. [facility] 02-09-2025 Emergency department Note Discharge teaching completed. Pt verbalizes understanding of medications, times to return to the ED, and follow up care discussed. Pt is stable and ambulatory upon discharge. Pt is a/o x 4; breathing is even and unlabored on room air. No distress noted. Pt leaves ED with all belongings. documented in this encounter [facility] 02-09-2025 Hospital Discharge instructions Fior Pritchard DO - 02/09/2025 5:34 PM EDT In the medical field, there is always a level of diagnostic uncertainty, even if this uncertainty is low. For this reason, it is important to immediately return to the emergency department if you have any new symptoms, worsening symptoms, change of symptoms, or if you have any other concerns. We would be happy to re-evaluate you. Otherwise, please take your medications as prescribed and follow-up as recommended. Some additional instructions, if any, as below: Consider conservative self-care and techniques to reduce the effect of the suspected viral infection. Most viral illness self resolve over time. In the mean time take ibuprofen and tylenol for any fever and pain control. Stay hydrated with lots of water. If your appetite is down, consider soups and other measures to keep you well hydrated and energized. Rest, including lots of sleep and reducing too much strenuous activity. Staying hydrated will help thin your mucus. You could also consider taking allergy medications to help with any congestion such as Claritin-D. Wash your hands and do not share food or utensils. Also be sure to clean frequently touched surfaces around your house such as doorknobs. Return if you have worsening symptoms including fevers not controlled at home with medication, fever >7 days, inability to keep down food and liquids, or any other concern. The following attachments cannot be sent through Care Everywhere.Viral Syndrome Discharge Instructions ([place])documented in this encounter [facility] 10-26-2024 Telephone encounter Note Images from the original note were not included. Message released to patient as written. Noel Marquez DO 10/24/24 8:10 AM There are too many side effects and risks for family doctors to assume management with prescribing Taltz. Those rx have to go through rheumatologists Patient's further questions if applicable: NA Were all questions from office addressed or relayed to the patient from encounter: Yes [facility] [employer] 10-26-2024 Miscellaneous Notes Images from the original note were not included. Message released to patient as written. Noel MarquezDO 10/24/24 8:10 AM There are too many side effects and risks for family doctors to assume management with prescribing Taltz. Those rx have to go through rheumatologists Patient's further questions if applicable: NA Were all questions from office addressed or relayed to the patient from encounter: Yes Images from the original note were not included. Left message to return call Noel MarquezDO 10/24/24 8:10 AM There are too many side effects and risks for family doctors to assume management with prescribing Taltz. Those rx have to go through rheumatologists Name of caller: Laxmi Contact phone number: [phone] Relationship to Patient: patient Provider: Jimmy Practice: [facility] Chief Complaint/Reason for Call: Patient states she is still seeing senior environmental practice leader Dr Dang and she has always been self pay due to office not her accepting insurance. Patient states now she is unable to receive medication Taltz she can't even pay out of pocket for it. Patient is asking can pcp prescribe medication but she still will see provider Laurence. Please advise patient. Best time of day caller can be reached: any Patient advised that office/PCP has 24-48 business hours to return their call: Yes documented in this encounter [facility] 10-25-2024 Telephone encounter Note Images from the original note were not included. Left message to return call Noel Marquez DO 10/24/24 8:10 AM There are too many side effects and risks for family doctors to assume management with prescribing Taltz. Those rx have to go through rheumatologists [facility] 10-21-2024 Telephone encounter Note Name of caller: Laxmi Contact phone number: [phone] Relationship to Patient: patient Provider: Jimmy Practice: [facility] Chief Complaint/Reason for Call: Patient states she is still seeing senior environmental practice leader Dr Dang and she has always been self pay due to office not her accepting insurance. Patient states now she is unable to receive medication Taltz she can't even pay out of pocket for it. Patient is asking can pcp prescribe medication but she still will see provider Laurence. Please advise patient. Best time of day caller can be reached: any Patient advised that office/PCP has 24-48 business hours to return their call: Yes [facility] 09-22-2024 Radiology Diagnostic study note [facility] Imaging Services [address] [place] [address] Chest PA and Lateral MR#: [id number] Acct: [id number] Name: LAXMI GAONA Rep #: [id number] : 1980 F 44 From: Clara Zamora MD PCP: Dr. Noel Marquez, Status: RE G CLI Study:Chest PA and Lateral Date of Exam: 09/22/24 Exam# [id number] Ordering Dr: Olga Dang MD PROCEDURE: CHEST PA AND LATERAL 09/22/2024 REASON FOR EXAM: PAIN TECHNIQUE: Frontal and lateral views of the chest. COMPARISON: 04/02/2022 FINDINGS: No focal consolidations. No pleural effusion or pneumothorax. Cardiac silhouette is within normal limits. No acute fractures. RAD/Chest PA and Lateral IMPRESSION: No focal consolidations. Reading Location: [id number] CC: Dr. Noel Marquez DO; Dr. Olga Dang MD ~ Will Call Order Clerk: Signed [facility] 08-02-2024 Telephone encounter Note Recent Visits Date Type Provider Dept 07/02/24 Office Visit Noel Yelena DO Jimmy [facility] 12/24/23 Office Visit Noel Yelena DO Jimmy [facility] Showing recent visits within past 365 days [...] recent labs completed in chart? N/A None [facility] 08-02-2024 Miscellaneous Notes Recent Visits Date Type Provider Dept 07/02/24 Office Visit Noel Yelena DO Jimmy [facility] 12/24/23 Office Visit Noel Marquez DO [facility] Showing recent visits within past 365 days [...] chart? N/A None documented in this encounter [facility] 07-02-2024 History of Present illness Narrative Images from the original note were not included. [facility] - [address] [facility] [address] Visit type: Established Patient [...] pain. No recent bowel changes. 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 documented in this encounter [facility] [employer] 05-21-2024 Telephone encounter Note Talked to patient and relayed message and she said that she has discussed in great detail with the [employer] about the medications of meloxicam and methotrexate. Patient has been instructed to take the meloxicam very sparingly and only takes the methotrexate once per week. She has been made aware of the risks and interactions of these medications and is very cautious with taking them. Called pharmacist Carlos and relayed message and he verbalized understanding. [facility] [employer] 05-21-2024 Miscellaneous Notes Talked to patient and relayed message and she said that she has discussed in great detail with the [employer] about the medications of meloxicam and methotrexate. Patient has been instructed to take the meloxicam very sparingly and only takes the methotrexate once per week. She has been made aware of the risks and interactions of these medications and is very cautious with taking them. Called pharmacist Carlos and relayed message and he verbalized understanding. Name of caller: Carlos Contact phone number: [phone] Relationship to Patient: Pharmacy Provider: Jimmy Practice: [facility] Chief Complaint/Reason for Call: Pharmacy calling with possible interaction with meloxicam (Mobic) 15 MG tablet and Methotrexate prescribed by a different provider. Please Advise. Best time of day caller can be reached: Any Patient advised that office/PCP has 24-48 business hours to return their call: Yes documented in this encounter [employer] 05-21-2024 Telephone encounter Note Name of caller: Carlos Contact phone number: [phone] Relationship to Patient: Pharmacy Provider: Jimmy Practice: [facility] Chief Complaint/Reason for Call: Pharmacy calling with possible interaction with meloxicam (Mobic) 15 MG tablet and Methotrexate prescribed by a different provider. Please Advise. Best time of day caller can be reached: Any Patient advised that office/PCP has 24-48 business hours to return their call: Yes [employer] 05-03-2024 Telephone encounter Note Recent Visits Date Type Provider Dept 12/24/23 Office Visit DO Diallo Melchor [facility] Showing recent visits within past 365 days and meeting all other requirements Future Appointments Date Type Provider Dept 06/23/24 Appointment DO Diallo Melchor [facility] Showing future appointments within next 90 days [...] 07/19/2023 BUN 12 07/19/2023 CREATININE 0.61 07/19/2023 [employer] 05-03-2024 Miscellaneous Notes Recent Visits Date Type Provider Dept 12/24/23 Office Visit DO Diallo Melchor [facility] Showing recent visits within past 365 days and meeting all other requirements Future Appointments Date Type Provider Dept 06/23/24 Appointment Noel Marquez DO [facility] Showing future appointments within next 90 days [...] CREATININE 0.61 07/19/2023 documented in this encounter [facility] 12-24-2023 History of Present illness Narrative Images from the original note were not included. [facility] [address] [place] [address] [address] [facility] [address] Visit type: Established Patient [...] regular. No melena or blood. Overdue for MAST MAKER exam Pap smear and mammogram--plans to seek [...] without focal deficits. documented in this encounter [facility] 11-17-2023 Telephone encounter Note Recent Visits Date Type Provider Dept 04/28/23 Office Visit Noel Marquez DO [facility] Showing recent visits within past 365 days and meeting all other requirements Future Appointments Date Type Provider Dept 12/24/23 Appointment Noel Marquez DO [facility] Robert Showing future appointments within next 90 days [...] controlled medications from any other provider? N/A [facility] 11-17-2023 Miscellaneous Notes Recent Visits Date Type Provider Dept 04/28/23 Office Visit Noel Kirk DO Jimmy [facility] Showing recent visits within past 365 days and meeting all other requirements Future Appointments Date Type Provider Dept 12/24/23 Appointment Noel Kirk DO Jimmy [facility] Showing future appointments within next [...] other provider? N/A documented in this encounter [facility] 11-11-2023 Telephone encounter Note Recent Visits Date Type Provider Dept 04/28/23 Office Visit Noel Kirk DO Jimmy [facility] Showing recent visits within past 365 days and meeting all other requirements Future Appointments Date Type Provider Dept 12/24/23 Appointment Noel Kirk DO [facility] Showing future appointments within next [...] 07/19/2023 BUN 12 07/19/2023 CREATININE 0.61 07/19/2023 [facility] 11-11-2023 Miscellaneous Notes Recent Visits Date Type Provider Dept 04/28/23 Office Visit Noel Marquez DO [facility] Showing recent visits within past 365 days and meeting all other requirements Future Appointments Date Type Provider Dept 12/24/23 Appointment Noel Marquez DO [facility] Showing future appointments within next 90 [...] CREATININE 0.61 07/19/2023 documented in this encounter [facility] 07-19-2023 Hospital Discharge instructions Salinas Ponce MD - 07/19/2023 9:39 PM EDT Drink plenty of fluids and take Tylenol for aches and pains. Turn to the emergency room if she have high fever or worsening vomiting The following attachments cannot be sent through Care Everywhere.Dehydration Discharge Instructions, Adult ([facility])Flu Discharge Instructions, Adult ([facility])Nausea and Vomiting, Adult ED ([facility])documented in this encounter [facility] 07-19-2023 Emergency department Note EMERGENCY DEPARTMENT ENCOUNTER Pt Name: [...] has 2 dtrs, born in 2016 and 2012. Lives with Serg (father of dtrs). 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 SCREENINGS PHYSICAL EXAM ED Triage Vitals [07/19/231935] [...] MD 07/20/23 0038 documented in this encounter [facility] 07-19-2023 Physician Emergency department Note EMERGENCY DEPARTMENT ENCOUNTER Pt Name: [...] (father of dtrs). 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 Physician EKG interpretation [facility] be found in [facility] RADIOLOGY (Per Emergency Physician): Interpretation per the [...] Medicine Provider Salinas Ponce MD 07/20/23 0038 [facility] 06-26-2023 History of Present illness Narrative Images from the original note were not included. [address] [facility] [id number] @patname@ BP:138/84 P:76 Patient arrived for [...] up 3-4 months documented in this encounter [facility] 06-26-2023 History of Present illness Narrative Images from the original note were not included. [address] [place] [address] [address] [facility] [address] @patname@ BP:138/84 P:76 Patient arrived for [...] 3-4 months NOTED documented in this encounter [facility] [employer] 05-28-2023 History of Present illness Narrative The patient, Laxmi Gaona, identity [...] 10/29/2023 7:00 AM Noel Marquez DO [facility] Blood pressure still too high, increase losartan 100 mg daily. BP check with staff again in 4 weeks Patient notified and appt scheduled documented in this encounter [facility] 04-28-2023 History of Present illness Narrative Images from the original note were not included. [facility] [address] [facility] [address] Visit type: Established Patient [...] 45.0 to 49.9 in adult ([facility]) Comments: Noted, dietitian consultation, discussed GLP-1 agonist [...] are regular. Menses are normal. Overdue for MAST MAKER exam and she plans to obtain options [...] pulses are fair. documented in this encounter [facility] 04-28-2023 Instructions Noel Marquez DO - 04/28/2023 7:00 AM EST Bp ch 4 wks, get MAST MAKER exam soon documented in this encounter [facility] 12-06-2022 History of Present illness Narrative Images from the original note were not included. [facility] [address] [address] Dept: [phone] Dept Loc: [phone] Visit type: Established Patient Reason for Visit: [...] anxiety and morbid obesity who contacted the [facility] for immediate same-day evaluation for concerns [...] disease grandparents GERD (gastroesophageal reflux disease) Hypertension 2019 Pap smear for cervical cancer screening 04/2020 [...] prior to signing but minor errors in windmill mechanic may have occurred. documented in this encounter [facility] [employer] 10-14-2022 History of Present illness Narrative Images from the original note were not included. [facility] [address] [address] Visit type: Established Patient Reason for Visit: [...] dysphagia. No bowel changes. Is due for MAST MAKER exam and mammogram. She defers at today from physician. Has not been taking Arrey or tramadol. Sees rheumatology regularly with routine [...] as directed for allergic reaction [DISCONTINUED] HYDROcodone-acetaminophen (Arrey) 7.5-325 MG tablet Take 1 tablet by [...] of the legs. documented in this encounter [facility] 09-26-2022 History of Present illness Narrative Images from the original note were not included. [facility] [address] [address] Visit type: Established Patient Reason for Visit: [...] res in 1 wk Orders: - HYDROcodone-acetaminophen (Arrey) 7.5-325 MG tablet; Take 1 tablet by mouth 3 times daily as needed for severe pain (7-10) for up to 12 doses. Psoriatic arthritis (HCC) - HYDROcodone-acetaminophen (Arrey) 7.5-325 MG tablet; Take 1 tablet by [...] 45.0 to 49.9 in adult ([facility]) Psoriatic arthritis (HCC) Family history of diabetes [...] without obvious masses. 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 Observe for any pain or weakness of the legs or feet. documented in this encounter [facility] 07-04-2022 Telephone encounter Note Placed call to patient. Was able to speak to patient. All concerns in message have been addressed. [facility] 07-04-2022 Miscellaneous Notes Placed call to patient. Was able to speak to patient. All concerns in message have been addressed. Name of caller: Laxmi Contact phone number: [phone] Relationship to Patient: patient Provider: Chris Practice: [facility] Chief Complaint/Reason for Call: Patient called stating the Hair requested her to take a covid test when she got home. Pt took a covid test and it came back negative. Please advise ( Pharmacy Verified) Best time of day caller can be reached: any Patient advised that office/PCP has 24-48 business hours to return their call: no documented in this encounter [facility] 07-04-2022 Telephone encounter Note Name of caller: Laxmi Contact phone number: [phone] Relationship to Patient: patient Provider: Chris Practice: [...] business hours to return their call: no [facility] 07-04-2022 History of Present illness Narrative Images from the original note were not included. [facility] [address] [address] Dept: [phone] Dept Loc: [phone] Visit type: Pod Scheduled Patient Marianna Rose [...] 2 months at the onset of sickness senior environmental practice leader recommended stopping the medicine Follow up if [...] disease grandparents GERD (gastroesophageal reflux disease) Hypertension 2019 Pap smear for cervical cancer screening 04/2020 [...] prior to signing but minor errors in windmill mechanic may have occurred. documented in this encounter [facility] 07-03-2022 Telephone encounter Note S-Pt left message with Telephone Agent that she has diarrhea, headache vomiting, neck pain and sinus issues R-NO CONTACT Left message on voice mail to call back if needed Reason for Disposition Message left on unidentified voice mail. Phone number verified. Answer Assessment - Initial Assessment Questions . Protocols used: No Contact or Duplicate Contact [id number] [facility] 07-03-2022 Miscellaneous Notes S-Pt left message with Telephone Agent that she has diarrhea, headache vomiting, neck pain and sinus issues R-NO CONTACT Left message on voice mail to call back if needed Reason for Disposition Message left on unidentified voice mail. Phone number verified. Answer Assessment - Initial Assessment Questions . Protocols used: No Contact or Duplicate Contact [id number] documented in this encounter [facility] 04-25-2022 History of Present illness Narrative Images from the original note were not included. [facility] [address] [id number] Visit type: Established Patient Reason for Visit: [...] are regular. Menses are normal. Due for MAST MAKER exam in about a year. Of note [...] and low-fat meals. documented in this encounter [employer] 04-25-2022 Instructions Noel Marquez DO - 04/25/2022 8:40 AM EST bp check with staff in 3-4 wks. documented in this encounter [employer] 10-23-2021 History of Present illness Narrative New Rheumatology Note CC: abnormal labs Referred by: Dr Harrison HPI: Laxmi Gaona is a 41 year [...] no surgeries SocialHx: never smoker; works at [employer] FamilyHx: mom catarats; dad dialysis; dad mac [...] by name and date of . Ani Almazanaleciaadalberto Patient at risk for falls:No Falls Risk [...] mass index (BMI) 45.0-49.9, adult ([facility]) [facility] Left foot pain Pain in limb documented in this encounter [facility] Work Phone: Evaluation noteNo assessment information available [facility] Work Phone: Evaluation note* Diagnosis Lumbar radiculopathy, [...] Unspecified essential hypertension [facility] Diagnosis Essential hypertension Unspecified essential hypertension [facility]* Diagnosis Nausea and vomiting, unspecified vomiting type- Primary Influenza A Influenza with other respiratory manifestations Dehydration Nausea and vomiting Nausea with vomiting Influenza A Influenza with other respiratory manifestations Dehydration documented in this encounter [facility]* Diagnosis Primary hypertension- Primary Unspecified essential hypertension NSAID long-term use Encounter for long-term (current) use of non-steroidal anti-inflammatories Psoriatic arthritis (HCC) Psoriatic arthropathy [facility]* Diagnosis Primary hypertension- Primary Unspecified essential hypertension Psoriasis Other psoriasis Psoriatic arthritis (HCC) Psoriatic arthropathy FORD (generalized anxiety disorder) Generalized anxiety disorder Family history of diabetes mellitus in father Class 3 severe obesity due to excess calories with serious comorbidity and body mass index (BMI) of 45.0 to 49.9 in adult (HCC) [facility] Diagnosis Acute non-recurrent maxillary sinusitis- Primary Psoriatic arthritis (HCC) Psoriatic arthropathy documented in this encounter [facility]* Diagnosis Primary hypertension- Primary Unspecified essential hypertension Psoriasis Other psoriasis Bilateral primary osteoarthritis of knee Encounter for monitoring NSAID therapy [facility] Diagnosis Viral syndrome- Primary Unspecified viral infection, in conditions classified elsewhere and of unspecified site Other fatigue [facility]No reason for referral [facility] Work Phone: Assessments Diagnosis Chest pain, [...] FoundDocuments on File Type Date Recorded Patient 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 Handler Expl anation Advance Directives and Living Will Power of Tire Adjuster Documents on File Type Date Recorded Patient Shoe Handler Expl anation Advance Directives and Living Will Power of Tire Adjuster Documents on File Type Date Recorded Patient Shoe Handler Expl anation ACP-Advance Directive ACP-Power of Tire Adjuster Summary Purpose Family History No Family History [...] W Doppler W Color Jessika Perales MD [address] [place] [id number] Specialty Diagnoses / Procedures Referred By Contac t Referred To Contact Diagnoses Mechanical back pain Cervical spondylosis Zahra Wilkes MD [address] [place] [address] Referral ID Status Reason Start Date Expiration Date V isits Requested Visits Authorized [id number] Authorized 10/23/2021 10/23/2022 3 3 Comments Physical [...] PAIN- COPY PCP June 18, 2024 9:39am Chief Complaint Admit Date S/O- PAIN- COPY PCP June 18, 2024 9:39am S/O- PAIN- COPY PCP September 21, 2024 12:40 pm PAIN- COPY PCP September 22, 2024 4:20p m Chief Complaint Admit Date S/O- PAIN- COPY PCP September 21, 2024 12:40 pm PAIN- COPY PCP September 22, 2024 4:20p m Pain December 16, 2024 4: 14pm Additional Source Comments INFORMATION SOURCE (unrecogn ized section and content) DATE CREATED AUTHOR 04/12/2020 [employer] DATE CREATED AUTHOR AUTHOR'S ORGANIZ ATION 07/02/2021 [employer] DATE CREATED AUTHOR AUTHOR'S ORGANIZ ATION 10/24/2021 [employer] DATE CREATED AUTHOR AUTHOR'S ORGANIZ ATION 02/10/2022 [employer] DATE CREATED AUTHOR AUTHOR'S ORGANIZ ATION 12/24/2024 [facility] DATE CREATED AUTHOR AUTHOR'S ORGANIZ ATION 02/16/2025 [facility] Care Teams (unrecognized sec tion and content) Clip Baker Relationship Specialty Start Date End Date Marianna Rose MD [address], [address] [place] [address] PCP - General Family Medicine 03/02/18 Clip Baker Relationship Specialty Start Date End Date Marianna Rose MD [address], [address] [place] [address] PCP - General Family Medicine 03/02/18 Clip Baker Relationship Specialty Start Date End Date Marianna Rose MD [address] [facility], [address] [place] [address] PCP - General Family Medicine 03/02/18 Clip Baker Relationship Specialty Start Date End Date Zahra Wilkes MD [address] [place] [address] Physician Rheumatology 11/24/21 Clip Baker Relationship Specialty Start Date End Date Noel Marquez DO [address] [place] [address] PCP - General Family Medicine 01/31/22 Team [...] Dr. Olga Dang MD Attending Provider Active Clip Baker Relationship Specialty Start Date End Date Noel Marquez DO [address] [place] [address] PCP - General Family Medicine 09/26/22 Clip Baker Relationship Specialty Start Date End Date Noel Marquez DO [address] [place] [address] PCP - General Family Medicine 09/26/22 Clip Baker Relationship Specialty Start Date End Date Noel Marquez, DO [address] [facility] [place] [address] PCP - General Family Medicine 09/26/22 Clip Baker Relationship Specialty Start Date End Date JimmyNoel, DO [address] [place] [phone] PCP - General Family Medicine 09/26/22 Clip Baker Relationship Specialty Start Date End Date JimmyNoel, DO [address] [place] [place] [phone] PCP - General Family Medicine 09/26/22 Clip Baker Relationship Specialty Start Date End Date GoyobahmanpatoNoel, DO [address] [place] [address] [place] [phone] PCP - General Family Medicine 09/26/22 Clip Baker Relationship Specialty Start Date End Date JimmyNoel, DO [address] [place] [phone] PCP - General Family Medicine 09/26/22 Clip Baker Relationship Specialty Start Date End Date JimmyNoel, DO [address] [place] [phone] PCP - General Family Medicine 09/26/22 Clip Baker Relationship Specialty Start Date End Date JimmyNoel, DO [address] [place] [phone] PCP - General Family Medicine 09/26/22 Clip Baker Relationship Specialty Start Date End Date Noel Marquez DO [address] [place] [phone] PCP - General Family Medicine 09/26/22 Clip Baker Relationship Specialty Start Date End Date Noel Marquez DO [address] [place] [address] PCP - General Family Medicine 09/26/22 [employer]ip [employer] Relationship Specialty Start Date End Date Zahra Wilkes MD [address] [place] [address] Physician Rheumatology 11/24/21 Clip Baker Relationship Specialty Start Date End Date Marianna Rose MD [facility] [place] [address] PCP - General 03/02/18 Clip Baker Relationship Specialty Start Date End Date Marianna Rose MD [address], [address] [place] [address] PCP - General 03/02/18 Clip Baker Relationship Specialty Start Date End Date Marianna Rose MD [address] [place] [address], [address] [place] [address] PCP - General 03/02/18 Clip Baker Relationship Specialty Start Date End Date Marianna Rose MD [address] [place] [address], [address] [place] [address] PCP - General 03/02/18 Clip Baker Relationship Specialty Start Date End Date Marianna Rose MD [address] [place] [address], [address] [place] [address] PCP - General 03/02/18 Clip Baker Relationship Specialty Start Date End Date Noel Marquez [address] [place] [id number] PCP - General Family Medicine 09/26/22 Team [...] June 18, 2024 End: June 18, 2024 Team Status: Inactive Member Role Status Dates Dr. Noel Marquez DO Primary Care Provider Active Start: September 21, 2024 End: September 21, 2024 Dr. Olga Dang MD Attending Provider Active Start: September 21, 2024 End: September 21, 2024 Dr. Olga Dang MD Referring Provider Active Start: September 21, 2024 End: September 21, 2024 Team Status: Active Member Role Status Dates Dr. Noel Marquez DO Primary Care Provider Active Start: September 22, 2024 Dr. Olga Dang MD Attending Provider Active Start: September 22, 2024 Dr. Olga Dang MD Referring Provider Active Start: September 22, 2024 Team Status: Inactive Member Role Status Dates Dr. Noel Marquez DO Primary Care Provider Active Start: September 22, 2024 End: September 22, 2024 Dr. Olga Dang MD Attending Provider Active Start: September 22, 2024 End: September 22, 2024 Dr. Olga Dang MD Referring Provider Active Start: September 22, 2024 End: September 22, 2024 Clip Baker Relationship Specialty Start Date End Date Noel Marquez DO [address] [place] [address] PCP - General Family Medicine 09/26/22 Team Status: Active Member Role/Relationship Status Dates Dr. Noel Marquez DO Primary Care Provider Active Team Status: Inactive Member Role/Relationship Status Dates Dr. Noel Marquez DO Primary Care Provider Active Start: September 21, 2024 End: September 21, 2024 Dr. Olga Dang MD Attending Provider Active Start: September 21, 2024 End: September 21, 2024 Dr. Olga Dang MD Referring Provider Active Start: September 21, 2024 End: September 21, 2024 Team Status: Inactive Member Role/Relationship Status Dates Dr. Noel Marquez DO Primary Care Provider Active Start: September 22, 2024 End: September 22, 2024 Dr. Olga Dang MD Attending Provider Active Start: September 22, 2024 End: September 22, 2024 Dr. Olga Dang MD Referring Provider Active Start: September 22, 2024 End: September 22, 2024 Team Status: Inactive Member Role/Relationship Status Dates Dr. Noel Marquez DO Primary Care Provider Active Start: December 16, 2024 End: December 16, 2024 Dr. Olga Dang MD Attending Provider Active Start: December 16, 2024 End: December 16, 2024 Dr. Olga Dang MD Referring Provider Active Start: December 16, 2024 End: December 16, 2024 Reason for Visit (unrecogniz ed section [...] Reason Onset Date Comments Med Refill 08/01/2024 Reason Onset Date Comments Medication Problem 10/21/2024 Reason Comments Fatigue Pt c/o general malai se and fatigue since Friday evening Nausea Joint Pain Goals (unrecognized section and content) Goals may [...] over 1 Hours, Once, On 07/19/23 at 2004, For 1 dose 2019 (New Bag - [...] BE BASED ON THE PRIMARY CLINICAL RECORDS. [employer] [facility]. provides no warranty or guarantee of the accuracy or completeness of information in this document.
[2025-03-18 09:58] LABS: Hematocrit 40.9 % (37-47); Hemoglobin 13.2 g/dL (12.0-15.0); Immature Granulocytes Count 0.040 X10^3/uL (0.0-0.0); Mean Corp Hgb Conc 32.3 g/dL (32-36); Mean Corpuscular Volume 88.1 fL (81-99); Mean Platelet Vol. 11.1 fl (6.2-12.0); NRBC Flagged by Analyzer 0 % (0-5); Platelet Count 244 K/mm3 (150-450); RBC Distribution Width CV 13.1 % (11.6-14.6); RBC Distribution Width SD 42.4 fl (35.1-43.9); Red Blood Count 4.64 M/mm3 (4.2-5.4); White Blood Count 11.1 K/mm3 (4.4-11.0)
[2025-03-18 10:21] LABS: AST(SGOT) 14 U/L (<=31); Alanine Aminotransfer ALT/SGPT 14 U/L (<=34); Albumin, Serum 3.9 g/dL (3.5-5.0); Alkaline Phosphatase 101 U/L (35-104); Anion Gap 11 (5-15); BUN 17 mg/dL (4-19); BUN/Creat Ratio 23.5 RATIO (10-20); Calcium,Total 9.0 mg/dL (7.6-11.0); Carbon Dioxide 23.7 mmol/L (21.0-32.0); Chloride 104 mmol/L (98-108); Globulin 3.4 g/dL (2.2-4.2); Glucose 100 mg/dL (70-99); Potassium 4.1 mmol/L (3.3-5.1)
== END | disposition home or self-care (01) ==
PROVIDERS: PCP Family Medicine; Referring Provider Internal Medicine Rheumatology; Visit Provider Internal Medicine Rheumatology
DX: L40.59 Other psoriatic arthropathy (principal); Z79.899 Other long term (current) drug therapy
CPT/HCPCS: 36415; 80053; 85025